=== PATIENT | female | born 1980 | race Caucasian/White ===

== ENCOUNTER 2023-03-20 14:50 | Outpatient (CLI) | payer OTHER, SELFPAY ==
--- NOTE | 2023-03-20 15:00 | CRLHL7_ITS ---
For Patients: As a result of the Century Cures Act, medical imaging exams and procedure reports are released immediately into your electronic medical record. You may view this report before your referring provider. If you have questions, please contact your health care provider. INDICATION: Dysfunctional uterine bleeding and menorrhagia TECHNIQUE: Ultrasound pelvis transvaginal only COMPARISON: None FINDINGS: Uterus: 6.6 centimeter x 3.3 centimeter x 4.0 centimeter. Normal echotexture of the myometrium. No masses. Endometrium: The endometrium measures 5 millimeter in thickness. No sign of endometrial mass or fluid. Right ovary: 2.5 centimeter x 1.5 centimeter x 2.3 centimeter. No ovarian or adnexal masses. Normal arterial and venous blood flow. Left ovary: 2.9 centimeter x 1.8 centimeter x 1.9 centimeter. No ovarian or adnexal masses. Normal arterial and venous blood flow. Cul-de-sac: No significant free fluid. IMPRESSION: Unremarkable pelvic ultrasound. Dictated by Johann Martin MD @ 03/21/2023 8:33:28 AM (Electronically Signed)
== END 2023-03-20 14:51 | disposition home or self-care (01) ==
LOC: US 14:53
PROVIDERS: Visit Provider Obstetrics & Gynecology
DX: N93.9 Abnormal uterine and vaginal bleeding, unspecified (principal)
CPT/HCPCS: 76830

== ENCOUNTER 2023-08-10 09:44 | Outpatient (CLI) | payer MEDICARE, SELFPAY | END 2023-08-10 09:45 | disposition home or self-care (01) | PROVIDERS: PCP Family Medicine; Visit Provider Family Medicine | DX: E03.9 Hypothyroidism, unspecified (principal); F33.9 Major depressive disorder, recurrent, unspecified; Z86.39 Personal history of other endocrine, nutritional and metabolic disease | CPT/HCPCS: 82607; 84439; 84443 ==

== ENCOUNTER 2023-08-15 08:55 | Day surgery (SDC) | payer MEDICARE, SELFPAY ==
[2023-08-15] VITALS (20 sets, daily range): BP systolic 101–157; BP diastolic 67–94; PULSE 66–96; RESP 12–16; TEMP 36.1–36.6; O2SAT 93–98; BMI 31.1
[2023-08-15 09:33] LABS: Ur HCG Qualitative* Negative (Negative)
[2023-08-15] MEDS: LACTATED RINGERS 1000 ML 1,000 ML 100 ML IV ×2 (09:45→12:19)
[2023-08-15] MEDS: SODIUM CHLORIDE 0.9 % (FLUSH) 10 ML SYRINGE IVF (09:45)
[2023-08-15 10:00] LABS: Hemoglobin* 12.9 gm/dL (12.0-16.0)
--- NOTE | 2023-08-15 10:50 | PM.PROC ---
Procedure Note Time Seen by Provider: 13:28 Date Seen: 08/15/23 Date of procedure: 08/15/23 Will [facility] bill your pro fee for this procedure?: Yes Procedure: Preoperative diagnosis: 42-year-old with chronic pelvic pain, menometrorrhagia and dysmenorrhea who desires definitive treatment. Postoperative diagnosis: Same Procedure: Total laparoscopic hysterectomy, bilateral salpingo oophorectomy diagnostic cystoscopy. Anesthesia: General endotracheal, local Surgeon: Kennedi Guadalupe MD Assist: Kaylen Ku MD Estimated blood loss: 100 mL. IV Fluid: 1700 mL Urine output: 100 mL, clear urine at the end of the procedure Drains: Teran to gravity Specimen: Uterus and bilateral fallopian tubes to pathology. Findings: On exam under anesthesia: The uterus was anteverted less than 8 week size, mobile without nodularity or masses palpable. The patient's umbilicus was just superior to the pubic bone secondary to her panniculectomy. The fascia was so tight that her incision that I made in the midline of the abdomen was puckered after it was closed so looks like she has 2 belly buttons. Adnexa without mass or fullness palpable. On laparoscopy: Multiple endometriosis implants in bilateral broad ligaments otherwise uterus, tubes and ovaries appeared normal. Appendix, liver and gallbladder all appeared normal. Procedure: Marlene was taken to the operating room where general anesthetic was found to be adequate. She was placed in the dorsal lithotomy position and an exam under anesthesia was performed with findings stated above. She was then prepped and draped in a normal sterile manner. A Teran catheter was placed. A bivalve speculum was placed in the vaginal canal. A long Allis clamp was placed on the anterior lip of the cervix, in the uterus sounded to 8 cm. A large VCare uterine manipulator was then placed. The Allis clamp and speculum were removed from the cervix. Attention was then turned to performing the laparoscopic portion of the procedure. All incisions were infiltrated with 0.50% Marcaine prior to incising the skin. A horizontal, mid abdominal, 1 cm incision was made and carried through sharply to the underlying layer of fascia. The fascia was grasped with 2 Donald clamps, tented up and incised with the Booth scissors. This incision was extended slightly on the right and left lateral apices. A figure of 8 suture using 0 Vicryl on a UR 6 needle was placed and the tails of the suture grasped with a small Madhavi clamp. The peritoneum was then identified grasped with 2 Madhavi clamps and entered sharply with Metzenbaum scissors. A Coffman trocar was then placed. The abdomen was then insufflated with CO2 gas to a pressure of 15 mm of mercury. Two, pelvic ports were then placed approximately 3-4 finger breaths medial to the ischial crests. The trocar in the RLQ = 5mm, LLQ = 11mm. These were placed under direct visualization. Attention was then turned to performing the hysterectomy. Both ureters were visualized in the normal position bilaterally. The infundibulo-pelvic ligament was grasped doubly cauterized and ligated with the [employer] dissecting forceps. Sequential pedicles were then formed using the [employer] forceps and the tube in ovary removed from the uterus at the cornua and placed in the posterior cul-de-sac. The right ovary and tube were then removed in a similar manner and also placed in the cul-de-sac. The left side of the hysterectomy was performed using the [employer] dissecting forceps. The 1st pedicles were starting with the broad ligament that was cauterized and and bisected. In sequence show pedicles were formed to divide the utero-ovarian ligament. Then sequential pedicles were made through the broad ligament. The posterior leaf of the broad ligament was then divided and sequential pedicles carried down to the level of the VCare cup. The anterior leaf of the broad ligament was then divided down to the level of the anterior aspect of the VCare cup and a bladder flap created. The uterine vessels were then skeletonized. The uterine vessels were then cauterized and divided. Then excess tissue was cleared over the top of the VCare cup using the dissecting forceps. The right side of the hysterectomy was then performed in a similar manner. The Ligasure Valleylab pen with the spatula attachment was then used to perform the colpotomy incising around the VCare cup. The uterus was removed and the fundus placed in the vaginal canal to maintain insufflation. The vaginal cuff was then reapproximated using 2-0 V lock suture in a running manner. All the pedicles and vaginal cuff were then closely visualized and hemostasis obtained with bipolar cautery using the Power[employer] dissecting forceps or the [employer] pen with the spatula. The the uterus was removed from the vaginal canal and sent to pathology. The Teran catheter was briefly removed. A diagnostic cystoscopy was performed using normal saline as the insufflation medium. The dome of the bladder was noted to be without injury and no evidence of any sutures from the vaginal cuff causing injury. Normal urine flow was noted through both ureteral orifices. Fluorescein IV was used to visualize the urine more easily. The Teran catheter was then replaced. Attention was then returned to the abdomen where hemostasis was verified. [Kely was applied to the vaginal cuff.] The CO2 pressure decreased to 8mmHG and hemostasis verified. The fascia in the LLQ incision was approximated with 0-Vicryl suture using the [employer] fascial closure device. This was closed under direct visualization with the laparoscope. The fascia in the umbilical incision was reapproximated using 0 Vicryl on a UR 6 needle. All trocars were removed under direct visualization. CO2 gas was allowed to escape the infraumbilical port prior to its removal. All skin incisions were re-approximated using 4-0 Monocryl in a running subcuticular manner, Exofin skin adhesive gel and adhesive bandages placed. The patient tolerated this procedure well. Sponge, lap and instrument counts were correct x2 at the end of the procedure and the patient was taken to the recovery area in stable condition. The patient received 2gm IV ancef prior to the start of the procedure. Anesthesia: GETA and local Estimated blood loss (mL): 50 IV fluids (mL): 1,700 Urine output (mL): 100 Pathology: specimen obtained, sent to pathology Condition: stable Disposition: PACU
[2023-08-15] MEDS: CEFAZOLIN 1 GM inj 3 GM IVP (11:03)
--- NOTE | 2023-08-15 13:15 | W.PM.NB ---
Nerve Block Nerve Block Time Seen by Provider: 10:46 Date Seen: 08/15/23 Type of block requested by surgeon for post-operative analgesia: TAP Side: bilateral Time out performed: Yes Verification of patient name: Yes Verification of date of : Yes Name of person performing procedure: KATIE Boyce Continuous monitoring Was continuous monitoring of O2 sat, B/P, property assessment monitor, recorded every 15 minutes?: Yes Procedure Checklist: sterile prep, needles and gloves Ultrasound guided. Images saved: Yes Medications given in 5ml increments after negative aspiration: Marcaine (30 ml total) %: 0.5 mL: 15 Needle gauge: 20 and Exparel (10 ml) mL: 5 Needle gauge: 20 Patient tolerated procedure well: Yes Block Charges Block Charge (with Pro Fee): TAP Bilateral Use of Ultrasound Machine for Block: Yes- US Guidance/pain block
[2023-08-15] MEDS: BUPIVACAINE 0.5% 30 ML INJECTION (13:25)
--- NOTE | 2023-08-15 13:37 | W.ANESCHARGE ---
Anesthesia Charges Start Date/Time Anesthesia Start Date: 08/15/23 Anesthesia Start Time: 10:45 Stop Date/Time Anesthesia Stop Date: 08/15/23 Anesthesia Stop Time: 13:39
[2023-08-15] MEDS: fentaNYL 100 MCG/2 ML inj 50 MCG IVP ×2 (13:43→13:52)
[2023-08-15] MEDS: HYDROmorphone 0.5 mg/0.5 ml inj IVP ×4 (13:43→16:34)
--- NOTE | 2023-08-15 14:04 | W.PM.H&PU ---
History & Physical Update History & Physical Update H&P Reviewed and patient assessed: No changes noted
[2023-08-15] MEDS: LACTATED RINGERS 1000 ML 1,000 ML 125 ML IV ×2 (15:01→22:30)
[2023-08-15] MEDS: ONDANSETRON 2 MG/ML inj 4 MG IVP ×2 (16:08→23:56)
[2023-08-15] MEDS: OXYCODONE 5 MG TABLET PO ×2 (18:22→22:17)
[2023-08-15] MEDS: KETOROLAC 30 MG/ML inj IVP (19:56)
[2023-08-15] MEDS: GABAPENTIN 300 MG CAPSULE 600 MG PO (21:12)
--- NOTE | 2023-08-15 22:56 | PC.NURSE ---
End of Shift: Patient pleasant and cooperative. Afebrile. Lap sites to abdomen glued, C/D/I. Very scant amount of bleeding noted on riky-pad. Teran patent. Patient up walking in room x1 with SBA. Patient had a 50 mL emesis x1 and PRN Zofran given. Able to tolerate regular diet by the end of shift with no further nausea. Rating pain in abdomen 3-7/10 and PRN Dilaudid given x1 and PRN Oxycodone x2.
[2023-08-16 00:08] VITALS: RESP 16; O2SAT 97
[2023-08-16] MEDS: KETOROLAC 30 MG/ML inj IVP (01:58)
[2023-08-16] MEDS: OXYCODONE 5 MG TABLET PO ×3 (02:02→09:36)
[2023-08-16 03:00] VITALS: BP 140/74; PULSE 74; RESP 16; TEMP 36.6; O2SAT 98
[2023-08-16] MEDS: OMEPRAZOLE 20 MG CAPSULE DR 40 MG PO (06:05)
[2023-08-16] MEDS: LEVOTHYROXINE 125 MCG TABLET PO (06:06)
[2023-08-16 06:09] LABS: Hemoglobin* 11.5 gm/dL (12.0-16.0)
--- NOTE | 2023-08-16 06:43 | PC.NURSE ---
End of shift [id number]: A&O, pleasant and cooperative. VSS. Pt reports pain in abdomen 4-8/10. PRN oxycodone given x2. Pt stated adequate relief. Pt reported one bout of nausea. Zofran given w/ stated relief. Lap sites glued and are c/d/i. Minimal bleeding from vagina noted. Teran removed this morning and saline locked. ?
[2023-08-16 08:02] VITALS: BP 154/87; PULSE 60; RESP 18; TEMP 36.6; O2SAT 98
[2023-08-16] MEDS: ACETAMINOPHEN 500 MG TABLET 1000 MG PO (08:19)
--- NOTE | 2023-08-16 08:54 | PM.GYNDS1 ---
DS: Providers Provider Time Seen by Provider: 08:00 Date Seen: 08/16/23 Primary care physician: Kailyn Horn MD Attending Physician on discharge: Kennedi Guadalupe MD Date of Discharge: 08/16/23 [facility]-Discharge Summary Hospital Course Hospital Course Narrative: Patient is a 42 year old admitted on 08/15/2023 for postoperative care following total laparoscopic hysterectomy, bilateral salpingo oophorectomy. Indication for surgery: Pelvic pain, endometriosis. Intraoperative findings were notable for endometriosis, please see operative note for complete details. She had an uncomplicated surgery. Postoperative course has been uneventful. Vitals have been stable. She has remained afebrile. Today, on postoperative day 1, she reports the pain is well controlled. She notes better coverage from her tap block on the left versus right. Pain is tolerable in general, but has been utilizing oxycodone 10 mg q.4h p.r.n. She has been able to ambulate Without difficulty. She is tolerating regular diet. She is passing flatus. Teran catheter has been removed, and she is voiding without difficulty. Minimal vaginal bleeding. Time Spent with Patient Time attestation: Total time spent providing and/or coordinating discharge services: Time spent: Less than 30 minutes [facility] - Exam Physical Exam: Vital signs: Temp Pulse Resp BP Pulse Ox O2 Del Method 97.8 F 60 18 154/87 H 98 Room Air 08/16/23 08:02 08/16/23 08:02 08/16/23 08:02 08/16/23 08:02 08/16/23 08:02 08/16/23 08:02 Narrative: General: No acute distress Psych: Alert and oriented x 3, full affect HEENT: Normocephalic, atraumatic Abdomen: Soft, nondistended. Tenderness to even light touch on right mid to low abdomen. No superficial skin changes. No tenderness to deep palpation, no rebound or guarding. Incisions are well approximated without erythema/drainage, superficial suture glue noted. [facility] - DS: Data Data Completed and Pending Labs on day of discharge: Labs from last 24 hours 08/16/23 08/15/23 08/15/23 05:43 09:52 09:25 Hgb 11.5 L 12.9 Urine HCG, Qual Negative Blood Type A Negative Antibody Screen NEGATIVE Procedures Procedures: Procedures Operation Date: 08/15/23 10:15 Actual Procedure Side Surgeon p Total Laparoscopic Hysterectomy, Bilateral Salpingo-Oophorectomy, Diagnostic Cystoscopy Kennedi Guadalupe MD Discharge Plan Discharge Disposition: Home, Self-Care Discharging Surgeon: Michelle Cano Follow-Up Appointment: Already scheduled: 1. 2-3 weeks. 2. 6 weeks. Prescriptions: New acetaminophen 325 mg Tablet 1,000 mg PO Q4H PRN (Reason: minor pain) Qty: 100 0RF docusate sodium 100 mg Capsule 100 mg PO BID PRN (Reason: Constipation) Qty: 100 0RF oxycodone 5 mg Tablet 5 mg PO 3XD PRN (Reason: Moderate Pain) Qty: 21 0RF cyclobenzaprine 10 mg tablet 10 mg PO HS PRN (Reason: muscle spasm) Qty: 30 3RF estradiol [Vivelle-Dot] 0.1 mg/24 hr patch semiweekly 1 patch transdermal 2XW Qty: 8 2RF Rx Instructions: Apply 1 patch for 3 days alternating with 1 patch for 4 days each week. ondansetron 4 mg tablet,disintegrating 4 mg PO Q8H PRN (Reason: nausea and vomiting) Qty: 20 0RF Continued bupropion HCl [Wellbutrin XL] 150 mg tablet extended release 24 hr 450 mg PO QAM Qty: 240 3RF metformin 500 mg tablet 500 mg PO QDAY Qty: 90 3RF omeprazole 40 mg capsule,delayed release(DR/EC) 40 mg PO QDAY Qty: 90 3RF albuterol sulfate 90 mcg/actuation aerosol powdr breath activated 2 inh inhalation Q6H PRN (Reason: shortness of breath) Qty: 1 2RF eszopiclone [Lunesta] 3 mg tablet 3 mg PO QHS Qty: 90 1RF pregabalin [Lyrica] 50 mg capsule 50 mg PO BID Qty: 60 1RF multivitamin Tablet 1 tab PO QDAY gabapentin 300 mg capsule 600 mg PO 3XD desvenlafaxine succinate 100 mg tablet extended release 24 hr 100 mg PO DAILY levothyroxine 125 mcg capsule 125 mcg PO QDAY Qty: 60 0RF Rx Instructions: please dispense whatever formulation is covered, levothyroxine sodium or other Discontinued drospirenone-ethinyl estradiol [Sarah (28)] 3-0.03 mg tablet 1 tab PO QDAY Qty: 84 3RF peg 3350-electrolytes [Golytely] 236-22.74-6.74 -5.86 gram recon soln 240 ml PO Q10M Qty: 4000 0RF Rx Instructions: until fecal effluent is clear No Action vilazodone [Viibryd] 40 mg tablet 40 mg PO DAILY Rx Instructions: must administer with a meal/food Discharge Diet: Regular Patient Instructions: Laparoscopic Hysterectomy (DC), Laparoscopic Hysterectomy (GEN) Additional Instructions: ACTIVITY RESTRICTIONS: - Nothing vaginally for 6 weeks: no tampons/intercourse - No driving while taking narcotic pain medication during the day. 1-2 weeks. - Lifting restriction: Maximum of 20 pounds for 4 weeks. (A gallon of milk is 9 pounds). - High impact or core exercises: 3 weeks. - Submerge in water (bath/pool/tsang): 2 weeks. NO RESTRICTIONS for: - Walking - Going up/down stairs - Showering - Being the passenger in a car. Symptoms to report to your doctor - Bleeding that is red, like a moderate period - Passing clots larger than the size of a golf ball - Pain not relieved by prescribed medication - Fever above 100.4 degrees Fahrenheit - A foul vaginal odor - Decrease in urination or painful, frequent urinating - Chest pain - Shortness of breath - Tenderness or pain with redness and/swelling in the calf(s) of your leg Follow-up Appointments with Kennedi Guadalupe MD: [facility]. [facility] for an incision check. 2. A 6 week postop visit to verify that the vaginal cuff is well-healed. Forms: Work/School Release Follow-up: Kennedi Guadalupe MD [Staff Physician] - Kailyn Horn MD [Primary Care Provider] - Discharge Orders: Discharge Order (Routine); Ordered 08/16/23 Ordered By: Michelle Cano
[2023-08-16] MEDS: DESVENLAFAXINE SUCCINATE ER 50 MG TAB 100 MG PO (09:08)
[2023-08-16] MEDS: GABAPENTIN 300 MG CAPSULE 600 MG PO (09:09)
[2023-08-16] MEDS: METFORMIN 500 MG TABLET PO (09:09)
[2023-08-16] MEDS: buPROPion XL 150 MG TABLET 450 MG PO (09:10)
--- NOTE | 2023-08-16 10:36 | PC.NURSE ---
Discharge: Patient pleasant and cooperative. Patient vitally stable, lungs clear, BS WNL, IV removed, catheter intact. Patient lap sites x3 intact with no drainage. Patient rates abdominal pain 6-7/10, tylenol given once and 10mg of oxy given twice. Patient SBA. Patient urinated 200 ml. Patient at very little of breakfast due to no feeling well. Patient used active ice to abdomen. Patient left the floor to home by wheelchair at 1022.
== END 2023-08-16 10:22 | disposition home or self-care (01) ==
LOC: OR 08:56 → MEDSURG 08:59
PROVIDERS: PCP Family Medicine; Visit Provider Obstetrics & Gynecology
PROC: 0UT94ZZ Resection of Uterus, Percutaneous Endoscopic Approach (ICD-10-PCS; CPT 58571; principal; 2023-08-15 10:15)
DX: R10.2 Pelvic and perineal pain (principal); N80.3C3 Endometriosis of bilateral uterosacral ligament(s), unspecified depth; N92.1 Excessive and frequent menstruation with irregular cycle; N94.6 Dysmenorrhea, unspecified; G89.18 Other acute postprocedural pain
CPT/HCPCS: 58571; 00840; 36415; 64488; 76942; 81025; 82962; 85018; 86850; 86900; 86901; 88307; A9270; C9290; J0330; J0665; J0690; J1100; J1170; J1885; J2250; J2405; J2704; J2710; J3010; J3490; J7120

== ENCOUNTER 2023-09-14 08:49 | Outpatient (CLI) | payer MEDICARE, SELFPAY | END 2023-09-14 08:50 | disposition home or self-care (01) | LOC: NFLDREF 09-15 11:52 | PROVIDERS: PCP Family Medicine; Referring Provider Family Medicine; Visit Provider Family Medicine | DX: Z86.39 Personal history of other endocrine, nutritional and metabolic disease (principal); E03.9 Hypothyroidism, unspecified | CPT/HCPCS: 84439; 84443 ==

== ENCOUNTER 2023-10-19 11:17 | Outpatient (CLI) | payer MEDICARE, SELFPAY | END 2023-10-19 11:18 | disposition home or self-care (01) | PROVIDERS: PCP Family Medicine; Visit Provider Family Medicine | DX: E03.9 Hypothyroidism, unspecified (principal); Z86.39 Personal history of other endocrine, nutritional and metabolic disease; Z98.84 Bariatric surgery status | CPT/HCPCS: 82306; 82607; 84439; 84443 ==

== ENCOUNTER 2023-10-28 19:28 | Emergency (ER) | payer MEDICARE, SELFPAY ==
[2023-10-28] VITALS (10 sets, daily range): BP systolic 107–129; BP diastolic 67–81; PULSE 73–82; RESP 16; TEMP 37.4; O2SAT 94–100; BMI 29.9
--- NOTE | 2023-10-28 19:49 | CRLHL7_ITS ---
For Patients: As a result of the Century Cures Act, medical imaging exams and procedure reports are released immediately into your electronic medical record. You may view this report before your referring provider. If you have questions, please contact your health care provider. INDICATION: Severe lower abdominal pain. TECHNIQUE: CT abdomen and pelvis acquired with 91 cc Isovue 370 IV contrast. COMPARISON: None. FINDINGS: Lower chest: Unremarkable. Liver: Unremarkable. Normal in size and attenuation. No suspicious masses. Gallbladder and bile ducts: Unremarkable. No stones or inflammation. No biliary dilatation. Pancreas: Unremarkable. No mass or inflammation. Spleen: Unremarkable. Normal in size. No masses. Adrenal glands: Unremarkable. No nodules. Kidneys: Unremarkable. No suspicious masses, stones, or hydronephrosis. GI tract: Gastric bypass. Normal in caliber. No sign of mass or inflammation. Normal appendix. Vasculature: Abdominal aorta is normal in caliber. Mesenteric arteries are patent. Lymph nodes: No lymphadenopathy. Peritoneum/Abdominal Wall: Large 5.7 x 4.5 x 5.2 centimeter heterogeneous cystic mass in the central lower abdomen adjacent to the jejunojejunum anastomosis (series 2/image 85, series 4/image 44) with some surrounding inflammatory stranding. Ventral hernia repair. No free air or significant free fluid. Pelvis: Hysterectomy. Bones: Unremarkable for age. IMPRESSION: Large 5.7 x 4.5 x 5.2 centimeter heterogeneous multiloculated cystic mass in the central lower abdominal mesentery adjacent to the jejunojejunal anastomosis. Differential includes phlegmonous collection secondary to anastomotic leak although malignancy, including lymphoma is not excluded. Please note that all CT scans at this facility use dose modulation, iterative reconstruction, and/or weight-based dosing when appropriate to reduce radiation dose to as low as reasonably achievable. Dictated by Fuentes Rodrigues MD @ 10/28/2023 9:53:02 PM (Electronically Signed)
--- NOTE | 2023-10-28 19:50 | ED_ITS ---
HPI - Abdominal Pain General Chief Complaint: Abdominal Pain Stated Complaint: severe abdominal pain Time Seen by Provider: 10/28/23 19:44 History of Present Illness HPI narrative: This 42-year-old female comes in reporting abdominal pain. She states that it began a couple weeks ago and has been constant since then and worsening. She called her primary physician who stated that she may need a CT scan. The patient does not report any fever, nausea, vomiting, or diarrhea. She does have a history of gastric bypass. She states that she has not cared to eat much of anything over the past several days. She has not had bowel movements also during these past few days. Related Data Home Medications Medication Instructions Recorded Confirmed multivitamin 1 tab PO QDAY 05/23/23 10/19/23 bupropion HCl 150 mg 24 hr tablet, 300 mg PO QAM 09/08/23 10/19/23 extended release (Wellbutrin XL) Previous Rx's Medication Instructions Recorded eszopiclone 3 mg tablet (Lunesta) 3 mg PO QHS #90 tabs 06/26/23 metformin 500 mg tablet 500 mg PO QDAY #90 tabs 06/26/23 omeprazole 40 mg capsule,delayed 40 mg PO QDAY #90 caps 06/26/23 release pregabalin 50 mg capsule (Lyrica) 50 mg PO BID #60 caps 08/10/23 acetaminophen 325 mg tablet 1,000 mg (3.0769 x 325 mg) PO Q4H 08/15/23 PRN minor pain #100 tabs estradiol 0.1 mg/24 hr semiweekly 1 patch transdermal 2XW #8 ea 08/16/23 transdermal patch (Vivelle-Dot) albuterol sulfate 90 mcg/actuation 2 puff PO Q6H PRN for dyspnea #8.5 09/07/23 aerosol inhaler grams escitalopram oxalate 20 mg tablet 20 mg PO QDAY #90 tabs 09/08/23 (Lexapro) levothyroxine 112 mcg tablet 112 mcg PO QDAY #90 tabs 09/21/23 Allergies Allergy/AdvReac Type Severity Reaction Status Date / Time Sulfa (Sulfonamide Allergy Severe Hives Verified 10/19/23 11:05 Antibiotics) lisinopril Allergy Severe hives & Uncoded 10/19/23 11:05 cough Review of Systems Status of ROS Reports: 10 or more systems reviewed and unremarkable except as noted in History and below Narrative Constitutional: No fevers, no weight gain or loss. Eyes: No discharge. No vision changes. HENT: No congestion, no sore throat, no ear pain. Cardiovascular: No chest pain, no palpitations. Respiratory: No shortness of breath, no wheezes, no cough. Gastrointestinal: No vomiting, no diarrhea. Abdominal pain as described above. Genitourinary: No dysuria, no hematuria. Musculoskeletal: Normal range of motion. Skin: No rashes, no pruritis. Neurological: No dizziness, weakness, sensory change, speech change. Endo/Heme/Allergies: No bruising or bleeding. No polydipsia. Pysch: no suicidality, no anxiety, no insomnia. All other systems reviewed and are negative. [facility] Medical History (Updated 10/28/23 @ 20:52 by Roney Doshi MD) History of pre-eclampsia ?Z87.59 - Personal history of other complications of , childbirth and the puerperium (ICD-10) History of gestational diabetes mellitus ?Z86.32 - Personal history of gestational diabetes (ICD-10) History of vaginal delivery History of type 2 diabetes mellitus ?Z86.39 - Personal history of other endocrine, nutritional and metabolic disease (ICD-10) History of hypertension ?Z86.79 - Personal history of other diseases of the circulatory system (ICD- 10) Surgical History (Updated 08/18/23 @ 17:01 by Kennedi Guadalupe MD) S/P laparoscopic hysterectomy (08/15/23) ?Z90.710 - Acquired absence of both cervix and uterus (ICD-10) History of tonsillectomy ?Z90.89 - Acquired absence of other organs (ICD-10) H/O thumb surgery ?Z98.890 - Other specified postprocedural states (ICD-10) S/P panniculectomy (08/02/19) ?Z98.890 - Other specified postprocedural states (ICD-10) History of Oli-en-Y gastric bypass (01/08/18) ?Z98.84 - Bariatric surgery status (ICD-10) H/O ventral hernia repair (06/10/20) ?Z98.890 - Other specified postprocedural states (ICD-10) ?Z87.19 - Personal history of other diseases of the digestive system (ICD-10) History of back surgery (01/09/23) ?Z98.890 - Other specified postprocedural states (ICD-10) Family History (Updated 03/15/23 @ 16:25 by Kennedi Guadalupe MD) Grandfather Heart disease Stroke High blood pressure Uncle Heart disease Stroke Aunt Stroke Mother Cancer High blood pressure High cholesterol Diabetes Grandmother Thyroid disease High blood pressure Diabetes Sister Thyroid disease High blood pressure High cholesterol Social History (Updated 03/15/23 @ 16:26 by Kennedi Guadalupe MD) Narrative: Cis-gender, heterosexual woman. Relationship status: Single. Education: High school graduate Occupation: Disabled Tobacco: Former smoker, quit 2005 E-cigarettes: No Alcohol: Yes. 2 servings per year. Illicit/recreational drugs: No Safety concerns at home or work: No Dietary restriction(s): No. Exercise: No. What is your current living situation?: I presently have a place to live Problems where you live: no known problems In the past 12 months, utilities in danger of being shut off: no In past 12 months, lack of transportation kept you from medical appts, meetings, work, or getting things needed for daily living: no In the past 12 mos, have been you worried that your food would run out before you had money to buy more?: never true In the past 12 mos, the food you bought just didn't last and you didn't have money to buy more?: never true Highest level of school completed/degree received: high school graduate Smoking Status: Former smoker What tobacco products do you use: cigarettes Years smoked: 12 Smoking quit date/years: >15 years ago Do you use any of these nicotine containing products: None Second hand tobacco smoke exposure: No How often do you have a drink containing alcohol: never How often do you have six or more drinks on one occasion: Never AUDIT-C Alcohol total score: 0 Non-prescribed substance use: denies use Caffeine: Yes How often does anyone, including family, friends and others, physically hurt you : never How often does anyone, including family, friends and others, insult or talk down to you: never How often does anyone, including family, friends and others, threaten you with harm: never How often does anyone, including family, friends and others, scream or curse at you: never Little interest or pleasure in doing things: more than half the days Feeling down, depressed, or hopeless: more than half the days service: No Exam Narrative: Exam Narrative: Constitutional: Well-developed, well-nourished, no acute distress. HEENT: Normocephalic, atraumatic. Neck: Normal range of motion. Nontender. Supple. Heart: Regular. No murmurs. Normal rate. Intact distal pulses. Lungs: Clear to auscultation. No chest discomfort. No wheezes, rhonchi, or rales. Abdomen: Decreased bowel sounds. Diffuse tenderness throughout the abdomen. Rebound tenderness is present. Genitalia: Deferred. Back: No midline tenderness. Normal range of motion. Extremities: Normal range of motion. No injury. Skin: Intact. No rash. Warm. No erythema or pallor. Neurologic: No altered sensation. No weakness. Alert and oriented. Psychiatric: No suicidality. No anxiety or depression. No insomnia. Nursing notes and vitals signs are reviewed. Const: Vital Signs, click to edit/add: Vital Signs - 24 hr 10/28/23 19:32 Temperature 99.4 F Pulse Rate [Left P ulse Oximeter] 74 Respiratory Rate 16 Blood Pressure [Ri ght Upper Arm] 122/80 Pulse Oximetry 100 Oxygen Delivery Me thod Room Air Course Vital Signs Vital signs: Initial Vital Signs Temperature 99.4 F 10/28/23 19:32 Temperature Source Oral 10/28/23 19:32 Pulse Rate 74 10/28/23 19:32 Pulse Rhythm Regular 10/28/23 19:32 Respiratory Rate 16 10/28/23 19:32 Blood Pressure 122/80 10/28/23 19:32 Blood Pressure Mean 94 10/28/23 19:32 Blood Pressure Position Sitting 10/28/23 19:32 Pulse Oximetry 100 10/28/23 19:32 Oxygen Delivery Method Room Air 10/28/23 19:32 Vital Signs Temperature 99.4 F 10/28/23 19:32 Pulse Rate 74 10/28/23 19:32 Respiratory Rate 16 10/28/23 19:32 Blood Pressure 122/80 10/28/23 19:32 Pulse Oximetry 100 10/28/23 19:32 Oxygen Delivery Method Room Air 10/28/23 19:32 Temperature 99.4 F 10/28/23 19:32 Pulse Rate 74 10/28/23 19:32 Respiratory Rate 16 10/28/23 19:32 Blood Pressure 122/80 10/28/23 19:32 Pulse Oximetry 100 10/28/23 19:32 Oxygen Delivery Method Room Air 10/28/23 19:32 MDM - Abdominal Pain MDM Narrative Medical decision making narrative: This patient comes in with abdominal pain over the past couple weeks that she states is rather constant and seems to be getting worse. She arrives with normal vital signs. An IV was established and labs are acquired. A CT scan of the abdomen and pelvis is ordered also. Results were these labs and imaging tests are pending at the end of my shift. Care for this patient will be transferred to the oncoming physician. Discharge Plan Discharge Clinical Impression: Abdominal pain Prescriptions: No Action metformin 500 mg tablet 500 mg PO QDAY Qty: 90 3RF omeprazole 40 mg capsule,delayed release(DR/EC) 40 mg PO QDAY Qty: 90 3RF eszopiclone [Lunesta] 3 mg tablet 3 mg PO QHS Qty: 90 1RF pregabalin [Lyrica] 50 mg capsule 50 mg PO BID Qty: 60 1RF multivitamin Tablet 1 tab PO QDAY bupropion HCl [Wellbutrin XL] 150 mg tablet extended release 24 hr 300 mg PO QAM escitalopram oxalate [Lexapro] 20 mg tablet 20 mg PO QDAY Qty: 90 3RF acetaminophen 325 mg Tablet 1,000 mg PO Q4H PRN (Reason: minor pain) Qty: 100 0RF estradiol [Vivelle-Dot] 0.1 mg/24 hr patch semiweekly 1 patch transdermal 2XW Qty: 8 2RF Rx Instructions: Apply 1 patch for 3 days alternating with 1 patch for 4 days each week. albuterol sulfate 90 mcg/actuation HFA aerosol inhaler 2 puff PO Q6H PRN (Reason: for dyspnea) Qty: 8.5 0RF levothyroxine 112 mcg tablet 112 mcg PO QDAY Qty: 90 3RF Follow Up/Referrals: Kailyn Horn MD [Primary Care Provider] -
--- OUTSIDE RECORDS SUMMARY | 2023-10-28 20:37 | XMS_ITS | Encounter Summary ---
Author Name Unknown Organization [facility] Address [address] [place] [address]. [place] [address] Care Team Providers Care Threading Machine Setter Name Role Phone Amy Villalba Ra, APRN ENGINEERING ADMINISTRATOR Unavailable [phone] Amy Villalba Ra CENTRIFUGE SEPARATOR TENDER ENGINEERING ADMINISTRATOR Primary Care Provid er Renetta MckeonC Unavailable [phone] Amy Villalba Ra, APRN ENGINEERING ADMINISTRATOR Unavailable [phone] Pura De La Garza APRN ENGINEERING ADMINISTRATOR Unavailable Gabe Moreira MD Unavailable Dov Posadas PA-C Unavailable [phone] Reason for Visit * Reason Comments Medication Refill Encounter Details Date Type Department Care Team (Late st Contact Info) Description 09/01/2023 Refill [facility] [address] [place] [address] Amy Villalba Ra CENTRIFUGE SEPARATOR TENDER ENGINEERING ADMINISTRATOR [address] [place] [address] Medication Refill Social History Tobacco Use Types Packs/Day Years Used Date Smoking Tobacco: Former Cigarettes 0 0 Smokeless Tobacco: Never Comments:5 cigarettes a buffy h Alcohol Use Standard Drinks/Week Comments Yes 0 (1 standard drink = 0.6 oz pur e alcohol) once a year PHQ-2 Answer Date Recorded PHQ-2 Score 2 05/11/2023 Adolescent Education Answer Date Record ed Getting School Help Needed Not on file 07/11 Sex and Gender Information Value Date Recorded Sex Assigned at Not on file Gender Identity Female 05/31/2021 11:45 AM CDT Sexual Orientation Straight 05/31/2021 11 :45 AM CDT documented as of this encounter Plan of Treatment Not on file documented as of this encounter Visit Diagnoses Diagnosis Gastroesophageal reflux disease without esophagitis Esophageal reflux Major depressive disorder, recurrent episode, moderate (H) Major depressive disorder, recurrent episode, moderate Acquired hypothyroidism Unspecified hypothyroidism documented in this encounter Additional Health Concerns Assessment Noted Time PHQ-9 Depression Total Score: 10 023 8:03 AM CDT documented as of this encounter Care Teams Threading Machine Setter Relationship Specialty Start Date End Date Amy Villalba Ra, APRN ENGINEERING ADMINISTRATOR [address] [place] [address] PCP - General Family Practice 01/13/22 Amy Villalba Ra, APRN ENGINEERING ADMINISTRATOR [address] [address] [place] [address] Assigned PCP 09/19/21 Renetta Mckeon, PADagobertoC [address] [place] [address] Physician Gold Marker Dermatology 05/03/22 Amy Villalba Ra, APRN ENGINEERING ADMINISTRATOR [address] [address] [facility] [place] [address] Referring Physician Family Practice 11/01/22 Pura De La Garza APRN ENGINEERING ADMINISTRATOR [address] [place] [address] Nurse Practitioner Dermatology 11/01/22 Gabe Moreira MD [address] [place] [address] Assigned Neuroscience Provider 12/17/22 Dov Posadas PA-C [address] [place] [address] Assigned Surgical Provider 04/08/23 documented as of this encounter
--- OUTSIDE RECORDS SUMMARY | 2023-10-28 20:37 | XMS_ITS | Encounter Summary ---
Author Name Unknown Organization [facility] Address [address] [place] [address]. [place] [address] Care Team Providers Care Sheet Metal Worker Supervisor Name Role Phone Amy Villalba Ra, APRN CELL TENDER Unavailable [phone] Amy Villalba Ra RUSH SEATER CELL TENDER Primary Care Provid er Renetta MckeonC Unavailable Amy Villalba Ra, APRN CELL TENDER Unavailable Pura De La Garza APRN CELL TENDER Unavailable Gabe Moreira MD Unavailable Dov Posadas PA-C Unavailable Reason for Visit * Reason Onset Date Comments Orders 05/15/2023 Physical Therapy referral Encounter Details Date Type Department Care Team (Late st Contact Info) Description 05/15/2023 Telephone [facility] [address] [place] [address] Amy Villalba Ra, APRN CELL TENDER [address] [place] [address] Orders (Physical Therapy referral ) Social History Tobacco Use Types Packs/Day Years [...] Orientation Straight 05/31/2021 11 :45 AM CDT COVID-19 Exposure Response Date Recorded In the last 10 days, have yo u been in contact with someone who was confirmed or suspected to have Coronavirus/COVID-19? No / Unsure 05/11/2023 8:01 AM CDT documented as of this encounter Miscellaneous Notes * Telephone Encounter - Michaelle Alberto - 05/18/2023 11:13 AM CDT Called [facility]. Merary will be completing a referral form which they will fax to us. The provider will need to sign it and we will fax it back. Awaiting form to come in on [facility] fax machine. Michaelle Alberto Debridging Machine Operator * Telephone Encounter - Amy Villalba Ra, APRN CNP - 05/18/2023 8:25 AM CDT They were going to fax order for me to sign. I have not received yet. RADHA * Telephone Encounter - Maria Luz Allan - 05/16/2023 10:38 AM CDT No physical therapy order in chart? Did PCP want to order physical therapy. Carlie Chang Debridging Machine Operator * Telephone Encounter - Lillie Maldonado - 05/15/2023 3:33 PM CDT Merary Physical Therapist with [facility] calls to ask for Physical Therapy order to be faxed over documented in this encounter Plan of Treatment Not on file documented as of this encounter Visit Diagnoses Not on filedocumented in this encounter Additional Health Concerns Assessment Noted Time PHQ-9 Depression Total Score: 10 023 8:03 AM CDT documented as of this encounter Care Teams Sheet Metal Worker Supervisor Relationship Specialty Start Date End Date Amy Villalba Ra, APRN CELL TENDER [address] [place] [address] PCP - General Family Practice 01/13/22 Amy Villalba Ra, APRN CELL TENDER [address] [place] [address] Assigned PCP 09/19/21 Renetta Mckeon PA-C [facility] [place] [address] Physician Manager Warehouse Dermatology 05/03/22 Amy Villalba Ra, APRN CELL TENDER [address] [place] [address] Referring Physician Family Practice 11/01/22 Pura De La Garza APRN CELL TENDER [address] [place] [id number] Nurse Practitioner Dermatology 11/01/22 Gabe Moreira MD [address] [place] [address] [address] [place], [place] [address] Assigned Neuroscience Provider 12/17/22 Dov Posadas PA-C [address] [address] Assigned Surgical Provider 04/08/23 documented as of this encounter
--- OUTSIDE RECORDS SUMMARY | 2023-10-28 20:37 | XMS_ITS | Clinical Summary ---
Author Name Unknown Organization [facility] Address [address] [place] [address] Care Team Providers Care Hand Stitcher Name Role Phone Amy Villalba Ra, APRN BIG DATA DEVELOPER Unavailable Amy Villalba Ra, APRN BIG DATA DEVELOPER Primary Care Provid er Renetta Mckeon PA-C Unavailable Amy Villalba Ra, APRN BIG DATA DEVELOPER Unavailable Pura De La Garza APRN BIG DATA DEVELOPER Unavailable Gabe Moreira MD Unavailable Dov Posadas-C Unavailable Allergies Active Allergy Reactions Criticality Noted Date Comments Lisinopril Cough Medium 09/25/2008 Sulfa Antibiotics Hives 03/24/2006 Medications Medication Sig Dispensed Refills Start Date End Date Status Multiple Vitamins/Iron TABSIndications:Baria tric surgery status TAKE 1 TABLET BY MOUTH DAILY 90 tablet 3 01/14/2021 Active Cholecalciferol (D3-1000) 25 MCG (1000 UT) CAPSIndications:S/P bariatric surgery TAKE 2 CAPSULES BY MOUTH DAILY 180 capsule 3 01/14/2021 Active acetaminophen (TYLENOL) 500 MG tabletIndications:Int ernal hernia Take 1-2 tablets (500-1,000 mg) by mouth 3 times daily 100 tablet 1 11/25/2022 Active cyclobenzaprine (FLEXERIL) 5 MG tabletIndications:Acu te radicular low back pain Take 1-2 tablets (5-10 mg) by mouth 3 times daily as needed for muscle spasms 60 tablet 0 12/15/2022 Active omeprazole (PRILOSEC) [address] capsuleIndications:Ba riatric surgery status,GERD without esophagitis Take 1 capsule (40 mg) by mouth daily 90 capsule 1 04/04/2023 Active eszopiclone (LUNESTA) 3 MG tabletIndications:Ins omnia, unspecified type TAKE 1 TABLET(3 MG) BY MOUTH AT BEDTIME 30 tablet 1 05/09/2023 Active drospirenone-ethinyl estradiol (MAX) 3-0.03 MG tabletIndications:PCO S (polycystic ovarian syndrome) TAKE 1 TABLET BY MOUTH DAILY 84 tablet 1 06/01/2023 Active escitalopram (LEXAPRO) 20 MG tabletIndications:[place] or depressive disorder, recurrent episode, moderate (H),Anxiety TAKE 1 TABLET(20 MG) BY MOUTH DAILY 90 tablet 1 07/13/2023 Active omeprazole (PRILOSEC) [address] capsuleIndications:Ga stroesophageal reflux disease without esophagitis TAKE 1 CAPSULE(20 MG) BY MOUTH DAILY 90 capsule 1 09/04/2023 Active buPROPion (WELLBUTRIN XL) 150 MG 24 hr tabletIndications:[place] or depressive disorder, recurrent episode, moderate (H) TAKE 3 TABLETS(450 MG) BY MOUTH DAILY 270 tablet 1 09/04/2023 Active levothyroxine (SYNTHROID/LEVOTHROID ) 150 MCG tabletIndications:Acq uired hypothyroidism TAKE 1 TABLET(150 MCG) BY MOUTH DAILY 90 tablet 1 09/04/2023 Active metFORMIN (GLUCOPHAGE XR) 500 MG 24 hr tabletIndications:Typ e 2 diabetes mellitus without complication, without long-term current use of insulin (H) TAKE 1 TABLET(500 MG) BY MOUTH DAILY WITH DINNER 90 tablet 0 09/04/2023 Active Active Problems Problem Noted Date Diagnosed Date Morbid obesity 09/06/2021 Abdominal pain 06/10/2020 Internal hernia 06/10/2020 Excess skin of abdomen 07/24/2019 Overview: Added automatically from request for surgery [id number] Class 1 obesity due to exces s calories with serious comorbidity and body mass index (BMI) of 31.0 to 31.9 in adult 06/21/2018 Bariatric surgery status 01/16/2018 Postsurgical malabsorption 01/16/2018 Major depressive disorder, recurrent episode, mo derate 08/06/2017 Acquired hypothyroidism 08/06/2017 Pernicious anemia 08/06/2017 Type 2 diabetes mellitus wit hout complication, without long-term current use of insulin 08/01/2017 PCOS (polycystic ovarian syndrome) 05/18/2016 Gastroesophageal reflux disease without esophagi tis 05/18/2016 Intertrigo 05/18/2016 Resolved Problems Problem Noted Date Diagnosed Date Resolved Date Bilateral thoracic back pain 02/19/2019 05/22/2019 Morbid obesity with body mas s index (BMI) of 40.0 to 49.9 01/16/2018 06/21/2018 Morbid obesity 01/08/2018 01/16/2018 Essential hypertension, benign 08/06/2017 04/16/2018 Vitamin D deficiency 08/06/2017 018 Morbid obesity with BMI of 50.0-59.9, adult 08/01/2017 01/16/2018 Depression, unspecified depression type 08/01/2017 08/04/2017 Obesity, morbid, BMI 50 or higher 05/18/2016 08/01/2017 History of hypertension 05/18/201607/10 Encounters Date Type Department Care Team Description 09/11/2023 Refill [facility] [address] [place] [phone] Amy Villalba Ra, APRN CNP Medication Refill 09/02/2023 Refill [facility] [address] [place] [phone] Amy Villalba Ra, APRN CNP Medication Refill 09/01/2023 Refill [facility] [address] [place] [phone] Amy Villalba Ra, APRN CNP Medication Refill from Last 3 Months Immunizations Name Administration Dates Next Due COVID-19 Monovalent 12+ (Pfizer 2021) 12/10/2021 Flu, Unspecified 07/29/2015 Influenza (IIV3) PF 09/19/2011, 8,08/14/2007,2005 Influenza Vaccine >6 months,quad, PF 08/12/2019 Rhogam 05/03/2012,02/13/2012,04/25/2006 Vitamin B12 05/11/2010, 0,03/16/2010,2009,02/23/2010,02/11/2010,02/04/2010,0 01/26/2010 Family History Medical History Relation Comments Obesity Brother Anxiety Disorder Daughter Depression Daughter Family History Negative Father Deep Vein Thrombosis Maternal Aunt 1 Deep Vein Thrombosis Maternal Aunt 2 Deep Vein Thrombosis Maternal Grandmother Diabetes Maternal Grandmother Hyperlipidemia Maternal Grandmother Hypertension Maternal Grandmother Obesity Maternal Grandmother Thyroid Disease Maternal Grandmother Diabetes Mother Family History Negative Mother Hyperlipidemia Mother Hypertension Mother Obesity Mother Other Cancer Mother Skin cancer Skin Cancer Mother Anxiety Disorder Niece Depression Niece Depression Sister Hypertension Sister Obesity Sister Relation Status Comments Brother Daughter Father Alive Maternal Aunt 1 Maternal Aunt 2 Maternal Grandmother Mother Alive Niece Sister Social History Tobacco Use Types Packs/Day Years Used Date Smoking Tobacco: Former Cigarettes 0 0 Smokeless Tobacco: Never Tobacco Cessation:Counseling Given: Not Answered Comments:5 cigarettes a month Alcohol Use Standard Drinks/Week Comments Yes 0 [...] Orientation Straight 05/31/2021 11 :45 AM CDT Last Filed Vital Signs Vital Sign Reading Time Taken Comments Blood Pressure 120/84 05/11/2023 8:12 AM CDT Pulse 92 05/11/2023 8:12 AM CDT Temperature 36.4 ??C (97.6 ??F) 05/11/2023 8:12 AM CD T Respiratory Rate 16 05/11/2023 8:12 AM CDT Oxygen Saturation 98% 05/11/2023 8:12 AM CDT Inhaled Oxygen Concentration - - Weight 91.2 kg (201 lb) 05/11/2023 8:12 AM CDT Height 170.2 cm (5' 7) 05/11/2023 8:12 AM CDT Body Mass Index 31.48 05/11/2023 8:12 AM CDT Plan of Treatment Health Maintenance Due Date Last Done Comments HEPATITIS B IMMUNIZATION (1 of 3 - 3-dose series) 1978 Pneumococcal Vaccine: Pediatrics (0 to 5 Years) and At-Risk Patients (6 to 64 Years) (1 of 2 - PCV) 1984 DTAP/TDAP/TD IMMUNIZATION (1 - Tdap) 2003 MEDICARE ANNUAL WELLNESS VISIT 09/06/2022 09/06/2021, 05/09/2019 EYE EXAM 11/22/2022 11/22/2021, 01/07/2018 DIABETIC FOOT EXAM 01/13/2023 01/13/2022, 01/13/2022 COVID-19 Vaccine ( season) 2023 12/10/2021, 03/22/2021, 03/01/2021 INFLUENZA VACCINE (#1) 2023 9, 07/29/2019 (Declined), 07/29/2015, Additional history exists DEPRESSION 12 MO INDEX REPEAT PHQ-9 10/17/2023 05/11/2023, 12/15/2022, 12/15/2022, Additional history exists ANNUAL REVIEW OF HM ORDERS 11/01/2023 11/01/2022, A1C 11/05/2023 05/05/2023, 03/0 06/2023, 06/16/2022, Additional history exists PHQ-9 11/11/2023 05/11/2023, 03/0 06/2023, 12/15/2022, Additional history exists MICROALBUMIN 12/16/2023 12/15/2022, 09/0 05/2022, 09/06/2021, Additional history exists TSH W/FREE T4 REFLEX 12/16/2023 12/15/2022, 04/15/2022, 01/10/2022, Additional history exists BMP 05/05/2024 05/05/2023, 11/09, 06/16/2022, Additional history exists LIPID 05/05/2024 05/05/2023, 03/0 06/2023, 06/16/2022, Additional history exists ADVANCE CARE PLANNING 09/06/2026 09/06/2021 HPV TEST 03/15/2028 03/15/2023, 0 04/2023, 05/09/2019, Additional history exists PAP 03/15/2028 03/15/2023, 0 04/2023, 05/09/2019, Additional history exists DEPRESSION ACTION PLAN Completed 08/04/2017, 2016 HEPATITIS C SCREENING Completed 08/30/2021 HIV SCREENING Completed 08/30/2021 HPV IMMUNIZATION Aged Out No longer e ligible based on patient's age to complete this topic IPV IMMUNIZATION Aged Out No longer e ligible based on patient's age to complete this topic MENINGITIS IMMUNIZATION Aged Out No l onger eligible based on patient's age to complete this topic RSV MONOCLONAL ANTIBODY Aged Out No l onger eligible based on patient's age to complete this topic Advance Directives For more information, please contact: [phone] Latest Code Status on File Code Status Date Activated Date Inactivated Comments Full Code 11/25/2022 1:48 AM 11/25/2022 3:20 PM All b asic and advanced life-sustaining interventions are performed as appropriate Question Answer Comments Code status determined by: Discussion with patient/ legal decision maker Code Status History Code Status Date Activated Date Inactivated Comments Full Code 06/11/2020 10:58 AM 07/20/2020 6:31 PM Question Answer Comments Code status determined by: Discussion with patient/ legal decision maker Full Code 06/11/2020 7:49 AM 06/11/2020 10:58 AM All ba sic and advanced life-sustaining interventions are performed as appropriate Question Answer Comments Code status determined by: Discussion with patient/ legal decision maker Full Code 06/10/2020 3:19 PM 06/11/2020 7:49 AM All bas ic and advanced life-sustaining interventions are performed as appropriate Question Answer Comments Code status determined by: Unable to determine; FULL CODE until documents or legal decision maker available Full Code 06/10/2020 1:51 AM 06/10/2020 3:19 PM All bas ic and advanced life-sustaining interventions are performed as appropriate Question Answer Comments Code status determined by: Discussion with patient/ legal decision maker Care Teams Hand Stitcher Relationship Specialty Start Date End Date Amy Villalba Ra, APRN BIG DATA DEVELOPER [address] [place] [address] PCP - General Family Practice 01/13/22 Amy Villalba Ra, APRN BIG DATA DEVELOPER [address] [address] [facility] [place] [address] Assigned PCP 09/19/21 Renetta Mckeon PA-C [address] [place] [address] Physician Community Relations Assistant Dermatology 05/03/22 Amy Villalba Ra, APRN BIG DATA DEVELOPER [address] [facility] [place] [address] Referring Physician Family Practice 11/01/22 Pura De La Garza APRN BIG DATA DEVELOPER [address] [place] [address] [phone] Nurse Practitioner Dermatology 11/01/22 Gabe Moreira MD [address] [place] [address] [id number] Assigned Neuroscience Provider 12/17/22 Dov Posadas PA-C [address] [address] Assigned Surgical Provider 04/08/23
--- OUTSIDE RECORDS SUMMARY | 2023-10-28 20:37 | XMS_ITS | Encounter Summary ---
Author Name Unknown Organization [facility] Address [address] [place] [address] Care Team Providers Care Sales Administrator Name Role Phone Amy Villalba Ra, APRN DETECTIVE YOUTH BUREAU Unavailable + [phone] Amy Villalba Ra TRUST EVALUATION SUPERVISOR DETECTIVE YOUTH BUREAU Primary Care Provid er Renetta Mckeno-C Unavailable [phone] Amy Villalba Ra, APRN DETECTIVE YOUTH BUREAU Unavailable Pura De La Garza APRN DETECTIVE YOUTH BUREAU Unavailable [phone] Gabe Moreira MD Unavailable Dov Posadas PA-C Unavailable [phone] Encounter Details Date Type Department Care Team (Late st Contact Info) Description 06/06/2023 MyC Medical Advice [facility] [id number] [place] [phone] Guanaco Saunders, JERICHO Social History Tobacco Use Types Packs/Day Years Used Date Smoking Tobacco: Former Cigarettes 0 0 Smokeless Tobacco: Never Comments:5 cigarettes a buffy h Alcohol Use Standard Drinks/Week Comments Yes 0 (1 standard drink = 0.6 oz pur e alcohol) once a year PHQ-2 Answer Date Recorded PHQ-2 Score 2 05/11/2023 Sex and Gender Information Value Date Recorded [...] documented as of this encounter Care Teams Sales Administrator Relationship Specialty Start Date End Date Amy Villalba Ra, APRN DETECTIVE YOUTH BUREAU [address] [place] [address] PCP - General Family Practice 01/13/22 Amy Villalba Ra, APRN DETECTIVE YOUTH BUREAU [address] [place] [address] Assigned PCP 09/19/21 Renetta Mckeon PA-C [address] [place], [place] [id number] Physician Show Girl Dermatology 05/03/22 Amy Villalba Ra, APRN DETECTIVE [employer]TH [employer]UREAU [address] [place] [address] Referring Physician Family Practice 11/01/22 Pura De La Garza APRN DETECTIVE YOUTH BUREAU [address] [place], [place] [phone] Nurse Practitioner Dermatology 11/01/22 Gabe Moreira MD [address] [place] [address] [address] [place], [place] 418385 Assigned Neuroscience Provider 12/17/22 Dov Posadas PA-C [address] [address] Assigned Surgical Provider 04/08/23 documented as of this encounter
--- OUTSIDE RECORDS SUMMARY | 2023-10-28 20:37 | XMS_ITS | Referral Summary ---
Author Name Unknown Organization [facility] Address [address] [place] [address] Care Team Providers Care Shopping Centre Manager Name Role Phone Amy Villalba Ra, APRN DIRECTOR OF CATERING Unavailable [phone] Amy Villalba Ra, APRN, CNP Primary Care Provid er Renetta Mckeon PA-C Unavailable Amy Villalba Ra, APRN, CNP Unavailable [phone] Pura De La Garza APRN DIRECTOR OF CATERING Unavailable Gabe Moreira MD Unavailable Dov Posadas PA-C Unavailable Encounters Date Type Department Care Team Description 09/11/2023 Refill [facility] [address] [place] [phone] Amy Villalba Ra, APRN CNP Medication Refill 09/02/[address] [facility] [address] [place] [address] Amy Villalba Ra, APRN CNP Medication Refill 09/01/2023 Refill [facility] [address] [place] [phone] Amy Villalba Ra, APRN CNP Medication Refill from Last 3 Months Allergies Active Allergy Reactions Criticality Noted Date [...] Overview: Added automatically from request for surgery [id number] Class 1 obesity due to exces s [...] higher 05/18/2016 08/01/2017 History of hypertension 05/18/201607/10 Immunizations Name Administration Dates Next Due COVID-19 Monovalent 12+ (Pfizer 2021) 12/10/2021 Flu, Unspecified 07/29/2015 Influenza (IIV3) PF 09/19/2011, 8,08/14/2007,2005 Influenza Vaccine >6 months,quad, PF 08/12/2019 Rhogam 05/03/2012,02/13/2012,04/25/2006 Vitamin B12 05/11/2010, 0,03/16/2010,2009,02/23/2010,02/11/2010,02/04/2010,0 01/26/2010 Social History Tobacco Use Types Packs/Day Years [...] 05/11/2023 8:12 AM CDT Plan of Treatment Not on file Advance Directives For more information, please contact: [phone] Latest Code Status on File Code Status [...] with patient/ legal decision maker Care Teams Shopping Centre Manager Relationship Specialty Start Date End Date Amy Villalba Ra, APRN DIRECTOR OF CATERING [address] [place] [address] PCP - General Family Practice 01/13/22 Amy Villalba Ra, APRN DIRECTOR OF CATERING [address] [place] [address] Assigned PCP 09/19/21 Renetta Mckeon PA-C [address] [place] [address] Physician General Manager In Training Dermatology 05/03/22 Amy Villalba Ra, APRN DIRECTOR OF CATERING [address] [place] [address] Referring Physician Family Practice 11/01/22 Pura De La Garza APRN DIRECTOR OF CATERING [address] [place] [address] [id number] Nurse Practitioner Dermatology 11/01/22 Gabe Moreira MD [address] [place] [address] [address] [place], [place] [phone] Assigned Neuroscience Provider 12/17/22 Dov Posadas PA-C [address] [place] 869385 Assigned Surgical Provider 04/08/23
--- OUTSIDE RECORDS SUMMARY | 2023-10-28 20:37 | XMS_ITS | Encounter Summary ---
Author Name Unknown Organization [facility] Address [address] [place] [address]. [place] [address] Care Team Providers Care Corporate Traffic Manager Name Role Phone Amy Villalba Ra, APRN PAPER PLATE MACHINE TENDER Unavailable [phone] Amy Villalba Ra REVENUE TAX SPECIALIST PAPER PLATE MACHINE TENDER Primary Care Provid er Renetta MckeonC Unavailable Amy Villalba Ra, APRN PAPER PLATE MACHINE TENDER Unavailable [phone] Pura De La Garza APRN PAPER PLATE MACHINE TENDER Unavailable Gabe Moreira MD Unavailable [phone] Dov Posadas PA-C Unavailable Reason for Visit * Reason Comments Medication Refill Encounter Details Date Type Department Care Team (Late st Contact Info) Description 09/11/[address] [facility] [address] [place] [address] Amy Villalba Ra REVENUE TAX SPECIALIST PAPER PLATE MACHINE TENDER [address] [place] [address] Medication Refill Social History Tobacco [...] encounter Miscellaneous Notes * Telephone Encounter - Jamaica Rascon RN - 09/11/2023 9:57 AM CST Duplicate - prescription request refused. ITORY OUTSIDE SALES MANAGER documented in this encounter Plan of Treatment Not on file documented as of this encounter Visit Diagnoses Diagnosis Type 2 diabetes mellitus without complication, without long-term current use of insulin (H) documented in this encounter Additional Health Concerns Assessment Noted Time PHQ-9 Depression Total Score: 10 023 8:03 AM CDT documented as of this encounter Care Teams Corporate Traffic Manager Relationship Specialty Start Date End Date Amy Villalba Ra, APRN CNP [address] [place] [address] PCP - General Family Practice 01/13/22 Amy Villalba Ra, APRN CNP [address] [place] [address] Assigned PCP 09/19/21 Renetta Mckeon PA-C [address] [place] [address] Physician Learning And Development Associate Dermatology 05/03/22 Amy Villalba Ra, APRN CNP [address] [place] [address] Referring Physician Family Practice 11/01/22 Pura De La Garza APRN PAPER PLATE MACHINE TENDER [address] [place] [address] Nurse Practitioner Dermatology 11/01/22 Gabe Moreira MD [address] [facility] [address] [place], [place] 46[address]65 Assigned Neuroscience Provider 12/17/22 Dov Posadas PA-C [address] [place] [address] Assigned Surgical Provider 04/08/23 documented as of this encounter
--- OUTSIDE RECORDS SUMMARY | 2023-10-28 20:37 | XMS_ITS | Encounter Summary ---
Author Name Unknown Organization [facility] Address [address] [place] [address] Care Team Providers Care Tank Carpenter Name Role Phone Amy Urias Ra, APRN CHLOROBUTADIENE SCRUBBER OPERATOR Unavailable [phone] Amy Urias Ra, APRN CHLOROBUTADIENE SCRUBBER OPERATOR Primary Care Provid er Renetta Mckeon PA-C Unavailable [phone] Amy Urias Ra, APRN CHLOROBUTADIENE SCRUBBER OPERATOR Unavailable [phone] Pura De La Garza APRN CHLOROBUTADIENE SCRUBBER OPERATOR Unavailable Gabe Moreira MD Unavailable Dov Posadas PA-C Unavailable Reason for Referral * Diagnostic Imaging Ultrasound (Routine) - Pending Review Specialty Diagnoses / Procedures [facility]erred To Contact Radiology. Diagnoses Abnormal mammogram Procedures US Breast Right Complete 4 Quadrants Amy Urias Ra, APRN CNP [address] [place] [address] Referral ID Status Reason Start Date Expiration Date V isits Requested Visits Authorized [id number] Pending Review 05/11/2023 05/10/2024 1 1 * Diagnostic Imaging Mammo (Routine) - Pending Review Specialty Diagnoses / Procedures Referred By [facility] t Referred To Contact Radiology. Diagnoses Abnormal mammogram Procedures MA Diagnostic Digital Bilateral Amy Urias Ra, APRN CHLOROBUTADIENE SCRUBBER OPERATOR [address] [place] [address] Referral ID Status Reason Start Date Expiration Date V isits Requested Visits Authorized [id number] Pending Review 05/11/2023 05/10/2024 1 1 Reason for Visit * Reason Comments Pre-Op Exam Encounter Details Date Type Department Care Team (Late st Contact Info) Description 05/11/2023 8:30 AM CDT [facility] [address] [place] [address] Amy Urias Ra, APRN CHLOROBUTADIENE SCRUBBER OPERATOR [address] [place], [place] [id number] Type 2 diabetes mellitus without complication, without long-term current use of insulin (H) (Primary Dx); Preop general physical exam; Abnormal mammogram; Pelvic pain in female Social History Tobacco Use Types Packs/Day Years [...] AM CDT documented as of this encounter Last Filed Vital Signs Vital Sign Reading [...] Mass Index 31.48 05/11/2023 8:12 AM CDT documented in this encounter Patient Instructions * Patient Instructions* Amy Urias Ra, TRANSITIONAL LIVING SPECIALIST CHLOROBUTADIENE SCRUBBER OPERATOR - 05/11/2023 8:30 AM CDT For informational purposes only. Not to replace the advice of your health care provider. Copyright ?? 2002, 2018 [facility]. All rights reserved. Clinically reviewed by Meli Dominguez MD. [employer] [id number] - REV 09/29. Preparing for Your Surgery Getting started A nurse will call you to review your health history and instructions. They will give you an arrivaltime based on your scheduled surgery time. Please be ready to share: Your doctor's clinic name and phone number Your medical, surgical, and anesthesia history A list of allergies and sensitivities A list of medicines, including herbal treatments and vohw-pcs-exjtvym drugs Whether the patient has a legal guardian (ask how to send us the papers in advance) Please tell us if you're --or if there's any chance you might be . Some surgeries may injure a fetus (unborn baby), so they require a test. Surgeries that are safe for a fetus don't always need a test, and you can choose whether to have one. If you have a child who's having surgery, please ask for a copy of Preparing for Your Child's Surgery. Preparing for surgery Within 10 to 30 days of surgery: Have a pre-op exam (sometimes called an H&P, or History and Physical). This can be done at a clinic or pre-operative center. If you're having a , you may not need this exam. Talk to your care team. At your pre-op exam, talk to your care team about all medicines you take. If you need to stop any medicines before surgery, ask when to start taking them again. We do this for your safety. Many medicines can make you bleed too much during surgery. Some change how well surgery (anesthesia) drugs work. Call your insurance company to let them know you're having surgery. (If you don't have insurance, call [phone].) Call your clinic if there's any change in your health. This includes signs of a cold or flu (sore throat, runny nose, cough, rash, fever). It also includes a scrape or scratch near the surgery site. If you have questions on the day of surgery, call your hospital or surgery center. Eating and drinking guidelines For your safety: Unless your surgeon tells you otherwise, follow the guidelines below. Eat and drink as usual until 8 hours before you arrive for surgery. After that, no food or milk. Drink clear liquids until 2 hours before you arrive. These are liquids you can see through, like water, Gatorade, and Propel Water. They also include plain black coffee and tea (no cream or milk), candy, and breath mints. You can spit out gum when you arrive. If you drink alcohol: Stop drinking it the night before surgery. If your care team tells you to take medicine on the morning of surgery, it's okay to take it with asip of water. Preventing infection Shower or bathe the night before and morning of your surgery. Follow the instructions your clinic gave you. (If no instructions, use regular soap.) Don't shave or clip hair near your surgery site. We'll remove the hair if needed. Don't smoke or vape the morning of surgery. You may chew nicotine gum up to 2 hours before surgery.A nicotine patch is okay. Note: Some surgeries require you to completely quit smoking and nicotine. Check with your surgeon. Your care team will make every effort to keep you safe from infection. We will: Clean our hands often with soap and water (or an alcohol-based hand rub). Clean the skin at your surgery site with a special soap that kills germs. Give you a special gown to keep you warm. (Cold raises the risk of infection.) Wear special hair covers, masks, gowns and gloves during surgery. Give antibiotic medicine, if prescribed. Not all surgeries need antibiotics. What to bring on the day of surgery Photo ID and insurance card Copy of your health care directive, if you have one Glasses and hearing aids (bring cases) You can't wear contacts during surgery Inhaler and eye drops, if you use them (tell us about these when you arrive) CPAP machine or breathing device, if you use them A few personal items, if spending the night If you have . . . A pacemaker, ICD (cardiac defibrillator) or other implant: Bring the ID card. An implanted stimulator: Bring the remote control. A legal guardian: Bring a copy of the certified (court-stamped) guardianship papers. Please remove any jewelry, including body piercings. Leave jewelry and other valuables at home. If you're going home the day of surgery You must have a responsible adult drive you home. They should stay with you overnight as well. If you don't have someone to stay with you, and you aren't safe to go home alone, we may keep you overnight. Insurance often won't pay for this. After surgery If it's hard to control your pain or you need more pain medicine, please call your surgeon's office. Questions? If you have any questions for your care team, list them here: How to Take Your Medication Before Surgery - HOLD (do not take) your METFORMIN on the morning of surgery. documented in this encounter Progress Notes * Amy Urias Ra, APRN CNP - 05/11/2023 8:30 AM CDT [facility] [address] [facility] [address] Primary Provider: Amy Urias Ra Pre-op Performing Provider: AMY URIAS RA PREOPERATIVE EVALUATION: Today's date: 05/11/2023 Marlene Almeida is a 42 year old female who presents for a preoperative evaluation. 05/11/2023 8:05 AM Additional Questions Roomed by satya quigely cma Accompanied by self 05/11/2023 8:05 AM Patient Reported Additional Medications Patient reports taking the following new medications na Surgical Information: Surgery/Procedure: Hysterectomy Surgery Location: [facility] Surgeon: Dr Hua Klein Surgery Date: 06/06 Time of Surgery: TBD Where patient plans to recover: At home with family Fax number for surgical facility: Assessment & Plan The proposed surgical procedure is considered INTERMEDIATE risk. Type 2 diabetes mellitus without complication, without long-term current use of insulin (H) Well controlled. Monitor. Recent [facility]. - Hemoglobin A1c; Future Preop general physical exam Proceed as planned. Abnormal mammogram Due for repeat mammogram and US. Ordered. - MA Diagnostic Digital Bilateral; Future - US Breast Right Complete 4 Quadrants; Future Pelvic pain in female OBGYN through [facility]. Procedure planned. Will likely see plastics through [facility] after hysterectomy to further address pain. Also needs pelvic floor PT- will sign referral when it arrives. Antiplatelet or Anticoagulation Medication Instructions: - Patient is on no antiplatelet or anticoagulation medications. Additional Medication Instructions: - metformin: HOLD day of surgery. RECOMMENDATION: APPROVAL GIVEN to proceed with proposed procedure, without further diagnostic evaluation. Reviewed chart for 10 minutes. Subjective HPI related to upcoming procedure: chronic pelvic pain following panniculectomy. Fascia is pushing against her uterus and L ovary, causing constant pain. Hysterectomy planned. She will do this through [facility]. 05/11/2023 8:05 AM Preop Questions 1. Have you ever had a heart attack or stroke? No 2. Have you ever had surgery on your heart or blood vessels, such as a stent placement, a coronary artery bypass, or surgery on an artery in your head, neck, heart, or legs? No 3. Do you have chest pain with activity? No 4. Do you have a history of heart failure? No 5. Do you currently have a cold, bronchitis or symptoms of other infection? No 6. Do you have a cough, shortness of breath, or wheezing? No 7. Do you or anyone in your family have previous history of blood clots? No 8. Do you or does anyone in your family have a serious bleeding problem such as prolonged bleeding following surgeries or cuts? No 9. Have you ever had problems with anemia or been told to take iron pills? YES - 10. Have you had any abnormal blood loss such as black, tarry or bloody stools, or abnormal vaginalbleeding? No 11. Have you ever had a blood transfusion? No 12. Are you willing to have a blood transfusion if it is medically needed before, during, or after your surgery? Yes 13. Have you or any of your relatives ever had problems with anesthesia? No 14. Do you have sleep apnea, excessive snoring or daytime drowsiness? No 15. Do you have any artifical heart valves or other implanted medical devices like a pacemaker, defibrillator, or continuous glucose monitor? No 16. Do you have artificial joints? No 17. Are you allergic to latex? No 18. Is there any chance that you may be ? No Health Care Directive: Patient does not have a Health Care Directive or Living Will: Preoperative Review of PROFESSOR OF VEGETABLE SCIENCE: PROFESSOR OF VEGETABLE SCIENCE reviewed - controlled substances reflected in medication list. Status of Chronic Conditions: See problem list for active medical problems. Problems all longstanding and stable, except as noted/documented. See ROS for pertinent symptoms related to these conditions. Review of Systems Constitutional, neuro, ENT, endocrine, pulmonary, cardiac, gastrointestinal, genitourinary, musculoskeletal, integument and psychiatric systems are negative, except as otherwise noted. Patient Active Problem List Diagnosis Date Noted Morbid obesity (H) 09/06/2021 Priority: Medium Abdominal pain 06/10/2020 Priority: Medium Internal hernia 06/10/2020 Priority: Medium Excess skin of abdomen 07/24/2019 Priority: Medium Added automatically from request for surgery [id number] Class 1 obesity due to excess calories with serious comorbidity and body mass index (BMI) of 31.0 to 31.9 in adult 06/21/2018 Priority: Medium Bariatric surgery status 01/16/2018 Priority: Medium Postsurgical malabsorption 01/16/2018 Priority: Medium Major depressive disorder, recurrent episode, moderate (H) 08/06/2017 Priority: Medium Acquired hypothyroidism 08/06/2017 Priority: Medium Pernicious anemia 08/06/2017 Priority: Medium Type 2 diabetes mellitus without complication, without long-term current use of insulin (H) 08/01/2017 Priority: Medium PCOS (polycystic ovarian syndrome) 05/18/2016 Priority: Medium Gastroesophageal reflux disease without esophagitis 05/18/2016 Priority: Medium Intertrigo 05/18/2016 Priority: Medium Past Medical History: Diagnosis Date Depressive disorder Diabetes (H) Hypertension Thyroid disease Past Surgical History: Procedure Laterality Date ENT SURGERY tonsillectomy LAPAROSCOPIC BYPASS GASTRIC N/A 01/08/2018 Procedure: LAPAROSCOPIC BYPASS GASTRIC; LAPAROSCOPIC JON EN Y GASTRIC BYPASS; Surgeon: Eulalio Newell MD; Location: OR LAPAROSCOPY DIAGNOSTIC (GENERAL) N/A 06/10/2020 Procedure: LAPAROSCOPY, DIAGNOSTIC; REPAIR OF INTERNAL HERNIAS; Surgeon: Eulalio Newell MD; Location: OR PANNICULECTOMY N/A 08/02/2019 Procedure: Panniculectomy; Surgeon: Ary Parikh MD; Location: OR SOFT TISSUE SURGERY remove (R) thumb cyst; plate put in Current Outpatient Medications Medication Sig Dispense Refill acetaminophen (TYLENOL) 500 MG tablet Take 1-2 tablets (500-1,000 mg) by mouth 3 times daily 100 tablet 1 buPROPion (WELLBUTRIN XL) 150 MG 24 hr tablet Take 3 tablets (450 mg) by mouth daily 270 tablet 1 Cholecalciferol (D3-1000) 25 MCG (1000 UT) CAPS TAKE 2 CAPSULES BY MOUTH DAILY 180 capsule 3 cyclobenzaprine (FLEXERIL) 5 MG tablet Take 1-2 tablets (5-10 mg) by mouth 3 times daily as needed for muscle spasms 60 tablet 0 drospirenone-ethinyl estradiol (MAX) 3-0.03 MG tablet Take 1 tablet by mouth daily 84 tablet 1 escitalopram (LEXAPRO) 20 MG tablet Take 1 tablet (20 mg) by mouth daily 90 tablet 1 eszopiclone (LUNESTA) 3 MG tablet TAKE 1 TABLET(3 MG) BY MOUTH AT BEDTIME 30 tablet 1 levothyroxine (SYNTHROID/LEVOTHROID) 150 MCG tablet Take 1 tablet (150 mcg) by mouth daily 90 tablet 1 metFORMIN (GLUCOPHAGE XR) 500 MG 24 hr tablet Take 1 tablet (500 mg) by mouth daily (with dinner) 90 tablet 0 Multiple Vitamins/Iron TABS TAKE 1 TABLET BY MOUTH DAILY 90 tablet 3 omeprazole (PRILOSEC) [address] capsule Take 1 capsule (20 mg) by mouth daily 90 capsule 1 omeprazole (PRILOSEC) [address] capsule Take 1 capsule (40 mg) by mouth daily 90 capsule 1 Allergies Allergen Reactions Lisinopril Cough Sulfa Antibiotics Hives Social History Tobacco Use Smoking status: Former Packs/day: 0.00 Years: 0.00 Pack years: 0.00 Types: Cigarettes Smokeless tobacco: Never Tobacco comments: 5 cigarettes a month Substance Use Topics Alcohol use: Yes Alcohol/week: 0.0 standard drinks of alcohol Comment: once a year Family History Problem Relation Age of Onset Family History Negative Mother Diabetes Mother Hypertension Mother Hyperlipidemia Mother Obesity Mother Skin Cancer Mother Other Cancer Mother Skin cancer Family History Negative Father Deep Vein Thrombosis Maternal Grandmother Diabetes Maternal Grandmother Hypertension Maternal Grandmother Hyperlipidemia Maternal Grandmother Thyroid Disease Maternal Grandmother Obesity Maternal Grandmother Deep Vein Thrombosis Maternal Aunt Deep Vein Thrombosis Maternal Aunt Obesity Brother Obesity Sister Hypertension Sister Depression Sister Depression Niece Anxiety Disorder Niece Depression Daughter Anxiety Disorder Daughter History Drug Use No Objective BP 120/84 Pulse 92 Temp 97.6 ??F (36.4 ??C) (Oral) Resp 16 Ht 1.702 m (5' 7) Wt 91.2 kg (201 lb) LMP 05/07/2023 (Approximate) SpO2 98% BMI 31.48 kg/m?? Physical Exam GENERAL APPEARANCE: healthy, alert and no distress EYES: Eyes grossly normal to inspection HENT: ear canals and TM's normal and nose and mouth without ulcers or lesions NECK: no adenopathy, no asymmetry, masses, or scars and thyroid normal to palpation RESP: lungs clear to auscultation - no rales, rhonchi or wheezes CV: regular rates and rhythm, normal S1 S2, no S3 or S4 and no murmur, click or rub ABDOMEN: soft, nontender, no HSM or masses and bowel sounds normal PSYCH: mentation appears normal. and affect normal/bright LYMPHATICS: No cervical adenopathy Recent Labs Lab Test 05/05/23 0947 12/15/22 1053 11/25/22 0356 06/16/22 1113 01/10/22 0931 08/30/21 0751 HGB 13.9 -- -- -- -- 14.7 PLT 373 -- -- -- -- 328 NA 139 -- 138 136 < > 138 POTASSIUM 4.4 -- 4.3 4.8 < > 4.0 CR 0.70 -- 0.75 0.65 < > 0.74 A1C -- 5.7* -- 6.0* < > 5.8* < > = values in this interval not displayed. Lab Results Component Value Date A1C 5.5 05/05/2023 A1C 5.7 12/15/2022 A1C 6.0 06/16/2022 A1C 5.9 01/10/2022 A1C 5.8 08/30/2021 A1C 5.5 06/28/2019 A1C 5.7 02/18/2019 A1C 6.0 09/17/2018 A1C 6.0 06/21/2018 A1C 6.1 04/30/2018 Diagnostics: No results found for this or any previous visit (from the past 24 hour(s)). No EKG required, no history of coronary heart disease, significant arrhythmia, peripheral arterial disease or other structural heart disease. Revised Cardiac Risk Index (RCRI): The patient has the following serious cardiovascular risks for perioperative complications: - No serious cardiac risks = 0 points RCRI Interpretation: 0 points: Class I (very low risk - 0.4% complication rate) Signed Electronically by: Amy Urias APRN CHLOROBUTADIENE SCRUBBER OPERATOR Copy of this evaluation report is provided to requesting physician. Answers submitted by the patient for this visit: Patient Health Questionnaire (Submitted on 05/11/2023) If you checked off any problems, how difficult have these problems made it for you to do your work,take care of things at home, or get along with other people?: Somewhat difficult PHQ9 TOTAL SCORE: 10 documented in this encounter Plan of Treatment Scheduled Orders Name Type Priority Associated Diagnoses Orde r Schedule MA Diagnostic Digital Bilateral Imaging Routine Abnormal mammogram Expected: 05/11/2023 (Approximate), Expires: 05/11/2024 US Breast Right Complete 4 Quadrants Imaging Routine Abnormal mammogram Expected: 05/11/2023 (Approximate), Expires: 05/11/2024 documented as of this encounter Results * Hemoglobin A1c (05/05/2023 9:47 AM CDT) Hemoglobin A1C 5.5 0.0 - 5.6 % 05/11/2023 8:56 AM CDT LABORATORY Comment: Normal <5.7% Prediabetes 5.7-6.4% ?? Diabetes 6.5% or higher Note: Adopted from ADA consensus guidelines. Blood BLOOD SPECIMEN / Unknown Venipuncture / Unknown 05/05/2023 9:47 AM CDT 05/05/2023 9:47 AM CDT Aym Urias APRN, CNP LAB - BLOOD ORDERABLES LABORATORY [facility] [address] [facility] (no room number, 1st floor of clinic) [place] [address], [facility] [phone] documented in this encounter Visit Diagnoses Diagnosis Type 2 diabetes mellitus without complication, without long-term current use of insulin (H)- Primary Preop general physical exam Other specified pre-operative examination Abnormal mammogram Abnormal mammogram, unspecified Pelvic pain in female Unspecified symptom associated with female genital organs documented in this encounter Additional Health Concerns Assessment Noted Time PHQ-9 Depression Total Score: 10 023 8:03 AM CDT documented as of this encounter Care Teams Tank Carpenter Relationship Specialty Start Date End Date Amy Urias Ra, APRN CNP [address] [facility] [address] PCP - General Family Practice 01/13/22 Amy Urias Ra, APRN CHLOROBUTADIENE SCRUBBER OPERATOR [address] [place] [address] Assigned PCP 09/19/21 Renetta Mckeon PA-C [address] [place] [address] Physician Milk Collector Dermatology 05/03/22 Amy Urias Ra, APRN CHLOROBUTADIENE SCRUBBER OPERATOR [address] [place] [address] Referring Physician Family Practice 11/01/22 Pura De La Garza APRN CHLOROBUTADIENE SCRUBBER OPERATOR [address] [place], [place] [address] Nurse Practitioner Dermatology 11/01/22 Gabe Moreira MD [address] [facility] [address] [place], [place] [id number] Assigned Neuroscience Provider 12/17/22 Dov Posadas PA-C [address] [place] [place] [address] Assigned Surgical Provider 04/08/23 documented as of this encounter
--- OUTSIDE RECORDS SUMMARY | 2023-10-28 20:37 | XMS_ITS | Encounter Summary ---
Author Name Unknown Organization [facility] Address [address] [place] [address]. [place] [address] Care Team Providers Care Linux System Administrator Name Role Phone Amy Villalba Ra, APRN SPAR MACHINE OPERATOR HELPER Unavailable [phone] Amy Villalba Ra EXCEL EXPERT SPAR MACHINE OPERATOR HELPER Primary Care Provid er Renetta MckeonC Unavailable Amy Villalba Ra, APRN SPAR MACHINE OPERATOR HELPER Unavailable [phone] Pura De La Garza APRN SPAR MACHINE OPERATOR HELPER Unavailable aGbe Moreira MD Unavailable Dov Posadas PA-C Unavailable Reason for Visit * Reason Comments Medication Refill Encounter Details Date Type Department Care Team (Late st Contact Info) Description 09/02/[address] [facility] [address] [place] [address] Amy Villalba Ra EXCEL EXPERT SPAR MACHINE OPERATOR HELPER [address] [place] [address] Medication Refill Social History Tobacco [...] documented as of this encounter Care Teams Linux System Administrator Relationship Specialty Start Date End Date Amy Villalba Ra, APRN SPAR MACHINE OPERATOR HELPER [address] [place] [address] PCP - General Family Practice 01/13/22 Amy Villalba Ra, APRN SPAR MACHINE OPERATOR HELPER [address] [place] [address] Assigned PCP 09/19/21 Renetta Mckeon PA-C [address] [place] [address] Physician Line Maintenance Supervisor Dermatology 05/03/22 Amy Villalba Ra, APRN SPAR MACHINE OPERATOR HELPER [address] [facility] [address] Referring Physician Family Practice 11/01/22 Pura De La Garza APRN SPAR MACHINE OPERATOR HELPER [address] [place] [id number] Nurse Practitioner Dermatology 11/01/22 Gabe Moreira MD [address] [place] [id number] Assigned Neuroscience Provider 12/17/22 Dov Posadas PA-C [address] [place] [address] Assigned Surgical Provider 04/08/23 documented as of this encounter
--- OUTSIDE RECORDS SUMMARY | 2023-10-28 20:37 | XMS_ITS | Encounter Summary ---
Author Name Unknown Organization [facility] Address [address] [place] [address]. [place] [address] Care Team Providers Care Wireless Watcher Name Role Phone Amy Villalba Ra, APRN CUT OFF TENDER GLASS Unavailable [phone] Amy Villalba Ra, APRN CUT OFF TENDER GLASS Primary Care Provid er Renetta Mckeon PA-C Unavailable Amy Villalba Ra, APRN CUT OFF TENDER GLASS Unavailable [phone] Pura De La Garza APRN CUT OFF TENDER GLASS Unavailable Gabe Moreira MD Unavailable Dov Posadas PA-C Unavailable Reason for Visit * Reason Onset Date Comments Panel Management 06/06/2023 Encounter Details Date Type Department Care Team (Late st Contact Info) Description 06/06/2023 Telephone [facility] [address] [place] [address] Amy Villalba Ra, APRN CUT OFF TENDER GLASS [address] [place] [address] Panel Management Social History Tobacco Use Types Packs/Day Years [...] documented as of this encounter Care Teams Wireless Watcher Relationship Specialty Start Date End Date Amy Villalba Ra, APRN CUT OFF TENDER GLASS [address] [place] [address] PCP - General Family Practice 01/13/22 Amy Villalba Ra, APRN CUT OFF TENDER GLASS [address] [address] [place] [address] Assigned PCP 09/19/21 Renetta Mckeon PA-C [address] [place] [address] Physician Reeling And Tubing Machine Operator Dermatology 05/03/22 Amy Villalba Ra, APRN CUT OFF TENDER GLASS [address] [address] [place] [address] Referring Physician Family Practice 11/01/22 Pura De La Garza APRN CUT OFF TENDER GLASS [address] [place] [address] Nurse Practitioner Dermatology 11/01/22 Gabe Moreira MD [address] [place] [address] 96 [place] [address] Assigned Neuroscience Provider 12/17/22 Dov Posadas PA-C [address] [place] [address] Assigned Surgical Provider 04/08/23 documented as of this encounter
--- OUTSIDE RECORDS SUMMARY | 2023-10-28 20:37 | XMS_ITS | Encounter Summary ---
Author Name Unknown Organization [facility] Address [address] [place] [address] Care Team Providers Care Health Screener Name Role Phone Amy Villalba Ra, APRN LITHOGRAPHIC PRESS FEEDER Unavailable + [phone] Amy Villalba Ra XM1 TANK DRIVER LITHOGRAPHIC PRESS FEEDER Primary Care Provid er Renetta Mckeon PA-C Unavailable [phone] Amy Villalba Ra, APRN LITHOGRAPHIC PRESS FEEDER Unavailable + [phone] Pura De La Garza APRN LITHOGRAPHIC PRESS FEEDER Unavailable Gabe Moreira MD Unavailable Dov PosadasC Unavailable [phone] Encounter Details Date Type Department Care Team (Latest Contact Info) Description 05/11/2023 Travel Social History Tobacco Use Types Packs/Day Years [...] documented as of this encounter Care Teams Health Screener Relationship Specialty Start Date End Date Amy Villalba Ra, APRN LITHOGRAPHIC PRESS FEEDER [address] [place] [address] PCP - General Family Practice 01/13/22 Amy Villalba Ra, APRN LITHOGRAPHIC PRESS FEEDER [address] [place] [address] Assigned PCP 09/19/21 Renetta Mckeon PA-C [address] [place] [address] Physician Sfdc Architect Dermatology 05/03/22 Amy Villalba Ra, APRN LITHOGRAPHIC PRESS FEEDER [address] [place] [address] Referring Physician Family Practice 11/01/22 Pura De La Garza APRN LITHOGRAPHIC PRESS FEEDER [address] [place] [address] [id number] Nurse Practitioner Dermatology 11/01/22 Gabe Moreira MD 420 [facility] 96 [place], [place] 97[address] Assigned Neuroscience Provider 12/17/22 Dov Posadas PA-C [address] [place] [address] Assigned Surgical Provider 04/08/23 documented as of this encounter
--- OUTSIDE RECORDS SUMMARY | 2023-10-28 20:37 | XMS_ITS | Encounter Summary ---
Author Name Unknown Organization [facility] Address [address] [place] [address]. [place] [address] Care Team Providers Care Director Consumer Name Role Phone Amy Villalba Ra, APRN BIOINFORMATICS ENGINEER Unavailable [phone] Amy Villalba Ra MILLER KIL[place] [employer]RI[employer] [place]ALT BIOINFORMATICS ENGINEER Primary Care Provid er Renetta MkceonC Unavailable Amy Villalba Ra, APRN BIOINFORMATICS ENGINEER Unavailable [phone] Pura De La Garza APRN BIOINFORMATICS ENGINEER Unavailable [phone] Gabe Moreira MD Unavailable Dov Posadas PA-C Unavailable [phone] Reason for Visit * Reason Comments Medication Refill Encounter Details Date Type Department Care Team (Late st Contact Info) Description 06/01/2023 Refill [facility] [address] [place] [address] Amy Villalba Ra MILLER KILN DRIED SALT BIOINFORMATICS ENGINEER [address] [place] [address] Medication Refill Social History Tobacco [...] encounter Miscellaneous Notes * Telephone Encounter - Gayatri Wagner RN - 06/01/2023 3:18 PM CDT Prescription approved per [facility] Refill Protocol. Gayatri Payton RN [facility] documented in this encounter Plan of Treatment Not on file documented as of this encounter Visit Diagnoses Diagnosis PCOS (polycystic ovarian syndrome) Polycystic ovaries documented in this encounter Additional Health Concerns Assessment Noted Time PHQ-9 Depression Total Score: 10 023 8:03 AM CDT documented as of this encounter Care Teams Director Consumer Relationship Specialty Start Date End Date Amy Villalba Ra, APRN CNP [address] [place] [address] PCP - General Family Practice 01/13/22 Amy Villalba Ra, APRN BIOINFORMATICS ENGINEER [address] [place] [address] Assigned PCP 09/19/21 Renetta Mckeon PA-C [address] [place] [address] Physician Statement Clerks Supervisor Dermatology 05/03/22 Amy Villalba Ra, APRN CNP [address] [place] [address] Referring Physician Family Practice 11/01/22 Pura De La Garza APRN BIOINFORMATICS ENGINEER 500 [place] [address] Nurse Practitioner Dermatology 11/01/22 Gabe Moreira MD 420 [facility] 96 [place] [address] Assigned Neuroscience Provider 12/17/22 Dov Posadas PA-C [address] [place] [address] Assigned Surgical Provider 04/08/23 documented as of this encounter
--- OUTSIDE RECORDS SUMMARY | 2023-10-28 20:37 | XMS_ITS | Encounter Summary ---
Author Name Unknown Organization [facility] Address [address] [place] [address] Care Team Providers Care Still Operator Batch Or Continuous Name Role Phone Amy Villalba Ra, APRN SENIOR LIVING SALES COUNSELOR Unavailable [phone] Amy Villalba Ra SUBSTATION ENGINEER SENIOR LIVING SALES COUNSELOR Primary Care Provid er Renetta Mckeon PA-C Unavailable [phone] Amy Villalba Ra, APRN SENIOR LIVING SALES COUNSELOR Unavailable [phone] Pura De La Garza APRN SENIOR LIVING SALES COUNSELOR Unavailable Gabe Moreira MD Unavailable Dov Posadas PA-C Unavailable Reason for Visit * Reason Comments Medication Refill Encounter Details Date Type Department Care Team (Late st Contact Info) Description 07/11/2023 Refill [facility] [address] [place] [address] Renetta Ronquillo PA-C [address] [place] [address] Medication Refill Social History Tobacco [...] encounter Miscellaneous Notes * Telephone Encounter - Thania Joseph RN - 07/13/2023 9:37 AM CDT Routing refill request to provider for review/approval because: Drug not on the [facility] refill protocol PHQ-9 score: 05/11/2023 8:03 AM PHQ PHQ-9 Total Score 10 Q9: Thoughts of better off /self-harm past 2 weeks Not at all documented in this encounter Plan of Treatment Not on file documented as of this encounter Visit Diagnoses Diagnosis Major depressive disorder, recurrent episode, moderate (H) Major depressive disorder, recurrent episode, moderate Anxiety Anxiety state, unspecified documented in this encounter Additional Health Concerns Assessment Noted Time PHQ-9 Depression Total Score: 10 023 8:03 AM CDT documented as of this encounter Care Teams Still Operator Batch Or Continuous Relationship Specialty Start Date End Date Amy Villalba Ra, APRN CNP [address] [place] [address] PCP - General Family Practice 01/13/22 Amy Villalba Ra, APRN SENIOR LIVING SALES COUNSELOR [address] [place] [address] Assigned PCP 09/19/21 Renetta Mckeon PA-C [address] [place] [address] Physician Rail Layer Dermatology 05/03/22 Amy Villalba Ra, APRN CNP [address] [place] [address] Referring Physician Family Practice 11/01/22 Pura De La Garza APRN SENIOR LIVING SALES COUNSELOR [address] [place] [address] 697895 Nurse Practitioner Dermatology 11/01/22 Gabe Moreira MD [address] [place] [address] 96 [place], [place] [id number] Assigned Neuroscience Provider 12/17/22 Dov Posadas PA-C [address] [place] [place] 118[address] Assigned Surgical Provider 04/08/23 documented as of this encounter
--- OUTSIDE RECORDS SUMMARY | 2023-10-28 20:38 | XMS_ITS | Encounter Summary ---
Author Name Unknown Organization [facility] Address [address] [place] [address]. [place] [address] Care Team Providers Care District Attorney Name Role Phone Amy Villalba Ra, APRN ANODE ADJUSTER Unavailable [phone] Priscilla Carbajal DO Unavailable Amy Villalba Ra, APRN ANODE ADJUSTER Primary Care Provid er Renetta Mckeon PA-C Unavailable [phone] Amy Villalba Ra, APRN ANODE ADJUSTER Unavailable [phone] Pura De La Garza APRN ANODE ADJUSTER Unavailable [phone] Gabe Moreira MD Unavailable [phone] Reason for Visit * Reason Onset Date Comments Refill Request 02/14/2023 omeprazole (PRIL OSEC) [address] capsule Encounter Details Date Type Department Care Team (Late st Contact Info) Description 02/14/2023 Refill [facility] [address] [place] [address] Amy Villalba Ra, APRN ANODE ADJUSTER [address] [place] [address] Refill Request (omeprazole (PRILOSEC) [address] capsule) Social History Tobacco Use Types Packs/Day Years Used Date Smoking Tobacco: Former Cigarettes 0 0 Smokeless Tobacco: Never Comments:5 cigarettes a buffy h Alcohol Use Standard Drinks/Week Comments Yes 0 (1 standard drink = 0.6 oz pur e alcohol) once a year PHQ-2 Answer Date Recorded PHQ-2 Score 6 12/15/2022 Sex and Gender Information Value Date Recorded Sex Assigned at Not on file Gender Identity Female 05/31/2021 11:45 AM CDT Sexual Orientation Straight 05/31/2021 11 :45 AM CDT documented as of this encounter Miscellaneous Notes * Telephone Encounter - Pura Wen RN - 02/15/2023 2:40 PM CDT Prescription approved per [facility] Refill Protocol. Omeprazole Pura Ramirez RN documented in this encounter Plan of Treatment Not on file documented as of this encounter Visit Diagnoses Diagnosis Gastroesophageal reflux disease without esophagitis Esophageal reflux documented in this encounter Additional Health Concerns Assessment Noted Time PHQ-9 Depression Total Score: 20 023 10:54 AM RAYON WINDER documented as of this encounter Care Teams District Attorney Relationship Specialty Start Date End Date Amy Villalba Ra, APRN ANODE ADJUSTER [address] [place] [address] PCP - General Family Practice 01/13/22 Amy Villalba Ra, APRN ANODE ADJUSTER [address] [place] [address] Assigned PCP 09/19/21 [place] [address] [place] [address] Assigned OBGYN Provider 10/24/21 Renetta Mckeon PA-C [address] [place] [address] Physician Correctional Program Officer Dermatology 05/03/22 Amy Villalba Ra, APRN ANODE ADJUSTER [address] [facility] [address] Referring Physician Family Practice 11/01/22 Pura De La Garza APRN ANODE ADJUSTER [address] [place] [address] Nurse Practitioner Dermatology 11/01/22 Gabe Moreira MD [address] [place] [address] [address] [place] [address] Assigned Neuroscience Provider 12/17/22 documented as of this encounter
--- OUTSIDE RECORDS SUMMARY | 2023-10-28 20:38 | XMS_ITS | Encounter Summary ---
Author Name Unknown Organization [facility] Address [address] [place] [address] Care Team Providers Care Laborer/Key Man Name Role Phone Amy Villalba Ra, APRN LINEN ROOM ATTENDANT Unavailable Priscilla Carbajal DO Unavailable [phone] Amy Villalba Ra, APRN LINEN ROOM ATTENDANT Primary Care Provid er Renetta MckeonC Unavailable Amy Villalba Ra, APRN LINEN ROOM ATTENDANT Unavailable Pura De La Garza APRN LINEN ROOM ATTENDANT Unavailable Gabe Moreira MD Unavailable Dov Posadas PA-C Unavailable [phone] Encounter Details Date Type Department Care Team (Late st Contact Info) Description 03/28/2023 [facility] [place] [facility] [place] [address] [place] [address] Arthur Galindo MA Social History Tobacco Use Types Packs/Day Years [...] suspected to have Coronavirus/COVID-19? No / Unsure 03/16/2023 3:45 PM CDT documented as of this encounter Plan of Treatment Not on file documented as of this encounter Visit Diagnoses Not on filedocumented in this encounter Additional Health Concerns Assessment Noted Time PHQ-9 Depression Total Score: 20 023 10:54 AM AIR TUCKER documented as of this encounter Care Teams Laborer/Key Man Relationship Specialty Start Date End Date Amy Villalba Ra, APRN CNP [address] [place] [address] PCP - General Family Practice 01/13/22 Amy Villalba Ra, APRN LINEN ROOM ATTENDANT [address] [place] [address] Assigned PCP 09/19/21 [place] [address] [place] [address] Assigned OBGYN Provider 10/24/21 Renetta Mckeon PA-C [facility]0 [place] [address] Physician Boom Stick Man Dermatology 05/03/22 Amy Villalba Ra, APRN LINEN ROOM ATTENDANT [address] [place] [address] Referring Physician Family Practice 11/01/22 Pura De La Garza APRN LINEN ROOM ATTENDANT [address] [place] [address] Nurse Practitioner Dermatology 11/01/22 Gabe Moreira MD [address] [place] [address] 96 [place] [address] Assigned Neuroscience Provider 12/17/22 Dov Posadas PA-C [address] [place] [address] Assigned Surgical Provider 04/08/23 documented as of this encounter
--- OUTSIDE RECORDS SUMMARY | 2023-10-28 20:38 | XMS_ITS | Encounter Summary ---
Author Name Unknown Organization [facility] Address [address] [place] [address] Care Team Providers Care Wood Type Finisher Name Role Phone Amy Villalba Ra, APRN CUSTOMER SOLUTIONS REPRESENTATIVE Unavailable Priscilla Carbajal DO Unavailable [phone] Amy Villalba Ra, APRN CUSTOMER SOLUTIONS REPRESENTATIVE Primary Care Provid er Renetta Mckeon PA-C Unavailable [phone] Amy Villalba Ra, APRN CUSTOMER SOLUTIONS REPRESENTATIVE Unavailable Pura De La Garza APRN CUSTOMER SOLUTIONS REPRESENTATIVE Unavailable Gabe Moreira MD Unavailable [phone] Dov Posadas PA-C Unavailable Encounter Details Date Type Department Care Team (Late st Contact Info) Description 04/03/2023 [facility] Medical Advice [facility] [place] [address] [facility] [address] [place] [address] Angy Gregory, FLUID POWER MECHANIC Social History Tobacco Use Types Packs/Day Years [...] suspected to have Coronavirus/COVID-19? No / Unsure 04/04/2023 9:18 AM CDT documented as of this encounter Plan of Treatment Not on file documented as of this encounter Visit Diagnoses Not on filedocumented in this encounter Additional Health Concerns Assessment Noted Time PHQ-9 Depression Total Score: 20 023 10:54 AM SMASHER documented as of this encounter Care Teams Wood Type Finisher Relationship Specialty Start Date End Date Amy Villalba Ra, APRN CUSTOMER SOLUTIONS REPRESENTATIVE [address] [place] [address] PCP - General Family Practice 01/13/22 Amy Villalba Ra, APRN CUSTOMER SOLUTIONS REPRESENTATIVE [address] [place] [address] Assigned PCP 09/19/21 [place] [address] [place] [address] Assigned OBGYN Provider 10/24/21 Renetta Mkceon PA-C [address] [place] [address] Physician Critical Care Nurse Specialist Dermatology 05/03/22 Amy Villalba Ra, APRN CUSTOMER SOLUTIONS REPRESENTATIVE [address] [place] [address] Referring Physician Family Practice 11/01/22 Pura De La Garza APRN CUSTOMER SOLUTIONS REPRESENTATIVE [address] [place] [address] Nurse Practitioner Dermatology 11/01/22 Gabe Moreira MD 420 [facility] 96 [place], [place] [address] Assigned Neuroscience Provider 12/17/22 Dov Posadas PA-C [address] [place] [address] Assigned Surgical Provider 04/08/23 documented as of this encounter
--- OUTSIDE RECORDS SUMMARY | 2023-10-28 20:38 | XMS_ITS | Encounter Summary ---
Author Name Unknown Organization [facility] Address [address] [place] [address] Care Team Providers Care Core Java Software Engineer Name Role Phone Amy Villalba Ra, APRN SANDER OPERATOR Unavailable + [phone] Priscilla Carbajal DO Unavailable [phone] Amy Villalba Ra, APRN SANDER OPERATOR Primary Care Provid er Renetta Mckeon PA-C Unavailable [phone] Amy Villalba Ra, APRN SANDER OPERATOR Unavailable + [phone] Pura De La Garza APRN SANDER OPERATOR Unavailable Gabe Moreira MD Unavailable [phone] Encounter Details Date Type Department Care Team (Latest Contact Info) Description 03/16/2023 Travel Social History Tobacco Use Types Packs/Day [...] Noted Time PHQ-9 Depression Total Score: 20 12/15/ 023 10:54 AM RETAIL SERVICE LEAD MERCHANDISER documented as of this encounter Care Teams Core Java Software Engineer Relationship Specialty Start Date End Date Amy Villalba Ra, APRN SANDER OPERATOR [address] [place] [address] PCP - General Family Practice 01/13/22 Amy Villalba Ra, APRN CNP [address] [place] [address] Assigned PCP 09/19/21 [place] [address] [place], [place] [id number] Assigned OBGYN Provider 10/24/21 Renetta Mckeon, PADagobertoC [address] [place] [address] Physician Tugger Operator Dermatology 05/03/22 Amy Villalba Ra, APRN SANDER OPERATOR [address] [address] [place] [address] Referring Physician Family Practice 11/01/22 Pura De La Garza APRN SANDER OPERATOR [address] [place], [place] [id number] Nurse Practitioner Dermatology 11/01/22 Gabe Moreira MD [address] [place] [address] 685265 Assigned Neuroscience Provider 12/17/22 documented as of this encounter
--- OUTSIDE RECORDS SUMMARY | 2023-10-28 20:38 | XMS_ITS | Encounter Summary ---
Author Name Unknown Organization [facility] Address [address] [place] [address]. [place] [address] Care Team Providers Care Chronic Care Nurse Name Role Phone Amy Villalba Ra, APRN SWEET GOODS MACHINE OPERATOR Unavailable Solomon Priscilla Hernandez Unavailable [phone] Amy Villalba Ra, APRN SWEET GOODS MACHINE OPERATOR Primary Care Provid er Renetta Mckeon PA-C Unavailable Amy Villalba Ra, APRN SWEET GOODS MACHINE OPERATOR Unavailable Pura De La Garza APRN SWEET GOODS MACHINE OPERATOR Unavailable Gabe Moreira MD Unavailable [phone] Reason for Visit * Reason Onset Date Comments Pre-Op Exam 01/06/2023 Encounter Details Date Type Department Care Team (Late st Contact Info) Description 01/06/2023 Telephone [facility] [address] [place] [address] [place] [address] [place] [address] Pre-Op Exam Social History Tobacco Use Types Packs/Day Years [...] suspected to have Coronavirus/COVID-19? No / Unsure 01/06/2023 9:11 AM CDT documented as of this encounter Miscellaneous Notes * Telephone Encounter - Raj Lockwood MD - 01/06/2023 12:15 PM CDT Completed. Routed to fax. Raj Lockwood MD [facility] 01/06/2023 * Telephone Encounter - Landy Ross RN - 01/06/2023 11:45 AM CDT Rosita jey from [facility] [phone]. Surgery is Monday at 5 am. Trying to have anesthesia review so need signed by 1 pm at the latest. Landy Ross RN documented in this encounter Plan of Treatment Not on file documented as of this encounter Visit Diagnoses Not on filedocumented in this encounter Additional Health Concerns Assessment Noted Time PHQ-9 Depression Total Score: 20 023 10:54 AM BI SOLUTIONS ARCHITECT documented as of this encounter Care Teams Chronic Care Nurse Relationship Specialty Start Date End Date Amy Villalba Ra, APRN SWEET GOODS MACHINE OPERATOR [address] [place] [address] PCP - General Family Practice 01/13/22 Amy Villalba Ra, APRN SWEET GOODS MACHINE OPERATOR [address] [place] [address] Assigned PCP 09/19/21 [place] [address] [address] [place], [place] [address] Assigned OBGYN Provider 10/24/21 Renetta Mckeon PA-C [address] [place], [place] 8[address] Physician Allergy Specialist Dermatology 05/03/22 Amy Villalba Ra, APRN SWEET GOODS MACHINE OPERATOR [address] [place], [place] 8[address] Referring Physician Family Practice 11/01/22 Pura De La Garza APRN SWEET GOODS MACHINE OPERATOR [address] [place] [address] Nurse Practitioner Dermatology 11/01/22 Gabe Moreira MD [address] [place] [address] 96 [place] [address] Assigned Neuroscience Provider 12/17/22 documented as of this encounter
--- OUTSIDE RECORDS SUMMARY | 2023-10-28 20:38 | XMS_ITS | Encounter Summary ---
Author Name Unknown Organization [facility] Address [address] [place] [address] Care Team Providers Care Route Clerk Name Role Phone Amy Villalba Ra, APRN COAL CARRIER Unavailable + [phone] Amy Villalba Ra INSPECTOR ASSEMBLIES AND INSTALLATIONS COAL CARRIER Primary Care Provid er Renetta Mckeon-C Unavailable [phone] Amy Villalba Ra, APRN COAL CARRIER Unavailable Pura De La Garza APRN COAL CARRIER Unavailable Gabe Moreira MD Unavailable Dov Posadas PA-C Unavailable [phone] Encounter Details Date Type Department Care Team (Late st Contact Info) Description 05/05/2023 9:45 AM CDT Lab [facility] [address] [place] [address] Type 2 diabetes mellitus without complication, without long-term current use of insulin (H); Postsurgical malabsorption Social History Tobacco Use Types Packs/Day Years [...] suspected to have Coronavirus/COVID-19? No / Unsure 05/05/2023 9:39 AM CDT documented as of this encounter Plan of Treatment Not on file documented as of this encounter Procedures Procedure Name Priority Date/Time Associated Diagnosis Comments VITAMIN D DEFICIENCY SCREENING Routine 05/05/2023 9:47 AM CDT Postsurgical malabsorption VITAMIN A Routine 05/05/2023 9:47 AM CDT Postsurgical malabsorption PARATHYROID HORMONE INTACT Routine 05/05/2023 9:47 AM CDT Postsurgical malabsorption LIPID REFLEX TO DIRECT LDL PANEL Routine 05/05/2023 9:47 AM CDT Type 2 diabetes mellitus without complication, without long-term current use of insulin (H) IRON AND IRON BINDING CAPACITY Routine 05/05/2023 9:47 AM CDT Postsurgical malabsorption HEMOGLOBIN A1C Add-On 05/05/2023 9:47 AM CDT Type 2 diabetes mellitus without complication, without long-term current use of insulin (H) FERRITIN Routine 05/05/2023 9:47 AM CDT Postsurgical malabsorption COMPREHENSIVE METABOLIC PANEL Routine 05/05/2023 9:47 AM CDT Type 2 diabetes mellitus without complication, without long-term current use of insulin (H) VITAMIN B12 Routine 05/05/2023 9:47 AM CDT Postsurgical malabsorption CBC WITH PLATELETS Routine 05/05/2023 9: 47 AM CDT Postsurgical malabsorption documented in this encounter Results * Hemoglobin A1c (05/05/2023 9:47 AM CDT) Hemoglobin A1C 5.5 0.0 - 5.6 % 05/11/2023 8:56 AM CDT LABORATORY Comment: Normal <5.7% Prediabetes 5.7-6.4% ?? Diabetes 6.5% or higher Note: Adopted from ADA consensus guidelines. Blood BLOOD SPECIMEN / Unknown Venipuncture / Unknown 05/05/2023 9:47 AM CDT 05/05/2023 9:47 AM CDT Amy Villalba APRN COAL CARRIER LAB - BLOOD ORDERABLES LABORATORY [facility] [address] [facility] (no room number, 1st floor of clinic) [place] [address], [facility] [phone] * Vitamin A (05/05/2023 9:47 AM CDT) Vitamin A 0.94 0.30 - 1.20 mg/L 05/07/2023 10:34 PM CDT [facility] Retinol Palmitate 0.03 0.00 - 0.10 mg/L 05/07/2023 10:34 PM CDT [facility] Vitamin A Interp Normal 05/07/20 23 10:34 PM CDT [facility] Comment: This test was developed and its performance characteristics determined by [facility]. It has not been cleared or approved by the US Food and Drug Administration. This test was performed in a CLIA certified laboratory and is intended for clinical purposes. Performed By: [facility] [address] [place] [id number] Team Sports Sales Associate: Leon Patrick MD, PhD Blood BLOOD SPECIMEN / Unknown Venipuncture / Unknown 05/05/2023 9:47 AM CDT 05/05/2023 9:47 AM CDT Dov Posadas PA-C LAB - BLOOD ORD ERABLES [facility] [address] [place] [address], [facility] [phone] * Ferritin (05/05/2023 9:47 AM CDT) Ferritin 47 6 - 175 ng/mL 05/05/2023 9:10 PM CDT [facility] Blood BLOOD SPECIMEN / Unknown Venipuncture / Unknown 05/05/2023 9:47 AM CDT 05/05/2023 9:47 AM CDT Dov Posadas PA-C LAB - BLOOD ORD ERABLES [facility] [place] [facility] [address] [facility], [address] [place] [address], [facility] [phone] * Iron and Iron Binding Capacity (05/05/2023 9:47 AM CDT) Pathologist [facility] Iron 72 37 - 145 ug/dL 05/05/2023 8:38 PM CDT [facility] Iron Binding Capacity 343 240 - 430 ug/dL 05/05/2023 8:38 PM CDT [facility] Iron Sat Index 21 15 - 46 % 05/05/2023 8:38 PM CDT [facility] Blood BLOOD SPECIMEN / Unknown Venipuncture / Unknown 05/05/2023 9:47 AM CDT 05/05/2023 9:47 AM CDT Dov Posadas PA-C LAB - BLOOD ORD ERABLES [facility] [place] [facility] [address] [facility], [address] [place] [address], [facility] [phone] * Parathyroid Hormone Intact (05/05/2023 9:47 AM CDT) Parathyroid Hormone Intact 24 15 - 65 pg/mL 05/05/2023 8:14 PM CDT [facility] Blood BLOOD SPECIMEN / Unknown Venipuncture / Unknown 05/05/2023 9:47 AM CDT 05/05/2023 9:47 AM CDT Narrative LABORATORY - 05/05/2023 8:14 PM CDT This result was obtained with the Eric Elecsys PTH STAT assay. This reference range differs from PTH assays used in other [facility] laboratories. Dov Posadas PA-C LAB - BLOOD ORD ERABLES LABORATORY [facility] [place] [facility] [address] [facility], [address] [address], [facility] [phone] * Vitamin D Screen (05/05/2023 9:47 AM CDT) Vitamin D, Total (25-Hydroxy) 42 20 - 75 ug/L 05/06/2023 3:55 PM CDT SPECIALTY CORE/PROT/ENDO Blood BLOOD SPECIMEN / Unknown Venipuncture / Unknown 05/05/2023 9:47 AM CDT 05/05/2023 9:47 AM CDT Narrative SPECIALTY CORE/PROT/ENDO - 05/06/2023 3:55 PM CDT Season, race, dietary intake, and treatment affect the concentration of 08-mctlrcd-Eaoglzk D. Values may decrease during winter months and increase during summer months. Values 20-29 ug/L may indicate Vitamin D insufficiency and values <20 ug/L may indicate Vitamin D deficiency. Vitamin D determination is routinely performed by an immunoassay specific for 25 hydroxyvitamin D3. ??If an individual is on vitamin D2(ergocalciferol) supplementation, please specify 25 [place] vitamin D2 and D3 level determination by LCMSMS test VITD23. Dov Posadas PA-C LAB - BLOOD ORD ERABLES SPECIALTY CORE/PROT/ENDO Specialty Core/Prot/Endo [address] [facility], Room [address] [address] [phone] * Vitamin B12 (05/05/2023 9:47 AM CDT) Vitamin B12 518 232 - 1,245 pg/mL 05/05/2023 8:38 PM CDT U LABORATORY Blood BLOOD SPECIMEN / Unknown Venipuncture / Unknown 05/05/2023 9:47 AM CDT 05/05/2023 9:47 AM CDT Dov Posadas PA-C LAB - BLOOD ORD ERABLES U LABORATORY [facility] [place] [facility] [address] [facility], [address] [place] [address], [facility] [phone] * CBC with platelets (05/05/2023 9:47 AM CDT) [facility] WBC Count 7.5 4.0 - 11.0 10e3/uL 05/05/2023 9:49 AM CDT LABORATORY RBC Count 4.70 3.80 - 5.20 10e6/uL 05/05/2023 9:49 AM CDT LABORATORY Hemoglobin 13.9 11.7 - 15.7 g/dL 05/05/2023 9:49 AM CDT LABORATORY Hematocrit 41.9 35.0 - 47.0 % 05/05/2023 9:49 AM CDT LABORATORY MCV 89 78 - 100 fL 05/05/2023 9:49 AM CDT LABORATORY MCH 29.6 26.5 - 33.0 pg 05/05/2023 9:49 AM CDT LABORATORY MCHC 33.2 31.5 - 36.5 g/dL 05/05/2023 9:49 AM CDT LABORATORY RDW 13.0 10.0 - 15.0 % 05/05/2023 9:49 AM CDT LABORATORY Platelet Count 373 150 - 450 10e3/uL 05/05/2023 9:49 AM CDT LABORATORY Blood BLOOD SPECIMEN / Unknown Venipuncture / Unknown 05/05/2023 9:47 AM CDT 05/05/2023 9:47 AM CDT Dov Posadas PA-C LAB - BLOOD ORD ERABLES LABORATORY [facility] [address] [facility] (no room number, 1st floor of clinic) [place] [address], [facility] [phone] * (ABNORMAL) Comprehensive metabolic panel (BMP + Alb, Alk Phos, ALT, AST, Total. Bili, TP) (05/05/2023 9:47 AM CDT) Sodium 139 136 - 145 mmol/L 05/05/2023 8:38 PM CDT [facility] Potassium 4.4 3.4 - 5.3 mmol/L 05/05/2023 8:38 PM CDT [facility] Chloride 105 98 - 107 mmol/L 05/05/2023 8:38 PM CDT [facility] Carbon Dioxide (CO2) 23 22 - 29 mmol/L 05/05/2023 8:38 PM CDT [facility] Anion Gap 11 7 - 15 mmol/L 05/05/2023 8:38 PM CDT [facility] Urea Nitrogen 9.2 6.0 - 20.0 mg/dL 05/05/2023 8:38 PM CDT [facility] Creatinine 0.70 0.51 - 0.95 mg/dL 05/05/2023 8:38 PM CDT [facility] Calcium 9.5 8.6 - 10.0 mg/dL 05/05/2023 8:38 PM CDT [facility] Glucose 109(H) 70 - 99 mg/dL 05/05/2023 8:38 PM CDT [facility] Alkaline Phosphatase 70 35 - 104 U/L 05/05/2023 8:38 PM CDT [facility] AST 32 0 - 45 U/L 05/05/2023 8:38 PM CDT [facility] Comment:Reference intervals for this test were updated on 03/20/2023 to more accurately reflect our healthy population. There may be differences in the flagging of prior results with similar values performed with this method. Interpretation of those prior results can be made in the context of the updated reference intervals. ALT 13 0 - 50 U/L 05/05/2023 8:38 PM CDT [facility] Comment:Reference intervals for this test were updated on 03/20/2023 to more accurately reflect our healthy population. There may be differences in the flagging of prior results with similar values performed with this method. Interpretation of those prior results can be made in the context of the updated reference intervals. Protein Total 7.0 6.4 - 8.3 g/dL 05/05/2023 8:38 PM CDT [facility] Albumin 3.7 3.5 - 5.2 g/dL 05/05/2023 8:38 PM CDT [facility] Bilirubin Total 0.4 <=1.2 mg/dL 05/05/2023 8:38 PM CDT [facility] GFR Estimate >90 >60 mL/min/1. 73m2 05/05/2023 8:38 PM CDT [facility] Blood BLOOD SPECIMEN / Unknown Venipuncture / Unknown 05/05/2023 9:47 AM CDT 05/05/2023 9:47 AM CDT Amy Villalba INSPECTOR ASSEMBLIES AND INSTALLATIONS COAL CARRIER LAB - BLOOD ORDERABLES [facility] LAB[facility] [address] [facility], [address] [address], [facility] [phone] * (ABNORMAL) Lipid panel reflex to direct LDL Fasting (05/05/2023 9:47 AM CDT) Cholesterol 222(H) <200 mg/dL 05/05/2023 8:38 PM CDT [facility] Triglycerides 128 <150 mg/dL 05/05/2023 8:38 PM CDT [facility] Direct Measure HDL 56 >=50 mg/dL 05/05/2023 8:38 PM CDT [facility] LDL Cholesterol Calculated 140(H) <=100 mg/dL 05/05/2023 8:38 PM CDT [facility] Non HDL Cholesterol 166(H) <130 mg/dL 05/05/2023 8:38 PM CDT [facility] Blood BLOOD SPECIMEN / Unknown Venipuncture / Unknown 05/05/2023 9:47 AM CDT 05/05/2023 9:47 AM CDT Narrative [facility] - 05/05/2023 8:38 PM CDT Cholesterol Desirable: ??<200 mg/dL Triglycerides Normal: ??Less than 150 mg/dL Borderline High: ??150-199 mg/dL High: ??200-499 mg/dL Very High: ??Greater than or equal to 500 mg/dL Direct Measure HDL Female: ??Greater than or equal to 50 mg/dL Male: ??Greater than or equal to 40 mg/dL LDL Cholesterol Desirable: ??<100mg/dL Above Desirable: ??100-129 mg/dL Borderline High: ??130-159 mg/dL High: ??160-189 mg/dL Very High: ??>= 190 mg/dL Non HDL Cholesterol Desirable: ??130 mg/dL Above Desirable: ??130-159 mg/dL Borderline High: ??160-189 mg/dL High: ??190-219 mg/dL Very High: ??Greater than or equal to 220 mg/dL Amy Villalba APRN, CNP LAB - BLOOD ORDERABLES U LABORATORY [facility] Lab [address] [facility], [address] [place] [address], [facility] [phone] documented in this encounter Visit Diagnoses Diagnosis Type 2 diabetes mellitus without complication, without long-term current use of insulin (H) 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 documented in this encounter Additional Health Concerns Assessment Noted Time PHQ-9 Depression Total Score: 20 023 10:54 AM SENIOR CARE SPECIALIST documented as of this encounter Care Teams Route Clerk Relationship Specialty Start Date End Date Amy Villalba Ra, APRN CNP [address] [address] [place] [address] PCP - General Family Practice 01/13/22 Amy Villalba Ra, APRN CNP [address] [address] [place] [address] Assigned PCP 09/19/21 Renetta Mckeon PA-C [address] [place] [address] Physician Lockstitch Shoulder Joiner Dermatology 05/03/22 Amy Villalba Ra, APRN COAL CARRIER [address] [place] [address] Referring Physician Family Practice 11/01/22 Pura De La Garza APRN COAL CARRIER [address] [place] [address] Nurse Practitioner Dermatology 11/01/22 Gabe Moreira MD [address] [place] [address] [address] [place], [place] 0[address] Assigned Neuroscience Provider 12/17/22 Dov Posadas PA-C [address] [place] [id number] Assigned Surgical Provider 04/08/23 documented as of this encounter
--- OUTSIDE RECORDS SUMMARY | 2023-10-28 20:38 | XMS_ITS | Encounter Summary ---
Author Name Unknown Organization [facility] Address [address] [place] [address]. [place] [address] Care Team Providers Care Acquisition Advisor Name Role Phone Amy Villalba Ra, APRN EXPLOSIVE TECHNICIAN Unavailable + [phone] Priscilla Carbajal DO Unavailable [phone] Amy Villalba Ra, APRN EXPLOSIVE TECHNICIAN Primary Care Provid er Renetta Mckeon PA-C Unavailable [phone] Amy Villalba Ra, APRN EXPLOSIVE TECHNICIAN Unavailable + [phone] Pura De La Garza APRN EXPLOSIVE TECHNICIAN Unavailable Gabe Moreira MD Unavailable [phone] Reason for Visit * Reason Onset Date Comments Abdominal Pain 03/16/2023 Encounter Details Date Type Department Care Team (Late st Contact Info) Description 03/16/2023 Telephone [facility] [place] [address] [place] [phone] Karina Rosen, KATTY [facility] [address] [place] [id number] Abdominal Pain Social History Tobacco Use Types Packs/Day Years [...] PM CDT documented as of this encounter Miscellaneous Notes * Telephone Encounter - Karina Rosen RN - 03/16/2023 4:01 PM CDT Patient called Call Center today due to abdominal pain. Returning call due to request from Call Center. Pt had gastric bypass 01/08/18. Last seen 02/07/19 for annual. Was being treated with omeprazole 20 mg daily for GERD at that time and noted improved per providernote. Today pt states Had panniculectomy 2018 - has had pain and incontinence since. When stands up urinates. Can't walk w/o pain on both sides of hip bones - feels like someone is punching her on either side of her hips. Can't stand up straight. Looks like verything sewn to the side. Saw plastics in 09/27/2019 - don't see that pain was mentioned in the visit. 06/10/[address] Newell for internal hernia hernia repair. States internal hernia relieved some of the pain - excrutiating pain went away but pain still abouta 12/16. Has seen bladder specialist who told her she has good bladder muscle control. Organs are pressing on her bladder? Saw back surgeon and had lami done and was told that is not causing her problem. Bed And Breakfast Cook is rec complete hyst Has been recommeded to go to [place]. Wanted to be seen in clinic for pain States every time eats has upset stomach and pain. Has BM 2 twice daily. Was told by bladder specialist to keep BMs soft to help with incontinence. States 2-3 hours prior to bowel movement can feel BM pushing on ovaries. Pt will see provider for abd pain and annual visit. Trusts our clinic and is aware we may not have answers but, is good with having annual as well due to not seen in last couple of years d/t pandemic. Pt scheduled for 04/04 for 1 hour with provider. Karina Villa, MS, RD, RN documented in this encounter Plan of Treatment Not on file documented as of this encounter Visit Diagnoses Not on filedocumented in this encounter Additional Health Concerns Assessment Noted Time PHQ-9 Depression Total Score: 20 023 10:54 AM FILLING HAULER documented as of this encounter Care Teams Acquisition Advisor Relationship Specialty Start Date End Date Amy Villalba Ra, APRN EXPLOSIVE TECHNICIAN [address] [place] [address] PCP - General Family Practice 01/13/22 Amy Villalba Ra, APRN EXPLOSIVE TECHNICIAN [address] [place] [address] Assigned PCP 09/19/21 [place] [address] [place] [address] Assigned OBGYN Provider 10/24/21 Renetta Mckeon PA-C [address] [place] [address] Physician Sample Checker Dermatology 05/03/22 Amy Villalba Ra, APRN EXPLOSIVE TECHNICIAN [address] [place] [address] Referring Physician Family Practice 11/01/22 Pura De La Garza APRN EXPLOSIVE TECHNICIAN [address] [place] [address] Nurse Practitioner Dermatology 11/01/22 Gabe Moreira MD [address] [place] [address] Assigned Neuroscience Provider 12/17/22 documented as of this encounter
--- OUTSIDE RECORDS SUMMARY | 2023-10-28 20:38 | XMS_ITS | Encounter Summary ---
Author Name Unknown Organization [facility] Address [address] [place] [address]. [place] [address] Care Team Providers Care Core Cleaner Name Role Phone Amy Villalba Ra, APRN TALLIER Unavailable [phone] Priscilla Carbajal DO Unavailable Amy Villalba Ra, APRN TALLIER Primary Care Provid er Renetta Mckeon PA-C Unavailable Amy Villalba Ra, APRN TALLIER Unavailable [phone] Pura De La Garza APRN TALLIER Unavailable Gabe Moreira MD Unavailable Reason for Visit * Reason Onset Date Comments Refill Request 03/16/2023 metFORMIN (GLUCOPHAGE XR) 500 MG 24 hr tablet Encounter Details Date Type Department Care Team (Late st Contact Info) Description 03/16/2023 Refill [facility] [address] [place] [address] Amy Villalba Ra, APRN TALLIER [address] [place] [address] Refill Request; metFORMIN (GLUCOPHAGE XR) 500 MG 24 hr tablet Social History Tobacco Use Types Packs/Day Years [...] encounter Miscellaneous Notes * Telephone Encounter - Simin Buckley RN - 03/16/2023 10:24 AM CDT Prescription approved per [facility] Refill Protocol. Simin Limon RN, BSN documented in this encounter Plan of Treatment Not on file documented as of this encounter Visit Diagnoses Diagnosis Type 2 diabetes mellitus without complication, without long-term current use of insulin (H) documented in this encounter Additional Health Concerns Assessment Noted Time PHQ-9 Depression Total Score: 20 023 10:54 AM MERCHANT MILLER documented as of this encounter Care Teams Core Cleaner Relationship Specialty Start Date End Date Amy Villalba Ra, APRN TALLIER [address] [address] [place] [address] PCP - General Family Practice 01/13/22 Amy Villalba Ra, APRN TALLIER [address] [address] [place] [address] Assigned PCP 09/19/21 [place] [address] [facility] [place] [place] [address] Assigned OBGYN Provider 10/24/21 Renetta Mckeon PA-C [address] [place] [address] Physician Embossing Unit Operator Dermatology 05/03/22 Amy Villalba Ra, APRN TALLIER [address] [place] [address] Referring Physician Family Practice 11/01/22 Pura De La Garza APRN TALLIER [address] [place] [address] Nurse Practitioner Dermatology 11/01/22 Gabe Moreira MD [address] [place] [address] [address] [place] [address] Assigned Neuroscience Provider 12/17/22 documented as of this encounter
--- OUTSIDE RECORDS SUMMARY | 2023-10-28 20:38 | XMS_ITS | Encounter Summary ---
Author Name Unknown Organization [facility] Address [address] [place] [address]. [place] [address] Care Team Providers Care Jowl Trimmer Name Role Phone Amy Villalba Ra, APRN PST MANAGER Unavailable [phone] Priscilla Carbajal DO Unavailable Amy Villalba Ra, APRN PST MANAGER Primary Care Provid er Renetta Mckeon PA-C Unavailable [phone] Amy Villalba Ra, APRN PST MANAGER Unavailable [phone] Pura De La Garza APRN PST MANAGER Unavailable Gabe Moreira MD Unavailable [phone] Dov Posadas PA-C Unavailable [phone] Reason for Visit * Reason Onset Date Comments Referral 04/24/2023 Encounter Details Date Type Department Care Team (Late st Contact Info) Description 04/24/2023 Telephone [facility] [address] [place] [address] Amy Villalba Ra, APRN CNP [address] [place] [address] Referral Social History Tobacco Use Types Packs/Day Years [...] * Telephone Encounter - Michaelle Alberto - 05/03/2023 12:22 PM CDT Called patient and let them know, patient will discuss at upcoming appt. Michaelle Alberto Track Laying Machine Operator * Telephone Encounter - Isabel Jo RN - 05/03/2023 12:13 PM CDT Pt would need some kind of visit - could try submitting an e-visit or go back to the specialist whooriginally ordered the PT referral. Will forward to the station. * Telephone Encounter - Jaclyn Vines - 05/03/2023 11:31 AM CDT Routing to Triage. Jaclyn Chang Track Laying Machine Operator * Telephone Encounter - Jaclyn Vines - 04/24/2023 2:58 PM CDT Pt called requesting a referral be placed for PT pelvis as she has been referred previously by a specialist but at that time she wasn't able to schedule and that was 1.5 years ago. Pt will picking table worker referral once ordered from the FD as she goes somewhere already for a different type of PT. Pt call back: [phone] Detailed VM OK Jaclyn Cristinaunt Track Laying Machine Operator documented in this encounter Plan of Treatment Not on file documented as of this encounter Visit Diagnoses Not on filedocumented in this encounter Additional Health Concerns Assessment Noted Time PHQ-9 Depression Total Score: 20 12/15/ 023 10:54 AM VETERINARY INSPECTOR documented as of this encounter Care Teams Jowl Trimmer Relationship Specialty Start Date End Date Amy Villalba Ra, APRN PST MANAGER [address] [place] [address] PCP - General Family Practice 01/13/22 Amy Villalba Ra, APRN PST MANAGER [address] [place] [address] Assigned PCP 09/19/21 [place] [address] [place] [address] Assigned OBGYN Provider 10/24/21 Renetta Mckeon, PADagobertoC [address] [place] [address] Physician Veterinary Technologist Dermatology 05/03/22 Amy Villalba Ra, APRN PST MANAGER [address] [facility] [place] [address] Referring Physician Family Practice 11/01/22 Pura De La Garza APRN PST MANAGER [address] [place] [id number] Nurse Practitioner Dermatology 11/01/22 Gabe Moreira MD [address] [place] [address] Assigned Neuroscience Provider 12/17/22 Dov Posadas PA-C [address] [place] [address] Assigned Surgical Provider 04/08/23 documented as of this encounter
--- OUTSIDE RECORDS SUMMARY | 2023-10-28 20:38 | XMS_ITS | Encounter Summary ---
Author Name Unknown Organization [facility] Address [address] [place] [address]. [place] [address] Care Team Providers Care Telephone Maintenance Mechanic Name Role Phone Amy Villalba Ra, APRN VP PRODUCT MANAGEMENT Unavailable [phone] Priscilla Carbajal DO Unavailable Amy Villalba Ra, APRN VP PRODUCT MANAGEMENT Primary Care Provid er Renetta Mckeon PA-C Unavailable Amy Villalba Ra, APRN VP PRODUCT MANAGEMENT Unavailable [phone] Pura De La Garza APRN VP PRODUCT MANAGEMENT Unavailable [phone] Gabe Moreira MD Unavailable Reason for Visit * Reason Onset Date Comments Refill Request 02/20/2023 levothyroxine (S YNTHROID/LEVOTHROID) 150 MCG tablet Encounter Details Date Type Department Care Team (Late st Contact Info) Description 02/20/2023 Refill [facility] [address] [place] [address] Amy Villalba Ra, APRN VP PRODUCT MANAGEMENT [address] [place] [address] Refill Request (levothyroxine (SYNTHROID/LEVOTHROID) 150 MCG tablet) Social History Tobacco Use Types Packs/Day Years [...] encounter Miscellaneous Notes * Telephone Encounter - Vickie Ward RN - 02/22/2023 10:43 AM CDT Prescription sent 12/15/22. Vickie Ward RN documented in this encounter Plan of Treatment Not on file documented as of this encounter Visit Diagnoses Diagnosis Acquired hypothyroidism Unspecified hypothyroidism documented in this encounter Additional Health Concerns Assessment Noted Time PHQ-9 Depression Total Score: 20 023 10:54 AM ASSOCIATE PROFESSOR OF THEOLOGY documented as of this encounter Care Teams Telephone Maintenance Mechanic Relationship Specialty Start Date End Date Amy Villalba Ra, APRN VP PRODUCT MANAGEMENT [address] [place] [address] PCP - General Family Practice 01/13/22 Amy Villalba Ra, APRN VP PRODUCT MANAGEMENT [address] [place] [address] Assigned PCP 09/19/21 [place] [address] [place] [address] Assigned OBGYN Provider 10/24/21 Renetta Mckeon PA-C [address] [place] [address] Physician Rockboard Lather Dermatology 05/03/22 Amy Villalba Ra, APRN VP PRODUCT MANAGEMENT [address] [facility] [place] [address] Referring Physician Family Practice 11/01/22 Pura De La Garza APRN VP PRODUCT MANAGEMENT [address] [place] [address] Nurse Practitioner Dermatology 11/01/22 Gabe Moreira MD [address] [facility] [address] [place] [address] Assigned Neuroscience Provider 12/17/22 documented as of this encounter
--- OUTSIDE RECORDS SUMMARY | 2023-10-28 20:38 | XMS_ITS | Encounter Summary ---
Author Name Unknown Organization [facility] Address [address] [place] [address]. [place] [address] Care Team Providers Care Tail Board Worker Name Role Phone Amy Villalba Ra, APRN SENIOR SCRUM MASTER Unavailable Priscilla Carbajal Mary DO Unavailable [phone] Amy Villalba Ra, APRN SENIOR SCRUM MASTER Primary Care Provid er Renetta Mckeon PA-C Unavailable [phone] Amy Villalba Ra, APRN SENIOR SCRUM MASTER Unavailable + [phone] Pura De La Garza APRN SENIOR SCRUM MASTER Unavailable Gabe Moreira MD Unavailable [phone] Reason for Visit * Reason Comments RECHECK Return [facility] Encounter Details Date Type Department Care Team (Late st Contact Info) Description 04/04/2023 3:30 PM CDT Office Visit [facility] [place] [address] [facility] [address] [place] [phone] Dov Posadas PA-C [address] [facility] [place] [id number] Class 1 obesity due to excess calories with serious comorbidity and body mass index (BMI) of 31.0 to 31.9 in adult (Primary Dx); Postsurgical malabsorption; Bariatric surgery status; GERD without esophagitis Social History Tobacco Use Types Packs/Day Years [...] Sign Reading Time Taken Comments Blood Pressure 139/89 04/04/2023 8:30 AM CDT Pulse 90 04/04/2023 8:30 AM CDT Temperature - - Respiratory Rate - - Oxygen Saturation 98% 04/04/2023 8:30 AM CDT Inhaled Oxygen Concentration - - Weight 92.5 kg (204 lb) 04/04/2023 8:30 AM CDT Height 170.2 cm (5' 7) 04/04/2023 8:30 AM CDT Body Mass Index 31.95 04/04/2023 8:30 AM CDT documented in this encounter Patient Instructions * Patient Instructions* Dov Posadas PA-C - 04/04/2023 3:30 PM CDT To ensure the quality you may receive a patient satisfaction survey. The greatest compliment you can give is Likely to Recommend Nice to talk with you today. Thank you for allowing me the privilege of caring for you. Below is the plan discussed.- . Dov Posadas PA-C Plan: Labs ordered. Call [phone] to schedule. Continue your bariatric vitamins GI complaints - recommended see GI but patient would like to see a [place] provider to get more advise. GERD without esophagitis - RX for omeprazole 40 mg once daily Return to clinic in 1 year for annual FOLLOW-UP: Call [phone] to schedule next visit. Bariatric Post Op Guidelines General: To avoid marginal ulcers avoid all forms of tobacco, alcohol in excess, caffeine, and NSAIDS Exercise is cheek for weight loss and weight maintenance. Aim for 30-60 minutes of physical activity most days. Include cardiovascular and strength training. Continue lifelong vitamins supplementation and annual lab follow up. All patients should supplement with the following bariatric postoperative vitamins: 2 Complete multivitamins with minerals (at different times than calcium) Vitamin D 5000 Int Units/125 mg daily Calcium 600 mg twice daily or 500 mg three times daily Vitamin B12: 500 mcg sl daily or 1000 mcg Inj monthly B complex daily or Thiamine 100 mg weekly 1 Iron/Vit C. Daily for females who menstruate and/or as directed The bariatric team should be aware and evaluate all GI symptoms which can be a sign of complications. Inability to tolerate textured solid food (chicken, steak, fish) may need to be evaluated by endoscopy. There is a 10% increase of Alcohol Use Disorder in patients with bariatric surgery. Most often occurring around 2 years post op. Call if you feel alcohol is interfering in your daily life. We can help. Follow up annually lifelong. Obesity is a chronic disease. Weight gain can be expected. The goal offollow-up visits is to ensure adequate vitamin and protein absorption, evaluate food intake behavior, review exercise/activity level, and assist with weight regain. Nutritional: Eat 3 meals per day (No snacks between meals.) Do not skip meals. This can cause overeating at the next meal and will prevent adequate protein andnutritional intake. Aim for 60-80 grams of protein per day. Always eat your protein first. This assists with optimal nutrition and helps you stay full longer. Eat your protein first, and then follow with fiber. Add fiber by including fruits, vegetables, whole grains, and beans. Portions should be about 1 cup per meal. Use measuring cups to be accurate. Continue to use saucer/salad plates, /toddler silverware to keep portion sizes small and takesmall bites. Eat S-L-O-W-L-Y to make each meal last 20-30 minutes. Always stop eating when satisfied. Aim for 64 oz. of calorie-free fluids daily. Avoid drinking 30 min before, during, and 30 min after meal Avoid high sugar and high fat foods to prevent high calorie intake. This will reduce your rate of weight loss and can cause weight regain. Check nutrition labels for less than 10 grams of sugar and less than 10 grams of fat per serving. documented in this encounter Progress Notes * Dov Posadas PA-C - 04/04/2023 3:30 PM CDT Return Bariatric Surgery Note RE: Marlene Almeida MR#: [id number] : 1980 VISIT DATE: Apr 04, 2023 Dear Amy Villalba Ra, I had the pleasure of seeing your patient, Marlene Almeida, in my post-bariatric surgery assessmentclinic. CHIEF COMPLAINT: Post-bariatric surgery follow-up. Main issue is around complications related to her panniculectomy 08/02/2019. States has had severe ongoing issues and pain. Has seen specialists since then and will need a hysterectomy - patient believes as a result of the panniculectomy. Also having incontinence issues. States her skin was pulled too far right and is affecting her internal organs. Had back surgery this past January as well. Taking ibuprofen daily for overall abdominal, hip and back pain. Feels it is more important to be able to be active with her kids by taking ibuprofen than to care about her own health. Last seen 02/07/2019 HISTORY OF PRESENT ILLNESS: 04/04/2023 9:28 AM Questions Regarding Prior Weight Loss Surgery Reviewed With Patient I had the following weight loss procedure Oli-en-y Gastric Bypass What year was your surgery? 2018 How has your weight changed since your last visit? I have stayed about the same Do you currently have any of the following Heartburn, acid reflux, or GERD (acid reflux disease)? Do you have any concerns today? Pain Patient is taking the following bariatric postoperative vitamins: 2 Complete multivitamins with minerals (at different times than calcium) 2000 International Units of Vitamin D daily 1200??mg of Calcium daily in divided doses No iron for the past year - had constipation. Menstruating monthly No B12 (was elevated in past.) Weight History: 04/04/2023 9:28 AM -- What is your highest lifetime weight? 350 What is your lowest weight since surgery? (In pounds) 205 Initial Weight (lbs): 329 lbs Weight: 204 lb (92.5 kg) Last Visits Weight: 222 lb (100.7 kg) Cumulative weight loss (lbs): 125 Weight Loss Percentage: 37.99% 04/04/2023 9:28 AM Questions Regarding Co-Morbidities and Health Concerns Reviewed With Patient Pre-diabetes Never Diabetes II Gone away High Blood Pressure Gone Away High cholesterol Gone away Heartburn/Reflux Stayed the same Sleep apnea Never PCOS Stayed the same Back pain Worsened Joint pain Worsened Lower leg swelling Gone away 04/04/2023 9:28 AM Eating Habits How many meals do you eat per day? 2 Do you snack between meals? Yes How much food are you eating at each meal? 1/2 cup to 1 cup Are you able to separate your meals and liquids by at least 30 minutes? Yes Are you able to avoid liquid calories? Yes 04/04/2023 9:28 AM Exercise Questions Reviewed With Patient How often do you exercise? Never What keeps you from being more active? Pain I have just had surgery on one or more of my joints My ability to walk or move around is limited Social History: 04/04/2023 9:28 AM -- Are you smoking? No Are you drinking alcohol? Yes How much alcohol? 2 times a year Medications: Current Outpatient Medications Medication ??? acetaminophen (TYLENOL) 500 MG tablet ??? buPROPion (WELLBUTRIN XL) 150 MG 24 hr tablet ??? Cholecalciferol (D3-1000) 25 MCG (1000 UT) CAPS ??? cyclobenzaprine (FLEXERIL) 5 MG tablet ??? drospirenone-ethinyl estradiol (MAX) 3-0.03 MG tablet ??? escitalopram (LEXAPRO) 20 MG tablet ??? eszopiclone (LUNESTA) 3 MG tablet ??? levothyroxine (SYNTHROID/LEVOTHROID) 150 MCG tablet ??? metFORMIN (GLUCOPHAGE XR) 500 MG 24 hr tablet ??? Multiple Vitamins/Iron TABS ??? omeprazole (PRILOSEC) [address] capsule No current facility-administered medications for this visit. 04/04/2023 9:28 AM -- Do you avoid NSAIDs such as (Ibuprofen, Aleve, Naproxen, Advil)? No Has been taking ibuprofen 200-400 mg BID x 4 weeks. Previously has been off and on of the ibuprofenfor years. Has 8-10 oz coffee daily Has been noticing foamies after taking ibuprofen for the past few weeks. Vomiting off and on a few years but worse since back surgery in January. Last time vomited was 4 days ago. Has pain daily with even walking. Limits activity all together since panniculectomy. Sides hurt very bad. Tylenol does not help. Patient is not willing to give up ibuprofen as her pain impacts her life too much. Discussed increasing omeprazole daily. ROS: GI: 04/04/2023 9:28 AM -- Vomiting Yes Diarrhea Yes Constipation Yes Swallowing trouble No Abdominal pain Yes Heartburn Yes Has lower abdominal pain daily for the past 3 years. Skin: 04/04/2023 9:28 AM BAR RBS ROS - SKIN Rash in skin folds Yes Uses ointment for rashes in belly button - applies hydrocortisone and baby powder. Psych: 04/04/2023 9:28 AM -- Depression Yes Anxiety Yes : 04/04/2023 9:28 AM BAR RBS ROS - Female only Excessive menstrual bleeding Polycystic ovarian syndrome (PCOS) control Regular menstrual cycles Stress urinary incontinence Yes LABS/IMAGING/MEDICAL RECORDS REVIEW: [facility] PHYSICAL EXAMINATION: BP 139/89 (BP Location: Right arm, Patient Position: Chair, Cuff Size: Adult Large) Pulse 90 Ht5' 7 (1.702 m) Wt 204 lb (92.5 kg) SpO2 98% BMI 31.95 kg/m?? GENERAL: Alert and oriented x3. NAD HEART: No murmurs, rubs or gallops, Regular rate and rhythm LUNGS: Breathing unlabored. Lung sounds clear to auscultation bilaterally ABDOMEN: No hernias, Incisions well healed, soft and nontender EXTREMITIES: No LE edema bilaterally SKIN: Warm and dry. No intertriginous irritation or rash ASSESSMENT AND PLAN: 1. 5 years status laparoscopic gastric bypass We reviewed the important post op bariatric recommendations: eating 3 meals daily eating protein first, getting >60gm protein daily eating slowly, chewing food well avoiding/limiting calorie containing beverages avoiding fluids 30 minutes before, during, and after meals limiting restaurant or cafeteria eating to twice a week or less Pt reminded to avoid marginal ulcers she should avoid tobacco at all, alcohol in excess, caffeine, and NSAIDS (unless indicated for cardioprotection or othewise and opposed by a PPI). Pt encouraged to establish and maintain a consistent physical activity routine, 6-8 hours of restorative sleep each night and optimal stress management. Pt counseled on the importance of life long vitamin supplementation and life long follow up. 2. Morbid Obesity - resolved - current BMI: Body mass index is 31.95 kg/m??. 3. Post surgical malabsorption: Labs ordered per protocol. Follow food plan per dietitian recommendations. Continue taking recommended post-op vitamins. 4. GI complaints - recommended see GI but patient would like to see a [place] provider to get more advise. 5. GERD without esophagitis - RX for omeprazole 40 mg once daily 6. Return to clinic in 1 year for annual Sincerely, Dov Posadas PA-C 45 minutes spent on the date of the encounter doing chart review, review of test results, patient visit and documentation documented in this encounter Plan of Treatment Not on file documented as of this encounter Results * Vitamin A (05/05/2023 9:47 AM CDT) Vitamin A 0.94 0.30 - 1.20 mg/L 05/07/2023 10:34 PM CDT [facility] Retinol Palmitate 0.03 0.00 - 0.10 mg/L 05/07/2023 10:34 PM CDT [facility] Vitamin A Interp Normal 05/07/20 23 10:34 PM CDT [facility] Comment: This test was developed and its performance characteristics determined by [facility]. It has not been cleared or approved by the [place] Food and Drug Administration. This test was performed in a CLIA certified laboratory and is intended for clinical purposes. Performed By: [facility] [address] [place] [address] Cartridge Loader: Leon Patrick MD, PhD Blood BLOOD SPECIMEN / Unknown Venipuncture / Unknown 05/05/2023 9:47 AM CDT 05/05/2023 9:47 AM CDT Dov Posadas PA-C LAB - BLOOD ORD ERABLES [facility] [address] [place] [address], [facility] [phone] * Ferritin (05/05/2023 9:47 AM CDT) Ferritin 47 6 - 175 ng/mL 05/05/2023 9:10 PM CDT [facility] Blood BLOOD SPECIMEN / Unknown Venipuncture / Unknown 05/05/2023 9:47 AM CDT 05/05/2023 9:47 AM CDT Dov Posadas PA-C LAB - BLOOD ORD ERABLES [facility] [place] [address] [facility], [address] [address], [facility] [phone] * Iron and Iron Binding Capacity (05/05/2023 9:47 AM CDT) Iron 72 37 - 145 ug/dL 05/05/2023 [...] LAB - BLOOD ORD ERABLES [facility] [address] [facility], [address] [address], [facility] [phone] * Parathyroid Hormone Intact (05/05/2023 9:47 AM [...] differs from PTH assays used in other [facility] laboratories. Dov Posadas PA-C LAB - BLOOD ORD ERABLES LABORATORY [facility] [address] [facility], [address] [address], [facility] [phone] * Vitamin D Screen (05/05/2023 9:47 AM CDT) Pathologist [facility] Vitamin D, Total (25-Hydroxy) 42 20 - 75 ug/L 05/06/2023 3:55 PM CDT SPECIALTY CORE/PROT/ENDO Blood BLOOD SPECIMEN / Unknown Venipuncture / Unknown 05/05/2023 9:47 AM CDT 05/05/2023 9:47 AM CDT Narrative SPECIALTY CORE/PROT/ENDO - 05/06/2023 3:55 PM CDT Season, race, dietary intake, and treatment affect the concentration of 59-miytsyw-Hjeeddf D. Values may decrease during winter months [...] ORD ERABLES SPECIALTY CORE/PROT/ENDO Specialty Core/Prot/Endo [address] [facility], [address] [address], [facility] [phone] * Vitamin B12 (05/05/2023 9:47 AM CDT) Pathologist [facility] Vitamin B12 518 232 - 1,245 pg/mL 05/05/2023 8:38 PM CDT [facility] Blood BLOOD SPECIMEN / Unknown Venipuncture / Unknown 05/05/2023 9:47 AM CDT 05/05/2023 9:47 AM CDT Dov Posadas PA-C LAB - BLOOD ORD ERABLES [facility] [place] [facility] [address] [facility], [address] [place] [address], [facility] [phone] * CBC with platelets (05/05/2023 9:47 AM CDT) [facility] WBC Count 7.5 4.0 - 11.0 10e3/uL [...] PA-C LAB - BLOOD ORD ERABLES LABORATORY [facility] [address] [facility] (no room number, 1st floor of clinic) [place] [address], [facility] [phone] documented in this encounter Visit Diagnoses Diagnosis Class 1 obesity due to excess calories with serious comorbidity and body mass index (BMI) of 31.0 to 31.9 in adult- Primary 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 Bariatric surgery status GERD without esophagitis Esophageal reflux documented in this encounter Additional Health Concerns Assessment Noted Time PHQ-9 Depression Total Score: 20 023 10:54 AM GUN PERFORATOR LOADER documented as of this encounter Care Teams Tail Board Worker Relationship Specialty Start Date End Date Amy Villalba Ra, APRN SENIOR SCRUM MASTER [address] [address] [place] [address] PCP - General Family Practice 01/13/22 Amy Villalba Ra, APRN SENIOR SCRUM MASTER [address] [place] [address] Assigned PCP 09/19/21 [place] [address] [place] [address] Assigned OBGYN Provider 10/24/21 Renetta Mckeon, PADagobertoC [address] [place] [address] Physician Electrical Line Worker Dermatology 05/03/22 Amy Villalba Ra, APRN SENIOR SCRUM MASTER [address] [place] [address] Referring Physician Family Practice 11/01/22 Pura De La Garza APRN SENIOR SCRUM MASTER [address] [place] [address] Nurse Practitioner Dermatology 11/01/22 Gabe Moreira MD [address] [place] [address] Assigned Neuroscience Provider 12/17/22 documented as of this encounter
--- OUTSIDE RECORDS SUMMARY | 2023-10-28 20:38 | XMS_ITS | Encounter Summary ---
Author Name Unknown Organization [facility] Address [address] [place] [address]. [place] [address] Care Team Providers Care Composing Room Machinist Name Role Phone Amy Villalba Ra, APRN STRIP DEBURRER Unavailable [phone] Amy Villalba Ra HARD METALS HAND ENGRAVER STRIP DEBURRER Primary Care Provid er Renetta MckeonC Unavailable Amy Villalba Ra, APRN STRIP DEBURRER Unavailable [phone] Pura De La Garza APRN STRIP DEBURRER Unavailable Gabe Moreira MD Unavailable Dov Posadas PA-C Unavailable Reason for Visit * Reason Comments Medication Refill Encounter Details Date Type Department Care Team (Late st Contact Info) Description 05/03/2023 Refill [facility] [address] [place] [address] Amy Villalba Ra HARD METALS HAND ENGRAVER STRIP DEBURRER [address] [place] [address] Medication Refill Social History Tobacco [...] as of this encounter Visit Diagnoses Diagnosis Insomnia, unspecified type documented in this encounter Additional Health Concerns Assessment Noted Time PHQ-9 Depression Total Score: 20 023 10:54 AM BURLAPPER documented as of this encounter Care Teams Composing Room Machinist Relationship Specialty Start Date End Date Amy Villalba Ra, APRN STRIP DEBURRER [address] [place] [address] PCP - General Family Practice 01/13/22 Amy Villalba Ra, APRN STRIP DEBURRER [address] [place] [address] Assigned PCP 09/19/21 Renetta Mckeon PA-C [address] [place] [address] Physician Manager Animal Dermatology 05/03/22 Amy Villalba Ra, APRN STRIP DEBURRER [address] [place] [address] Referring Physician Family Practice 11/01/22 Pura De La Garza APRN STRIP DEBURRER [address] [place] [address] Nurse Practitioner Dermatology 11/01/22 Gabe Moreira MD [address] [place] [address] [address] [place] [address] Assigned Neuroscience Provider 12/17/22 Dov Posadas PA-C [address] [place] [address] Assigned Surgical Provider 04/08/23 documented as of this encounter
--- OUTSIDE RECORDS SUMMARY | 2023-10-28 20:38 | XMS_ITS | Encounter Summary ---
Author Name Unknown Organization [facility] Address [address] [place] [address] Care Team Providers Care Sales Developer Name Role Phone Amy Villalba Ra, APRN ELECTRONIC MAINTENANCE SUPERVISOR Unavailable + [phone] Priscilla Carbajal DO Unavailable [phone] Amy Villalba Ra, APRN ELECTRONIC MAINTENANCE SUPERVISOR Primary Care Provid er Renetta Mckeon PA-C Unavailable [phone] Amy Villalba Ra, APRN ELECTRONIC MAINTENANCE SUPERVISOR Unavailable [phone] Pura De La Garza APRN ELECTRONIC MAINTENANCE SUPERVISOR Unavailable Gabe Moreira MD Unavailable [phone] Encounter Details Date Type Department Care Team (Latest Contact Info) Description 01/06/2023 Travel Social History Tobacco Use Types Packs/Day [...] Total Score: 20 12/15/ 023 10:54 AM LITIGATION SECRETARY documented as of this encounter Care Teams Sales Developer Relationship Specialty Start Date End Date Amy Villalba Ra, APRN ELECTRONIC MAINTENANCE SUPERVISOR [address] [place] [address] PCP - General Family Practice 01/13/22 Amy Villalba Ra, APRN CNP [address] [place] [address] Assigned PCP 09/19/21 [place] [address] [place], [place] [address] Assigned OBGYN Provider 10/24/21 Renetta Mckeon, PADagobertoC [address] [place] [address] Physician Fruit Worker Dermatology 05/03/22 Amy Villalba Ra, APRN ELECTRONIC MAINTENANCE SUPERVISOR [address] [address] [address] Referring Physician Family Practice 11/01/22 Pura De La Garza APRN ELECTRONIC MAINTENANCE SUPERVISOR [address] [place], [place] [id number] Nurse Practitioner Dermatology 11/01/22 Gabe Moreira MD [address] [place] [id number] Assigned Neuroscience Provider 12/17/22 documented as of this encounter
--- OUTSIDE RECORDS SUMMARY | 2023-10-28 20:38 | XMS_ITS | Encounter Summary ---
Author Name Unknown Organization [facility] Address [address] [place] [address] Care Team Providers Care Franchise Business Consultant Name Role Phone Amy Villalba Ra, APRN PROFESSIONAL SERVICES SPECIALIST Unavailable + [phone] Amy Villalba Ra TOOL AND DIE SUPERVISOR PROFESSIONAL SERVICES SPECIALIST Primary Care Provid er Renetta Mckeon PA-C Unavailable [phone] Amy Villalba Ra, APRN PROFESSIONAL SERVICES SPECIALIST Unavailable + [phone] Pura De La Garza APRN PROFESSIONAL SERVICES SPECIALIST Unavailable Gabe Moreira MD Unavailable [phone] Dov PosadasC Unavailable [phone] Encounter Details Date Type Department Care Team (Latest Contact Info) Description 05/05/2023 Travel Social History Tobacco Use Types Packs/Day [...] Depression Total Score: 20 023 10:54 AM STOCK SUPERVISOR documented as of this encounter Care Teams Franchise Business Consultant Relationship Specialty Start Date End Date Amy Villalba Ra, APRN PROFESSIONAL SERVICES SPECIALIST [address] [place] [address] PCP - General Family Practice 01/13/22 Amy Villalba Ra, APRN PROFESSIONAL SERVICES SPECIALIST [address] [address] Assigned PCP 09/19/21 Renetta Mckeon PA-C [address] [place] [address] Physician Carbide Grinder Dermatology 05/03/22 Amy Villalba Ra, APRN PROFESSIONAL SERVICES SPECIALIST [address] [place] [address] Referring Physician Family Practice 11/01/22 Pura De La Garza APRN PROFESSIONAL SERVICES SPECIALIST [address] [place] [address] [id number] Nurse Practitioner Dermatology 11/01/22 Gabe Moreira MD [address] [facility] [address] [place], [place] [address] Assigned Neuroscience Provider 12/17/22 Dov Posaads PA-C [address] [place] [address] Assigned Surgical Provider 04/08/23 documented as of this encounter
--- OUTSIDE RECORDS SUMMARY | 2023-10-28 20:38 | XMS_ITS | Encounter Summary ---
Author Name Unknown Organization [facility] Address [address] [place] [address] Care Team Providers Care Air Route Controller Name Role Phone Amy Villalba Ra, APRN WORKERS COMPENSATION CLAIMS SUPERVISOR Unavailable Priscilla Carbajal DO Unavailable [phone] Amy Villalba Ra, APRN WORKERS COMPENSATION CLAIMS SUPERVISOR Primary Care Provid er Renetta MckeonC Unavailable Amy Villalba Ra, APRN WORKERS COMPENSATION CLAIMS SUPERVISOR Unavailable Pura De La Garza APRN WORKERS COMPENSATION CLAIMS SUPERVISOR Unavailable Gabe Moreira MD Unavailable Dov Posadas PA-C Unavailable Encounter Details Date Type Department Care Team (Late st Contact Info) Description 04/03/2023 [facility] [place] [address] [place] [address] Arthur Galindo MA Social History Tobacco Use [...] Recorded In the last 10 days, have kash elizalde been in contact with someone who was confirmed or suspected to have Coronavirus/COVID-19? No / Unsure 04/04/2023 9:18 AM CDT documented as of this encounter Plan of Treatment Not on file documented as of this encounter Visit Diagnoses Not on filedocumented in this encounter Additional Health Concerns Assessment Noted Time PHQ-9 Depression Total Score: 20 023 10:54 AM VISUAL MERCHANDISING SPECIALIST documented as of this encounter Care Teams Air Route Controller Relationship Specialty Start Date End Date Amy Villalba Ra, APRN WORKERS COMPENSATION CLAIMS SUPERVISOR [address] [place] [address] PCP - General Family Practice 01/13/22 Amy Villalba Ra, APRN WORKERS COMPENSATION CLAIMS SUPERVISOR [address] [place] [address] Assigned PCP 09/19/21 [place] [address] [place] [address] Assigned OBGYN Provider 10/24/21 Renetta Mckeon PA-C [address] [place] [address] Physician Circular Gang Saw Operator Dermatology 05/03/22 Amy Villalba Ra, APRN WORKERS COMPENSATION CLAIMS SUPERVISOR [address] [place] [address] Referring Physician Family Practice 11/01/22 Pura De La Garza APRN WORKERS COMPENSATION CLAIMS SUPERVISOR [address] [place] [address] Nurse Practitioner Dermatology 11/01/22 Gabe Moreira MD [address] [place] [address] 96 [place] [address] Assigned Neuroscience Provider 12/17/22 Dov Posadas PA-C [address] [address] Assigned Surgical Provider 04/08/23 documented as of this encounter
--- OUTSIDE RECORDS SUMMARY | 2023-10-28 20:38 | XMS_ITS | Encounter Summary ---
Author Name Unknown Organization [facility] Address [address] [place] [address]. [place] [address] Care Team Providers Care Housekeeping Cleaner Name Role Phone Amy Villalba Ra, APRN WINDER HAND Unavailable [phone] Priscilla Carbajal Mary Unavailable [phone] Amy Villalba Ra, APRN WINDER HAND Primary Care Provid er Renetta Mckeon PA-C Unavailable Amy Villalba Ra, APRN WINDER HAND Unavailable [phone] Pura De La Garza APRN WINDER HAND Unavailable [phone] Gabe Moreira MD Unavailable [phone] Reason for Visit * Reason Comments Pre-Op Exam Encounter Details Date Type Department Care Team (Late st Contact Info) Description 01/06/2023 9:30 AM CDT Office Visit [facility] [address] [place] [address] [place] [address] [place] [address] Preop general physical exam (Primary Dx); Lumbar radiculopathy Social History Tobacco Use Types Packs/Day Years [...] Sign Reading Time Taken Comments Blood Pressure 118/64 01/06/2023 9:23 AM CDT Pulse 72 01/06/2023 9:23 AM CDT Temperature 36.4 ??C (97.6 ??F) 01/06/2023 9:23 AM CD T Respiratory Rate 18 01/06/2023 9:23 AM CDT Oxygen Saturation 99% 01/06/2023 9:23 AM CDT Inhaled Oxygen Concentration - - Weight 97.9 kg (215 lb 12.8 oz) 01/06/2023 9:23 AM CDT Height 168.9 cm (5' 6.5) 01/06/2023 9:23 AM CDT Body Mass Index 34.31 01/06/2023 9:23 AM CDT documented in this encounter Patient Instructions * Patient Instructions* Jannet Quiñonez MA - 01/06/2023 9:30 AM CDT For informational purposes only. Not to replace the advice of your health care provider. Copyright ?? 2002, 2018 [facility]. All rights reserved. Clinically reviewed by Meli Dominguez MD. [employer] [id number] - REV 09/29. Preparing for Your Surgery Getting started A nurse will call you to review your health history and instructions. They will give you an arrivaltime based on your scheduled surgery time. Please be ready to share: ??? Your doctor's clinic name and phone number ??? Your medical, surgical, and anesthesia history ??? A list of allergies and sensitivities ??? A list of medicines, including herbal treatments and hwdi-oaj-pummadd drugs ??? Whether the patient has a legal guardian [...] for Your Child's Surgery. Preparing for surgery ? ? Within 10 to 30 days of surgery: Have a pre-op exam (sometimes called an H&P, or History and Physical). This can be done at a clinic or pre-operative center. ? If you're having a , you may not need this exam. Talk to your care team. ??? At your pre-op exam, talk to your care team about all medicines you take. If you need to stop any medicines before surgery, ask when to start taking them again. ? We do this for your safety. Many medicines can make you bleed too much during surgery. Some change how well surgery (anesthesia) drugs work. ??? Call your insurance company to let them know you're having surgery. (If you don't have insurance, call [phone].) ??? Call your clinic if there's any change in your health. This includes signs of a cold or flu (sore throat, runny nose, cough, rash, fever). It also includes a scrape or scratch near the surgery site. ??? If you have questions on the day of surgery, call your hospital or surgery center. Eating and drinking guidelines For your safety: Unless your surgeon tells you otherwise, follow the guidelines below. ??? Eat and drink as usual until 8 hours before you arrive for surgery. After that, no food or milk. ??? Drink clear liquids until 2 hours before you arrive. These are liquids you can see through, like water, Gatorade, and Propel Water. They also include plain black coffee and tea (no cream or milk), candy, and breath mints. You can spit out gum when you arrive. ??? If you drink alcohol: Stop drinking it the night before surgery. ??? If your care team tells you to take medicine on the morning of surgery, it's okay to take it with a sip of water. Preventing infection ??? Shower or bathe the night before and morning of your surgery. Follow the instructions your clinic gave you. (If no instructions, use regular soap.) ??? Don't shave or clip hair near your surgery site. We'll remove the hair if needed. ??? Don't smoke or vape the morning of surgery. You may chew nicotine gum up to 2 hours before surgery. A nicotine patch is okay. ? Note: Some surgeries require you to completely quit smoking and nicotine. Check with your surgeon. ??? Your care team will make every effort to keep you safe from infection. We will: ? Clean our hands often with soap and water (or an alcohol-based hand rub). ? Clean the skin at your surgery site with a special soap that kills germs. ? Give you a special gown to keep you warm. (Cold raises the risk of infection.) ? Wear special hair covers, masks, gowns and gloves during surgery. ? Give antibiotic medicine, if prescribed. Not all surgeries need antibiotics. What to bring on the day of surgery ??? Photo ID and insurance card ??? Copy of your health care directive, if you have one ??? Glasses and hearing aids (bring cases) ? You can't wear contacts during surgery ??? Inhaler and eye drops, if you use them (tell us about these when you arrive) ??? CPAP machine or breathing device, if you use them ??? A few personal items, if spending the night ??? If you have . . . ? A pacemaker, ICD (cardiac defibrillator) or other implant: Bring the ID card. ? An implanted stimulator: Bring the remote control. ? A legal guardian: Bring a copy of the certified (court-stamped) guardianship papers. Please remove any jewelry, including body piercings. Leave jewelry and other valuables at home. If you're going home the day of surgery ??? You must have a responsible adult drive you home. They should stay with you overnight as well. ??? If you don't have someone to stay with you, and you aren't safe to go home alone, we may keep you overnight. Insurance often won't pay for this. After surgery If it's hard to control your pain or you need more pain medicine, please call your surgeon's office. Questions? If you have any questions for your care team, list them here: documented in this encounter Progress Notes * Leobardo Clayton MD - 01/06/2023 9:30 AM CDT [address] [address] Primary Provider: Amy Villalba Ra Pre-op Performing Provider: LEOBARDO CLAYTON PREOPERATIVE EVALUATION: Today's date: 01/06/2023 Marlene Almeida is a 42 year old female who presents for a preoperative evaluation. Additional Questions 01/06/2023 Roomed by Jannet Mccann CMA Accompanied by MAYELIN Patient Reported Additional Medications 01/06/2023 Patient reports taking the following new medications None Surgical Information: Surgery/Procedure: Back Surgery Surgery Location: [facility] Surgeon: Dr. Castro Surgery Date: 01/09/2023 Time of Surgery: 5:30AM Where patient plans to recover: At home with family Fax number for surgical facility: [phone] Assessment & Plan The proposed surgical procedure is considered INTERMEDIATE risk. Preop general physical exam Lumbar radiculopathy Risks and Recommendations: The patient has the following additional risks and recommendations for perioperative complications: Anemia/Bleeding/Clotting: - On OCP (hold starting today 01/06/23), consider DVT prevention postoperatively depending on post-op recs Medication Instructions: HOLD OCP starting today for 2 weeks post op. HOLD all supplements 14 days prior to surgery HOLD all NSAIDs for 7-10 days prior to surgery HOLD all meds day of surgery, ok to resume afterwards RECOMMENDATION: APPROVAL GIVEN to proceed with proposed procedure, without further diagnostic evaluation. Leobardo Clayton MD [facility] 01/06/2023 Subjective HPI related to upcoming procedure: Lumbar radiculopathy, conservative measures and corticosteroids typically will improve symptoms buthas not had any improvement this time. Scheduled for surgery on 01/09/23. Preop Questions 01/06/2023 1. Have you ever had a heart [...] told to take iron pills? YES - has taken iron pills in the past. Last check has been normal. 10. Have you had any abnormal blood [...] have a Health Care Directive or Living Will Preoperative Review of CHRONOGRAPH OPERATOR: CHRONOGRAPH OPERATOR reviewed - controlled substances reflected in medication list. Status of Chronic Conditions: DEPRESSION - Patient has a long history of Depression of moderate severity requiring medication forcontrol with recent symptoms being unchanged. DIABETES - Patient has a longstanding history of Diabetes Type II. Patient is being treated with oral agents and denies significant side effects. Control has been good. HYPOTHYROIDISM - Patient has a longstanding history of chronic Hypothyroidism. Patient has been doing well, noting no tremor, insomnia, hair loss or changes in skin texture. Continues to take medications as directed, without adverse reactions or side effects. Last TSH Lab Results Component Value Date TSH 0.71 12/15/2022 . Review of Systems CONSTITUTIONAL: NEGATIVE for fever, chills, change in weight INTEGUMENTARY/SKIN: NEGATIVE for worrisome rashes, moles or lesions EYES: NEGATIVE for vision changes or irritation ENT/MOUTH: NEGATIVE for ear, mouth and throat problems RESP: NEGATIVE for SOB CV: NEGATIVE for chest pain, palpitations or peripheral edema GI: NEGATIVE for nausea, abdominal pain, heartburn, or change in bowel habits : NEGATIVE for frequency, dysuria, or hematuria NEURO: NEGATIVE for weakness, dizziness ENDOCRINE: NEGATIVE for temperature intolerance, skin/hair changes HEME: NEGATIVE for bleeding problems PSYCHIATRIC: NEGATIVE for changes in mood or affect POSITIVE: ENT/PULM: Cough and nasal congestion from seasonal allergies MSK: Ongoing arthralgia and right leg pain, weakness, tingling. Patient Active Problem List Diagnosis Date Noted ??? Morbid obesity (H) 09/06/2021 Priority: Medium ??? Abdominal pain 06/10/2020 Priority: Medium ??? Internal hernia 06/10/2020 Priority: Medium ??? Excess skin of abdomen 07/24/2019 Priority: Medium Added automatically from request for surgery [id number] ??? Class 1 obesity due to excess calories with serious comorbidity and body mass index (BMI) of 34.0 to 34.9 in adult 06/21/2018 Priority: Medium ??? Bariatric surgery status 01/16/2018 Priority: Medium ??? Postsurgical malabsorption 01/16/2018 Priority: Medium ??? Major depressive disorder, recurrent episode, moderate (H) 08/06/2017 Priority: Medium ??? Acquired hypothyroidism 08/06/2017 Priority: Medium ??? Pernicious anemia 08/06/2017 Priority: Medium ??? Type 2 diabetes mellitus without complication, without long-term current use of insulin (H) 08/01/2017 Priority: Medium ??? PCOS (polycystic ovarian syndrome) 05/18/2016 Priority: Medium ??? Gastroesophageal reflux disease without esophagitis 05/18/2016 Priority: Medium ??? Intertrigo 05/18/2016 Priority: Medium Past Medical History: Diagnosis Date ??? Depressive disorder ??? Diabetes (H) ??? Hypertension ??? Thyroid disease Past Surgical History: Procedure Laterality Date ??? ENT SURGERY tonsillectomy ??? LAPAROSCOPIC BYPASS GASTRIC N/A 01/08/2018 Procedure: LAPAROSCOPIC BYPASS GASTRIC; LAPAROSCOPIC JON EN Y GASTRIC BYPASS; Surgeon: Eulalio Newell MD; Location: [facility] OR ??? LAPAROSCOPY DIAGNOSTIC (GENERAL) N/A 06/10/2020 Procedure: LAPAROSCOPY, DIAGNOSTIC; REPAIR OF INTERNAL HERNIAS; Surgeon: Eulalio Newell MD; Location: [facility] OR ??? PANNICULECTOMY N/A 08/02/2019 Procedure: Panniculectomy; Surgeon: Ary Parikh MD; Location: OR ??? SOFT TISSUE SURGERY remove (R) thumb cyst; plate put in Current Outpatient Medications Medication Sig Dispense Refill ??? acetaminophen (TYLENOL) 500 MG tablet Take 1-2 tablets (500-1,000 mg) by mouth 3 times daily 100 tablet 1 ??? buPROPion (WELLBUTRIN XL) 150 MG 24 hr tablet Take 3 tablets (450 mg) by mouth daily 270 tablet1 ??? Cholecalciferol (D3-1000) 25 MCG (1000 UT) CAPS TAKE 2 CAPSULES BY MOUTH DAILY 180 capsule 3 ??? cyclobenzaprine (FLEXERIL) 5 MG tablet Take 1-2 tablets (5-10 mg) by mouth 3 times daily as needed for muscle spasms 60 tablet 0 ??? drospirenone-ethinyl estradiol (MAX) 3-0.03 MG tablet Take 1 tablet by mouth daily 84 tablet1 ??? escitalopram (LEXAPRO) 20 MG tablet Take 1 tablet (20 mg) by mouth daily 90 tablet 1 ??? eszopiclone (LUNESTA) 3 MG tablet Take 1 tablet (3 mg) by mouth At Bedtime 30 tablet 1 ??? levothyroxine (SYNTHROID/LEVOTHROID) 150 MCG tablet Take 1 tablet (150 mcg) by mouth daily 90 tablet 1 ??? metFORMIN (GLUCOPHAGE XR) 500 MG 24 hr tablet Take 1 tablet (500 mg) by mouth daily (with dinner) 90 tablet 0 ??? omeprazole (PRILOSEC) [address] capsule Take 1 capsule (20 mg) by mouth daily 90 capsule 3 ??? Multiple Vitamins/Iron TABS TAKE 1 TABLET BY MOUTH DAILY (Patient not taking: Reported on 01/06/2023) 90 tablet 3 ??? oxyCODONE (ROXICODONE) 5 MG tablet Take 0.5-1 tablets (2.5-5 mg) by mouth every 4 hours as needed for moderate to severe pain (Patient not taking: Reported on 01/06/2023) 20 tablet 0 Allergies Allergen Reactions ??? Lisinopril Cough ??? Sulfa Drugs Hives Social History Tobacco Use ??? Smoking status: Former Packs/day: 0.00 Years: 0.00 Pack years: 0.00 Types: Cigarettes ??? Smokeless tobacco: Never ??? Tobacco comments: 5 cigarettes a month Substance Use Topics ??? Alcohol use: Yes Alcohol/week: 0.0 standard drinks Comment: once a year History Drug Use No Objective BP 118/64 (BP Location: Right arm, Patient Position: Sitting, Cuff Size: Adult Large) Pulse 72 Temp 97.6 ??F (36.4 ??C) (Tympanic) Resp 18 Ht 1.689 m (5' 6.5) Wt 97.9 kg (215 lb 12.8 oz) LMP 12/26/2022 (Approximate) SpO2 99% BMI 34.31 kg/m?? Physical Exam GENERAL: healthy, alert and no distress HEAD: Normocephalic, atraumatic. EYES: PERRL. Normal conjunctivae, sclera. ENT: Normal EAC and TMs bilaterally. Normal oropharynx. NECK: Supple. No lymphadenopathy appreciated. Trachea midline. Thyroid not enlarged, not TTP. RESP: lungs clear to auscultation - no rales, rhonchi or wheezes CV: regular rate and rhythm, normal S1 S2, no murmur, click, rub or gallop. No peripheral swelling noted. ABDOMEN: soft, no TTP x4 quadrants. No hepatomegaly or masses appreciated. BS normactive. MSK: no gross musculoskeletal defects noted. SKIN: no suspicious lesions or rashes. EXT: Warm and well perfused. NEURO: CNII-XII grossly intact. No focal deficits. PSYCH: Groomed, dressed appropriately for weather. Normal mood with consistent affect. Recent Labs Lab Test 12/15/22 1053 11/25/22 0356 06/16/22 1113 01/10/22 0931 08/30/21 0751 HGB -- -- -- -- 14.7 PLT -- -- -- -- 328 NA -- 138 136 < > 138 POTASSIUM -- 4.3 4.8 < > 4.0 CR -- 0.75 0.65 < > 0.74 A1C 5.7* -- 6.0* < > 5.8* < > = values in this interval not displayed. Diagnostics: No labs were ordered during this visit. No EKG required, no history of coronary heart disease, significant arrhythmia, peripheral arterial disease or other structural heart disease. Revised Cardiac Risk Index (RCRI): The patient has the following serious cardiovascular risks for perioperative complications: - No serious cardiac risks = 0 points RCRI Interpretation: 0 points: Class I (very low risk - 0.4% complication rate) Signed Electronically by: Leobardo Clayton MD Copy of this evaluation report is provided to requesting physician. 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 documented as of this encounter Care Teams Housekeeping Cleaner Relationship Specialty Start Date End Date Amy Villalba Ra, APRN CNP [address] [place] [address] PCP - General Family Practice 01/13/22 Amy Villalba Ra, APRN WINDER HAND [address] [address] [address] Assigned PCP 09/19/21 [place] [address] [place] [address] Assigned OBGYN Provider 10/24/21 Renetta Mckeon, PADagobertoC [address] [place] [address] Physician Wet Machine Operator Dermatology 05/03/22 Amy Villalba Ra, APRN CNP [address] [place] [address] Referring Physician Family Practice 11/01/22 Pura De La Garza APRN WINDER HAND [address] [place] [address] [id number] Nurse Practitioner Dermatology 11/01/22 Gabe Moreira MD [address] [place] [address] [address] [place], [place] 644[address] Assigned Neuroscience Provider 12/17/22 documented as of this encounter
--- OUTSIDE RECORDS SUMMARY | 2023-10-28 20:38 | XMS_ITS | Encounter Summary ---
Author Name Unknown Organization [facility] Address [address] [place] [address] Care Team Providers Care Mannequin Refinisher Name Role Phone Amy Villalba Ra, APRN BEHAVIORAL HEALTH WORKER Unavailable [phone] Priscilla Carbajal DO Unavailable [phone] Amy Villalba Ra, APRN BEHAVIORAL HEALTH WORKER Primary Care Provid er Renetta Mckeon PA-C Unavailable [phone] Amy Villalba Ra, APRN BEHAVIORAL HEALTH WORKER Unavailable [phone] Pura De La Garza APRN BEHAVIORAL HEALTH WORKER Unavailable [phone] Gabe Moreira MD Unavailable [phone] Encounter Details Date Type Department Care Team (Latest Contact Info) Description 04/04/2023 Travel Social History Tobacco Use Types Packs/Day [...] Total Score: 20 12/15/ 023 10:54 AM EDUCATION ASSISTANT documented as of this encounter Care Teams Mannequin Refinisher Relationship Specialty Start Date End Date Amy Villalba Ra, APRN BEHAVIORAL HEALTH WORKER [address] [place] [address] PCP - General Family Practice 01/13/22 Amy Villalba Ra, APRN CNP [address] [place] [address] Assigned PCP 09/19/21 [place] [address] [place], [place] [id number] Assigned OBGYN Provider 10/24/21 Renetta Mckeon, PADagobertoC [address] [place] [address] Physician Property Officer Dermatology 05/03/22 Amy Villalba Ra, APRN BEHAVIORAL HEALTH WORKER [address] [address] [facility] [address] Referring Physician Family Practice 11/01/22 Pura De La Garza APRN BEHAVIORAL HEALTH WORKER [address] [place], [place] [id number] Nurse Practitioner Dermatology 11/01/22 Gabe Moreira MD [address] [place] [id number] Assigned Neuroscience Provider 12/17/22 documented as of this encounter
--- OUTSIDE RECORDS SUMMARY | 2023-10-28 20:38 | XMS_ITS | Encounter Summary ---
Author Name Unknown Organization [facility] [facility] Address [address] [place] [address]. [place] [address] Care Team Providers Care Can Vacuum Tester Name Role Phone Amy Villalba Ra, APRN MOLD FILLING OPERATOR Unavailable [phone] Priscilla Carbajal DO Unavailable Amy Villalba Ra, APRN MOLD FILLING OPERATOR Primary Care Provid er Renetta Mckeon PA-C Unavailable Amy Villalba Ra, APRN MOLD FILLING OPERATOR Unavailable [phone] Pura De La Garza APRN MOLD FILLING OPERATOR Unavailable Gabe Moreira MD Unavailable [phone] Reason for Visit * Reason Onset Date Comments Refill Request 02/16/2023 levothyroxine (SYNTHROID/LEVOTHROID) 150 MCG tab let 02/16/2023 Encounter Details Date Type Department Care Team (Late st Contact Info) Description 02/16/[address] [facility] [address] [place] [address] Amy Villalba Ra, APRN MOLD FILLING OPERATOR [address] [place] [address] Refill Request; levothyroxine (SYNTHROID/LEVOTHROID) 150 MCG tablet Social History Tobacco Use Types Packs/Day [...] encounter Miscellaneous Notes * Telephone Encounter - Magdalena Leal RN - 02/17/2023 10:56 AM CDT Refused refill request, pharmacy should have refill on file. #90 with one refill sent on 12/15/22. 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 documented as of this encounter Care Teams Can Vacuum Tester Relationship Specialty Start Date End Date Amy Villalba Ra, APRN MOLD FILLING OPERATOR [address] [place] [address] PCP - General Family Practice 01/13/22 Amy Villalba Ra, APRN MOLD FILLING OPERATOR [address] [place] [address] Assigned PCP 09/19/21 [place] [address] [place] [address] Assigned OBGYN Provider 10/24/21 Renetta Mckeon PA-C [address] [place] [address] Physician Patients Transporter Dermatology 05/03/22 Amy Villalba Ra, APRN MOLD FILLING OPERATOR [address] [place] [address] Referring Physician Family Practice 11/01/22 Pura De La Garza APRN MOLD FILLING OPERATOR [address] [place] [address] Nurse Practitioner Dermatology 11/01/22 Gabe Moreira MD [address] [place] [address] [address] [place], [place] [address] Assigned Neuroscience Provider 12/17/22 documented as of this encounter
--- OUTSIDE RECORDS SUMMARY | 2023-10-28 20:39 | XMS_ITS | Encounter Summary ---
Author Name Unknown Organization [facility] Address [address] [place] [address] Care Team Providers Care Bean Snipper Name Role Phone Amy Villalba Ra, APRN SR. PAYROLL MANAGER Unavailable + [phone] Priscilla Carbajal DO Unavailable [phone] Amy Villalba Ra, APRN SR. PAYROLL MANAGER Primary Care Provid er Renetta Mckeon PA-C Unavailable [phone] Amy Villalba Ra, APRN SR. PAYROLL MANAGER Unavailable + [phone] Pura De La Garza APRN SR. PAYROLL MANAGER Unavailable [phone] Gabe Moreira MD Unavailable [phone] Encounter Details Date Type Department Care Team (Latest Contact Info) Description 12/22/2022 Travel Social History Tobacco Use Types Packs/Day [...] suspected to have Coronavirus/COVID-19? No / Unsure 12/22/2022 10:24 AM CDT documented as of this encounter Plan of Treatment Not on file documented as of this encounter Visit Diagnoses Not on filedocumented in this encounter Additional Health Concerns Assessment Noted Time PHQ-9 Depression Total Score: 20 12/15/ 023 10:54 AM LITHOPLATE MAKER documented as of this encounter Care Teams Bean Snipper Relationship Specialty Start Date End Date Amy Villalba Ra, APRN SR. PAYROLL MANAGER [address] [place] [address] PCP - General Family Practice 01/13/22 Amy Villalba Ra, APRN CNP [address] [place] [address] Assigned PCP 09/19/21 [place] [address] [place], [place] [address] Assigned OBGYN Provider 10/24/21 Renetta Mckeon, PADagobertoC [address] [place] [address] Physician Inspector Paper Products Dermatology 05/03/22 Amy Villalba Ra, APRN SR. PAYROLL MANAGER [address] [place] [address] Referring Physician Family Practice 11/01/22 Pura De La Garza APRN SR. PAYROLL MANAGER [address] [place], [place] [id number] Nurse Practitioner Dermatology 11/01/22 Gabe Moreira MD [address] [place] [id number] Assigned Neuroscience Provider 12/17/22 documented as of this encounter
--- OUTSIDE RECORDS SUMMARY | 2023-10-28 20:39 | XMS_ITS | Encounter Summary ---
Author Name Unknown Organization [facility] Address [address] [place] [address] Care Team Providers Care Metal Pourer Name Role Phone Amy Villalba Ra, APRN CLINICAL RESOURCE MANAGER Unavailable + [phone] Priscilla Carbajal DO Unavailable [phone] Amy Villalba Ra, APRN CLINICAL RESOURCE MANAGER Primary Care Provid er Renetta Mckeon PA-C Unavailable [phone] Amy Villalba Ra, APRN CLINICAL RESOURCE MANAGER Unavailable + [phone] Pura De La Garza ACCOUNTING TEACHER CLINICAL RESOURCE MANAGER Unavailable [phone] Reason for Visit * Reason Comments Consult Encounter Details Date Type Department Care Team (Late st Contact Info) Description 12/07/2022 10:00 AM RADIATOR SPECIALIST Office Visit [facility] [address] [place] [address] Gabe Moreira MD [address] [facility] [address] [place], [place] [address] Lumbar radiculopathy (Primary Dx) Social History Tobacco Use Types Packs/Day Years Used Date Smoking Tobacco: Former Cigarettes 0 0 Smokeless Tobacco: Never Tobacco Cessation:Counseling Given: Not Answered Comments:5 cigarettes a month Alcohol Use Standard Drinks/Week Comments Yes 0 (1 standard drink = 0.6 oz pur e alcohol) once a year PHQ-2 Answer Date Recorded PHQ-2 Score 1 11/01/2022 Sex and Gender Information Value Date Recorded Sex Assigned at Not on file Gender Identity Female 05/31/2021 11:45 AM CDT Sexual Orientation Straight 05/31/2021 11 :45 AM CDT COVID-19 Exposure Response Date Recorded In the last 10 days, have yo u been in contact with someone who was confirmed or suspected to have Coronavirus/COVID-19? No / Unsure 12/07/2022 9:58 AM RADIATOR SPECIALIST documented as of this encounter Last Filed Vital Signs Vital Sign Reading Time Taken Comments Blood Pressure 126/84 12/07/2022 10:06 AM RADIATOR SPECIALIST Pulse 60 12/07/2022 10:06 AM RADIATOR SPECIALIST Temperature - - Respiratory Rate - - Oxygen Saturation 98% 12/07/2022 10:06 AM RADIATOR SPECIALIST Inhaled Oxygen Concentration - - Weight - - Height - - Body Mass Index - - documented in this encounter Patient Instructions * Patient Instructions* August Luu RN - 12/07/2022 10:00 AM RADIATOR SPECIALIST Patient Next Steps: A referral has been placed for you to see Dr. Rivera with PM&R for a L4-5 JASPAL for L4 radiculopathy. Patient Instructions Surgery scheduled at [facility] for L4-[address] Moreira Pre-Operative Surgical risks: blood clots in the leg or lung, problems urinating, nerve damage, drainage from theincision, infection,stiffness Pre-operative physical with primary care physician within 30 days of surgical date. Likely same day procedure with discharge home day of surgery, may stay for 23 hour observation hospitalization for monitoring. Shower procedure Please shower with antimicrobial soap the night before surgery and morning of surgery. Please referto showering instruction sheet in folder. Eating/Drinking Stop solid foods 8 hours prior to arrival time May have clear liquids up to 1 hour prior to arrival time Clear liquids include water, clear juice, black coffee, or clear tea without milk, Gatorade, clear soda. Medications Hold Aspirin, NSAIDs (Advil/Ibuprofen, Indocin, Naproxen,Nuprin,Relafen/Nabumetone, Diclofenac,Meloxicam, Aleve, Celebrex) x 7 days prior to surgical date You can take Tylenol (Acetaminophen) for pain, 1000 mg Do not exceed 3,000 mg per day If you are on chronic pain medication (oxycodone, Percocet, hydrocodone, Vicodin, [place], Dilaudid, morphine, MS Contin, naltrexone, Suboxone, etc) or have a pain contract we will reach out to your pain clinic to gather your most recent records and recommendations for pain management post-op. Pleaseask your provider who manages your chronic pain if they require you to schedule an office visit prior to surgery. Continue obtaining your pain medications from your current provider until surgery. Our team will manage your acute post-op pain in the hospital and during the recovery period. Your painteam will continue to manage your chronic pain. Any other medications prescribed, please discuss with your primary care provider at your pre-operative physical As part of preparation for your upcoming procedure you are required to have a test for the novel Coronavirus, COVID-19 SDS Covid Testing: You will need to have a test for the novel Coronavirus, COVID-19.The rapid antigen test needs to be completed within 1-2 days prior to surgery. Please take a photo of the negative test and bring to surgery to show the nurse. If positive, please refer to the Before Your Procedureor Hospital Admission printout. You may NOT receive the COVID-19 vaccine 72 hours before or after surgery. Pain Management You will have post-operative incisional pain which may require pain medications and muscle relaxants. You will receive medication upon discharge. You may resume taking NSAIDs (ex. Ibuprofen, aleve, naproxen) immediately post-op Do NOT drive while taking narcotic pain medication Do NOT drink alcohol while using any pain medication You can utilize ice as needed (no longer than 20 minutes at one time) Incision Care No submerging incision in water such as pools, hot tubs, baths for at least 8 weeks or until incision is healed It is okay to shower, just pat the incision dry Remove dressing as instructed upon discharge Watch for signs of infection Redness, swelling, warmth, drainage, and fever of 101 degrees or higher Notify clinic [phone]. Activity Restrictions For the first 6-8 weeks, no lifting > 10 pounds, limited bending, twisting, or overhead reaching. Take stairs in moderation Ok to walk as tolerated, take short frequent walks. You may gradually increase the distance as tolerated. Avoid bed rest and prolonged sitting for longer than 30 minutes (change positions frequently while awake) No contact sports until after follow up visit No high impact activities such as; running/jogging, snowmobile or 4 hamilton riding or any other recreational vehicles Please call the clinic if you develop any of the following symptoms: Swelling and/or warmth in one or both legs Pain or tenderness in your leg, ankle, foot, or arm Red or discolored skin Post-Op Follow Up Appointments 2 week incision check with RN 6 week post op follow up visit with Physician Residential Director or Nurse Practitioner [address] Moreira Please call to schedule follow up appointment at [phone] Resources If you are currently employed, you will need to be off work for 2-4 weeks for post op recovery and healing. Please fax any FMLA/short term disability paperwork to [phone] You may call our clinic when you'd like to return to work and we can provide a work letter To allow staff adequate time to complete paperwork, please send as soon as possible [facility] ATOR SPECIALIST documented in this encounter Progress Notes * Christos Wilkinson MD - 12/07/2022 10:00 AM CST Neurosurgery clinic note Date of visit 12/07/22 HPI: Marlene Almeida is a pleasant 42 year old female who presented to clinic after vising the [facility] Emergency Department due to back and right leg pain. The pain started when she slippedand almost fell about 3 weeks ago. She states she had similar pain in the back and right leg in thepast around 2019, but the pain would subside everytime she did PT, massage, OTC pain medicaitons and steroid, but this time it lasted for more than 3 weeks and she felt she started to get weak and numb in the leg which prompted the ED visit on 11/25. She describes the symptoms as a constant, sharp, burning pain that initiates in the midline low lumbar region and radiates to the anterior, lateral, posterior aspect of the thigh and below the knee anterior leg and top of the right foot. She also endorses numbness below the knee. She also endorses subjective weakness. She tried OTC pain medications, steroid, muscle relaxer, which took the edge of the pain away but did not resolve the pain. She was offered surgery in the ED, but she opted to try JASPAL first, unfortunately JASPAL was not available when she was in the ED moreover after she discussed with her family members she is now more interestedin surgical intervention. She denies saddle anaesthesia, she reports urinary incontinence but she states she had that since her prior abdominal surgery it is not new symptom. Past Medical History: Diagnosis Date ??? Depressive [...] Procedure: Panniculectomy; Surgeon: Ary Parikh MD; Location: [facility] OR ??? SOFT TISSUE SURGERY remove (R) thumb cyst; plate put in Physical exam: Blood pressure 126/84, pulse 60, last menstrual period 10/21/2022, SpO2 98 %, not currently . NEUROLOGIC: -- Awake; Alert; oriented x 3 -- Follows commands briskly - Motor: Normal bulk / tone; no tremor, rigidity, or bradykinesia. No Pronator Drift Delt Bi Tri Hand Flexion/ Extension Iliopsoas Quadriceps Tibialis Anterior EHL Gastroc C5 C6 C7 C8/T1 L2 L3 L4 L5 S1 R 5 5 5 5 5 5 4+ 4+ 5 L 5 5 5 5 5 5 5 5 5 Sensory: intact to LT Reflexes: negative mcrae, negative clonus Gait: antalgic MRI L spine from 11/24 personally reviewed with patient showed disc extrusion eccentric to the rightat L4-5 with severe right 4-5 foraminal stenosis and L>R L5-S1 disc protrusion A/P: Ms. Almeida is a 42 year old female with acute on chronic acute exacerbation of likely right L4 radiculopathy and back pain with disc protrusio at Right L4-5 with severe foraminal stenosis. Failed OTC pain medications and PT. Subtle right foot dorsiflexion weakness stable since 2019 At this point, we would like her to try JASPAL and schedule R L4-5 laminectomy and discectomy 3 weeks after if the symptom does not improve She is aware to present to the ED if she starts to experience worsening weakness or change of bowelbladder function Patient seen and discussed with Dr. Harish Wilkinson Neurosurgery ATOR SPECIALIST Associated attestation - Gabe Moreira MD - 12/07/2022 3:37 PM RADIATOR SPECIALIST Physician Attestation I saw and evaluated Marlene Almeida as part of a shared Resident visit. I personally reviewed the imaging. I personally performed the substantive portion of the medical decision making for this visit - please see the Resident's documentation for full details. Marquez management decisions made by me and carried out under my direction: 42-year-old female with back pain radiating to the right leg. She has had chronic pain in this area for a few years however thepain is acutely exacerbated over the last 2 to 3 weeks. It radiates down the anterior thigh into the medial aspect of the foot. She does have dropfoot noted from approximately 2019 but notes over thelast 2 to 3 weeks when walking up stairs she feels her leg gives out easier. She denies any bowel or bladder control problems. On imaging she has a disc herniation at L4-5 which is likely causing foraminal stenosis at L4-5. We discussed conservative and surgical management options including furtherphysical therapy, injections and surgery. Surgery would be likely a minimally invasive laminotomy and discectomy. I would recommend considering trial of injection first given she has not tried this yet. Should she fail conservative management then surgery would be reasonable at this point. We will schedule her for the injection as well as surgery should she fail conservative management. If she imp roves we will then cancel the procedure. Gabe Moreira MD Date of Service (when I saw the patient): 12/07/22 documented in this encounter Nursing Notes * Phorn, Amendo - 12/07/2022 10:00 AM CST Marlene Almeida is a 42 year old female who presents for: Chief Complaint Patient presents with ??? Consult Vitals: Vitals: 12/07/22 1006 BP: 126/84 Pulse: 60 SpO2: 98% BMI: Estimated body mass index is 37.04 kg/m?? as calculated from the following: Height as of 10/25/21: 5' 6.5 (1.689 m). Weight as of 06/16/22: 233 lb (105.7 kg). Pain Score: Severe Pain (6) Nishi Swenson ATOR SPECIALIST * August Luu RN - 12/07/2022 10:00 AM CST Reviewed pre- and post-operative instructions as outlined in the After Visit Summary/Patient Instructions with patient. Surgery folder was given to patient Patient Education Topic: Procedure with Dr. Moreira Learner(s): Patient Knowledge Level: Basic Readiness to Learn: Ready Method: Verbal explanation Outcome: Able to verbalize instructions Barriers to Learning: No barrier Covid Testing: patient educated they will need to have a test for the novel Coronavirus, COVID-19.The rapid antigen test needs to be completed within 1-2 days prior to surgery. Patient instructed to take a photo of the negative test and bring to surgery to show to the nurse. If positive, patient instructed to refer to the Before Your Procedure or Hospital Admission printout.. Order Placed. Scheduling Number: [id number] NDI/AIRAM: Confirmation of completion within last 6 months Pain Clinic: N/A Patient had the opportunity for questions to be answered. Advised Patient to call clinic with any questions/concerns. Gave patient antibacterial soap for pre-surgery skin preparation. ATOR SPECIALIST documented in this encounter Plan of Treatment Not on file documented as of this encounter Visit Diagnoses Diagnosis Lumbar radiculopathy- Primary Thoracic or lumbosacral neuritis or radiculitis, unspecified documented in this encounter Additional Health Concerns Assessment Noted Time PHQ-9 Depression Total Score: 9 11/01/19 23 1:24 PM RADIATOR SPECIALIST documented as of this encounter Care Teams Metal Pourer Relationship Specialty Start Date End Date Amy Villalba Ra, APRN CNP [address] [place] [address] PCP - General Family Practice 01/13/22 Amy Villalba Ra, APRN CLINICAL RESOURCE MANAGER [address] [place] [address] Assigned PCP 09/19/21 [place] [address] [place] [address] Assigned OBGYN Provider 10/24/21 Renetta Mckeon, JOSELIN [address] [place] [address] Physician Residential Director Dermatology 05/03/22 Amy Villalba Ra, APRN CNP [address] [place] [address] Referring Physician Family Practice 11/01/22 Pura De La Garza APRN CLINICAL RESOURCE MANAGER [address] [place] [address] Nurse Practitioner Dermatology 11/01/22 documented as of this encounter
--- OUTSIDE RECORDS SUMMARY | 2023-10-28 20:39 | XMS_ITS | Encounter Summary ---
Author Name Unknown Organization [facility] Address [address] [place] [address] Care Team Providers Care Recapper Name Role Phone Amy Villalba Ra, APRN SUPERVISOR ELECTRONICS INSPECTION Unavailable + [phone] Priscilla Carbajal DO Unavailable [phone] Amy Villalba Ra, APRN SUPERVISOR ELECTRONICS INSPECTION Primary Care Provid er Renetta Mckeon PA-C Unavailable [phone] Amy Villalba Ra, APRN SUPERVISOR ELECTRONICS INSPECTION Unavailable + [phone] Pura De La Garza APRN SUPERVISOR ELECTRONICS INSPECTION Unavailable Encounter Details Date Type Department Care Team (Latest Contact Info) Description 12/07/2022 Travel Social History Tobacco Use Types Packs/Day [...] Coronavirus/COVID-19? No / Unsure 12/07/2022 9:58 AM TOGGLE PRESS OPERATOR documented as of this encounter Plan of Treatment Not on file documented as of this encounter Visit Diagnoses Not on filedocumented in this encounter Additional Health Concerns Assessment Noted Time PHQ-9 Depression Total Score: 9 11/01/19 23 1:24 PM TOGGLE PRESS OPERATOR documented as of this encounter Care Teams Recapper Relationship Specialty Start Date End Date Amy Villalba Ra, APRN CNP [address] [place] [address] PCP - General Family Practice 01/13/22 Amy Villalba Ra, APRN CNP [address] [place] [address] Assigned PCP 09/19/21 [place] [address] [place] [address] Assigned OBGYN Provider 10/24/21 Renetta Mckeon PA-C [address] [place] [address] Physician Inspector Timers Dermatology 05/03/22 Amy Villalba Ra, APRN SUPERVISOR ELECTRONICS INSPECTION [address] [place] [address] Referring Physician Family Practice 11/01/22 Pura De La Garza APRN SUPERVISOR ELECTRONICS INSPECTION [address] [place] [address] Nurse Practitioner Dermatology 11/01/22 documented as of this encounter
--- OUTSIDE RECORDS SUMMARY | 2023-10-28 20:39 | XMS_ITS | Encounter Summary ---
Author Name Unknown Organization [facility] Address [address] [place] [address] Care Team Providers Care On Site Wastewater Systems Technician Name Role Phone Amy Villalba Ra, APRN SHIPPING PROCESSOR Unavailable + [phone] Priscilla Carbajal DO Unavailable [phone] Amy Villalba Ra, APRN SHIPPING PROCESSOR Primary Care Provid er Renetta Mckeon PA-C Unavailable [phone] Amy Villalba Ra, APRN SHIPPING PROCESSOR Unavailable + [phone] Pura De La Garza FEEDER TENDER SHIPPING PROCESSOR Unavailable [phone] Reason for Visit * Reason Onset Date Comments Schedule Surgery 12/12/2022 Encounter Details Date Type Department Care Team (Late st Contact Info) Description 12/12/2022 Telephone [facility] Neurosurgery Clinic [address] [address] Gabe Moreira MD [address] [address] Schedule Surgery Social History Tobacco Use Types Packs/Day Years [...] Coronavirus/COVID-19? No / Unsure 12/07/2022 9:58 AM MEMBER OF PARLIAMENT documented as of this encounter Miscellaneous Notes * Telephone Encounter - Dustin Streeter - 12/12/2022 9:34 AM CST Spoke to the patient, and offered to schedule surgery, the patient declined, and will call in the future if she wishes to schedule. ER OF PARLIAMENT documented in this encounter Plan of Treatment Not on file documented as of this encounter Visit Diagnoses Not on filedocumented in this encounter Additional Health Concerns Assessment Noted Time PHQ-9 Depression Total Score: 9 11/01/19 23 1:24 PM MEMBER OF PARLIAMENT documented as of this encounter Care Teams On Site Wastewater Systems Technician Relationship Specialty Start Date End Date Amy Villalba Ra, APRN SHIPPING PROCESSOR [address] [place] [address] PCP - General Family Practice 01/13/22 Amy Villalba Ra, APRN SHIPPING PROCESSOR [address] [place] [address] Assigned PCP 09/19/21 [place] [address] [place] [address] Assigned OBGYN Provider 10/24/21 Renetta Mckeon PA-C [address] [place] [address] Physician Jewel Blocker And Sawyer Dermatology 05/03/22 Amy Villalba Ra, APRN SHIPPING PROCESSOR [address] [place] [address] Referring Physician Family Practice 11/01/22 Pura De La Garza APRN SHIPPING PROCESSOR [address] [place] [address] Nurse Practitioner Dermatology 11/01/22 documented as of this encounter
--- OUTSIDE RECORDS SUMMARY | 2023-10-28 20:39 | XMS_ITS | Encounter Summary ---
Author Name Unknown Organization [facility] Address [address] [place] [address]. [place] [address] Care Team Providers Care Dogger Name Role Phone Amy Villalba Ra, APRN OCCUPATIONAL THERAPY ASSISTANT Unavailable [phone] Priscilla Carbajal Mary DO Unavailable Amy Villalba Ra, APRN OCCUPATIONAL THERAPY ASSISTANT Primary Care Provid er Renetta Mckeon PA-C Unavailable [phone] Amy Villalba Ra, APRN OCCUPATIONAL THERAPY ASSISTANT Unavailable Pura De La Garza APRN OCCUPATIONAL THERAPY ASSISTANT Unavailable Reason for Visit * Reason Onset Date Comments Back Pain Entered automati jackson based on patient selection in [email or web address]. Back Pain 11/21/2022 Encounter Details Date Type Department Care Team (Late st Contact Info) Description 11/19/2022 8:50 AM DAMAGE ADJUSTER E-Visit [facility] [address] [place] [address] Amy Villalba Ra, APRN OCCUPATIONAL THERAPY ASSISTANT [address] [place] [address] Back Pain (Entered automatically based on ... Social History Tobacco Use Types Packs/Day Years [...] was confirmed or suspected to have Coronavirus/COVID-19? Unable to assess 11/01/2022 7:30 AM DAMAGE ADJUSTER documented as of this encounter Miscellaneous Notes * Telephone Encounter - Amy Villalba Ra, APRN CNP - 11/21/2022 10:05 AM DAMAGE ADJUSTER Provider E-Visit time total (minutes): 5 GE ADJUSTER documented in this encounter Plan of Treatment Not on file documented as of this encounter Visit Diagnoses Diagnosis Acute radicular low back pain- Primary Thoracic or lumbosacral neuritis or radiculitis, unspecified documented in this encounter Additional Health Concerns Assessment Noted Time PHQ-9 Depression Total Score: 9 11/01/19 23 1:24 PM DAMAGE ADJUSTER documented as of this encounter Care Teams Dogger Relationship Specialty Start Date End Date Amy Villalba Ra, APRN CNP [address] [place] [address] PCP - General Family Practice 01/13/22 Amy Villalba Ra, APRN CNP [address] [place] [address] Assigned PCP 09/19/21 [place] [address] [place] [address] Assigned OBGYN Provider 10/24/21 Renetta Mckeon PA-C [address] [place] [address] Physician Receiving Associate Dermatology 05/03/22 Amy Villalba Ra, APRN OCCUPATIONAL THERAPY ASSISTANT [address] [facility] [place] [address] Referring Physician Family Practice 11/01/22 Pura De La Garza APRN OCCUPATIONAL THERAPY ASSISTANT [address] [place] [address] Nurse Practitioner Dermatology 11/01/22 documented as of this encounter
--- OUTSIDE RECORDS SUMMARY | 2023-10-28 20:39 | XMS_ITS | Encounter Summary ---
Author Name Unknown Organization [facility] Address [address] [place] [id number] Care Team Providers Care Lawn Care Technician Name Role Phone Amy Villalba Ra, APRN RICE FARMWORKER Unavailable Priscilla Carbajal DO Unavailable Amy Villalba Ra, APRN RICE FARMWORKER Primary Care Provid er Renetta Mckeon PA-C Unavailable Amy Villalba Ra, APRN RICE FARMWORKER Unavailable + [phone] [place]za EARLY HEAD START DIRECTOR RICE FARMWORKER Unavailable Reason for Referral * Rehab Therapy Physical Therapy (Routine: Next available opening) - Pending Review Specialty Diagnoses / Procedures Referred By Gonzalez t Referred To Contact Diagnoses Lumbar disc herniation with radiculopathy Rashaad Solano MD [address] [place] [address] Referral ID Status Reason Start Date Expiration Date V isits Requested Visits Authorized [id number] Pending Review 11/25/2022 11/25/2023 1 1 Question Answer Preferred Location: [facility] Scheduling Instructions: If you have not heard from the scheduling office within 2 business days, please call [phone] for [employer], for [employer] and [phone] for [employer]. Course of Action Evaluation and Treatment Adult or Pediatrics Adult Specialty Services: Per Associated Diagnosis Additional Information: radicular back pain due to L4-5 bulging disc Comments Please be aware that coverage of these services is subject to the terms and limitations of your health insurance plan. Call member services at your health plan with any benefit or coverage questions. If you have not heard from the scheduling office within 2 business days, please call [phone] for [facility], for [place] and [phone] for [place]. RETTE AND FILTER CHIEF INSPECTOR Reason for Visit * Reason Comments Back Pain Encounter Details Date Type Department Care Team (Late st Contact Info) Description 11/24/2022 9:07 PM CIGARETTE AND FILTER CHIEF INSPECTOR - 11/25/2022 1:10 PM CIGARETTE AND FILTER CHIEF INSPECTOR Emergency [facility] Emergency Dept [address] [place] [address] Nubia Ross MD [facility] [address] [place] [address] David Wang MD, MD [address] [place] [address] Lumbar disc herniation with radiculopathy; Internal hernia Discharge Disposition: Home or Self Care Social History Tobacco Use Types Packs/Day Years [...] suspected to have Coronavirus/COVID-19? No / Unsure 11/24/2022 8:30 PM CIGARETTE AND FILTER CHIEF INSPECTOR documented as of this encounter Last Filed Vital Signs Vital Sign Reading Time Taken Comments Blood Pressure 139/73 11/25/2022 1:20 AM CIGARETTE AND FILTER CHIEF INSPECTOR Pulse 50 11/25/2022 1:20 AM CIGARETTE AND FILTER CHIEF INSPECTOR Temperature 36.4 ??C (97.6 ??F) 11/25/2022 9:51 AM CS T Respiratory Rate 18 11/25/2022 9:51 AM CIGARETTE AND FILTER CHIEF INSPECTOR Oxygen Saturation 100% 11/25/2022 9:51 AM CIGARETTE AND FILTER CHIEF INSPECTOR Inhaled Oxygen Concentration - - Weight - - Height - - Body Mass Index - - documented in this encounter Discharge Summaries * Rashaad Solano MD - 11/25/2022 1:[address] [facility] Hospitalist Discharge Summary Date of Admission: 11/24/2022 Date of Discharge: 11/25/2022 Discharging Provider: Rashaad Solano MD Discharge Service: Hospitalist Service Discharge Diagnoses Back pain due to bulging disc at L4-5 with radiculopathy Type 2 diabetes Hypothyroidism Follow-ups Needed After Discharge Follow-up Appointments Follow-up and recommended labs and tests Schedule right L4-L5 decompression microdiscectomy with [facility] Neurosurgery ([phone]) Unresulted Labs Ordered in the Past 30 Days of this Admission No orders found for last 31 day(s). Discharge Disposition Discharged to home Condition at discharge: Stable Hospital Course Patient is a 42-year-old white female with a prior history of back pain, type 2 diabetes, obesity, depression, and hypothyroidism, who was out walking her dogs outdoors when she slipped on the ice, but did not quite fall. She heard a pop in her back and since then has been having pain in her back. She went to urgent care and was given Flexeril and prednisone; however, continued to have pain. She noticed some tingling in her right lower extremity from the knee down. She has noticed weakness withwalking on her right lower extremity. She denied bowel or bladder incontinence. She presented to the ED for evaluation. ED evaluation included MRI of lumbar spine which showed multilevel degenerativechanges. At L4 to L5, there was a shallow disk bulge with a superimposed right foraminal disk extrusion, which caused severe right-sided neural foraminal stenosis and contacted the exiting right L4 nerve root. At L5 to S1, there was a large left lateral recess foraminal protrusion, which caused severe left lateral recess stenosis and contacted and potentially compressed the descending left S1 cauda equina nerve roots, and additional disk protrusion which caused moderate to severe left neural foraminal stenosis with probable contact of the exiting left L5 nerve root. At this level, there was also some periportal small disk protrusion within the right neural foramina with associated high-intensity zone annular which caused moderate right foraminal stenosis and contacted the exiting right [id number] root. Caleb was treated with pain control. Neurosurgery was consulted and recommended admission for formal consultation and epidural steroid injection. She was seen by neurosurgery. Surgical treatment was recommended but patient did not want to pursue that at that time. Epidural steroid injection was ordered. PT was recommended. Outpatient follow up was recommended. Patient spoke with some family members and decided that she did not want to pursue epidural steroid injection. She decided that she wanted to discharge home with pain medication and contact neurosurgery clinic to arrange right L4-5 decompressive microdiscectomy. I have prescribed Tylenol, Robaxin, and oxycodone. I have disch arged patient per her request and provided the clinic number for [facility] Neurosurgery clinic. I told her that if her symptoms worsen, including worsening weakness or loss of bowel or bladder control that she should return to the ED for re-evaluation. Consultations This Hospital Stay NEUROSURGERY IP CONSULT PHYSICAL THERAPY ADULT IP CONSULT Code Status Full Code Time Spent on this Encounter I, Rashaad Solano MD, personally saw the patient today and spent less than or equal to 30 minutes discharging this patient. Rashaad Solano MD [facility] EMERGENCY DEPT [address] [facility] [address] Physical Exam Vital Signs: Temp: 97.6 ??F (36.4 ??C) Temp src: Oral BP: 139/73 Pulse: 50 Resp: 18 SpO2: 100 % O2 Device: None (Room air) Weight: 0 lbs 0 oz GENERAL: Comfortable. Cooperative. PSYCH: pleasant, oriented, No acute distress. EYES: PERRLA, Normal conjunctiva. HEART: Regular rate and rhythm. No JVD. Pulses normal. No edema. LUNGS: Clear to auscultation, normal Respiratory effort. ABDOMEN: Soft, no hepatosplenomegaly, normal bowel sounds. EXTREMETIES: No clubbing, cyanosis or ischemia SKIN: Dry to touch, No rash. Primary Care Physician Amy Villalba Discharge Orders Physical Therapy Referral Reason for your hospital stay Back pain due to intervertebral disc bulge at L4-L5. Follow-up and recommended labs and tests Schedule right L4-L5 decompression microdiscectomy with [facility]surgery ([phone]) Activity Your activity upon discharge: activity as tolerated Diet Follow this diet upon discharge: Moderate Consistent Carb (60 g CHO per Meal) Diet Significant Results and Procedures Most Recent 3 CBC's:Recent Labs Lab Test 08/30/21 0751 08/03/20 1721 07/21/20 1255 WBC 9.2 17.1* 16.4* HGB 14.7 11.6* 13.4 MCV 93 96 94 PLT 328 555* 356 Most Recent 3 BMP's:Recent Labs Lab Test 11/25/22 1023 11/25/22 0643 11/25/22 0356 11/25/22 0304 06/16/22 1113 01/10/22 0931 NA -- -- 138 -- 136 138 POTASSIUM -- -- 4.3 -- 4.8 4.3 CHLORIDE -- -- 103 -- 105 106 CO2 -- -- 23 -- 27 27 BUN -- -- 15.9 -- 13 8 CR -- -- 0.75 -- 0.65 0.78 ANIONGAP -- -- 12 -- 4 5 HAO -- -- 7.9* -- 9.0 9.2 GLC 120* 123* 110* < > 112* 131* < > = values in this interval not displayed. , Results for orders placed or performed during the hospital encounter of 11/24/22 Lumbar spine MRI w/o contrast Narrative EXAM: MR LUMBAR SPINE W/O CONTRAST LOCATION: [facility] DATE/TIME: 11/24/2022 10:51 PM INDICATION: Low back pain; neurologic deficit, nontraumatic; lower extremity weakness; increasing persistent or sudden onset lower extremity weakness; no known automatically detected potential contraindications to imaging/ COMPARISON: None. TECHNIQUE: Routine Lumbar Spine MRI without IV contrast. FINDINGS: Nomenclature is based on 5 lumbar type vertebral bodies. There is levoconvex curvature of the lumbar spine centered at L2-L3. Mild superior endplate height loss noted involving the T12 and L1 vertebral bodies is chronic/degenerative. Subcentimeter osseous hemangioma is identified involving the L1 vertebral body. Overall, marrow signal pattern is normal for patient age. There are Modic type I endplate changes noted along the left laterally at L5-S1. Trace grade 1 stepwise retrolisthesis is present at L1 on L2, L2 on L3 and L3 on L4. Normal distal spinal cord and cauda equina with conus medullaris at L2. No extraspinal abnormality.Unremarkable visualized bony pelvis. At T11-T12, there is disc desiccation and disc height loss. There is also a left lateral recess disc protrusion which is incompletely imaged. There is at least mild to moderate left lateral recess stenosis at this level. No right neural foraminal stenosis is present. There is mild left neural foraminal stenosis. T12-L1: Normal disc height and signal. No disc herniation. Normal facets. No canal or foraminal stenosis. L1-L2: Prominent anterior osteophyte. Disc desiccation. Disc height loss. Minimal facet arthropathy. Trace prominence of the dorsal epidural fat. Mild concentric disc bulge. Minimal central spinal canal stenosis. No left neural foraminal stenosis. No right neural foraminal stenosis. L2-L3: Normal disc height. Mild disc desiccation. Mild facet arthropathy. Mild fluid in the facet joints. Trace prominence of the dorsal epidural fat. Shallow disc bulge. No canal stenosis. No foraminal stenosis. L3-L4: Mild disc desiccation. Mild disc height loss. Bilateral facet arthropathy. Trace fluid in the facet joints, right greater than left. Minimal prominence of the dorsal epidural fat. Trace concentric disc bulge. No significant canal stenosis. Minimal left neural foraminal stenosis. No right neural foraminal stenosis. L4-L5: Disc desiccation. Disc height loss. Bilateral facet arthrosis. Fluid in the facet joints bilaterally. Shallow broad-based disc bulge with a superimposed right foraminal disc extrusion with associated high intensity zone. The disc extrusion extends approximately 7 mm above the level of the inferior L4 endplate. At this level, the extrusion contacts the exiting right L4 nerve root and causes severe right- sided neural foraminal stenosis. Minimal central spinal canal stenosis is present this level. No significant left neural foraminal stenosis. L5-S1: Disc desiccation. Disc height loss. Bilateral facet arthropathy, left greater than right. Fluid in the facet joints, right greater than left. At this level, there is a large left lateral recess/foraminal protrusion which causes severe left lateral recess stenosis and contacts and potentially compresses the descending left S1 cauda equina nerve root. There is superimposed moderate to severe left neural foraminal stenosis with probable contact of the exiting left L5 nerve root. Within the right neural foramen at this level, there is a small superimposed disc protrusion with high intensity zone/annular tear which causes moderate right neural foraminal stenosis and contacts the exiting right L5 nerve root (image 4, series 3 and 2). Overall, there is minimal central spinal canal stenosis with mild to moderate left hemicanal stenosis. Impression IMPRESSION: 1. Multilevel degenerative changes of the lumbar spine, as above. 2. At L4-L5, there is a shallow disc bulge with a superimposed right foraminal disc extrusion whichcauses severe right-sided neural foraminal stenosis and contacts the exiting right L4 nerve root. 3. At L5-S1, there is a large left lateral recess/foraminal protrusion which causes severe left lateral recess stenosis and contacts (and potentially compresses) the descending left S1 cauda equina nerve root. Additionally, this protrusion causes moderate to severe left neural foraminal stenosis with probable contact of the exiting left L5 nerve root. There is also a right foraminal disc protrusion with associated high intensity zone/annular tear at this level causing moderate right neural foraminal stenosis and contacting the exiting right L5 nerve root. Discharge Medications Current Discharge Medication List START taking these medications Details methocarbamol (ROBAXIN) 500 MG tablet Take 1 tablet (500 mg) by mouth 3 times daily Qty: 30 tablet, Refills: 1 Associated Diagnoses: Lumbar disc herniation with radiculopathy oxyCODONE (ROXICODONE) 5 MG tablet Take 0.5-1 tablets (2.5-5 mg) by mouth every 4 hours as needed for moderate to severe pain Qty: 20 tablet, Refills: 0 Associated Diagnoses: Lumbar disc herniation with radiculopathy CONTINUE these medications which have CHANGED Details acetaminophen (TYLENOL) 500 MG tablet Take 1-2 tablets (500-1,000 mg) by mouth 3 times daily Qty: 100 tablet, Refills: 1 Associated Diagnoses: Internal hernia CONTINUE these medications which have NOT CHANGED Details buPROPion (WELLBUTRIN XL) 150 MG 24 hr tablet TAKE 3 TABLETS BY MOUTH DAILY Qty: 270 tablet, Refills: 0 Associated Diagnoses: Major depressive disorder, recurrent episode, moderate (H) Cholecalciferol (D3-1000) 25 MCG (1000 UT) CAPS TAKE 2 CAPSULES BY MOUTH DAILY Qty: 180 capsule, Refills: 3 Associated Diagnoses: S/P bariatric surgery drospirenone-ethinyl estradiol (NIHARIKA) 3-0.03 MG tablet Take 1 tablet by mouth daily escitalopram (LEXAPRO) 20 MG tablet TAKE 1 TABLET(20 MG) BY MOUTH DAILY Qty: 90 tablet, Refills: 1 Associated Diagnoses: Major depressive disorder, recurrent episode, moderate (H); Anxiety eszopiclone (LUNESTA) 3 MG tablet Take 3 mg by mouth At Bedtime levothyroxine (SYNTHROID/LEVOTHROID) 150 MCG tablet TAKE 1 TABLET(150 MCG) BY MOUTH DAILY Qty: 90 tablet, Refills: 1 Associated Diagnoses: Acquired hypothyroidism metFORMIN (GLUCOPHAGE XR) 500 MG 24 hr tablet TAKE 1 TABLET(500 MG) BY MOUTH DAILY WITH DINNER Qty: 90 tablet, Refills: 0 Associated Diagnoses: Type 2 diabetes mellitus without complication, without long-term current use of insulin (H) Multiple Vitamins/Iron TABS TAKE 1 TABLET BY MOUTH DAILY Qty: 90 tablet, Refills: 3 Associated Diagnoses: Bariatric surgery status omeprazole (PRILOSEC) [address] capsule Take 1 capsule (20 mg) by mouth daily Qty: 90 capsule, Refills: 3 Associated Diagnoses: Gastroesophageal reflux disease without esophagitis STOP taking these medications cyclobenzaprine (FLEXERIL) 5 MG tablet Comments: Reason for Stopping: Allergies Allergies Allergen Reactions ??? Lisinopril Cough ??? Sulfa Drugs Hives RETTE AND FILTER CHIEF INSPECTOR documented in this encounter Medications at Time of Discharge Medication Sig Dispensed Refills Start Date End Date acetaminophen (TYLENOL) 500 MG tabletIndications:Bridge Attacher al hernia Take 1-2 tablets (500-1,000 mg) by mouth 3 times daily 100 tablet 1 11/25/2022 Cholecalciferol (D3-1000) 25 MCG (1000 UT) CAPSIndications:S/P bariatric surgery TAKE 2 CAPSULES BY MOUTH DAILY 180 capsule 3 01/14/2021 Multiple Vitamins/Iron TABSIndications:Bariatri c surgery status TAKE 1 TABLET BY MOUTH DAILY 90 tablet 3 01/14/2021 buPROPion (WELLBUTRIN XL) 150 MG 24 hr tabletIndications:Major depressive disorder, recurrent episode, moderate (H) TAKE 3 TABLETS BY MOUTH DAILY 270 tablet 0 11/24/2022 12/15/2022 cyclobenzaprine (FLEXERIL) 10 MG tablet 0 11/19/2022 03/0 06/2023 drospirenone-ethinyl estradiol (NIHARIKA) 3-0.03 MG tablet Take 1 tablet by mouth daily 0 12/17/2022 escitalopram (LEXAPRO) 20 MG tabletIndications:Major depressive disorder, recurrent episode, moderate (H),Anxiety TAKE 1 TABLET(20 MG) BY MOUTH DAILY 90 tablet 1 07/06/2022 12/15/2022 eszopiclone (LUNESTA) 3 MG tablet Take 3 mg by mouth At Bedtime 0 12/15/2022 levothyroxine (SYNTHROID/LEVOTHROID) 150 MCG tabletIndications:Acquir ed hypothyroidism TAKE 1 TABLET(150 MCG) BY MOUTH DAILY 90 tablet 1 02/01/2022 12/15/2022 metFORMIN (GLUCOPHAGE XR) 500 MG 24 hr tabletIndications:Type 2 diabetes mellitus without complication, without long-term current use of insulin (H) TAKE 1 TABLET(500 MG) BY MOUTH DAILY WITH DINNER 90 tablet 0 07/20/2022 12/15/2022 methocarbamol (ROBAXIN) 500 MG tabletIndications:Lumbar disc herniation with radiculopathy Take 1 tablet (500 mg) by mouth 3 times daily 30 tablet 1 11/25/2022 12/05/2022 omeprazole (PRILOSEC) [address] capsuleIndications:Gastr oesophageal reflux disease without esophagitis Take 1 capsule (20 mg) by mouth daily 90 capsule 3 01/13/2022 02/15/2023 oxyCODONE (ROXICODONE) 5 MG tabletIndications:Lumbar disc herniation with radiculopathy Take 0.5-1 tablets (2.5-5 mg) by mouth every 4 hours as needed for moderate to severe pain 20 tablet 0 11/25/2022 01/06/2023 predniSONE (DELTASONE) 20 MG tablet 0 11/19/2022 12/15/2022 documented as of this encounter H&P Notes * David Wang MD, MD - 11/25/2022 12:32 AM CST Admitted: 11/24/2022 CHIEF COMPLAINT: Low back pain. HISTORY OF PRESENT ILLNESS: History was obtained from the patient. This is a 42-year-old white female with a prior history of pain in her back, type 2 diabetes, obesity, depression, hypothyroidism, who was out walking her dogs outdoors when she slipped on the ice, but did not quite fall. She heard a pop in her back and since then, she has been having pain in her back. She went to urgent care and was given Flexeril and prednisone; however, continues to have pain. She has noticed some tingling inher right lower extremity from the knee down. She has also noticed weakness with walking on her right lower extremity. She denies any bowel or bladder incontinence. She is seen by Dr. Ross here in the ED, who spoke to neurosurgery and they recommended admission and epidural spinal injection. I am asked to admit her for further evaluation. PAST MEDICAL HISTORY: Significant for obesity, hypothyroidism, type 2 diabetes, depression. PAST SURGICAL HISTORY: Significant for multiple colposcopy, tonsillectomy, wisdom tooth extraction. FAMILY HISTORY: Significant for heart disease in her maternal grandfather. HOME MEDICATIONS: List awaits reconciliation, but includes Prilosec, metformin, Lunesta, Lexapro. ALLERGIES: SHE IS ALLERGIC TO LISINOPRIL AND SULFA. SOCIAL HISTORY: She does not smoke. She does not drink alcohol. REVIEW OF SYSTEMS: As mentioned in the HPI. She denies any chest pain, shortness of breath, lightheadedness or dizziness. All other systems are reviewed and deemed unremarkable and negative. PHYSICAL EXAMINATION: VITAL SIGNS: Her temperature is 98.5, pulse is 52, blood pressure is 152/85, respiratory rate 18, O2 sat is 96% on room air. GENERAL: She is alert, awake, oriented, coherent, nontoxic, in no acute distress. HEENT: Pupils equal, round, reactive to light. LUNGS: Clear to auscultation bilaterally. HEART: Regular rate. S1, S2 normal. No murmurs or gallops. ABDOMEN: Obese, soft, nontender, nondistended with good bowel sounds. EXTREMITIES: There is no edema. SKIN: There is no rash. NEUROLOGICAL: Cranial nerves II through XII are grossly within normal limits. Motor: She has decreased strength in the right lower extremity compared to her left. Sensation is grossly within normal limits. Reflexes could not be elicited. She had an MRI of her L-spine, which showed the following: Multilevel degenerative changes. At L4 to L5, there is a shallow disk bulge with a superimposed right foraminal disk extrusion, which causes severe right-sided neural foraminal stenosis and contacts theexiting right L4 nerve root. At L5 to S1, there is a large left lateral recess foraminal protrusion, which causes severe left lateral recess stenosis and contacts and potentially compressing the descending left S1 cauda equina nerve roots, additional disk protrusion causes moderate to severe left neural foraminal stenosis with probable contact of the exiting left L5 nerve root. At this level, there is also some periportal small disk protrusion within the right neural foramina with associated high-intensity zone annular which causes moderate right foraminal stenosis and contacts the exiting right L5 nerve root. IMPRESSION AND PLAN: 1. Low back pain with radiculopathy. We will admit her under observation status. We will offer her pain medications. Neurosurgery did not feel that she needs any further steroids orally or intravenously as her symptoms did not improve with a Medrol Dosepak. 2. Diabetes. We will continue with metformin and sliding scale insulin. 3. Depression and hypothyroidism She will need resumption of her home medications once reconciled. CODE STATUS: FULL CODE. She will be admitted under observation status. Terese Wang MD MT: [facility] Name: CALEB ALMEIDA Account: [id number] : 1980 Admitted: 11/24/2022 Document: [id number] RETTE AND FILTER CHIEF INSPECTOR documented in this encounter Consult Notes * [place] Russffrey JOSELIN Foss - 11/25/2022 9:20 AM CSTAssociated Order(s): NEUROSURGERY IP CONSULT NEUROSURGERY CONSULT Neurosurgery was asked by Dr. Wang to consult for lumbar spine pain with right leg radiculopathy. PLAN: Ms. Almeida's most recent imaging exhibits a shallow broad-based disc bulge with a superimposed right foraminal disc extrusion with associated high intensity zone. The disc extrusion extends approximately 7 mm above the level of the inferior L4 endplate. At this level, the extrusion contacts theexiting right L4 nerve root and causes severe right-sided neural foraminal stenosis which certainlycorrelate with her subjective concerns and objective findings on her physical exam. However, even though she is experiencing some numbness and weakness, she is adamantly opposed to surgical intervention at this time. She has been made aware that prolonge stenosis or pressure on the nerve the great c bibiana of terminal press operator deficit. Based on this, we feel that it would be in her best interest to try a conservative approach by participating in a physical therapy program to include lumbar traction. We also discussed obtaining an epidural steroid injection at the right L4-5 level which she would like to proceed with. This has been ordered. However, we have been informed that in-patient epidural steroid injections are no longer an option here at [facility] due to equipment failure. Ms. Almeida would now like to discharge and return to clinic to further discuss possible surgical interventions or other conservative therapies. Our staff will facilitate this follow-up appointment. We did review the images together and we explained her condition and the recommended treatment. We also discussed signs of a worsening problem that she should seek being evaluated. Should she fail to obtain adequate alleviation of her symptoms utilizing non- operative measures, webriefly discussed a right L4-5 decompressive microdiscectomy. Please page our on-call service for any questions or concerns. It has been a pleasure meeting Caleb Talleylyndseyjojo. Thank you for having us be involved in her care. HPI: Caleb Almeida is a pleasant 42 year old female who presented to the [facility] Emergency Department for consultation on lumbar spine pain with right leg radiculopathy. She describes the symptoms as a constant, sharp, burning pain that initiates in the midline low lumbar region and radiatesdistally in the right L4 and L5 distributions. This pain is accompanied with paresthesia, numbness,and perceived weakness in the same distribution. The symptoms have been present for one week approximately. Her weakness has caused some falls in the past. She has tried prednisone which did provide some relief. There are no bowel or bladder changes. No other concerns are voiced. Past Medical History: Diagnosis Date ??? Depressive [...] remove (R) thumb cyst; plate put in Allergies Allergen Reactions ??? Lisinopril Cough ??? Sulfa Drugs Hives Social History Tobacco Use ??? Smoking status: Former Packs/day: 0.00 Years: 0.00 Pack years: 0.00 Types: Cigarettes ??? Smokeless tobacco: Never ??? Tobacco comments: 5 cigarettes a month Substance Use Topics ??? Alcohol use: Yes Alcohol/week: 0.0 standard drinks Comment: once a year Family History Problem Relation Age of Onset ??? Family History Negative Mother ??? Diabetes Mother ??? Hypertension Mother ??? Hyperlipidemia Mother ??? Obesity Mother ??? Skin Cancer Mother ??? Other Cancer Mother Skin cancer ??? Family History Negative Father ??? Deep Vein Thrombosis Maternal Grandmother ??? Diabetes Maternal Grandmother ??? Hypertension Maternal Grandmother ??? Hyperlipidemia Maternal Grandmother ??? Thyroid Disease Maternal Grandmother ??? Obesity Maternal Grandmother ??? Deep Vein Thrombosis Maternal Aunt ??? Deep Vein Thrombosis Maternal Aunt ??? Obesity Brother ??? Obesity Sister ??? Hypertension Sister ??? Depression Sister ??? Depression Niece ??? Anxiety Disorder Niece ??? Depression Daughter ??? Anxiety Disorder Daughter Scheduled Medications ??? acetaminophen 975 mg Oral Q8H ??? insulin aspart 1-6 Units Subcutaneous Q4H ??? methocarbamol 500 mg Oral TID Home Medications albuterol bupropion cyclobenzaprine Sujata Escitalopram eszopiclone ferrous sulfate levothyroxine metFORMIN omeprazole vitamin C PRN Medications glucose OR dextrose OR glucagon, HYDROmorphone, ketorolac, melatonin, ondansetron OR ondansetron, oxyCODONE IR ROS: 10 point ROS neg other than the symptoms noted above in the HPI. Vitals: BP 139/73 Pulse 50 Temp 98 ??F (36.7 ??C) (Temporal) Resp 18 LMP 10/21/2022 (Approximate) SpO2 96% There is no height or weight on file to calculate BMI. No intake/output data recorded. Exam: Patient appears comfortable, conversational, and in no apparent distress. Head: Normocephalic, without obvious abnormality, atraumatic, no facial asymmetry. Eyes: conjunctivae/corneas clear. PERRL, EOM's intact. Throat: lips, mucosa, and tongue normal; teeth and gums normal. Neck: supple, symmetrical, trachea midline, no adenopathy and thyroid: not enlarged, symmetric, no tenderness/mass/nodules. Lungs: clear to auscultation bilaterally. Heart: regular rate and rhythm. Abdomen: soft, non-tender; bowel sounds normal; no masses, no organomegaly. Pulses: 2+ and symmetric. Skin: Skin color, texture, turgor normal. No rashes or lesions. CN II-XII grossly intact, alert and appropriate with conversation and following commands. Gait is antalgic. Able to tandem walk. Unble to walk on toes and heels without difficulty 2/2 pain. Cervical spine is non tender to palpation. Appropriate range of motion of neck, not concerning for lhermitte's phenomenon. Bilateral bicep 2/4 and tricep reflexes 1/4. Sensation intact throughout upper extremities. UE muscle strength Right Left Deltoid 5/5 5/5 Biceps 5/5 5/5 Triceps 5/5 5/5 Hand intrinsics 5/5 5/5 Hand grasp 5/5 5/5 Sherman signs neg neg Lumbar spine is non tender to palpation Intact but diminished sensation throughout right lower extremity. Bilateral patellar 2/4 and achilles reflex 1/4. Negative for pain with straight leg raise. LE muscle strength Right Left Iliopsoas (hip flexion) 4/5 5/5 Quad (knee extension) 5/5 5/5 Hamstring (knee flexion) 5/5 5/5 Gastrocnemius (PF) 5/5 5/5 Tibialis Ant. (DF) 5/5 5/5 EHL 5/5 5/5 Negative Babinski bilaterally. Negative for clonus. Calves are soft and non-tender bilaterally. Imaging: MR LUMBAR SPINE W/O CONTRAST - 11/24/2022 10:51 PM Impression per radiology read - I have personally reviewed the images with the patient. 1. Multilevel degenerative changes of the lumbar spine, as above. 2. At L4-L5, there is a shallow disc bulge with a superimposed right foraminal disc extrusion whichcauses severe right-sided neural foraminal stenosis and contacts the exiting right L4 nerve root. 3. At L5-S1, there is a large left lateral recess/foraminal protrusion which causes severe left lateral recess stenosis and contacts (and potentially compresses) the descending left S1 cauda equina nerve root. Additionally, this protrusion causes moderate to severe left neural foraminal stenosis with probable contact of the exiting left L5 nerve root. There is also a right foraminal disc protrusion with associated high intensity zone/annular tear at this level causing moderate right neural foraminal stenosis and contacting the exiting right L5 nerve root. Available labs at time of consult: No results for input(s): WBC, HGB, HCT, MCV, PLT, IRON, IRONSAT, RETICABSCT, RETP, FEB, JACK, B12, FOLIC, EPOE, MORPH in the last 168 hours. No results for input(s): WBC, HGB, HCT, MCV, PLT in the last 168 hours. No results for input(s): SED, CRP in the last 168 hours. No results for input(s): HGB in the last 168 hours. No results for input(s): INR in the last 168 hours. No results for input(s): PLT in the last 168 hours. No results for input(s): WBC in the last 168 hours. Respectfully, Keegan Russ [facility] HEALTH SERVICESCharu, JOSELIN [facility] Neurosurgery [facility] All imaging, physical findings, and the above plan have been reviewed with Dr. Torres. RETTE AND FILTER CHIEF INSPECTOR Associated attestation - Aftab Torres MD - 11/26/2022 12:19 PM CIGARETTE AND FILTER CHIEF INSPECTOR Physician Attestation I have reviewed and discussed with the advanced practice provider their history, physical and plan for Caleb Almeida. I did not participate in a shared visit by interviewing or examining the patient and this should be billed as an advanced practice provider only visit. Aftab Torres MD Date of Service (when I saw the patient): I did not personally see this patient today. documented in this encounter ED Notes * Alfred Dyer RN - 11/25/2022 12:58 AM CST Bed: ED27 Expected date: Expected time: Means of arrival: Comments: ED39 RETTE AND FILTER CHIEF INSPECTOR * Jenna Carrasco RN - 11/25/2022 12:18 AM CST [facility] ED Nurse Handoff Report Caleb Almeida is a 42 year old female ED Chief complaint: Back Pain . ED Diagnosis: Final diagnoses: Lumbar disc herniation with radiculopathy Allergies: Allergies Allergen Reactions ??? Lisinopril Cough ??? Sulfa Drugs Hives Code Status: Full Code Activity level - Baseline/Home: Independent. Activity Level - Current: Stand by Assist. Lift room needed: No. Bariatric: No Tutor Coordinator Needed: No Isolation: No. Infection: Not Applicable. Vital Signs: Vitals: 11/24/22 2300 11/24/22 2345 11/25/22 0000 11/25/22 0015 BP: (!) 146/83 (!) 170/88 (!) 152/85 Pulse: 55 52 Resp: Temp: TempSrc: SpO2: 97% 95% 95% 96% Cardiac Rhythm: , Pain level: Patient confused: No. Patient Falls Risk: No. Elimination Status: Has voided Patient Report - Initial Complaint: Back pain. Focused Assessment: Caleb Almeida is a 42 year old female who presents with lower right-sided back pain that radiates down the right leg with an associated burning sensation in the distal lower extremity. She reports slipping on ice 6 days ago where she twisted her leg and caught herself with her arm without fully falling. She then began experiencing numbness and weakness throughout her right leg since yesterday morning. On ambulation, the lower back and leg pain is 10/10 and she describes it as excrutiating. At rest, the pain is 7/10. She has been taking Tylenol and ibuprofen every 4 hours for the pain, but expresses concern with taking ibuprofen given she is s/p Jon-en-y gastric bypass. Denies left- sided numbness/weakness, perineal numbness, bladder issues, bowel issues, fever, cough, congestion, chest pain, or shortness of breath. Of note, she had a previous back injury in 2019 where she was reportedly informed that her L5 was displaced. This injury was treated with steroids, Flexeril, and chiropractics. She visited Urgent Care 5 days ago for this new pain and was told that it is a flare up of her preexisting back injury. She was discharged with a 5 day course of Flexeril and prednisone that was completed yesterday. Tests Performed: Imaging. Abnormal Results: Lumbar spine MRI w/o contrast Preliminary Result IMPRESSION: 1. Multilevel degenerative changes of the lumbar spine, as above. 2. At L4-L5, there is a shallow disc bulge with a superimposed right foraminal disc extrusion whichcauses severe right-sided neural foraminal stenosis and contacts the exiting right L4 nerve root. 3. At L5-S1, there is a large left lateral recess/foraminal protrusion which causes severe left lateral recess stenosis and contacts (and potentially compresses) the descending left S1 cauda equina nerve root. Additionally, this protrusion causes moderate to severe left neural foraminal stenosis with probable contact of the exiting left L5 nerve root. At this level, there is also a superimposed small disc protrusion within the right neural foramen with associated high intensity zone/annular which causes moderate right neural foraminal stenosis and contacts the exiting right L5 nerve root. Treatments provided: See MAR Family Comments: = OBS brochure/video discussed/provided to patient: Yes ED Medications: Medications oxyCODONE-acetaminophen (PERCOCET) 5-325 MG per tablet 2 tablet (1 tablet Oral Given 11/24/222224) methocarbamol (ROBAXIN) tablet 750 mg (750 mg Oral Given 11/24/222207) Drips infusing: No For the majority of the shift, the patient's behavior Green. Interventions performed were Frequent rounding. Sepsis treatment initiated: No Patient tested for COVID 19 prior to admission: NO ED Nurse Name/Phone Number: Pura Pozo RN, 12:18 AM RECEIVING UNIT ED HANDOFF REVIEW Above ED Nurse Handoff Report was reviewed: Yes Reviewed by: Jenna Carrasco RN on November 25, 2022 at 12:02 PM RETTE AND FILTER CHIEF INSPECTOR * Daniel Blanco RN - 11/24/2022 8:32 PM CST Fell on ice last Monday. Seen at , discharged home with prednisone and flexeril for back pain. Finished flexeril and steroid yesterday. Back pain is worse today. C/o tingling down right leg. Pt also reports that right leg gave out while walking down stairs. CMS intact. RETTE AND FILTER CHIEF INSPECTOR * Nubia Ross MD - 11/24/2022 8:30 PM CST History Chief Complaint: Back Pain HPI Caleb Almeida is a 42 year old female who presents with lower right-sided back pain that radiates down the right leg with an associated burning sensation in the distal lower extremity. She reports slipping on ice 6 days ago where she twisted her leg and caught herself with her arm without fullyfalling. She then began experiencing numbness and weakness throughout her right leg since yesterdaymorning. On ambulation, the lower back and leg pain is 10/10 and she describes it as excrutiating. At rest, the pain is 7/10. She has been taking Tylenol and ibuprofen every 4 hours for the pain, butexpresses concern with taking ibuprofen given she is s/p Jon-en-y gastric bypass. Denies left-sided numbness/weakness, perineal numbness, bladder issues, bowel issues, fever, cough, congestion, chest pain, or shortness of breath. Of note, she had a previous back injury in 2019 where she was reportedly informed that her L5 was displaced. This injury was treated with steroids, Flexeril, and chiropractics. She visited Urgent Care 5 days ago for this new pain and was told that it is a flare up of her preexisting back injury. She was discharged with a 5 day course of Flexeril and prednisone that was completed yesterday. Independent Historian: None - Patient Only Review of External Notes: Reviewed UC note from 11/19. They did not image her back. She was given Flexeril and prednisone ROS: Review of Systems Constitutional: Negative for fever. HENT: Negative for congestion. Respiratory: Negative for cough and shortness of breath. Cardiovascular: Negative for chest pain. Musculoskeletal: Positive for back pain. Neurological: Positive for weakness (Right leg) and numbness (Right leg). All other systems reviewed and are negative. Allergies: Lisinopril Sulfa Drugs Medications: albuterol bupropion cyclobenzaprine Sujata Escitalopram eszopiclone ferrous sulfate levothyroxine metFORMIN omeprazole vitamin C Past Medical History: Depressive disorder Diabetes Hypertension Delay hemorrhage Pilonidal cyst Hypothyroidism Obesity T2DM PTSD Panic disorder Past Surgical History: Tonsillectomy and adenoidectomy Jon en y gastric bypass Diagnostic laparoscopy, repair of internal hernias Panniculectomy Soft tissue surgery, right thumb cyst removal Colonoscopy Family History: Daughter - Anxiety, depression Sister - Depression, hypertension Mother - Diabetes, hyperlipidemia, hypertension, obesity, skin cancer Brother - Obesity Social History: The patient presents to the ED alone. PCP: Amy Villalba Ra Physical Exam Patient Vitals for the past 24 hrs: BP Temp Temp src Pulse Resp SpO2 11/25/22 0000 -- -- -- -- -- 95 % 11/24/22 2345 (!) 170/88 -- -- -- -- 95 % 11/24/22 2300 (!) 146/83 -- -- 55 -- 97 % 11/24/22 2255 (!) 154/98 -- -- 52 -- 99 % 11/24/22 2230 -- -- -- -- -- 97 % 11/24/22 2220 -- -- -- -- -- 99 % 11/24/22 2215 -- -- -- -- -- 99 % 11/24/222209 -- -- -- -- -- 98 % 11/24/222033 (!) 171/86 98.5 ??F (36.9 ??C) Temporal 60 18 100 % Physical Exam Gen: alert CV: 2+ DP and PT pulses, RRR Pulm: ctab Abdomen: soft, nontender Back: lumbar midline tenderness, right lumbar hospitalist thank you I this 39 for paraspinous muscle tenderness MSK: lower extremities with full AROM at hip, knee and ankle Neuro: 5/5 strength BLE in hip flexion and ext, knee flexion and ext, plantar and dorsiflexion, andextension of EHL with bedside testing, sensation decreased to light touch over all dermatomes of the legs, Skin: skin over torso normal Emergency Department Course Imaging: Lumbar spine MRI w/o contrast Preliminary Result IMPRESSION: 1. Multilevel degenerative changes of the lumbar spine, as above. 2. At L4-L5, there is a shallow disc bulge with a superimposed right foraminal disc extrusion whichcauses severe right-sided neural foraminal stenosis and contacts the exiting right L4 nerve root. 3. At L5-S1, there is a large left lateral recess/foraminal protrusion which causes severe left lateral recess stenosis and contacts (and potentially compresses) the descending left S1 cauda equina nerve root. Additionally, this protrusion causes moderate to severe left neural foraminal stenosis with probable contact of the exiting left L5 nerve root. At this level, there is also a superimposed small disc protrusion within the right neural foramen with associated high intensity zone/annular which causes moderate right neural foraminal stenosis and contacts the exiting right L5 nerve root. Report per radiology Emergency Department Course & Assessments: Interventions: Medications oxyCODONE-acetaminophen (PERCOCET) 5-325 MG per tablet 2 tablet (1 tablet Oral Given 11/24/222224) methocarbamol (ROBAXIN) tablet 750 mg (750 mg Oral Given 11/24/222207) Consultations/Discussion of Management or Tests: Lazara STEPHENSON NS-discussed resulting MRI lumbar spine. Recommendation for no acute surgical intervention, admit for monitoring, neurosurgery consultation and likely epidural steroid injection Assessments: 2137 I obtained history and examined patient as noted above. Disposition: The patient was admitted to the hospital under the care of Dr. Wallace. Impression & Plan Medical Decision Making: Patient presents for low back pain with radiation to the right leg. Patient describes numbness as well as giveway weakness. On my bedside exam, patient does have decreased sensation to palpation throughout the right lower extremity. She is able to hold the leg off the bed and perform flexion extension of the knee however describes giveaway weakness with standing. MRI lumbar spine was obtained with results as noted above. I discussed the results in detail with Lazara STEPHENSON on-call for neurosurgery. We discussed in particular the findings at the L5- S1 level. He did not feel that there was any acute surgical indication. Care was taken to discuss the compression of the S1 cauda equina nerve root. Again he did not feel there is any surgical or acute surgical indication. Discussion with patient is she is aware of this finding and states it is chronic. All the patient's symptoms are on the right. Given likely acute disc herniation on the right with neurologic symptoms, will admit for monitoring, neurosurgery consultation and likely epidural steroid injection. Neurosurgery team did not fe el that there was any additional benefit for oral or IV steroids at this time given that patient did not have prior improvement on prednisone. Discussed with Jessenia Wang MD and admitted to the obs unit Diagnosis: ICD-10-CM 1. Lumbar disc herniation with radiculopathy M51.16 Scribe Disclosure: I, Pura Magdaleno, am serving as a scribe at 9:34 PM on 11/24/2022 to document services personally performed by Nubia Ross MD based on my observations and the provider's statements to me. 11/24/2022 Nubia Ross MD Trussell, Kristi Jo Schneider, MD 11/25/22 0019 RETTE AND FILTER CHIEF INSPECTOR * Clyde Flanagan MD - 11/24/2022 8:30 PM CST I spoke with neurosurgery regarding this patient. Evidently, epidural steroid spinal injections areno longer available here at [facility]. They recommended options for outpatient treatment with steroid epidural injection versus transfer to [facility] to have this procedure done versus discharge on pain regimen. Clyde Flanagan MD Emergency Medicine Clyde Flanagan MD 11/26/22 0727 RETTE AND FILTER CHIEF INSPECTOR documented in this encounter Miscellaneous Notes * Plan of Care - Tari Louis RN - 11/25/2022 1:10 PM CST Reviewed discharge instructions with patient Questions answered. Patient discharged to home, discharge instructions,belongings. Pt did not want to wait for IR injection and is not sure about it being the best plan for her is leaning more towards the surgical route. RETTE AND FILTER CHIEF INSPECTOR * Plan of Care - Marianna Dawson, PT - 11/25/2022 1:10 PM CST PT: Orders received. Patient discharged prior to PT eval. Will complete order. RETTE AND FILTER CHIEF INSPECTOR * Pharmacy-Admission Medication History - Allison Milner [facility] - 11/25/2022 9:25 AM CST Admission medication history interview status for this patient is complete. See [facility] admission navigator for allergy information, prior to admission medications and immunization status. Medication history interview source(s):Patient Medication history resources (including written lists, pill bottles, clinic record):[facility] list, [facility], [facility] Primary [facility] Changes made to HOSPICE SUPERINTENDENT medication list: Added: niharika Deleted: alubuterol inh prn, vit c 500mg daily x 2, ca+d 1 bid, clobetasol cream bid, estrace 0.1mg/gm vag cream twice weekly, ferrous sulfate 325mg at bedtime, triamcinolone 0.1% cream bid, sujata 3/0.02 1 daily Changed: ----- Actions taken by pharmacist (provider contacted, etc):phoned [facility] to confirm if pt on sujata or niharika. Pt states niharika but sure scripts had fills for both. [facility] confirmed pt on niharika. Additional medication history information:pt was on prednisone 40mg po daily x 5 days-last dose Monday, 11/23 am. Pt took last prn cyclobenzaprine yesterday before coming to the ER Medication reconciliation/reorder completed by provider prior to medication history? No Medication Affordability: Not including over the counter (OTC) medications, was there a time in the past 12 months when you did not take your medications as prescribed because of cost?: Yes Has this happened in the past 3 months?: Yes (This is why she stopped several supplements because insurance stopped covering them) For patients on insulin therapy:N Prior to Admission medications Medication Sig Last Dose Taking? Auth Provider Pyrotechnic Assembler End Date acetaminophen (TYLENOL) 325 MG tablet Take 2 tablets (650 mg) by mouth every 4 hours as needed for mild pain 11/24/2022 at 1600 Yes Tonia Hernadez, DO buPROPion (WELLBUTRIN XL) 150 MG 24 hr tablet TAKE 3 TABLETS BY MOUTH DAILY 11/24/2022 at am Yes Amy Villalba Ra, EARLY HEAD START DIRECTOR RICE FARMWORKER Yes Cholecalciferol (D3-1000) 25 MCG (1000 UT) CAPS TAKE 2 CAPSULES BY MOUTH DAILY 11/24/2022 at am Yes Brittanie Benitez MD cyclobenzaprine (FLEXERIL) 5 MG tablet Take 1 tablet (5 mg) by mouth 3 times daily as needed for muscle spasms 11/24/2022 at am-med is now gone Yes Amy Villalba Ra, APRN CNP drospirenone-ethinyl estradiol (NIHARIKA) 3-0.03 MG tablet Take 1 tablet by mouth daily 11/24/2022 at am Yes Unknown, Entered By History No escitalopram (LEXAPRO) 20 MG tablet TAKE 1 TABLET(20 MG) BY MOUTH DAILY 11/24/2022 at am Yes Renetta Ronquillo PA-C Yes eszopiclone (LUNESTA) 3 MG tablet Take 3 mg by mouth At Bedtime Past Week Yes Unknown, Entered By History levothyroxine (SYNTHROID/LEVOTHROID) 150 MCG tablet TAKE 1 TABLET(150 MCG) BY MOUTH DAILY 11/24/2022t am Yes Amy Villalba Ra, APRN CNP Yes metFORMIN (GLUCOPHAGE XR) 500 MG 24 hr tablet TAKE 1 TABLET(500 MG) BY MOUTH DAILY WITH DINNER 2022 at supper Yes Amy Villalba Ra, APRN CNP Yes Multiple Vitamins/Iron TABS TAKE 1 TABLET BY MOUTH DAILY 11/24/2022 at am Yes Brittanie Benitez MD omeprazole (PRILOSEC) [address] capsule Take 1 capsule (20 mg) by mouth daily 11/24/2022 at am Yes Amy Villalba Ra, APRN CNP RETTE AND FILTER CHIEF INSPECTOR * Plan of Care - Anna Telles RN - 11/25/2022 5:00 AM CST Goal Outcome Evaluation: cared for patient [id number] Pt is alert and oriented x4, comes in with low back pain after walking dog and she heard a pop.MRI confirms L 4-5 with disc pain controlled by Robaxin, flexeril, robaxin and dilaudid. ,neurosurgery to evaluate in AM. RETTE AND FILTER CHIEF INSPECTOR documented in this encounter Plan of Treatment Scheduled Referrals Name Type Priority Associated Diagnoses Orde r Schedule Physical Therapy Referral Referral Routine: Next available opening Lumbar disc herniation with radiculopathy Expected: 11/25/2022 (Approximate), Expires: 11/25/2023 documented as of this encounter Procedures Procedure Name Priority Date/Time Associated Diagnosis Comments GLUCOSE BY METER STAT 11/25/2022 10:2 3 AM CIGARETTE AND FILTER CHIEF INSPECTOR GLUCOSE BY METER STAT 11/25/2022 6:43 AM CIGARETTE AND FILTER CHIEF INSPECTOR BASIC METABOLIC PANEL STAT 11/25/2022 3:56 AM CIGARETTE AND FILTER CHIEF INSPECTOR GLUCOSE BY METER STAT 11/25/2022 3:04 AM CIGARETTE AND FILTER CHIEF INSPECTOR MR LUMBAR SPINE W/O CONTRAST STAT 11/24/2022 10:51 PM CIGARETTE AND FILTER CHIEF INSPECTOR documented in this encounter Results * (ABNORMAL) Glucose by meter (11/25/2022 10:23 AM CIGARETTE AND FILTER CHIEF INSPECTOR) GLUCOSE BY METER POCT 120(H) 70 - 99 mg/dL 11/25/2022 10:30 AM CIGARETTE AND FILTER CHIEF INSPECTOR LABORATORY POC Blood, Capillary BLOOD SPECIMEN / Unknown 11/25/2022 10:23 AM CIGARETTE AND FILTER CHIEF INSPECTOR 11/25/2022 10:30 AM CIGARETTE AND FILTER CHIEF INSPECTOR David Wang MD, MD [facility] POCT LABORATORY [facility] Acute Care Lab [address] Lab (1st floor, no room number) [place] [address], [facility] [phone] * (ABNORMAL) Glucose by meter (11/25/2022 6:43 AM CIGARETTE AND FILTER CHIEF INSPECTOR) GLUCOSE BY METER POCT 123(H) 70 - 99 mg/dL 11/25/2022 6:50 AM CIGARETTE AND FILTER CHIEF INSPECTOR LABORATORY POC Blood, Capillary BLOOD SPECIMEN / Unknown 11/25/2022 6:43 AM CIGARETTE AND FILTER CHIEF INSPECTOR 11/25/2022 6:50 AM CIGARETTE AND FILTER CHIEF INSPECTOR David Wang MD, MD LAB - [facility] POCT LABORATORY POC [facility] Acute Care Lab [address] Lab (1st floor, no room number) [place] [address], [place] [phone] * (ABNORMAL) Basic metabolic panel (11/25/2022 3:56 AM C[employer] FIL[employer] CHIEF INSPECTOR) [facility] Sodium 138 136 - 145 mmol/L 11/25/2022 4:18 AM [facility] Potassium 4.3 3.4 - 5.3 mmol/L 11/25/2022 4:18 AM [facility] Chloride 103 98 - 107 mmol/L 11/25/2022 4:18 AM [facility] Carbon Dioxide (CO2) 23 22 - 29 mmol/L 11/25/2022 4:18 AM [facility] Anion Gap 12 7 - 15 mmol/L 11/25/2022 4:18 AM [facility] Urea Nitrogen 15.9 6.0 - 20.0 mg/dL 11/25/2022 4:18 AM [facility] Creatinine 0.75 0.51 - 0.95 mg/dL 11/25/2022 4:18 AM [facility] Calcium 7.9(L) 8.6 - 10.0 mg/dL 11/25/2022 4:18 AM [facility] Glucose 110(H) 70 - 99 mg/dL 11/25/2022 4:18 AM [facility] GFR Estimate >90 >60 mL/min/1.7 3m2 11/25/2022 4:18 AM [facility] Comment:eGFR calculated usin g 2020 CKD-EPI equation. Blood STRUCTURE OF LEFT UPPER LIMB / Unknown Venipuncture / Unknown 11/25/2022 3:56 AM [employer] CHIEF INSPECTOR 11/25/2022 4:00 AM [employer] AND FILTER CHIEF INSPECTOR David Wang MD, MD LAB - BLOOD ORDERA BLES Performing Organization Address City/[facility]/ZIP Co de Phone Number LABORATORY [facility] [address] Lab (1st floor, no room number) [place] [address], [place] [phone] * (ABNORMAL) Glucose by meter (11/25/2022 3:04 AM C[employer] CHIEF INSPECTOR) GLUCOSE BY METER POCT 120(H) 70 - 99 mg/dL 11/25/2022 3:11 AM [employer] CHIEF INSPECTOR LABORATORY POC Blood, Capillary BLOOD SPECIMEN / Unknown 11/25/2022 3:04 AM C[employer] AND FIL[employer] CHIEF INSPECTOR 11/25/2022 3:11 AM [employer] AND FILTER CHIEF INSPECTOR Nubia Ross MD LAB - BE GURINDER POCT LABORATORY [facility] [address] [facility] Lab (1st floor, no room number) [place] [address], [facility] [phone] * Lumbar spine MRI w/o contrast (11/24/2022 10:51 PM C[employer] CHIEF INSPECTOR) Anatomical Region Laterality Modality Spine, SUBRAD MR NEURO, UMP MR SPINE, RAD MR Magnetic Resonance 11/24/2022 10:5 1 PM [employer] CHIEF INSPECTOR Impressions 11/25/2022 2:22 AM C[employer] AND FILTER CHIEF INSPECTOR IMPRESSION: 1. ??Multilevel degenerative changes of the lumbar spine, as above. 2. ??At L4-L5, there is a shallow disc bulge with a superimposed right foraminal disc extrusion which causes severe right-sided neural foraminal stenosis and contacts the exiting right L4 nerve root. 3. ??At L5-S1, there is a large left lateral recess/foraminal protrusion which causes severe left lateral recess stenosis and contacts (and potentially compresses) the descending left S1 cauda equina nerve root. Additionally, this protrusion causes moderate to severe left neural foraminal stenosis with probable contact of the exiting left L5 nerve root. There is also a right foraminal disc protrusion with associated high intensity zone/annular tear at this level causing moderate right neural foraminal stenosis and contacting the exiting right L5 nerve root. Narrative 11/25/2022 2:22 AM C[employer] AND FILTER CHIEF INSPECTOR EXAM: MR LUMBAR SPINE W/O CONTRAST LOCATION: [facility] DATE/TIME: 11/24/2022 10:51 PM INDICATION: Low back pain; neurologic deficit, nontraumatic; lower extremity weakness; increasing persistent or sudden onset lower extremity weakness; no known automatically detected potential contraindications to imaging/ COMPARISON: None. TECHNIQUE: Routine Lumbar Spine MRI without IV contrast. FINDINGS: Nomenclature is based on 5 lumbar type vertebral bodies. There is levoconvex curvature of the lumbar spine centered at L2-L3. Mild superior endplate height loss noted involving the T12 and L1 vertebral bodies is chronic/degenerative. Subcentimeter osseous hemangioma is identified involving the L1 vertebral body. Overall, marrow signal pattern is normal for patient age. There are Modic type I endplate changes noted along the left laterally at L5-S1. Trace grade 1 stepwise retrolisthesis is present at L1 on L2, L2 on L3 and L3 on L4. Normal distal spinal cord and cauda equina with conus medullaris at L2. No extraspinal abnormality. Unremarkable visualized bony pelvis. At T11-T12, there is disc desiccation and disc height loss. There is also a left lateral recess disc protrusion which is incompletely imaged. There is at least mild to moderate left lateral recess stenosis at this level. No right neural foraminal stenosis is present. There is mild left neural foraminal stenosis. T12-L1: Normal disc height and signal. No disc herniation. Normal facets. No canal or foraminal stenosis. L1-L2: Prominent anterior osteophyte. Disc desiccation. Disc height loss. Minimal facet arthropathy. Trace prominence of the dorsal epidural fat. Mild concentric disc bulge. Minimal central spinal canal stenosis. No left neural foraminal stenosis. No right neural foraminal stenosis. L2-L3: Normal disc height. Mild disc desiccation. Mild facet arthropathy. Mild fluid in the facet joints. Trace prominence of the dorsal epidural fat. Shallow disc bulge. No canal stenosis. No foraminal stenosis. L3-L4: Mild disc desiccation. Mild disc height loss. Bilateral facet arthropathy. Trace fluid in the facet joints, right greater than left. Minimal prominence of the dorsal epidural fat. Trace concentric disc bulge. No significant canal stenosis. Minimal left neural foraminal stenosis. No right neural foraminal stenosis. L4-L5: Disc desiccation. Disc height loss. Bilateral facet arthrosis. Fluid in the facet joints bilaterally. Shallow broad-based disc bulge with a superimposed right foraminal disc extrusion with associated high intensity zone. The disc extrusion extends approximately 7 mm above the level of the inferior L4 endplate. At this level, the extrusion contacts the exiting right L4 nerve root and causes severe right-sided neural foraminal stenosis. Minimal central spinal canal stenosis is present this level. No significant left neural foraminal stenosis. L5-S1: Disc desiccation. Disc height loss. Bilateral facet arthropathy, left greater than right. Fluid in the facet joints, right greater than left. At this level, there is a large left lateral recess/foraminal protrusion which causes severe left lateral recess stenosis and contacts and potentially compresses the descending left S1 cauda equina nerve root. There is superimposed moderate to severe left neural foraminal stenosis with probable contact of the exiting left L5 nerve root. Within the right neural foramen at this level, there is a small superimposed disc protrusion with high intensity zone/annular tear which causes moderate right neural foraminal stenosis and contacts the exiting right L5 nerve root (image 4, series 3 and 2). Overall, there is minimal central spinal canal stenosis with mild to moderate left hemicanal stenosis. Procedure Note Abhinav Schmidt MD - 11/25/2022 EXAM: MR LUMBAR SPINE W/O CONTRAST LOCATION: [facility] DATE/TIME: 11/24/2022 10:51 PM INDICATION: Low back pain; neurologic deficit, nontraumatic; lowerextremity weakness; increasing persistent or sudden onset lower extremityweakness; no known automatically detected potential contraindications toimaging/ COMPARISON: None. TECHNIQUE: Routine Lumbar Spine MRI without IV contrast. FINDINGS: Nomenclature is based on 5 lumbar type vertebral bodies. There islevoconvex curvature of the lumbar spine centered at L2-L3. Mild superior endplate height loss noted involving the T12 and U0smwktaztd bodies is chronic/degenerative. Subcentimeter osseous hemangiomais identified involving the L1 vertebral body. Overall, marrow signalpattern is normal for patient age. There are Modic type I endplate changes noted along the left laterally at L5-S1.Trace grade 1 stepwise retrolisthesis is present at L1 on L2, L2 on L3 andL3 on L4. Normal distal spinal cord and cauda equina with conus medullaris at L2. Noextraspinal abnormality. Unremarkable visualized bony pelvis. At T11-T12, there is disc desiccation and disc height loss. There is alsoa left lateral recess disc protrusion which is incompletely imaged. Thereis at least mild to moderate left lateral recess stenosis at this level.No right neural foraminal stenosis is present. There is mild left neural foraminal stenosis. T12-L1: Normal disc height and signal. No disc herniation. Normal facets.No canal or foraminal stenosis. L1-L2: Prominent anterior osteophyte. Disc desiccation. Disc height loss.Minimal facet arthropathy. Trace prominence of the dorsal epidural fat.Mild concentric disc bulge. Minimal central spinal canal stenosis. No leftneural foraminal stenosis. No right neural foraminal stenosis. L2-L3: Normal disc height. Mild disc desiccation. Mild facet arthropathy.Mild fluid in the facet joints. Trace prominence of the dorsal epiduralfat. Shallow disc bulge. No canal stenosis. No foraminal stenosis. L3-L4: Mild disc desiccation. Mild disc height loss. Bilateral facetarthropathy. Trace fluid in the facet joints, right greater than left.Minimal prominence of the dorsal epidural fat. Trace concentric discbulge. No significant canal stenosis. Minimal left neural foraminal stenosis. No right neural foraminal stenosis. L4-L5: Disc desiccation. Disc height loss. Bilateral facet arthrosis.Fluid in the facet joints bilaterally. Shallow broad-based disc bulge witha superimposed right foraminal disc extrusion with associated highintensity zone. The disc extrusion extends approximately 7 mm above the level of the inferior L4 endplate. At thislevel, the extrusion contacts the exiting right L4 nerve root and causessevere right-sided neural foraminal stenosis. Minimal central spinal canalstenosis is present this level. No significant left neural foraminal stenosis. L5-S1: Disc desiccation. Disc height loss. Bilateral facet arthropathy,left greater than right. Fluid in the facet joints, right greater thanleft. At this level, there is a large left lateral recess/foraminalprotrusion which causes severe left lateral recess stenosis and contacts and potentially compresses the descendingleft S1 cauda equina nerve root. There is superimposed moderate to severeleft neural foraminal stenosis with probable contact of the exiting leftL5 nerve root. Within the right neural foramen at this level, there is a small superimposed discprotrusion with high intensity zone/annular tear which causes moderateright neural foraminal stenosis and contacts the exiting right L5 nerveroot (image 4, series 3 and 2). Overall, there is minimal central spinal canal stenosis with mild to moderate lefthemicanal stenosis. IMPRESSION: 1. Multilevel degenerative changes of the lumbar spine, as above. 2. At L4-L5, there is a shallow disc bulge with a superimposed rightforaminal disc extrusion which causes severe right-sided neural foraminalstenosis and contacts the exiting right L4 nerve root. 3. At L5-S1, there is a large left lateral recess/foraminal protrusionwhich causes severe left lateral recess stenosis and contacts (andpotentially compresses) the descending left S1 cauda equina nerve root.Additionally, this protrusion causes moderate to severe left neural foraminal stenosis with probable contact ofthe exiting left L5 nerve root. There is also a right foraminal discprotrusion with associated high intensity zone/annular tear at this levelcausing moderate right neural foraminal stenosis and contacting the exiting right L5 nerve root. Nubia Ross MD IMG MRI ORDERABLES documented in this encounter Visit Diagnoses Diagnosis Lumbar disc herniation with radiculopathy Displacement of lumbar intervertebral disc without myelopathy Internal hernia Hernia of other specified sites of abdominal cavity without mention of obstruction or gangrene documented in this encounter Administered Medications Inactive Administered Medications - up to 3 most recent administrations Medication Order MAR Action Action Date Dose Rate Site acetaminophen (TYLENOL) tablet 975 mg 975 mg, Oral, EVERY 8 HOURS, First dose on Mon11/25/22 at 0200, Maximum acetaminophen dose from all sources = 75 mg/kg/day not to exceed 4 grams/day. $Given 11/25/2022 9:51 AM C[employer] CHIEF INSPECTOR 975 mg $Given 11/25/2022 2:41 AM C[employer] CHIEF INSPECTOR 975 mg dextrose 50 % injection 25-50 mL 25-50 mL, Intravenous, EVERY 15 MIN PRN, low blood sugar, Administer over 1-5 Minutes, Starting on Mon11/25/22 at 0148, Use if have IV access, BG less than 70 mg/dL and meet dose criteria below: Dose if conscious and alert (or disorientated) and NPO = 25 mL Dose if unconscious / not alert = 50 mL Give first dose for initial blood glucose less than 70 mg/dL. If blood glucose at 15 minute recheck is less than or equal to 100 mg/dL continue to administer carbohydrate treatment every 15 minutes, as needed, based on blood glucose and assessment parameters until blood glucose level is above 100 mg/dL. Vesicant. glucagon injection 1 mg 1 mg, Subcutaneous, EVERY 15 MIN PRN, low blood sugar, May repeat x 1 only, Starting on Mon11/25/22 at 0148, May give SQ or IM. ONLY use glucagon IF patient has NO IV access AND is UNABLE to swallow AND blood glucose is LESS than or EQUAL to 50 mg/dL. glucose gel 15-30 g 15-30 g, Oral, EVERY 15 MIN PRN, low blood sugar, Starting on Mon11/25/22 at 0148, Give first dose for initial blood glucose less than 70 mg/dL per the dosing instructions below. If blood glucose at 15 minute rechecks is still less than or equal to 100 mg/dL, continue to administer doses per blood glucose parameters every 15 minutes, as needed, until blood glucose level is above 100 mg/dL. Dosing Instructions: ~If patient is conscious and able to swallow and NO enteral tube For initial BG 51-69mg/dL OR 15 minute recheck BG 51- 100 mg/dL - give 15 g For BG less than or equal to 50 mg/dL - give 30 g ~ If Enteral tube For initial BG 51-69mg/dL OR 15 minute recheck BG 51- 100 mg/dL - give apple juice 120 mL (4 oz or 15 g of CHO) via enteral tube For BG less than or equal to 50 mg/dL - Give apple juice 240 mL (8 oz or 30 g of CHO) via enteral tube ~Oral gel is preferable for conscious and able to swallow patient. ~IF gel unavailable or patient refuses may provide apple juice per Enteral tube dosing instructions. Document juice on I and O flowsheet. HYDROmorphone (DILAUDID) injection 0.2 mg 0.2 mg, Intravenous, EVERY 2 HOURS PRN, moderate pain, IF patient cannot take oral opioid OR IF pain not managed with non-pharmacological, non-opioid, or oral opioid interventions if ordered, Starting on Mon11/25/22 at 0148, May use concomitant with non-opioid analgesics. $Given 11/25/2022 9:52 AM CIG[employer] AND FIL[employer] CHIEF INSPECTOR 0.2 mg $Given 11/25/2022 6:35 AM CIG[employer] AND FILTER CHIEF INSPECTOR 0.2 mg $Given 11/25/2022 4:16 AM CIG[employer] AND FILTER CHIEF INSPECTOR 0.2 mg insulin aspart (NovoLOG) injection (RAPID ACTING) 1-6 Units, Subcutaneous, EVERY 4 HOURS, First dose on Mon11/25/22 at 0200, Correction Scale - MEDIUM INSULIN RESISTANCE DOSING Do Not give Correction Insulin if BG less than 140. For BG 140 - 189 give 1 unit. For BG 190 - 239 give 2 units. For BG 240 - 289 give 3 units. For BG 290 - 339 give 4 units. For BG 340 - 399 give 5 units. For BG greater than or equal to 400 give 6 units. Check blood glucose Q4H and administer based on blood glucose. Notify provider if glucose greater than or equal to 350 mg/dL after administration of correction dose. If given at mealtime, administer within 30 minutes of start of meal. methocarbamol (ROBAXIN) tablet 500 mg 500 mg, Oral, 3 TIMES DAILY, First dose (after last modification) on Mon11/25/22 at 0305 $Given 11/25/2022 8:34 AM CIG[employer] AND FILTER CHIEF INSPECTOR 500 mg $Given 11/25/2022 3:11 AM CIG[employer] AND FILTER CHIEF INSPECTOR 500 mg methocarbamol (ROBAXIN) tablet 750 mg 750 mg, Oral, ONCE, On Jonna 11/24/22 at 2145, For 1 dose $Given 11/24/2022 10:08 PM C[employer] AND [employer] CHIEF INSPECTOR 750 mg ondansetron (ZOFRAN ODT) ODT tab 4 mg 4 mg, Oral, EVERY 6 HOURS PRN, nausea, vomiting, Starting on Mon11/25/22 at 0148, This is Step 1 of nausea and vomiting management. If nausea not resolved in 15 minutes, go to Step 2 prochlorperazine (COMPAZINE). With dry hands, peel back foil backing and gently remove tablet. Do not push oral disintegrating tablet through foil backing. Administer immediately on tongue and oral disintegrating tablet dissolves in seconds, then swallow with saliva. Liquid not required. ondansetron (ZOFRAN) injection 4 mg 4 mg, Intravenous, EVERY 6 HOURS PRN, nausea, vomiting, Administer over 2-5 Minutes, Starting on Mon11/25/22 at 0148, Give IF patient unable to tolerate oral medication. This is Step 1 of nausea and vomiting management. If nausea not resolved in 15 minutes, go to Step 2 prochlorperazine (COMPAZINE). Irritant. oxyCODONE IR (ROXICODONE) half-tab 2.5 mg 2.5 mg, Oral, EVERY 4 HOURS PRN, moderate pain, IF pain not managed with non-pharmacological and non-opioid interventions, Starting on Mon11/25/22 at 0148, May use concomitant with non-opioid analgesics. $Given 11/25/2022 12:21 PM CIG[employer] AND FIL[employer] CHIEF INSPECTOR 2.5 mg $Given 11/25/2022 1:55 AM CIG[employer] AND FILTER CHIEF INSPECTOR 2.5 mg oxyCODONE-acetaminophen (PERCOCET) 5-325 MG per tablet 2 tablet 2 tablet, Oral, ONCE, On Jonna 11/24/22 at 2145, For 1 dose, Maximum acetaminophen dose from all sources= 75 mg/kg/day not to exceed 4 grams $Given 11/24/2022 10:25 PM CIG[employer] AND FIL[employer] CHIEF INSPECTOR 1 tablet $Given 11/24/2022 10:08 PM CIG[employer]TE AND FILTER CHIEF INSPECTOR 1 tablet documented in this encounter Active and Recently Administered Medications Times are shown in CIG[employer] AND FILTER CHIEF INSPECTOR. Scheduled Medication Order 2022 11/24/2022 11/25/2022 acetaminophen (TYLENOL) tablet 975 mg 975 mg, Oral, EVERY 8 HOURS, First dose on Mon11/25/22 at 0200, Maximum acetaminophen dose from all sources = 75 mg/kg/day not to exceed 4 grams/day. 0241 ($Given - Provi fay: Linda Turcios RN)0951 ($Given - Provider: Tari Louis RN) insulin aspart (NovoLOG) injection (RAPID ACTING) 1-6 Units, Subcutaneous, EVERY 4 HOURS, First dose on Mon11/25/22 at 0200, Correction Scale - MEDIUM INSULIN RESISTANCE DOSING Do Not give Correction Insulin if BG less than 140. For BG 140 - 189 give 1 unit. For BG 190 - 239 give 2 units. For BG 240 - 289 give 3 units. For BG 290 - 339 give 4 units. For BG 340 - 399 give 5 units. For BG greater than or equal to 400 give 6 units. Check blood glucose Q4H and administer based on blood glucose. Notify provider if glucose greater than or equal to 350 mg/dL after administration of correction dose. If given at mealtime, administer within 30 minutes of start of meal. 0306 (Not Given - Provider: Anna Benitez RN - Reason: Order parameters not met)0644 (Not Given - Provider: Anna Benitez RN - Reason: Order parameters not met)1025 (Not Given - Provider: Tari Louis RN - Reason: Contraindicated)1400 (Canceled Entry - Provider: Orders Generic Provider - Comment: Automatically canceled at discontinue of medication order) methocarbamol (ROBAXIN) tablet 500 mg 500 mg, Oral, 3 TIMES DAILY, First dose (after last modification) on Mon11/25/22 at 0305 0311 ($Given - Provi fay: Anna Benitez RN)0834 ($Given - Provider: Tari Louis RN)1400 (Canceled Entry - Provider: Orders Generic Provider - Comment: Automatically canceled at discontinue of medication order) methocarbamol (ROBAXIN) tablet 750 mg (COMPLETED) 750 mg, Oral, ONCE, On Jonna 11/24/22 at 2145, For 1 dose 2207 ($Given - Provider: Kelly Azar RN) oxyCODONE-acetaminophen (PERCOCET) 5-325 MG per tablet 2 tablet (COMPLETED) 2 tablet, Oral, ONCE, On Jonna 11/24/22 at 2145, For 1 dose, Maximum acetaminophen dose from all sources= 75 mg/kg/day not to exceed 4 grams 2208 ($Given - Provider: Kelly Azar RN)2225 ($Given - Provider: Kelly Azar RN - Comment: this is the second tablet that was due earlier w/ the first tablet) PRN Medication Order 2022 11/24/2022 11/25/2022 dextrose 50 % injection 25-50 mL(Linked Group 1) 25-50 mL, Intravenous, EVERY 15 MIN PRN, low blood sugar, Administer over 1-5 Minutes, Starting on Mon11/25/22 at 0148, Use if have IV access, BG less than 70 mg/dL and meet dose criteria below: Dose if conscious and alert (or disorientated) and NPO = 25 mL Dose if unconscious / not alert = 50 mL Give first dose for initial blood glucose less than 70 mg/dL. If blood glucose at 15 minute recheck is less than or equal to 100 mg/dL continue to administer carbohydrate treatment every 15 minutes, as needed, based on blood glucose and assessment parameters until blood glucose level is above 100 mg/dL. Vesicant. glucagon injection 1 mg(Linked Group 1) 1 mg, Subcutaneous, EVERY 15 MIN PRN, low blood sugar, May repeat x 1 only, Starting on Mon11/25/22 at 0148, May give SQ or IM. ONLY use glucagon IF patient has NO IV access AND is UNABLE to swallow AND blood glucose is LESS than or EQUAL to 50 mg/dL. glucose gel 15-30 g(Linked Group 1) 15-30 g, Oral, EVERY 15 MIN PRN, low blood sugar, Starting on Mon11/25/22 at 0148, Give first dose for initial blood glucose less than 70 mg/dL per the dosing instructions below. If blood glucose at 15 minute rechecks is still less than or equal to 100 mg/dL, continue to administer doses per blood glucose parameters every 15 minutes, as needed, until blood glucose level is above 100 mg/dL. Dosing Instructions: ~If patient is conscious and able to swallow and NO enteral tube For initial BG 51-69mg/dL OR 15 minute recheck BG 51- 100 mg/dL - give 15 g For BG less than or equal to 50 mg/dL - give 30 g ~ If Enteral tube For initial BG 51-69mg/dL OR 15 minute recheck BG 51- 100 mg/dL - give apple juice 120 mL (4 oz or 15 g of CHO) via enteral tube For BG less than or equal to 50 mg/dL - Give apple juice 240 mL (8 oz or 30 g of CHO) via enteral tube ~Oral gel is preferable for conscious and able to swallow patient. ~IF gel unavailable or patient refuses may provide apple juice per Enteral tube dosing instructions. Document juice on I and O flowsheet. HYDROmorphone (DILAUDID) injection 0.2 mg 0.2 mg, Intravenous, EVERY 2 HOURS PRN, moderate pain (4-6), IF patient cannot take oral opioid OR IF pain not managed with non-pharmacological, non-opioid, or oral opioid interventions if ordered, Starting on Mon11/25/22 at 0148, May use concomitant with non-opioid analgesics. 0215 (Not Given - Pr ovider: Linda Turcios RN - Reason: No IV Access)0416 ($Given - Provider: Adri Aaron, RN)0635 ($Given - Provider: Anna Benitez, KATTY)0967 ($Given - Provider: Tari Louis RN) ketorolac (TORADOL) injection 30 mg 30 mg, Intravenous, EVERY 6 HOURS PRN, other, inflammatory pain, Starting on Mon11/25/22 at 0148, For 24 hours, Can cause pain on injection. If ordered intravenously (IV) : administer through a running maintenance fluid over 1 minute followed by a flush. If patient complains of pain on injection, may dilute 15-30 mg in 5 mL and push over 1 to 2 minutes. 0243 (Not Given - Pr ovider: Linda Turcios RN - Reason: Patient/family refused) melatonin tablet 1 mg 1 mg, Oral, AT BEDTIME PRN, sleep, Starting on Mon11/25/22 at 0148, Do not give unless at least 6 hours of uninterrupted sleep is expected. ondansetron (ZOFRAN ODT) ODT tab 4 mg(Linked Group 2) 4 mg, Oral, EVERY 6 HOURS PRN, nausea, vomiting, Starting on Mon11/25/22 at 0148, This is Step 1 of nausea and vomiting management. If nausea not resolved in 15 minutes, go to Step 2 prochlorperazine (COMPAZINE). With dry hands, peel back foil backing and gently remove tablet. Do not push oral disintegrating tablet through foil backing. Administer immediately on tongue and oral disintegrating tablet dissolves in seconds, then swallow with saliva. Liquid not required. ondansetron (ZOFRAN) injection 4 mg(Linked Group 2) 4 mg, Intravenous, EVERY 6 HOURS PRN, nausea, vomiting, Administer over 2-5 Minutes, Starting on Mon11/25/22 at 0148, Give IF patient unable to tolerate oral medication. This is Step 1 of nausea and vomiting management. If nausea not resolved in 15 minutes, go to Step 2 prochlorperazine (COMPAZINE). Irritant. oxyCODONE IR (ROXICODONE) half-tab 2.5 mg 2.5 mg, Oral, EVERY 4 HOURS PRN, moderate pain (4-6), IF pain not managed with non-pharmacological and non-opioid interventions, Starting on Mon11/25/22 at 0148, May use concomitant with non-opioid analgesics. 0155 ($Given - Provi fay: Adri Aaron RN)1221 ($Given - Provider: Tari Louis RN) Linked Groups Order Group 1: glucose gel 15-30 gJump to med 15-30 g, Oral, EVERY 15 MIN PRN, low blood sugar, Starting on Mon11/25/22 at 0148, Give first dose for initial blood glucose less than 70 mg/dL per the dosing instructions below. If blood glucose at 15 minute rechecks is still less than or equal to 100 mg/dL, continue to administer doses per blood glucose parameters every 15 minutes, as needed, until blood glucose level is above 100 mg/dL. Dosing Instructions: ~If patient is conscious and able to swallow and NO enteral tube For initial BG 51-69mg/dL OR 15 minute recheck BG 51- 100 mg/dL - give 15 g For BG less than or equal to 50 mg/dL - give 30 g ~ If Enteral tube For initial BG 51- 69mg/dL OR 15 minute recheck BG 51- 100 mg/dL - give apple juice 120 mL (4 oz or 15 g of CHO) via enteral tube For BG less than or equal to 50 mg/dL - Give apple juice 240 mL (8 oz or 30 g of CHO) via enteral tube ~Oral gel is preferable for conscious and able to swallow patient. ~IF gel unavailable or patient refuses may provide apple juice per Enteral tube dosing instructions. Document juice on I and O flowsheet. Or dextrose 50 % injection 25-50 mLJump to med 25-50 mL, Intravenous, EVERY 15 MIN PRN, low blood sugar, Administer over 1-5 Minutes, Starting on Mon11/25/22 at 0148, Use if have IV access, BG less than 70 mg/dL and meet dose criteria below: Dose if conscious and alert (or disorientated) and NPO = 25 mL Dose if unconscious / not alert = 50 mL Give first dose for initial blood glucose less than 70 mg/dL. If blood glucose at 15 minute recheck is less than or equal to 100 mg/dL continue to administer carbohydrate treatment every 15 minutes, as needed, based on blood glucose and assessment parameters until blood glucose level is above 100 mg/dL. Vesicant. Or glucagon injection 1 mgJump to med 1 mg, Subcutaneous, EVERY 15 MIN PRN, low blood sugar, May repeat x 1 only, Starting on Mon11/25/22 at 0148, May give SQ or IM. ONLY use glucagon IF patient has NO IV access AND is UNABLE to swallow AND blood glucose is LESS than or EQUAL to 50 mg/dL. Group 2: ondansetron (ZOFRAN ODT) ODT tab 4 mgJump to med 4 mg, Oral, EVERY 6 HOURS PRN, nausea, vomiting, Starting on Mon11/25/22 at 0148, This is Step 1 of nausea and vomiting management. If nausea not resolved in 15 minutes, go to Step 2 prochlorperazine (COMPAZINE). With dry hands, peel back foil backing and gently remove tablet. Do not push oral disintegrating tablet through foil backing. Administer immediately on tongue and oral disintegrating tablet dissolves in seconds, then swallow with saliva. Liquid not required. Or ondansetron (ZOFRAN) injection 4 mgJump to med 4 mg, Intravenous, EVERY 6 HOURS PRN, nausea, vomiting, Administer over 2-5 Minutes, Starting on Mon11/25/22 at 0148, Give IF patient unable to tolerate oral medication. This is Step 1 of nausea and vomiting management. If nausea not resolved in 15 minutes, go to Step 2 prochlorperazine (COMPAZINE). Irritant. documented in this encounter Additional Health Concerns Assessment Noted Time PHQ-9 Depression Total Score: 9 11/01/19 23 1:24 PM CIGARETTE AND FILTER CHIEF INSPECTOR documented as of this encounter Care Teams Lawn Care Technician Relationship Specialty Start Date End Date Amy Villalba Ra, APRN RICE FARMWORKER [address] [address] [place] [address] PCP - General Family Practice 01/13/22 Amy Villalba Ra, APRN RICE FARMWORKER [address] [place] [address] Assigned PCP 09/19/21 [place] [address] [place] [address] Assigned OBGYN Provider 10/24/21 Renetta Mckeon PA-C [address] [place] [address] Physician Channel Lip Wetter Dermatology 05/03/22 Amy Villalba Ra, APRN RICE FARMWORKER [address] [place] [address] Referring Physician Family Practice 11/01/22 Pura De La Garza APRN RICE FARMWORKER [address] [place] [address] Nurse Practitioner Dermatology 11/01/22 documented as of this encounter
--- OUTSIDE RECORDS SUMMARY | 2023-10-28 20:39 | XMS_ITS | Encounter Summary ---
Author Name Unknown Organization [facility] Address [address] [place] [address]. [place] [address] Care Team Providers Care Drilling Field Professional Name Role Phone Amy Villalba Ra, APRN PARALEGAL Unavailable [phone] Priscilla Carbajal DO Unavailable [phone] Amy Villalba Ra, APRN PARALEGAL Primary Care Provid er Renetta Mckeon PA-C Unavailable Amy Villalba Ra, APRN PARALEGAL Unavailable Pura De La Garza APRN PARALEGAL Unavailable Reason for Visit * Reason Onset Date Comments Medication Request 12/01/2022 Encounter Details Date Type Department Care Team (Late st Contact Info) Description 12/01/[address] [facility] [address] [place] [address] Amy Villalba Ra, APRN PARALEGAL [address] [place] [address] Medication Request Social History Tobacco Use Types Packs/Day Years [...] In the last 10 days, have kash u been in contact with someone who was confirmed or suspected to have Coronavirus/COVID-19? No / Unsure 11/24/2022 8:30 PM SOLDERER ASSEMBLER documented as of this encounter Miscellaneous Notes * Telephone Encounter - Jaclyn Vines - 12/01/2022 12:39 PM CST Pt called requesting the Prednisone that was previously discussed between RADHA & the pt. Pt is also requesting Flexeril as the ER put her on Robaxin 500mg tablets and that is giving her Migraines and is also not helping with the muscle pain Pharm: attached in EPIC Pt Call back: [phone] Detailed VM OK Jaclyn Chang Cutting And Boning Supervisor ERER ASSEMBLER documented in this encounter Plan of Treatment Not on file documented as of this encounter Visit Diagnoses Diagnosis Acute radicular low back pain- Primary Thoracic or lumbosacral neuritis or radiculitis, unspecified documented in this encounter Additional Health Concerns Assessment Noted Time PHQ-9 Depression Total Score: 9 11/01/19 23 1:24 PM SOLDERER ASSEMBLER documented as of this encounter Care Teams Drilling Field Professional Relationship Specialty Start Date End Date Amy Villalba Ra, APRN PARALEGAL [address] [place] [address] PCP - General Family Practice 01/13/22 Amy Villalba Ra, APRN PARALEGAL [address] [place] [address] Assigned PCP 09/19/21 [place] [address] [place] [address] Assigned OBGYN Provider 10/24/21 Renetta Mckeon PA-C [address] [place] [address] Physician Nailing Machine Operator Automatic Dermatology 05/03/22 Amy Villalba Ra, APRN PAR[place]GAL [address] [place] [address] Referring Physician Family Practice 11/01/22 Pura De La Garza APRN PARALEGAL [address] [place] [address] Nurse Practitioner Dermatology 11/01/22 documented as of this encounter
--- OUTSIDE RECORDS SUMMARY | 2023-10-28 20:39 | XMS_ITS | Encounter Summary ---
Author Name Unknown Organization [facility] Address [address] [place] [address] Care Team Providers Care Textile Machinery Sales Representative Name Role Phone Amy Villalba Ra, APRN COMPUTED TOMOGRAPHY TECHNICIAN Unavailable + [phone] Priscilla Carbajal DO Unavailable [phone] Amy Villalba Ra, APRN COMPUTED TOMOGRAPHY TECHNICIAN Primary Care Provid er Renetta Mckeon PA-C Unavailable [phone] Amy Villalba Ra, APRN COMPUTED TOMOGRAPHY TECHNICIAN Unavailable + [phone] Pura De La Garza APRN COMPUTED TOMOGRAPHY TECHNICIAN Unavailable Reason for Visit * Reason Comments Medication Refill Encounter Details Date Type Department Care Team (Late st Contact Info) Description 11/24/[address] [address] Carmen Lui MD Medication Refill Social History Tobacco Use Types [...] Coronavirus/COVID-19? Unable to assess 11/01/2022 7:30 AM CHIEF COOK documented as of this encounter Miscellaneous Notes * Telephone Encounter - Landy Ross RN - 11/24/2022 1:35 PM CST Routing refill request to provider for review/approval because: Failing PHQ9 Landy Ross RN F COOK documented in this encounter Plan of Treatment Not on file documented as of this encounter Visit Diagnoses Diagnosis Major depressive disorder, recurrent episode, moderate (H) Major depressive disorder, recurrent episode, moderate documented in this encounter Additional Health Concerns Assessment Noted Time PHQ-9 Depression Total Score: 9 11/01/19 23 1:24 PM CHIEF COOK documented as of this encounter Care Teams Textile Machinery Sales Representative Relationship Specialty Start Date End Date Amy Villalba Ra, APRN COMPUTED TOMOGRAPHY TECHNICIAN [address] [place] [address] PCP - General Family Practice 01/13/22 Amy Villalba Ra, APRN COMPUTED TOMOGRAPHY TECHNICIAN [address] [place] [address] Assigned PCP 09/19/21 [place] [address] [place] [address] Assigned OBGYN Provider 10/24/21 Renetta Mckeon PA-C [address] [place] [address] Physician Carbon Coater Machine Operator Dermatology 05/03/22 Amy Villalba Ra, APRN COMPUTED TOMOGRAPHY TECHNICIAN [address] [place] [address] Referring Physician Family Practice 11/01/22 Pura De La Garza APRN COMPUTED TOMOGRAPHY TECHNICIAN [address] [place] [address] Nurse Practitioner Dermatology 11/01/22 documented as of this encounter
--- OUTSIDE RECORDS SUMMARY | 2023-10-28 20:39 | XMS_ITS | Encounter Summary ---
Author Name Unknown Organization [facility] Address [address] [place] [address] Care Team Providers Care Academic Advisement Director Name Role Phone Amy Villalba Ra, APRN MACHINE LOADER Unavailable + [phone] Priscilla Carbjaal DO Unavailable [phone] Amy Villalba Ra, APRN MACHINE LOADER Primary Care Provid er Renetta Mckeon PA-C Unavailable [phone] Amy Villalba Ra, APRN MACHINE LOADER Unavailable + [phone] Pura De La Garza APRN MACHINE LOADER Unavailable Encounter Details Date Type Department Care Team (Latest Contact Info) Description 12/15/2022 Travel Social History Tobacco Use Types Packs/Day [...] suspected to have Coronavirus/COVID-19? No / Unsure 12/15/2022 10:53 AM ESCALATOR SERVICE MECHANIC documented as of this encounter Plan of Treatment Not on file documented as of this encounter Visit Diagnoses Not on filedocumented in this encounter Additional Health Concerns Assessment Noted Time PHQ-9 Depression Total Score: 20 023 10:54 AM ESCALATOR SERVICE MECHANIC documented as of this encounter Care Teams Academic Advisement Director Relationship Specialty Start Date End Date Amy Villalba Ra, APRN CNP [address] [place] [address] PCP - General Family Practice 01/13/22 Amy Villalba Ra, APRN CNP [address] [place] [address] Assigned PCP 09/19/21 [place] [address] [place] [address] Assigned OBGYN Provider 10/24/21 Renetta Mckeon PA-C [address] [place] [address] Physician Payroll Bookkeeper Dermatology 05/03/22 Amy Villalba Ra, APRN MACHINE LOADER [address] [place] [address] Referring Physician Family Practice 11/01/22 Pura De La Garza APRN MACHINE LOADER [address] [place] [address] Nurse Practitioner Dermatology 11/01/22 documented as of this encounter
--- OUTSIDE RECORDS SUMMARY | 2023-10-28 20:39 | XMS_ITS | Encounter Summary ---
Author Name Unknown Organization [facility] Address [address] [place] [address] Care Team Providers Care Lap Polisher Name Role Phone Amy Villalba Ra, APRN, CNP Unavailable [phone] Priscilla Carbajal DO Unavailable [phone] Amy Villalba Ra, APRN, CNP Primary Care Provid er Renetta Mckeon PA-C Unavailable [phone] Amy Villalba Ra, APRN RETAIL ZONE SPECIALIST Unavailable [phone] Pura De La Garza APRN RETAIL ZONE SPECIALIST Unavailable Reason for Referral * Medication Prior Authorization - Closed Specialty Diagnoses / Procedures Referred By Contac t Referred To Contact Diagnoses Acute radicular low back pain Amy Villalba Ra, APRN CNP [address] [place] [address] Referral ID Status Reason Start Date Expiration Date Visits Re quested Visits Authorized [id number] Closed 1 1 SERVICES PROFESSIONAL * Consultation (Routine: Next available opening) - Referral NOT Required Specialty Diagnoses / Procedures Referred By Contac t Referred To Contact Diagnoses Acute radicular low back pain Amy Villalba Ra, APRN CNP [address] [place] [address] [facility] [place] [address] [place] [address] Referral ID Status Reason Start Date Expiration Date V isits Requested Visits Authorized [id number] Referral NOT Required 12/15/2022 12/15/2023 1 1 Question Answer Referral Type: Per Protocol Scheduling Instructions: [facility] will call you to coordinate your care as prescribed by your provider. If you don't hear from a self pay representative within 2 business days, please call . Comments Please be aware that coverage of these services is subject to the terms and limitations of your health insurance plan. Call member services at your health plan with any benefit or coverage questions. [facility] will call you to coordinate your care as prescribed by your provider. If you don't hear from a self pay representative within 2 business days, please call . SERVICES PROFESSIONAL Reason for Visit * Reason Comments Diabetes Anxiety Depression Back Pain Encounter Details Date Type Department Care Team (Late st Contact Info) Description 12/15/2022 11:00 AM LOAN SERVICES PROFESSIONAL Office Visit [facility] [id number] [place] [address] Amy Villalba Ra, APRN RETAIL ZONE SPECIALIST [address] [place] [address] Type 2 diabetes mellitus without complication, without long-term current use of insulin (H) (Primary Dx); Acute radicular low back pain; Major depressive disorder, recurrent episode, moderate (H); Anxiety; Acquired hypothyroidism; Insomnia, unspecified type Social History Tobacco Use Types Packs/Day Years [...] Coronavirus/COVID-19? No / Unsure 12/15/2022 10:53 AM LOAN SERVICES PROFESSIONAL documented as of this encounter Last Filed Vital Signs Vital Sign Reading Time Taken Comments Blood Pressure 112/71 12/15/2022 10:57 AM LOAN SERVICES PROFESSIONAL Pulse 64 12/15/2022 10:57 AM LOAN SERVICES PROFESSIONAL Temperature 37.1 ??C (98.8 ??F) 12/15/2022 10:[address] Respiratory Rate 12 12/15/2022 10:57 AM LOAN SERVICES PROFESSIONAL Oxygen Saturation 98% 12/15/2022 10:57 AM LOAN SERVICES PROFESSIONAL Inhaled Oxygen Concentration - - Weight 98 kg (216 lb 1.6 oz) 12/15/2022 10:57 AM LOAN SERVICES PROFESSIONAL Height 168.9 cm (5' 6.5) 12/15/2022 10:57 AM CS T Body Mass Index 34.36 12/15/2022 10:57 AM LOAN SERVICES PROFESSIONAL documented in this encounter Progress Notes * Amy Villalba Ra, LEGAL AID RETAIL ZONE SPECIALIST - 12/15/2022 11:00 AM CST Assessment & Plan Type 2 diabetes mellitus without complication, without long-term current use of insulin (H) Well controlled. Labs. Refilled metformin. - Lipid panel reflex to direct LDL Fasting; Future - Hemoglobin A1c; Future - Albumin Random Urine Quantitative with Creat Ratio; Future - Comprehensive metabolic panel (BMP + Alb, Alk Phos, ALT, AST, Total. Bili, TP); Future - Hemoglobin A1c - Albumin Random Urine Quantitative with Creat Ratio - Extra Green Top Tube (LAB USE ONLY) - Lipid panel reflex to direct LDL Non-fasting; Future - metFORMIN (GLUCOPHAGE XR) 500 MG 24 hr tablet; Take 1 tablet (500 mg) by mouth daily (with dinner) Acute radicular low back pain She is going to see [facility] for a second opinion. Keep me updated. - Spine Soap Boiler Referral; Future - cyclobenzaprine (FLEXERIL) 5 MG tablet; Take 1-2 tablets (5-10 mg) by mouth 3 times daily as needed for muscle spasms Major depressive disorder, recurrent episode, moderate (H) Increased symptoms due to pain. Monitor. - escitalopram (LEXAPRO) 20 MG tablet; Take 1 tablet (20 mg) by mouth daily - buPROPion (WELLBUTRIN XL) 150 MG 24 hr tablet; Take 3 tablets (450 mg) by mouth daily Anxiety See above. - escitalopram (LEXAPRO) 20 MG tablet; Take 1 tablet (20 mg) by mouth daily Acquired hypothyroidism Lab ordered. Refilled. - TSH with free T4 reflex; Future - levothyroxine (SYNTHROID/LEVOTHROID) 150 MCG tablet; Take 1 tablet (150 mcg) by mouth daily Insomnia, unspecified type Refilled. - eszopiclone (LUNESTA) 3 MG tablet; Take 1 tablet (3 mg) by mouth At Bedtime Reviewed chart for 10 minutes. BMI: Estimated body mass index is 34.36 kg/m?? as calculated from the following: Height as of this encounter: 1.689 m (5' 6.5). Weight as of this encounter: 98 kg (216 lb 1.6 oz). No follow-ups on file. Amy Villalba, JULIA RETAIL ZONE SPECIALIST [facility] DIA Rosario is a 42 year old, presenting for the following health issues: Diabetes, Anxiety, Depression, and Back Pain History of Present Illness Back Pain: She presents for follow up of back pain. Patient's back pain is a recurring problem. Location of back pain: Right lower back, left lower back, right buttock and right hip Description of back pain: burning, dull ache, sharp, shooting and stabbing Back pain spreads: right buttocks, right thigh, right knee and right foot Since patient first noticed back pain, pain is: always present, but gets better and worse Does back pain interfere with her job: Not applicable Mental Health Follow-up: Patient presents to follow-up on Depression & Anxiety.Patient's depression since last visit has been: Worse The patient is having other symptoms associated with depression. Patient's anxiety since last visit has been: Worse The patient is having other symptoms associated with anxiety. Any significant life events: health concerns Patient is feeling anxious or having panic attacks. Patient has no concerns about alcohol or drug use. Diabetes: She presents for follow up of diabetes. She is not checking blood glucose. She has no concerns regarding her diabetes at this time. She is not experiencing numbness or burning in feet, excessive thirst, blurry vision, weight changes or redness, sores or blisters on feet. The patient has had a diabetic eye exam in the last 12 months. She eats 2-3 servings of fruits and vegetables daily.She consumes 2 sweetened beverage(s) daily.Sheexercises with enough effort to increase her heart rate 9 or less minutes per day. She exercises with enough effort to increase her heart rate 3 or less days per week. She is taking medications regularly. Today's PHQ-9 PHQ-9 Total Score: 20 PHQ-9 Q9 Thoughts of better off /self-harm past 2 weeks : Not at all How difficult have these problems made it for you to do your work, take care of things at home, or get along with other people: Somewhat difficult Today's DONTRELL-7 Score: 15 Hx of chronic low back pain, now with acute exacerbation. L4 radiculopathy. Some improvement in radicular symptoms with PO steroid. Unable to receive injection in ED due to equipment availability. She was seen by spine and they scheduled JASPAL. She is hoping to proceed with surgery instead as the symptoms are debilitating. Mood has been more symptomatic due to back pain. She has no issues with medications. Compliant. Review of Systems Constitutional, HEENT, cardiovascular, pulmonary, gi and gu systems are negative, except as otherwise noted. Objective BP 112/71 (BP Location: Right arm, Patient Position: Sitting, Cuff Size: Adult Large) Pulse 64 Temp 98.8 ??F (37.1 ??C) (Oral) Resp 12 Ht 1.689 m (5' 6.5) Wt 98 kg (216 lb 1.6 oz) LMP 11/22/2022 (Approximate) SpO2 98% BMI 34.36 kg/m?? Body mass index is 34.36 kg/m??. Physical Exam GENERAL: healthy, alert and no distress RESP: lungs clear to auscultation - no rales, rhonchi or wheezes CV: regular rate and rhythm, normal S1 S2, no S3 or S4, no murmur, click or rub, no peripheral edema and peripheral pulses strong PSYCH: mentation appears normal and tearful SERVICES PROFESSIONAL documented in this encounter Plan of Treatment Scheduled Referrals Name Type Priority Associated Diagnoses Orde r Schedule Spine Soap Boiler Referral Referral Routine: Next available opening Acute radicular low back pain Expected: 12/15/2022 (Approximate), Expires: 12/16/2023 documented as of this encounter Procedures Procedure Name Priority Date/Time Associated Diagnosis Comments ALBUMIN RANDOM URINE QUANTITATIVE Routine 12/15/2022 10:55 AM LOAN SERVICES PROFESSIONAL Type 2 diabetes mellitus without complication, without long-term current use of insulin (H) EXTRA GREEN TOP TUBE (LAB USE ONLY) Routine 12/15/2022 10:53 AM LOAN SERVICES PROFESSIONAL Type 2 diabetes mellitus without complication, without long-term current use of insulin (H) TSH WITH FREE T4 REFLEX Add-On 12/15/2022 10:53 AM LOAN SERVICES PROFESSIONAL Acquired hypothyroidism LIPID REFLEX TO DIRECT LDL PANEL Add-On 12/15/2022 10:53 AM LOAN SERVICES PROFESSIONAL Type 2 diabetes mellitus without complication, without long-term current use of insulin (H) HEMOGLOBIN A1C Routine 12/15/2022 10:53 AM LOAN SERVICES PROFESSIONAL Type 2 diabetes mellitus without complication, without long-term current use of insulin (H) documented in this encounter Results * (ABNORMAL) Comprehensive metabolic panel (BMP + [...] 05/05/2023 9:47 AM CDT Amy Villalba APRN RETAIL ZONE SPECIALIST LAB - BLOOD ORDERABLES [facility] [place] [facility] [address] [facility], [address] [place] [address], [facility] [phone] * (ABNORMAL) Lipid panel reflex to direct [...] or equal to 220 mg/dL Amy Villalba APRN RETAIL ZONE SPECIALIST LAB - BLOOD ORDERABLES [facility] [address] [facility], [address] [place] [address], [facility] [phone] * Albumin Random Urine Quantitative with Creat Ratio (12/15/2022 10:55 AM LOAN SERVICES PROFESSIONAL) Creatinine Urine mg/dL 164.0 mg/dL 12/15/2022 3:26 PM LOAN SERVICES PROFESSIONAL [facility] Comment:The reference ranges have not been established in urine creatinine. The results should be integrated into the clinical context for interpretation. Albumin Urine mg/L <12.0 mg/L 2022 3:26 PM LOAN SERVICES PROFESSIONAL [facility] Comment:The reference ranges have not been established in urine albumin. The results should be integrated into the clinical context for interpretation. Albumin Urine mg/g Cr 12/15/2022 3:26 PM LOAN SERVICES PROFESSIONAL [facility] Comment: Unable to calculate, urine albumin and/or urine creatinine is outside detectable limits. Microalbuminuria is defined as an albumin:creatinine ratio of 17 to 299 for males and 25 to 299 for females. A ratio of albumin:creatinine of 300 or higher is indicative of overt proteinuria. Due to biologic variability, positive results should be confirmed by a second, first-morning random or 24-hour timed urine specimen. If there is discrepancy, a third specimen is recommended. When 2 out of 3 results are in the microalbuminuria range, this is evidence for incipient nephropathy and warrants increased efforts at glucose control, blood pressure control, and institution of therapy with an oafdcwupggs-ucomnwkrgt-ylgynn (LAURI) inhibitor (if the patient can tolerate it). ?? Urine URINE SPECIMEN / Unknown Non-blood Collection / Unknown 12/15/2022 10:55 AM LOAN SERVICES PROFESSIONAL 12/15/2022 10:56 AM LOAN SERVICES PROFESSIONAL Amy Villalba APRN RETAIL ZONE SPECIALIST LAB - URINE ORDERABLES [facility] [address] [facility], [address] [place] [address], [facility] [phone] * (ABNORMAL) Lipid panel reflex to direct LDL Non-fasting (12/15/2022 10:53 AM LOAN SERVICES PROFESSIONAL) Cholesterol 193 <200 mg/dL 12/15/2022 7:52 PM LOAN SERVICES PROFESSIONAL [facility] Triglycerides 364(H) <150 mg/dL 12/15/2022 7:52 PM LOAN SERVICES PROFESSIONAL [facility] Direct Measure HDL 44(L) >=50 mg/dL 12/15/2022 7:52 PM LOAN SERVICES PROFESSIONAL [facility] LDL Cholesterol Calculated 76 <=100 mg/dL 12/15/2022 7:52 PM LOAN SERVICES PROFESSIONAL [facility] Non HDL Cholesterol 149(H) <130 mg/dL 12/15/2022 7:52 PM LOAN SERVICES PROFESSIONAL [facility] Blood BLOOD SPECIMEN / Unknown Venipuncture / Unknown 12/15/2022 10:53 AM LOAN SERVICES PROFESSIONAL 12/15/2022 10:53 AM LOAN SERVICES PROFESSIONAL Narrative [facility] - 12/15/2022 7:52 PM LOAN SERVICES PROFESSIONAL Cholesterol Desirable: ??<200 mg/dL Triglycerides Normal: ??Less [...] or equal to 220 mg/dL Amy Villalba APRN RETAIL ZONE SPECIALIST LAB - BLOOD ORDERABLES [facility] [address] [facility], [address] [place] [address], [facility] [phone] * TSH with free T4 reflex (12/15/2022 10:53 AM LOAN SERVICES PROFESSIONAL) TSH 0.71 0.30 - 4.20 uIU/mL 12/15/2022 7:52 PM LOAN SERVICES PROFESSIONAL [facility] Blood BLOOD SPECIMEN / Unknown Venipuncture / Unknown 12/15/2022 10:53 AM LOAN SERVICES PROFESSIONAL 12/15/2022 10:53 AM LOAN SERVICES PROFESSIONAL Amy Villalba APRN [facility] LAB - BLOOD ORDERABLES [facility] [place] [facility] [address] [facility], [address] [place] [address], [place] [phone] * Extra Green Top Tube (LAB USE ONLY) (12/15/2022 10:53 AM LOAN SERVICES PROFESSIONAL) Hold Specimen [facility] 12/15/2022 12:05 PM LOAN SERVICES PROFESSIONAL LABORATORY Blood BLOOD SPECIMEN / Unknown Venipuncture / Unknown 12/15/2022 10:53 AM LOAN SERVICES PROFESSIONAL 12/15/2022 10:53 AM LOAN SERVICES PROFESSIONAL Amy Villalba APRN [facility] LAB - BLOOD ORDERABLES LABORATORY [facility] [address] [facility] (no room number, 1st floor of clinic) [place] [address], [facility] [phone] * (ABNORMAL) Hemoglobin A1c (12/15/2022 10:53 AM LOAN SERVICES PROFESSIONAL) Hemoglobin A1C 5.7(H) 0.0 - 5.6 % 12/15/2022 10:57 AM LOAN SERVICES PROFESSIONAL LABORATORY Comment: Normal <5.7% Prediabetes 5.7-6.4% ?? Diabetes 6.5% or higher Note: Adopted from ADA consensus guidelines. Blood BLOOD SPECIMEN / Unknown Venipuncture / Unknown 12/15/2022 10:53 AM LOAN SERVICES PROFESSIONAL 12/15/2022 10:53 AM LOAN SERVICES PROFESSIONAL Amy Villalba APRN [facility] LAB - BLOOD ORDERABLES LABORATORY [facility] [address] [facility], 1st floor of clinic) [place] [address], [facility] [phone] documented in this encounter Visit Diagnoses Diagnosis Type 2 diabetes mellitus without complication, without long-term current use of insulin (H)- Primary Acute radicular low back pain Thoracic or lumbosacral neuritis or radiculitis, unspecified Major depressive disorder, recurrent episode, moderate (H) Major depressive disorder, recurrent episode, moderate Anxiety Anxiety state, unspecified Acquired hypothyroidism Unspecified hypothyroidism Insomnia, unspecified type documented in this encounter Additional Health Concerns Assessment Noted Time PHQ-9 Depression Total Score: 20 023 10:54 AM LOAN SERVICES PROFESSIONAL documented as of this encounter Care Teams Lap Polisher Relationship Specialty Start Date End Date Amy Villalba Ra, APRN RETAIL ZONE SPECIALIST [address] [place] [address] PCP - General Family Practice 01/13/22 Amy Villalba Ra, APRN RETAIL ZONE SPECIALIST [address] [place] [address] Assigned PCP 09/19/21 [place] [address] [place] [address] Assigned OBGYN Provider 10/24/21 Renetta Mckeon PAD[address]obertoC [address] [place] [address] Physician Automatic Spinning Lathe Operator Dermatology 05/03/22 Amy Villalba Ra, APRN RETAIL ZONE SPECIALIST [address] [place] [address] Referring Physician Family Practice 11/01/22 Pura De La Garza APRN RETAIL ZONE SPECIALIST [address] [place] [address] Nurse Practitioner Dermatology 11/01/22 documented as of this encounter
--- OUTSIDE RECORDS SUMMARY | 2023-10-28 20:39 | XMS_ITS | Encounter Summary ---
Author Name Unknown Organization [facility] Address [address] [place] [address]. [place] [address] Care Team Providers Care Dredge Deckhand Name Role Phone Amy Villalba Ra, APRN CORONER'S JUROR Unavailable [phone] Priscilla Carbajal DO Unavailable Amy Villalba Ra, APRN CORONER'S JUROR Primary Care Provid er Renetta Mckeon PA-C Unavailable Amy Villalba Ra, APRN CORONER'S JUROR Unavailable [phone] Pura De La Garza APRN CORONER'S JUROR Unavailable Gabe Moreira MD Unavailable Dov Posadas PA-C Unavailable [phone] Reason for Visit * Reason Onset Date Comments Refill Request 12/17/2022 Encounter Details Date Type Department Care Team (Late st Contact Info) Description 12/17/2022 MyC Refill [facility] [address] [place] [address] Amy Villalba Ra, APRN CNP [address] [place] [address] Refill Request Social History Tobacco Use Types Packs/Day [...] Coronavirus/COVID-19? No / Unsure 12/15/2022 10:53 AM FELLED SEAM OPERATOR documented as of this encounter Miscellaneous Notes * Telephone Encounter - Jolly Trinidad RN - 12/19/2022 11:18 AM CDT Routing refill request to provider for review/approval because: Medication is reported/historical Appointment was 12/15/22. Jolly Trinidad RN documented in this encounter Plan of Treatment Not on file documented as of this encounter Visit Diagnoses Diagnosis PCOS (polycystic ovarian syndrome)- Primary Polycystic ovaries documented in this encounter Additional Health Concerns Assessment Noted Time PHQ-9 Depression Total Score: 20 023 10:54 AM FELLED SEAM OPERATOR documented as of this encounter Care Teams Dredge Deckhand Relationship Specialty Start Date End Date Amy Villalba Ra, APRN CORONER'S JUROR [address] [place] [address] PCP - General Family Practice 01/13/22 Amy Villalba Ra, APRN CORONER'S JUROR [address] [place] [address] Assigned PCP 09/19/21 [place] [address] [place] [address] Assigned OBGYN Provider 10/24/21 Renetta Mckeon PA-C [address] [place] [address] Physician Mobile Developer Dermatology 05/03/22 Amy Villalba Ra, APRN CORONER'S JUROR [address] [place] [address] Referring Physician Family Practice 11/01/22 Pura De La Garza APRN CORONER'S JUROR [address] [place], [place] [address] Nurse Practitioner Dermatology 11/01/22 Gabe Moreira MD [address] [facility] [address] [place], [place] [address] Assigned Neuroscience Provider 12/17/22 Dov Posadas PA-C [address] [place] [id number] Assigned Surgical Provider 04/08/23 documented as of this encounter
--- OUTSIDE RECORDS SUMMARY | 2023-10-28 20:39 | XMS_ITS | Encounter Summary ---
Author Name Unknown Organization [place] Address [address] [place] [address] Care Team Providers Care Automotive Service Assistant Name Role Phone Amy Villalba Ra, APRN DEPUTY JAILER Unavailable + [phone] Priscilla Carbajal DO Unavailable [phone] Amy Villalba Ra, APRN DEPUTY JAILER Primary Care Provid er Renetta Mckeon PA-C Unavailable [phone] Amy Villalba Ra, APRN DEPUTY JAILER Unavailable + [phone] Pura De La Garza APRN DEPUTY JAILER Unavailable Gabe Moreira MD Unavailable [phone] Reason for Referral * Diagnostic Imaging XR (Routine) - Closed Specialty Diagnoses / Procedures Referred By Contac t Referred To Contact Radiology. Diagnoses Lumbosacral radiculopathy Procedures XR Lumbar Sacral [place] [address] [place] [address] Referral ID Status Reason Start Date Expiration Date Visits Re quested Visits Authorized [id number] Closed 12/07/2022 12/07/2023 1 1 Reason for Visit * Diagnostic Imaging XR (Routine) - Closed Specialty Diagnoses / Procedures Referred By Contac t Referred To Contact Radiology. Diagnoses Lumbosacral radiculopathy Procedures XR Lumbar Sacral [place] [address] [place] [address] Referral ID Status Reason Start Date Expiration Date Visits Re quested Visits Authorized [id number] Closed 12/07/2022 12/07/2023 1 1 Encounter Details Date Type Department Care Team (Latest Contact Info) Description 12/22/2022 10:25 AM CDT - 12/22/2022 11:59 PM CDT Hospital Encounter [facility] Imaging [address] [place] [id number] [place] [address] [address] [place] [address] Lumbosacral radiculopathy Discharge Disposition: Home or Self Care Social [...] Sign Reading Time Taken Comments Blood Pressure 115/75 12/22/2022 10:33 AM CDT Pulse 76 12/22/2022 10:33 AM CDT Temperature - - Respiratory Rate - - Oxygen Saturation 96% 12/22/2022 10:33 AM CDT Inhaled Oxygen Concentration - - Weight - - Height - - Body Mass Index - - documented in this encounter Medications at Time of Discharge Medication Sig Dispensed Refills Start Date End Date acetaminophen (TYLENOL) 500 MG tabletIndications: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 Take 1-2 tablets (500-1,000 mg) by mouth 3 times daily 100 tablet 1 11/25/2022 Cholecalciferol (D3-1000) 25 MCG (1000 UT) CAPSIndications:S/P bariatric surgery TAKE 2 CAPSULES BY MOUTH DAILY 180 capsule 3 01/14/2021 cyclobenzaprine (FLEXERIL) 5 MG tabletIndications:Acute radicular low back pain Take 1-2 tablets (5-10 mg) by mouth 3 times daily as needed for muscle spasms 60 tablet 0 12/15/2022 Multiple Vitamins/Iron TABSIndications:Bariatri c surgery status TAKE 1 TABLET BY MOUTH DAILY 90 tablet 3 01/14/2021 buPROPion (WELLBUTRIN XL) 150 MG 24 hr tabletIndications:Major depressive disorder, recurrent episode, moderate (H) Take 3 tablets (450 mg) by mouth daily 270 tablet 1 12/15/2022 09/04/2023 drospirenone-ethinyl estradiol (MAX) 3-0.03 MG tabletIndications:PCOS (polycystic ovarian syndrome) Take 1 tablet by mouth daily 84 tablet 1 12/19/2022 06/01/2023 escitalopram (LEXAPRO) 20 MG tabletIndications:Major depressive disorder, recurrent episode, moderate (H),Anxiety Take 1 tablet (20 mg) by mouth daily 90 tablet 1 12/15/2022 07/13/2023 eszopiclone (LUNESTA) 3 MG tabletIndications:Insomn ia, unspecified type Take 1 tablet (3 mg) by mouth At Bedtime 30 tablet 1 12/29/2022 05/03/2023 levothyroxine (SYNTHROID/LEVOTHROID) 150 MCG tabletIndications:Acquir ed hypothyroidism Take 1 tablet (150 mcg) by mouth daily 90 tablet 1 12/15/2022 09/04/2023 metFORMIN (GLUCOPHAGE XR) 500 MG 24 hr tabletIndications:Type 2 diabetes mellitus without complication, without long-term current use of insulin (H) Take 1 tablet (500 mg) by mouth daily (with dinner) 90 tablet 0 12/15/2022 03/16/2023 omeprazole (PRILOSEC) [address] capsuleIndications:Gastr oesophageal reflux disease without esophagitis Take 1 capsule (20 mg) by mouth daily 90 capsule 3 01/13/2022 02/15/2023 oxyCODONE (ROXICODONE) 5 MG tabletIndications:Lumbar disc herniation with radiculopathy Take 0.5-1 tablets (2.5-5 mg) by mouth every 4 hours as needed for moderate to severe pain 20 tablet 0 11/25/2022 01/06/2023 documented as of this encounter Progress Notes * Javid Solis RN - 12/22/2022 10:33 AM CDT Pt was in Radiology today for a Right L4-5 Transforaminbal Epidural Steroid injection. Pt toleratedortho procedure well. Pre procedure pain was 5/10 post procedure pain level 0. Procedure was completed by Ary Rivera. There were no complications during this procedure. Pt verbalized understanding of written and verbal instructions and left department in stable and satisfactory condition with daughter. There is no evidence of bleeding or any other complications upon discharge. documented in this encounter Procedure Notes * Alvaro Rivera MD - 12/22/2022 10:40 AM CDTProcedure(s): ND INJ TRANSFORAMIN EPIDURAL, LUMB/SACR SINGLE Pre-Procedure Diagnose(s): Lumbosacral radiculopathy Post-Procedure Diagnose(s): Lumbosacral radiculopathy PHYSICAL MEDICINE & REHABILITATION / MEDICAL SPINE PROCEDURE DATE: Dec 22, 2022 PATIENT NAME: Marlene Almeida DATE OF : 1980 PRE-PROCEDURE DIAGNOSIS: 1. Lumbosacral radiculopathy POST-PROCEDURE DIAGNOSIS: 1. Lumbosacral radiculopathy PROCEDURE: Fluoroscopic-guided right L4-L5 transforaminal epidural steroid injection. (CPT code: 21511) PROCEDURE IN DETAIL: Prior to the procedure, educational material was provided for the patient to review and take home. After a discussion of the risks, benefits, and alternatives to the procedure, the patient expressed understanding and wished to proceed. Consent form was signed. The patient was brought to the fluoroscopy suite and placed in the prone position. Procedural pause was conducted to verify: patient identity, procedure to be performed, laterality, site, and patient position. The skin was sterilely prepped using chlorhexidine and allowed to dry. The skin was draped in the usual sterile fashion. After identifying the right L4 pedicle with fluoroscopy, the skin and subcutaneous tissue were infiltrated with 3 ml 1% preservative-free lidocaine. Then, 22g 5 Quincke needle was advanced under fluoroscopic guidance to the posterior aspect of the right L4-L5 neuroforamen. Appropriate foraminal depth was determined with a lateral fluoroscopic view, and anterior-posterior visualization confirmed needle positioning at approximately the 6 o'clock position relative to the pedicle. After negative aspiration, 0.3 ml Isovue-M 200 (iopamidol) was injected using live fluoroscopy/digital subtraction angiography, confirming appropriate transforaminal spread without evidence of intravascular or intrathecal uptake. Next, 1 ml 1% lidocaine was injected. After 90 seconds, a brief assessment of sensation and strength was performed. There were no gross changes in sensation or strength. Then, 10 mg dexamethasone followed by 1 ml 1% lidocaine was injected. Following the injection, the needle was withdrawn slightly and flushed with 1 ml preservative- free 1% lidocaine as it was fully extracted. The patient tolerated the procedure well, and there were no apparent complications. The patient wasescorted back to the postprocedure room. The patient was monitored for side effects. No reactions were noted. After appropriate observation, the patient was dismissed from the clinic in good condition. Preprocedure pain level: 5/10. Postprocedure pain level: 1/10. Alvaro Rivera MD documented in this encounter Plan of Treatment Not on file documented as of this encounter Procedures Procedure Name Priority Date/Time Associated Diagnosis Comments XR LUMBAR SACRAL TRANSFORAMINAL INJ RIGHT Routine 12/22/2022 11:19 AM CDT Lumbosacral radiculopathy documented in this encounter Results * XR Lumbar Sacral Transforaminal Inj Right (12/22/2022 11:19 AM CDT) Anatomical Region Laterality Modality Spine Radio Fluoroscop y Narrative 12/22/2022 1:06 PM CDT Table formatting from the original result was not included. PHYSICAL MEDICINE & REHABILITATION / MEDICAL SPINE PROCEDURE DATE: ??Dec 22, 2022 PATIENT NAME: ??Marlene Almeida ?? DATE OF : ??1980 PRE-PROCEDURE DIAGNOSIS: 1. Lumbosacral radiculopathy ?? POST-PROCEDURE DIAGNOSIS: 1. Lumbosacral radiculopathy ?? PROCEDURE: Fluoroscopic-guided right L4-L5 transforaminal epidural steroid injection. (CPT code: ??20325) PROCEDURE IN DETAIL: Prior to the procedure, educational material was provided for the patient to review and take home. ??After a discussion of the risks, benefits, and alternatives to the procedure, the patient expressed understanding and wished to proceed. ??Consent form was signed. ??The patient was brought to the fluoroscopy suite and placed in the prone position. ??Procedural pause was conducted to verify: ??patient identity, procedure to be performed, laterality, site, and patient position. The skin was sterilely prepped using chlorhexidine and allowed to dry. ?? The skin was draped in the usual sterile fashion. ??After identifying the right L4 pedicle with fluoroscopy, the skin and subcutaneous tissue were infiltrated with 3 ml 1% preservative-free lidocaine. ??Then, 22g 5 Quincke needle was advanced under fluoroscopic guidance to the posterior aspect of the right L4-L5 neuroforamen. ??Appropriate foraminal depth was determined with a lateral fluoroscopic view, and anterior-posterior visualization confirmed needle positioning at approximately the 6 o'clock position relative to the pedicle. ??After negative aspiration, 0.3 ml Isovue-M 200 (iopamidol) was injected using live fluoroscopy/digital subtraction angiography, confirming appropriate transforaminal spread without evidence of intravascular or intrathecal uptake. ??Next, 1 ml 1% lidocaine was injected. ??After 90 seconds, a brief assessment of sensation and strength was performed. ??There were no gross changes in sensation or strength. ??Then, 10 mg dexamethasone followed by 1 ml 1% lidocaine was injected. ??Following the injection, the needle was withdrawn slightly and flushed with 1 ml preservative-free 1% lidocaine as it was fully extracted. The patient tolerated the procedure well, and there were no apparent complications. ??The patient was escorted back to the postprocedure room. ?? The patient was monitored for side effects. ??No reactions were noted. ?? After appropriate observation, the patient was dismissed from the clinic in good condition. Preprocedure pain level: ?? 02/15. Postprocedure pain level: 10/18. Alvaro Rivera MD Alvaro Rivera MD IMG DIAGNOSTIC IMAGI NG ORDERABLES documented in this encounter Visit Diagnoses Diagnosis Lumbosacral radiculopathy Thoracic or lumbosacral neuritis or radiculitis, unspecified documented in this encounter Administered Medications Inactive Administered Medications - up to 3 most recent administrations Medication Order MAR Action Action Date Dose Rate Site dexamethasone PF (DECADRON) 10 MG/ML injection Starting on Jonna 12/22/22 at 1034, For 1 dose, Javid Solis: cabinet override dexamethasone PF (DECADRON) injection 10 mg 10 mg, EPIDURAL, ONCE, On Jonna 12/22/22 at 1100, For 1 dose $Given by Other Clinician 12/22/2022 11:12 AM CDT 10 mg iopamidol (ISOVUE-M 200) solution 10 mL 10 mL, EPIDURAL, ONCE, On Jonna 12/22/22 at 1100, For 1 dose, Supplied and administered by Radiology. $Given by Other Clinician 12/22/2022 11:12 AM CDT 0.3 mLs lidocaine (PF) (XYLOCAINE) 1 % injection 5 mL 5 mL, Other, ONCE, On Jonna 12/22/22 at 1100, For 1 dose $Given 12/22/2022 11:10 AM CDT 6 mLs lidocaine (PF) (XYLOCAINE) 1 % injection Starting on Jonna 12/22/22 at 1034, For 1 dose, Javid Solis: cabinet override documented in this encounter Additional Health Concerns Assessment Noted Time PHQ-9 Depression Total Score: 20 023 10:54 AM SALES ESTIMATOR documented as of this encounter Care Teams Automotive Service Assistant Relationship Specialty Start Date End Date Amy Villalba Ra, HAT BODY SORTER DEPUTY JAILER [address] [place] [address] PCP - General Family Practice 01/13/22 Amy Villalba Ra, APRN DEPUTY JAILER [address] [place] [address] Assigned PCP 09/19/21 [place] [address] [facility] [place] [place] [id number] Assigned OBGYN Provider 10/24/21 Renetta Mckeon PA-C [address] [place], [place] [id number] Physician Wallpaper Inspector Dermatology 05/03/22 Amy Villalba Ra, APRN DEPUTY JAILER [address] [place] [address] Referring Physician Family Practice 11/01/22 Pura De La Garza APRN DEPUTY JAILER [address] [place] [id number] Nurse Practitioner Dermatology 11/01/22 Gabe Moreira MD [address] [place] [address] Assigned Neuroscience Provider 12/17/22 documented as of this encounter
--- OUTSIDE RECORDS SUMMARY | 2023-10-28 20:39 | XMS_ITS | Encounter Summary ---
Author Name Unknown Organization [place] Address [address] [place] [address] Care Team Providers Care Selling Specialist Name Role Phone Amy Villalba Ra, APRN DIRECTOR INSTITUTION Unavailable + [phone] Priscilla Carbajal DO Unavailable [phone] Amy Villalba Ra, APRN DIRECTOR INSTITUTION Primary Care Provid er Renetta Mckeon PA-C Unavailable [phone] Amy Villalba Ra, APRN DIRECTOR INSTITUTION Unavailable + [phone] Pura De La Garza APRN DIRECTOR INSTITUTION Unavailable Gabe Moreira MD Unavailable [phone] Encounter Details Date Type Department Care Team (Late st Contact Info) Description 12/19/2022 Telephone [facility] [address] [facility] [address] [place] [address] Javid Solis, KATTY Social History Tobacco Use Types Packs/Day Years [...] Coronavirus/COVID-19? No / Unsure 12/15/2022 10:53 AM ASSEMBLER PING PONG TABLE documented as of this encounter Miscellaneous Notes * Telephone Encounter - Javid Solis RN - 12/19/2022 4:18 PM CDT Spoke with patient about appointment with Dr Rivera on 12/22. Patient states that she is not on bloodthinners, aspirin or antibiotics. Patient does not have any current illness and has not have a vaccine or immunization within the past two weeks. Patient knows to have a local tanker truck driver and arrive 15 minutes before injection start time. documented in this encounter Plan of Treatment Not on file documented as of this encounter Visit Diagnoses Not on filedocumented in this encounter Additional Health Concerns Assessment Noted Time PHQ-9 Depression Total Score: 20 023 10:54 AM ASSEMBLER PING PONG TABLE documented as of this encounter Care Teams Selling Specialist Relationship Specialty Start Date End Date Amy Villalba Ra, APRN CNP [address] [place] [address] PCP - General Family Practice 01/13/22 Amy Villalba Ra, APRN DIRECTOR INSTITUTION [address] [place] [address] Assigned PCP 09/19/21 [place] [address] [place] [address] Assigned OBGYN Provider 10/24/21 Renetta Mckeon PA-C [address] [place] [address] Physician Cost And Risk Analysis Manager Dermatology 05/03/22 Amy Villalba Ra, APRN DIRECTOR INSTITUTION [address] [address] [place] [address] Referring Physician Family Practice 11/01/22 Pura De La Garza APRN DIRECTOR INSTITUTION [address] [place] [address] Nurse Practitioner Dermatology 11/01/22 Gabe Moreira MD [address] [place] [address] [address] [place] [address] Assigned Neuroscience Provider 12/17/22 documented as of this encounter
--- OUTSIDE RECORDS SUMMARY | 2023-10-28 20:39 | XMS_ITS | Encounter Summary ---
Author Name Unknown Organization [place] Address [address] [place] [address] Care Team Providers Care Habilitation Training Specialist Name Role Phone Amy Villalba Ra, APRN RELATIONS MGR Unavailable + [phone] Priscilla Carbajal DO Unavailable [phone] Amy Villalba Ra, APRN RELATIONS MGR Primary Care Provid er Renetta Mckeon PA-C Unavailable [phone] Amy Villalba Ra, APRN RELATIONS MGR Unavailable + [phone] Pura De La Garza APRN RELATIONS MGR Unavailable Encounter Details Date Type Department Care Team (Latest Contact Info) Description 11/24/2022 Travel Social History Tobacco Use Types Packs/Day [...] Coronavirus/COVID-19? No / Unsure 11/24/2022 8:30 PM RN TEACHER documented as of this encounter Plan of Treatment Not on file documented as of this encounter Visit Diagnoses Not on filedocumented in this encounter Additional Health Concerns Assessment Noted Time PHQ-9 Depression Total Score: 9 11/01/19 23 1:24 PM RN TEACHER documented as of this encounter Care Teams Habilitation Training Specialist Relationship Specialty Start Date End Date Amy Villalba Ra, APRN CNP [address] [place] [address] PCP - General Family Practice 01/13/22 Amy Villalba Ra, APRN CNP [address] [place] [address] Assigned PCP 09/19/21 [place] [address] [place] [address] Assigned OBGYN Provider 10/24/21 Renetta Mckeon PA-C [address] [place] [address] Physician Enterprise Application Architect Dermatology 05/03/22 Amy Villalba Ra, APRN RELATIONS MGR [address] [place] [address] Referring Physician Family Practice 11/01/22 Pura De La Garza APRN RELATIONS MGR [address] [place] [address] Nurse Practitioner Dermatology 11/01/22 documented as of this encounter
--- OUTSIDE RECORDS SUMMARY | 2023-10-28 20:39 | XMS_ITS | Encounter Summary ---
Author Name Unknown Organization [place] Address [address] [place] [address] Care Team Providers Care Warper Fixer Name Role Phone Amy Villalba Ra, APRN LAN SUPPORT SPECIALIST Unavailable + [phone] Priscilla Carbajal DO Unavailable [phone] Amy Villalba Ra, APRN LAN SUPPORT SPECIALIST Primary Care Provid er Renetta Mckeon PA-C Unavailable [phone] Amy Villlaba Ra, APRN LAN SUPPORT SPECIALIST Unavailable + [phone] Pura De La Garza LAWN CARE WORKER LAN SUPPORT SPECIALIST Unavailable Reason for Referral * Diagnostic Imaging XR (Routine) - Closed Specialty Diagnoses / Procedures Referred By Gonzalez mckeon Referred To Contact Radiology. Diagnoses Lumbosacral radiculopathy Procedures XR Lumbar Sacral [place] [address] [place] [address] Referral ID Status Reason Start Date Expiration Date Visits Re quested Visits Authorized [id number] Closed 12/07/2022 12/07/2023 1 1 RT BLIND Encounter Details Date Type Department Care Team (Late st Contact Info) Description 12/07/2022 Orders Only [facility] [address], [address] [place] [id number] [place] [address] [place] [address] Lumbosacral radiculopathy (Primary Dx) Social History Tobacco Use [...] Coronavirus/COVID-19? No / Unsure 12/07/2022 9:58 AM ESCORT BLIND documented as of this encounter Progress Notes * Alvaro Rivera MD - 12/07/2022 12:10 PM CST Per Gabe Moreira MD (neurosurgery), ordered a right L4-L5 transforaminal epidural corticosteroid injection for Ms. Marlene Almeida for right lumbosacral radiculopathy. Alvaro Rivera MD RT BLIND documented in this encounter Plan of Treatment Not on file documented as of this encounter Results * XR Lumbar Sacral [...] L4-L5 transforaminal epidural steroid injection. (CPT code: ??72069) PROCEDURE IN DETAIL: Prior to the procedure, [...] in this encounter Visit Diagnoses Diagnosis Lumbosacral radiculopathy- Primary Thoracic or lumbosacral neuritis or radiculitis, unspecified Lumbosacral radiculopathy Thoracic or lumbosacral neuritis or radiculitis, unspecified documented in this encounter Additional Health Concerns Assessment Noted Time PHQ-9 Depression Total Score: 9 11/01/19 23 1:24 PM ESCORT BLIND documented as of this encounter Care Teams Warper Fixer Relationship Specialty Start Date End Date Amy Villalba Ra, APRN LAN SUPPORT SPECIALIST [address] [place] [address] PCP - General Family Practice 01/13/22 Amy Villalba Ra, APRN LAN SUPPORT SPECIALIST [address] [place] [address] Assigned PCP 09/19/21 [place] [address] [place] [address] Assigned OBGYN Provider 10/24/21 Renetta Mckeon PA-C [address] [place] [address] Physician Dividend Deposit Entry Clerk Dermatology 05/03/22 Amy Villalba Ra, APRN LAN SUPPORT SPECIALIST [address] [place] [address] Referring Physician Family Practice 11/01/22 Pura De La Garza APRN LAN SUPPORT SPECIALIST [address] [place] [address] Nurse Practitioner Dermatology 11/01/22 documented as of this encounter
--- OUTSIDE RECORDS SUMMARY | 2023-10-28 20:40 | XMS_ITS | Encounter Summary ---
Author Name Unknown Organization [facility] Address [address] [place] [address] Care Team Providers Care Guide Domestic Tour Name Role Phone Brittanie Benitez MD Primary Ca re Provider Brittanie Benitez MD Unavailabl e Ary Parikh MD Unavailable [phone] Eulalio Newell MD Unavailable [phone] Myranda Negron INSECT CONTROL AIDE ERP BUSINESS ANALYST Unavailable + Amy Villalba Ra INSECT CONTROL AIDE ERP BUSINESS ANALYST Unavailable + [phone] Priscilla Carbajal DO Unavailable [phone] Amy Villalba Ra INSECT CONTROL AIDE ERP BUSINESS ANALYST Primary Care Provid er Renetta Mckeon PA-C Unavailable +[phone] Amy iVllalba Ra INSECT CONTROL AIDE ERP BUSINESS ANALYST Unavailable + [phone] Pura De La Garza INSECT CONTROL AIDE ERP BUSINESS ANALYST Unavailable [phone] Gabe Moreira MD Unavailable +[phone] Dov Posadas PA-C Unavailable +[phone] Encounter Details Date Type Department Care Team (Late st Contact Info) Description 07/22/2019 [facility] [address] [id number] Brittanie Benitez MD [address] [place] [address] Bariatric surgery status (Primary Dx); Insomnia, unspecified type Social History Tobacco Use Types Packs/Day Years Used Date Smoking Tobacco: Former Smokeless Tobacco: Never Comments:quit 2010 Alcohol Use Standard Drinks/Week Comments Yes 0 (1 standard drink = 0.6 oz pur e alcohol) once a year PHQ-2 Answer Date Recorded PHQ-2 Score 2 05/09/2019 Sex and Gender Information Value Date Recorded Sex Assigned at Not on file Gender Identity Female 05/31/2021 11:45 AM CDT Sexual Orientation Straight 05/31/2021 11 :45 AM CDT documented as of this encounter Miscellaneous Notes * Telephone Encounter - Shelbi Perry RN - 07/22/2019 9:38 AM CDT Sign off on refill if correct. thanks documented in this encounter Plan of Treatment Not on file documented as of this encounter Visit Diagnoses Diagnosis Bariatric surgery status- Primary Insomnia, unspecified type documented in this encounter Additional Health Concerns Infection Onset Date Last Indicated Resolved Time Rule Out COVID-19 07/01/2021 07/01/2021 07/02/2021 12:24 AM CDT Rule Out COVID-19 07/04/2021 07/04/2021 07/05/2021 6:52 PM CDT Assessment Noted Time PHQ-9 Depression Total Score: 6 05/09/20 19 1:30 PM CDT documented as of this encounter Care Teams Guide Domestic Tour Relationship Specialty Start Date End Date Brittanie Benitez MD [address] [place] [address] PCP - General Family Practice 01/26/15 01/12/22 Amy Villalba Ra, INSECT CONTROL AIDE ERP BUSINESS ANALYST [address] [place] [address] PCP - General Family Practice 01/13/22 Brittanie Benitez MD [address] [place] [address] Assigned PCP 07/20/17 06/05/21 Ary Parikh MD [address] [place] [address] 195 [place] [address] Assigned Surgical Provider 07/31/2002/13/21 Eulalio Newell MD [id number] [place] [address] Assigned Surgical Provider 02/14/21 Myranda Negron APRN ERP BUSINESS ANALYST [address] [place] [address] Assigned PCP 06/06/21 09/18/21 Amy Villalba Ra, INSECT CONTROL AIDE ERP BUSINESS ANALYST [address] [address] [facility] [address] Assigned PCP 09/19/21 [place] [address] [place] [address] Assigned OBGYN Provider 10/24/21 Renetta Mckeon PADagobertoC [address] [place] [address] Physician Manager Of Purchasing Dermatology 05/03/22 Amy Villalba Ra, INSECT CONTROL AIDE ERP BUSINESS ANALYST [address] [place] [id number] Referring Physician Family Practice 11/01/22 Pura De La Garza APRN ERP BUSINESS ANALYST [address] [place], [place] [address] Nurse Practitioner Dermatology 11/01/22 Gabe Moreira MD [address] [place] [address] 96 [place], [place] 393695 Assigned Neuroscience Provider 12/17/22 Dov Posadas PA-C [address] [place] [id number] Assigned Surgical Provider 04/08/23 documented as of this encounter
--- OUTSIDE RECORDS SUMMARY | 2023-10-28 20:40 | XMS_ITS | Encounter Summary ---
Author Name Unknown Organization [facility] Address [address] [place] [address] Care Team Providers Care Acoustic Warfare Analyst Name Role Phone Brittanie Benitez MD Primary Ca re Provider Brittanie Benitez MD Unavailabl e Ary Parikh MD Unavailable [phone] Eulalio Newell MD Unavailable [phone] Myranda Negron SENIOR ONLINE MARKETING MANAGER ELDER COUNSELOR Unavailable + Amy Villalba Ra SENIOR ONLINE MARKETING MANAGER ELDER COUNSELOR Unavailable + [phone] Priscilla Carbajal DO Unavailable [phone] Amy Villalba Ra SENIOR ONLINE MARKETING MANAGER ELDER COUNSELOR Primary Care Provid er Renetta Mckeon PA-C Unavailable [phone] Amy Villalba Ra SENIOR ONLINE MARKETING MANAGER ELDER COUNSELOR Unavailable + [phone] Pura De La Garza SENIOR ONLINE MARKETING MANAGER ELDER COUNSELOR Unavailable Gabe Moreira MD Unavailable +[phone] Dov Posadas PA-C Unavailable [phone] Reason for Visit * Reason Comments Medication Refill Encounter Details Date Type Department Care Team (Late st Contact Info) Description 04/21/2020 [address] [place] [address] [place] [address] Brittanie Benitez MD [address] [place] [address] Medication Refill Social History Tobacco Use Types Packs/Day Years Used Date Smoking Tobacco: Former Cigarettes 0 0 Smokeless Tobacco: Never Comments:quit 2010 Alcohol Use Standard Drinks/Week Comments Yes 0 (1 standard drink = 0.6 oz pur e alcohol) once a year PHQ-2 Answer Date Recorded PHQ-2 Score 1 12/02/2019 Sex and Gender Information Value Date Recorded Sex Assigned at Not on file Gender Identity Female 05/31/2021 11:45 AM CDT Sexual Orientation Straight 05/31/2021 11 :45 AM CDT documented as of this encounter Miscellaneous Notes * Telephone Encounter - Shelbi Perry RN - 04/22/2020 2:46 PM CDT Routing refill request to provider for review/approval because: Drug not on the G refill protocol Last filled: 10/22/2019 #90 x 1 refill 1 q hs Last visit: 12/03/2019 documented in this encounter Plan of Treatment Not on file documented as of this encounter Visit Diagnoses Diagnosis Insomnia, unspecified type documented in this encounter Additional Health Concerns Infection Onset Date Last Indicated Resolved Time Rule Out COVID-19 07/01/2021 07/01/2021 07/02/2021 12:24 AM CDT Rule Out COVID-19 07/04/2021 07/04/2021 07/05/2021 6:52 PM CDT Assessment Noted Time PHQ-9 Depression Total Score: 4 12/02/19 20 1:11 PM HEALTH TECH documented as of this encounter Care Teams Acoustic Warfare Analyst Relationship Specialty Start Date End Date Brittanie Benitez MD [address] [place] [address] PCP - General Family Practice 01/26/15 01/12/22 Amy Villalba Ra, APRN ELDER COUNSELOR [address] [place] [address] PCP - General Family Practice 01/13/22 Brittanie Benitez MD [address] [place] [address] Assigned PCP 07/20/17 06/05/21 Ary Parikh MD [address] [facility] 195 [place], [place] 4734[address] Assigned Surgical Provider 07/31/2002/13/21 Eulalio Newell MD [address] [address] Assigned Surgical Provider 02/14/21 Myranda Negron APRN ELDER COUNSELOR [address] [place] [address] Assigned PCP 06/06/21 09/18/21 Amy Villalba Ra, APRN ELDER COUNSELOR [address] [place] [address] Assigned PCP 09/19/21 [place] [address] [place], [place] [address] Assigned OBGYN Provider 10/24/21 Renetta Mckeon PA-C [address] [place], [place] 9[address] Physician Environmental Services Manager Dermatology 05/03/22 Amy Villalba Ra, APRN ELDER COUNSELOR [address] [address] [place] [address] Referring Physician Family Practice 11/01/22 Pura De La Garza APRN ELDER COUNSELOR [address] [place] [address] Nurse Practitioner Dermatology 11/01/22 Gabe Moreira MD [address] [facility] 96 [place] [address] Assigned Neuroscience Provider 12/17/22 Dov Posadas PA-C [address] 145075 Assigned Surgical Provider 04/08/23 documented as of this encounter
--- OUTSIDE RECORDS SUMMARY | 2023-10-28 20:40 | XMS_ITS | Encounter Summary ---
Author Name Unknown Organization [facility] Address [address] [place] [address] Care Team Providers Care Stud Driver Name Role Phone Brittanie Benitez MD Primary Ca re Provider Brittanie Benitez MD Unavailabl e Eulalio Newell MD Unavailable [phone] Myranda Negron CERTIFIED PERSONAL TRAINER CONTINUITY TESTER Unavailable + Amy Villalba Ra CERTIFIED PERSONAL TRAINER CONTINUITY TESTER Unavailable + [phone] Priscilla Carbajal DO Unavailable [phone] Amy Villalba Ra CERTIFIED PERSONAL TRAINER CONTINUITY TESTER Primary Care Provid er Renetta Mckeon PA-C Unavailable [phone] Amy Villalba Ra CERTIFIED PERSONAL TRAINER CONTINUITY TESTER Unavailable + [phone] Pura De La Garza CERTIFIED PERSONAL TRAINER CONTINUITY TESTER Unavailable [phone] Gabe Moreira MD Unavailable [phone] Dov PosadasC Unavailable [phone] Encounter Details Date Type Department Care Team (Latest Contact Info) Description 05/31/2021 Historic Results Social History Tobacco Use Types Packs/Day Years Used Date Smoking Tobacco: Former Cigarettes 0 0 Smokeless Tobacco: Never Comments:quit 2010 Alcohol Use Standard Drinks/Week Comments Yes 0 (1 standard drink = 0.6 oz pur e alcohol) once a year PHQ-2 Answer Date Recorded PHQ-2 Score 4 05/31/2021 Sex and Gender Information Value Date Recorded Sex Assigned at Not on file Gender Identity Female 05/31/2021 11:45 AM CDT Sexual Orientation Straight 05/31/2021 11 :45 AM CDT documented as of this encounter Plan of Treatment Not on file documented as of this encounter Visit Diagnoses Not on filedocumented in this encounter Additional Health Concerns Infection Onset Date Last Indicated Resolved Time Rule Out COVID-19 07/01/2021 07/01/2021 07/02/2021 12:24 AM CDT Rule Out COVID-19 07/04/2021 07/04/2021 07/05/2021 6:52 PM CDT Assessment Noted Time PHQ-9 Depression Total Score: 13 021 12:09 PM CDT documented as of this encounter Care Teams Stud Driver Relationship Specialty Start Date End Date Brittanie Benitez MD [address] [place] [address] PCP - General Family Practice 01/26/15 01/12/22 Amy Villalba Ra CERTIFIED PERSONAL TRAINER CONTINUITY TESTER [address] [place] [address] PCP - General Family Practice 01/13/22 Brittanie Benitez MD [address] [place] [address] Assigned PCP 07/20/17 06/05/21 Eulalio Newell MD [address] [address] Assigned Surgical Provider 02/14/21 Myranda Negron APRN CONTINUITY TESTER [address] [place] [address] Assigned PCP 06/06/21 09/18/21 Amy Villalba Ra, APRN CONTINUITY TESTER [address] [place] [address] Assigned PCP 09/19/21 [place] [address] [facility] [place] [address] Assigned OBGYN Provider 10/24/21 Renetta Mckeon PA-C [address] [place] [address] Physician Global Logistics Analyst Dermatology 05/03/22 Amy Villalba Ra, APRN CONTINUITY TESTER [address] [place] [address] Referring Physician Family Practice 11/01/22 Pura De La Garza APRN CONTINUITY TESTER 500 [place], [place] [address] Nurse Practitioner Dermatology 11/01/22 Gabe Moreira MD [address] [place] [address] 96 [place], [place] [address] Assigned Neuroscience Provider 12/17/22 Dov Posadas PA-C [address] [place] [address] Assigned Surgical Provider 04/08/23 documented as of this encounter
--- OUTSIDE RECORDS SUMMARY | 2023-10-28 20:40 | XMS_ITS | Encounter Summary ---
Author Name Unknown Organization [facility] Address [address] [place] [address] Care Team Providers Care Supervisor Compressed Yeast Name Role Phone Amy Villalba Ra, APRN GLOST KILN OPERATOR Unavailable + [phone] Priscilla Carbajal DO Unavailable [phone] Amy Villalba Ra, APRN GLOST KILN OPERATOR Primary Care Provid er Renetta Mckeon PA-C Unavailable [phone] Amy Villalba Ra, APRN GLOST KILN OPERATOR Unavailable + [phone] Pura De La Garza APRN GLOST KILN OPERATOR Unavailable [phone] Encounter Details Date Type Department Care Team (Latest Contact Info) Description 11/01/2022 Travel Social History Tobacco Use Types Packs/Day [...] Coronavirus/COVID-19? Unable to assess 11/01/2022 7:30 AM GAMEROOM TECHNICIAN documented as of this encounter Plan of Treatment Not on file documented as of this encounter Visit Diagnoses Not on filedocumented in this encounter Additional Health Concerns Assessment Noted Time PHQ-9 Depression Total Score: 9 11/01/19 23 1:24 PM GAMEROOM TECHNICIAN documented as of this encounter Care Teams Supervisor Compressed Yeast Relationship Specialty Start Date End Date Amy Villalba Ra, APRN CNP [address] [place] [address] PCP - General Family Practice 01/13/22 Amy Villalba Ra, APRN CNP [address] [address] Assigned PCP 09/19/21 [place] [address] [place] [address] Assigned OBGYN Provider 10/24/21 Renetta Mckeon PA-C [address] [place] [address] Physician Condenser Tube Tender Dermatology 05/03/22 Amy Villalba Ra, APRN GLOST KILN OPERATOR [address] [address] [facility] [place] [address] Referring Physician Family Practice 11/01/22 Pura De La Garza APRN GLOST KILN OPERATOR 500 [place] [address] Nurse Practitioner Dermatology 11/01/22 documented as of this encounter
--- OUTSIDE RECORDS SUMMARY | 2023-10-28 20:40 | XMS_ITS | Encounter Summary ---
Author Name Unknown Organization [facility] Address [address] [place] [address] Care Team Providers Care Regional Dedicated Truck Driver Name Role Phone Amy Villalba Ra, APRN WOOD LATHE OPERATOR Unavailable + [phone] Priscilla Carbajal DO Unavailable [phone] Amy Villalba Ra, APRN WOOD LATHE OPERATOR Primary Care Provid er Renetta Mckeon PA-C Unavailable [phone] Amy Villalba Ra, APRN WOOD LATHE OPERATOR Unavailable + [phone] Pura De La Garza APRN WOOD LATHE OPERATOR Unavailable Gabe Moreira MD Unavailable [phone] Dov Posadas PA-C Unavailable +[phone] Encounter Details Date Type Department Care Team (Late st Contact Info) Description 04/13/2022 My[facility] Medical Advice [address] [place] [address] Skye Saldana Social History Tobacco Use Types Packs/Day Years Used Date Smoking Tobacco: Former Cigarettes 0 0 Smokeless Tobacco: Never Comments:5 cigarettes a buffy h Alcohol Use Standard Drinks/Week Comments Yes 0 (1 standard drink = 0.6 oz pur e alcohol) once a year PHQ-2 Answer Date Recorded PHQ-2 Total Score (Adult) - Positive if 3 or more points; Administer PHQ-9 if positive 4 01/13/2022 Sex and Gender Information Value Date Recorded Sex Assigned at Not on file Gender Identity Female 05/31/2021 11:45 AM CDT Sexual Orientation Straight 05/31/2021 11 :45 AM CDT COVID-19 Exposure Response Date Recorded In the last 10 days, have yo u been in contact with someone who was confirmed or suspected to have Coronavirus/COVID-19? No / Unsure 04/15/2022 2:00 PM CDT documented as of this encounter Plan of Treatment Not on file documented as of this encounter Visit Diagnoses Not on filedocumented in this encounter Additional Health Concerns Assessment Noted Time PHQ-9 Depression Total Score: 9 01/15/20 22 7:02 AM CDT documented as of this encounter Care Teams Regional Dedicated Truck Driver Relationship Specialty Start Date End Date Amy Villalba Ra, APRN CNP [address] [facility] [place] [address] PCP - General Family Practice 01/13/22 Amy Villalba Ra, APRN WOOD LATHE OPERATOR [address] [place] [address] Assigned PCP 09/19/21 [place] [address] [place] [address] Assigned OBGYN Provider 10/24/21 Renetta Mckeon PA-C 5[address] [place] [address] Physician Nurse Practitioner Manager Dermatology 05/03/22 Amy Villalba Ra, APRN WOOD LATHE OPERATOR [address] [place] [address] Referring Physician Family Practice 11/01/22 Pura De La Garza APRN WOOD LATHE OPERATOR 500 [place] [address] Nurse Practitioner Dermatology 11/01/22 Gabe Moreira MD [address] [place] [address] 96 [place], [place] [address] Assigned Neuroscience Provider 12/17/22 Dov Posadas PA-C [address] [place] [place] [address] Assigned Surgical Provider 04/08/23 documented as of this encounter
--- OUTSIDE RECORDS SUMMARY | 2023-10-28 20:40 | XMS_ITS | Encounter Summary ---
Author Name Unknown Organization [facility] Address [address] [place] [address] Care Team Providers Care Fabrication Machine Operator Name Role Phone Brittanie Benitez MD Primary Ca re Provider Brittanie Benitez MD Unavailabl e Ary Parikh MD Unavailable [phone] Eulalio Newell MD Unavailable [phone] Myranda Negron COPY READER MACHINE PLATE STACKER Unavailable + Amy Villalba Ra COPY READER MACHINE PLATE STACKER Unavailable + [phone] Priscilla Carbajal DO Unavailable [phone] Amy Villalba Ra COPY READER MACHINE PLATE STACKER Primary Care Provid er Renetta Mckeon PA-C Unavailable [phone] Amy Villalba Ra COPY READER MACHINE PLATE STACKER Unavailable + [phone] Pura De La Garza COPY READER MACHINE PLATE STACKER Unavailable aGbe Moreira MD Unavailable +[phone] Dov Posadas PA-C Unavailable +[phone] Encounter Details Date Type Department Care Team (Late st Contact Info) Description 09/12/2019 [facility] [address] [address] Renetta Camargo CMA Social History Tobacco Use Types Packs/Day Years [...] documented as of this encounter Care Teams Fabrication Machine Operator Relationship Specialty Start Date End Date Brittanie Benitez MD [address] [address] PCP - General Family Practice 01/26/15 01/12/22 Amy Villalba Ra, COPY READER MACHINE PLATE STACKER [address] [place] [address] PCP - General Family Practice 01/13/22 Brittanie Benitez MD [address] [place] [address] Assigned PCP 07/20/17 06/05/21 Ary Parikh MD [address] [place] [address] Assigned Surgical Provider 07/31/2002/13/21 Eulalio Newell MD [address] [facility] [id number] [place] [address] Assigned Surgical Provider 02/14/21 Myranda Negron APRN MACHINE PLATE STACKER [address] [facility] [place] [address] Assigned PCP 06/06/21 09/18/21 Amy Villalba Ra, APRN MACHINE PLATE STACKER [address] [facility] [place] [address] Assigned PCP 09/19/21 [place] [address] [facility] [place] [address] Assigned OBGYN Provider 10/24/21 Renteta Mckeon PA-C 5200 [place] [address] Physician Computer Technician Dermatology 05/03/22 Amy Villalba Ra, APRN MACHINE PLATE STACKER [address] [facility] [facility] [place] [address] Referring Physician Family Practice 11/01/22 Pura De La Garza APRN MACHINE PLATE STACKER [address] [place] [address] Nurse Practitioner Dermatology 11/01/22 Gabe Moreira MD [address] [place] [address] 96 [place], [place] [address] Assigned Neuroscience Provider 12/17/22 Dov Posadas PA-C [address] [place] [address] Assigned Surgical Provider 04/08/23 documented as of this encounter
--- OUTSIDE RECORDS SUMMARY | 2023-10-28 20:40 | XMS_ITS | Encounter Summary ---
Author Name Unknown Organization [facility] Address [address] [place] [address]. [place] [address] Care Team Providers Care Property Economist Name Role Phone Amy Villalba Ra, APRN CONTACT CENTER AGENT Unavailable [phone] Priscilla Carbajal DO Unavailable [phone] Amy Villalba Ra, APRN CONTACT CENTER AGENT Primary Care Provid er Renetta Mckeon PA-C Unavailable Amy Villalba Ra, APRN CONTACT CENTER AGENT Unavailable Pura De La Garza APRN CONTACT CENTER AGENT Unavailable Reason for Visit * Reason Comments Recheck Medication Encounter Details Date Type Department Care Team (Late st Contact Info) Description 11/01/2022 2:00 PM ALUMINUM SHINGLE ROOFER Virtual Visit [employer] [address] [place] [address] Amy Villalba Ra, APRN CONTACT CENTER AGENT [address] [place] [address] Insomnia, unspecified type (Primary Dx) Social History Tobacco Use Types [...] Coronavirus/COVID-19? Unable to assess 11/01/2022 7:30 AM ALUMINUM SHINGLE ROOFER documented as of this encounter Progress Notes * Amy Villalba Ra, APRN CNP - 11/01/2022 2:00 PM CST Marlene is a 41 year old who is being evaluated via a billable video visit. How would you like to obtain your AVS? MyChart If the video visit is dropped, the invitation should be resent by: Text to cell phone: [phone] Will anyone else be joining your video visit? No Assessment & Plan Insomnia, unspecified type Working well. Discussed trial of different med in the near future. Consider at follow up in 3 months. - eszopiclone (LUNESTA) 3 MG tablet; TAKE 1 TABLET BY MOUTH AT NIGHT NEEDED Strength: 3 mg Return in about 6 weeks (around 12/13/2022) for diabetes recheck. Amy Villalba APRN CNP M [facility] Subjective Marlene is a 41 year old, presenting for the following health issues: Recheck Medication HPI Medication Followup of eszopiclone 3 MG ?? Taking Medication as prescribed: yes ?? Side Effects: None ?? Medication Helping Symptoms: yes Using lunesta nightly. Was taking ambien for many years. Stopped being effective. Started in her 20s. Lunesta is effective. She does not drive in the mornings. No side effects. Aside from ambien, she has not tried any other sleep agents. Review of Systems Constitutional, HEENT, cardiovascular, pulmonary, gi and gu systems are negative, except as otherwise noted. Objective Vitals: No vitals were obtained today due to virtual visit. Physical Exam GENERAL: Healthy, alert and no distress, nasal congestion noted EYES: Eyes grossly normal to inspection. No discharge or erythema, or obvious scleral/conjunctival abnormalities. RESP: No audible wheeze, cough, or visible cyanosis. No visible retractions or increased work of breathing. SKIN: Visible skin clear. No significant rash, abnormal pigmentation or lesions. NEURO: Cranial nerves grossly intact. Mentation and speech appropriate for age. PSYCH: Mentation appears normal, affect normal/bright, judgement and insight intact, normal speech and appearance well-groomed. Video-Visit Details Type of service: Video Visit Video Start Time: 1:46 PM Video End Time:1:56pm Originating Location (pt. Location): Home Distant Location (provider location): Off-site Platform used for Video Visit: Carlos INUM SHINGLE ROOFER documented in this encounter Plan of Treatment Not on file documented as of this encounter Visit Diagnoses Diagnosis Insomnia, unspecified type- Primary documented in this encounter Additional Health Concerns Assessment Noted Time PHQ-9 Depression Total Score: 9 11/01/19 23 1:24 PM ALUMINUM SHINGLE ROOFER documented as of this encounter Care Teams Property Economist Relationship Specialty Start Date End Date Amy Villalba Ra, APRN CNP [address] [place] [address] PCP - General Family Practice 01/13/22 Amy Villalba Ra, APRN CNP [address] [place] [address] Assigned PCP 09/19/21 [place] [address] [place] [address] Assigned OBGYN Provider 10/24/21 Renetta Mckeon PA-C [address] [place] [address] Physician Pharmacy Care Coordinator Dermatology 05/03/22 Amy Villalba Ra, APRN CNP [address] [place] [address] Referring Physician Family Practice 11/01/22 Pura De La Garza APRN CONTACT CENTER AGENT 500 [place] [address] Nurse Practitioner Dermatology 11/01/22 documented as of this encounter
--- OUTSIDE RECORDS SUMMARY | 2023-10-28 20:40 | XMS_ITS | Encounter Summary ---
Author Name Unknown Organization [facility] Address [address] [place] [address] Care Team Providers Care Turntable Worker Name Role Phone Brittanie Benitez MD Primary Ca re Provider Brittanie Benitez MD Unavailabl e Ary Parikh MD Unavailable [phone] Eulalio Newell MD Unavailable [phone] Myranda Negron CHECKOUT OPERATOR BARNWORKER GROOM Unavailable + Amy Villalba Ra CHECKOUT OPERATOR BARNWORKER GROOM Unavailable + [phone] Priscilla Carbajal DO Unavailable [phone] Amy Villalba Ra CHECKOUT OPERATOR BARNWORKER GROOM Primary Care Provid er Renetta Mckeon PA-C Unavailable [phone] Amy Villalba Ra CHECKOUT OPERATOR BARNWORKER GROOM Unavailable + [phone] Pura De La Garza CHECKOUT OPERATOR BARNWORKER GROOM Unavailable Gabe Moreira MD Unavailable [phone] Dov Posadas PA-C Unavailable [phone] Encounter Details Date Type Department Care Team (Late st Contact Info) Description 11/26/[address] [facility] [address] [place] [address] Renetta Camargo CMA Social History Tobacco Use [...] Exposure Response Date Recorded In the last month, have you been in contact with someone who was confirmed or suspected to have Coronavirus / COVID-19? No / Unsure 11/04/2020 10:28 AM SUPERVISOR STATEMENT CLERKS documented as of this encounter Plan of [...] Total Score: 4 12/02/19 20 1:11 PM SUPERVISOR STATEMENT CLERKS documented as of this encounter Care Teams Turntable Worker Relationship Specialty Start Date End Date Brittanie Benitez MD [address] [place] [address] PCP - General Family Practice 01/26/15 01/12/22 Amy Villalba Ra, CHECKOUT OPERATOR BARNWORKER GROOM [address] [address] [address] PCP - General Family Practice 01/13/22 Brittanie Benitez MD 2154 [place] [address] Assigned PCP 07/20/17 06/05/21 Ary Parikh MD [address] [place] [address] 105745 Assigned Surgical Provider 07/31/2002/13/21 Eulalio Newell MD [address] [address] Assigned Surgical Provider 02/14/21 Myranda Negron APRN BARNWORKER GROOM [address] [address] [place] [address] Assigned PCP 06/06/21 09/18/21 Amy Villalba Ra, APRN BARNWORKER GROOM [address] [address] [facility] [address] Assigned PCP 09/19/21 [place] [address] [facility] [place] [address] Assigned OBGYN Provider 10/24/21 Renetta Mckeon PA-C 5200 [place] [address] Physician Accounts Receivable Processor Dermatology 05/03/22 Amy Villalba Ra, APRN BARNWORKER GROOM [address] [place] [address] Referring Physician Family Practice 11/01/22 Pura De La Garza APRN BARNWORKER GROOM [address] [place] [address] Nurse Practitioner Dermatology 11/01/22 Gabe Moreira MD 420 [facility] 96 [place] [address] Assigned Neuroscience Provider 12/17/22 Dov Posadas PA-C [address] [address] Assigned Surgical Provider 04/08/23 documented as of this encounter
--- OUTSIDE RECORDS SUMMARY | 2023-10-28 20:40 | XMS_ITS | Encounter Summary ---
Author Name Unknown Organization [facility] Address [address] [place] [address] Care Team Providers Care Polisher And Buffer Name Role Phone Amy Villalba Ra, APRN ASSEMBLER CORNCOB PIPES Unavailable + [phone] Priscilla Carbajal DO Unavailable [phone] Amy Villalba Ra, APRN ASSEMBLER CORNCOB PIPES Primary Care Provid er Renetta Mckeon PA-C Unavailable [phone] Amy Villalba Ra, APRN ASSEMBLER CORNCOB PIPES Unavailable + [phone] Pura De La Garza APRN ASSEMBLER CORNCOB PIPES Unavailable Gabe Moreira MD Unavailable [phone] Dov Posadas PA-C Unavailable [phone] Encounter Details Date Type Department Care Team (Late st Contact Info) Description 05/05/2022 MyC Medical Advice [facility] [address] [place] [address] Guanaco Saunders MA Social History Tobacco Use Types Packs/Day Years Used Date Smoking Tobacco: Former Cigarettes 0 0 Smokeless Tobacco: Never Comments:5 cigarettes a buffy h Alcohol Use Standard Drinks/Week Comments Yes 0 (1 standard drink = 0.6 oz pur e alcohol) once a year PHQ-2 Answer Date Recorded PHQ-2 Total Score (Adult) - Positive if 3 or more points; Administer PHQ-9 if positive 3 05/02/2022 Sex and Gender Information Value Date Recorded Sex Assigned at Not on file Gender Identity Female 05/31/2021 11:45 AM CDT Sexual Orientation Straight 05/31/2021 11 :45 AM CDT COVID-19 Exposure Response Date Recorded In the last 10 days, have yo u been in contact with someone who was confirmed or suspected to have Coronavirus/COVID-19? Unable to assess 05/03/2022 11:51 AM CDT documented as of this encounter Plan of Treatment Not on file documented as of this encounter Visit Diagnoses Not on filedocumented in this encounter Additional Health Concerns Assessment Noted Time PHQ-9 Depression Total Score: 9 05/02/20 22 3:39 PM CDT documented as of this encounter Care Teams Polisher And Buffer Relationship Specialty Start Date End Date Amy Villalba Ra, APRN ASSEMBLER CORNCOB PIPES [address] [address] [facility] [place] [address] PCP - General Family Practice 01/13/22 Amy Villalba Ra, APRN ASSEMBLER CORNCOB PIPES [address] [address] [address] Assigned PCP 09/19/21 [place] [address] [place] [address] Assigned OBGYN Provider 10/24/21 Renetta Mckeon PA-C 5200 [place] [address] Physician Vocational Psychologist Dermatology 05/03/22 Amy Villalba Ra, APRN ASSEMBLER CORNCOB PIPES [address] [address] [facility] [address] Referring Physician Family Practice 11/01/22 Pura De La Garza APRN ASSEMBLER CORNCOB PIPES 500 [place] [address] Nurse Practitioner Dermatology 11/01/22 Gaeb Moreira MD 420 [facility] 96 [place], [place] 439405 Assigned Neuroscience Provider 12/17/22 Dov Posadas PA-C [address] [place] 194115 Assigned Surgical Provider 04/08/23 documented as of this encounter
--- OUTSIDE RECORDS SUMMARY | 2023-10-28 20:40 | XMS_ITS | Encounter Summary ---
Author Name Unknown Organization [place] Address [address] [place] [address] Care Team Providers Care County Records Management Officer Name Role Phone Brittanie Benitez MD Primary Ca re Provider Eulalio Newell MD Unavailable Amy Villalba Ra, APRN FRUIT PACKER FACE AND FILL Unavailable Priscilla Carbajal DO Unavailable [phone] Amy Villalba Ra, APRN FRUIT PACKER FACE AND FILL Primary Care Provid er Renetta Mckeon PA-C Unavailable Amy Villalba Ra, APRN FRUIT PACKER FACE AND FILL Unavailable Pura De La Garza APRN FRUIT PACKER FACE AND FILL Unavailable Gabe Moreira MD Unavailable Dov Posadas PA-C Unavailable [phone] Encounter Details Date Type Department Care Team (Late st Contact Info) Description 10/19/2021 MyC Medical Advice [address] [address] Priscilla Carbajal DO [address] [facility] [address] [place] [address] Social History Tobacco Use Types Packs/Day Years Used Date Smoking Tobacco: Some Days Cigarettes 0 0 Smokeless Tobacco: Never Comments:5 cigarettes a buffy h Alcohol Use Standard Drinks/Week Comments Yes 0 (1 standard drink = 0.6 oz pur e alcohol) once a year PHQ-2 Answer Date Recorded PHQ-2 Score 5 10/18/2021 Sex and Gender Information Value Date Recorded Sex Assigned at Not on file Gender Identity Female 05/31/2021 11:45 AM CDT Sexual Orientation Straight 05/31/2021 11 :45 AM CDT COVID-19 Exposure Response Date Recorded In the last month, have you been in contact with someone who was confirmed or suspected to have Coronavirus / COVID-19? No / Unsure 10/18/2021 1:14 PM MINE DEPUTY documented as of this encounter Miscellaneous Notes * Telephone Encounter - Maggy Hardy RN - 10/19/2021 2:30 PM CST Response to this result note: Hi, wet prep is normal. ??The WBCs in the wet prep can signify nothing or lead us down a path of cervicitis, which is usually characterized by a lot of discharge. ??I don't think you had a lot of discharge. But if the biopsy is negative, then we will Go down that pathway to find out what is causing your symptoms. ?? Dr. Priscilla Carbajal, DO ?? Obstetrics and Gynecology [facility] DEPUTY documented in this encounter Plan of Treatment Not on file documented as of this encounter Visit Diagnoses Not on filedocumented in this encounter Additional Health Concerns Assessment Noted Time PHQ-9 Depression Total Score: 14 022 10:10 AM MINE DEPUTY documented as of this encounter Care Teams County Records Management Officer Relationship Specialty Start Date End Date Brittanie Benitez MD [address] [place] [address] PCP - General Family Practice 01/26/15 01/12/22 Amy Villalba Ra, PRESS WORKER HELPER FRUIT PACKER FACE AND FILL [address] [address]ITA [address] PCP - General Family Practice 01/13/22 Eulalio Newell MD [id number] [place] [address] Assigned Surgical Provider 02/14/21 Amy Villalba Ra, APRN FRUIT PACKER FACE AND FILL [address] [place] [address] Assigned PCP 09/19/21 [place] [address] [facility] [place] [address] Assigned OBGYN Provider 10/24/21 Renetta Mckeon PA-C 5200 [place] [address] Physician Powerhouse Tender Dermatology 05/03/22 Amy Villalba Ra, APRN FRUIT PACKER FACE AND FILL [address] [place] [address] Referring Physician Family Practice 11/01/22 Pura De La Garza APRN FRUIT PACKER FACE AND FILL [address] [place] [address] 255655 Nurse Practitioner Dermatology 11/01/22 Gabe Moreira MD [address] [place] [address] 96 [place], [place] 959995 Assigned Neuroscience Provider 12/17/22 Dov Posadas PA-C [address] [address] Assigned Surgical Provider 04/08/23 documented as of this encounter
--- OUTSIDE RECORDS SUMMARY | 2023-10-28 20:40 | XMS_ITS | Encounter Summary ---
Author Name Unknown Organization [place] Address [address] [place] [address] Care Team Providers Care Gray Mixing Operator Name Role Phone Eulalio Newell MD Unavailable [phone] Amy Villalba Ra, APRN PAINTER HELPER SPRAY Unavailable [phone] Priscilla Carbajal DO Unavailable Amy Villalba Ra INTERIOR DESIGN PRINCIPAL PAINTER HELPER SPRAY Primary Care Provid er Renetta Mckeon PADagobertoC Unavailable Amy Villalba Ra, APRN PAINTER HELPER SPRAY Unavailable [phone] Pura De La Garza INTERIOR DESIGN PRINCIPAL PAINTER HELPER SPRAY Unavailable Gabe Moreira MD Unavailable Dov Posadas PA-C Unavailable [phone] Reason for Visit * Reason Comments Medication Refill Encounter Details Date Type Department Care Team (Late st Contact Info) Description 01/30/2022 Refill [facility] [address] [place] [phone] Brittanie Benitez MD 5 [place] [address] Medication Refill Social History Tobacco Use Types [...] have Coronavirus / COVID-19? No / Unsure 01/13/2022 11:10 AM CDT documented as of this encounter Miscellaneous Notes * Telephone Encounter - Neeta Aaron RN - 02/01/2022 9:49 AM CDT Routing refill request to provider for review/approval because: Labs out of range: TSH Date Value Ref Range Status 01/10/2022 6.89 (H) 0.40 - 4.00 mU/L Final 09/17/2018 0.44 0.40 - 4.00 mU/L Final Will send to PCP. KATTY Santacruz documented in this encounter Plan of Treatment Not on file documented as of this encounter Visit Diagnoses Diagnosis Acquired hypothyroidism Unspecified hypothyroidism documented in this encounter Additional Health Concerns Assessment Noted Time PHQ-9 Depression Total Score: 9 01/15/20 7:02 AM CDT documented as of this encounter Care Teams Gray Mixing Operator Relationship Specialty Start Date End Date Amy Villalba Ra, APRN PAINTER HELPER SPRAY [address] NAT[address] ZURITA [address] PCP - General Family Practice 01/13/22 Eulalio Newell MD [id number] [place] [place] [address] Assigned Surgical Provider 02/14/21 Amy Villalba Ra, APRN PAINTER HELPER SPRAY [address] [place] [address] Assigned PCP 09/19/21 [place] [address] [place] [address] Assigned OBGYN Provider 10/24/21 Renetta Mckeon PA-C 5200 [place], [place] 3012892 Physician Wage And Salary Administrator Dermatology 05/03/22 Amy Villalba Ra, APRN PAINTER HELPER SPRAY [address] [place] [address] Referring Physician Family Practice 11/01/22 Pura De La Garza APRN PAINTER HELPER SPRAY 500 [place], [place] [address] Nurse Practitioner Dermatology 11/01/22 Gabe Moreira MD 420 [facility] 96 [place], [place] [address] Assigned Neuroscience Provider 12/17/22 Dov Posadas PA-C [address] 964725 Assigned Surgical Provider 04/08/23 documented as of this encounter
--- OUTSIDE RECORDS SUMMARY | 2023-10-28 20:40 | XMS_ITS | Encounter Summary ---
Author Name Unknown Organization [facility] Address [address] [place] [address] Care Team Providers Care Newspaper Delivery Counselor Name Role Phone Brittanie Benitez MD Primary Ca re Provider Brittanie Benitez MD Unavailabl e Ary Parikh MD Unavailable [phone] Eulalio Newell MD Unavailable [phone] Myranda Negron HISTOLOGY SUPERVISOR ETHNOLOGY PROFESSOR Unavailable + Amy Villalba Ra HISTOLOGY SUPERVISOR ETHNOLOGY PROFESSOR Unavailable + [phone] Priscilla Carbajal DO Unavailable [phone] Amy Villalba Ra HISTOLOGY SUPERVISOR ETHNOLOGY PROFESSOR Primary Care Provid er Renetta Mckeon PA-C Unavailable [phone] Amy Villalba Ra HISTOLOGY SUPERVISOR ETHNOLOGY PROFESSOR Unavailable + [phone] Pura De La Garza HISTOLOGY SUPERVISOR ETHNOLOGY PROFESSOR Unavailable Gabe Moreira MD Unavailable [phone] Dov Posadas PA-C Unavailable [phone] Encounter Details Date Type Department Care Team (Late st Contact Info) Description 02/19/2020 [facility] [address] [phone] Brittanie Benitez MD [address] [place] [address] Social History Tobacco Use Types Packs/Day Years [...] encounter Miscellaneous Notes * Telephone Encounter - Janett Hutton RN - 02/19/2020 1:13 PM CDT Pt advised to do evisit for [place] antibody testing Janett Hutton RN, BSN documented in this encounter Plan [...] Score: 4 12/02/19 20 1:11 PM SUPERVISOR LATHING documented as of this encounter Care Teams Newspaper Delivery Counselor Relationship Specialty Start Date End Date Brittanie Benitez MD [address] [place] [address] PCP - General Family Practice 01/26/15 01/12/22 Amy Villlaba Ra, HISTOLOGY SUPERVISOR ETHNOLOGY PROFESSOR [address] [address] ZURITA [address] PCP - General Family Practice 01/13/22 Brittanie Benitez MD 2[address] [place] [address] Assigned PCP 07/20/17 06/05/21 Ary Parikh MD 420 [facility] 195 [place] [address] Assigned Surgical Provider 07/31/2002/13/21 Eulalio Newell MD [id number] [place] [address] Assigned Surgical Provider 02/14/21 Myranda Negron APRN ETHNOLOGY PROFESSOR [address] [place] [address] Assigned PCP 06/06/21 09/18/21 Amy Villalba Ra, APRN ETHNOLOGY PROFESSOR [address] [address] [facility] [place] [address] Assigned PCP 09/19/21 [place] [address] [place] [address] Assigned OBGYN Provider 10/24/21 Renetta Mckeon PA-C 5200 [place] [address] Physician News Operations Manager Dermatology 05/03/22 Amy Villalba Ra, HISTOLOGY SUPERVISOR ETHNOLOGY PROFESSOR [address] [place] [address] Referring Physician Family Practice 11/01/22 Pura De La Garza APRN ETHNOLOGY PROFESSOR [address] [place] [address] 384135 Nurse Practitioner Dermatology 11/01/22 Gabe Moreira MD [address] [place] [address] 96 [place], [place] 239055 Assigned Neuroscience Provider 12/17/22 Dov Posadas PA-C [address] 248165 Assigned Surgical Provider 04/08/23 documented as of this encounter
--- OUTSIDE RECORDS SUMMARY | 2023-10-28 20:40 | XMS_ITS | Encounter Summary ---
Author Name Unknown Organization [place] Address [address] [place] [address] Care Team Providers Care Washhouse Worker Name Role Phone Brittanie Benitez MD Primary Ca re Provider Brittanie Benitez MD Unavailabl e Brittanie Benitez MD Unavailabl e Ary Parikh MD Unavailable [phone] Eulalio Newell MD Unavailable [phone] Myranda Negron APRN DIRECTOR INSTRUMENTATION Unavailable + Amy Villalba Ra PATIENT SUPPORT ASSOCIATE DIRECTOR INSTRUMENTATION Unavailable + [phone] Priscilla Carbajal DO Unavailable [phone] Amy Villalba Ra PATIENT SUPPORT ASSOCIATE DIRECTOR INSTRUMENTATION Primary Care Provid er Renetta MckeonC Unavailable [phone] Amy Villalba Ra PATIENT SUPPORT ASSOCIATE DIRECTOR INSTRUMENTATION Unavailable + [phone] Pura De La Garza APRN DIRECTOR INSTRUMENTATION Unavailable Gabe Moreira MD Unavailable [phone] Dov PosadasC Unavailable [phone] Encounter Details Date Type Department Care Team (Late st Contact Info) Description 05/07/2018 MyC Medical Advice [address] [phone] Brittanie Benitez MD [address] [place] [address] Social History Tobacco Use Types Packs/Day Years Used Date Smoking Tobacco: Former Smokeless Tobacco: Never Comments:quit 2010 Alcohol Use Standard Drinks/Week Comments Yes 0 (1 standard drink = 0.6 oz pur e alcohol) once a year Sex and Gender Information Value Date Recorded [...] Assessment Noted Time PHQ-9 Depression Total Score: 5 02/11/20 18 7:31 AM CDT documented as of this encounter Care Teams Washhouse Worker Relationship Specialty Start Date End Date Brittanie Benitez MD [address] [place] [address] PCP - General Family Practice 01/26/15 01/12/22 Brittanie Benitez MD [address] [place] [address] PCP - Assigned PCP 07/20/17 12/11/18 Amy Villalba Ra, PATIENT SUPPORT ASSOCIATE DIRECTOR INSTRUMENTATION [address] [place] [address] PCP - General Family Practice 01/13/22 Brittanie Benitez MD 2155 [place] [address] Assigned PCP 07/20/17 06/05/21 Ary Parikh MD 420 [facility] 195 [place] [address] Assigned Surgical Provider 07/31/2002/13/21 Eulalio Newell MD [address] [address] Assigned Surgical Provider 02/14/21 Myranda Negron APRN DIRECTOR INSTRUMENTATION [address] [facility] [place] [place] [address] Assigned PCP 06/06/21 09/18/21 Amy Villalba Ra, APRN DIRECTOR INSTRUMENTATION [address] [facility] [facility] [place] [address] Assigned PCP 09/19/21 [place] [address] [place] [address] Assigned OBGYN Provider 10/24/21 Renetta Mckeon PA-C 5200 [place] [address] Physician Shaker Plate Operator Dermatology 05/03/22 Amy Villalba Ra, APRN DIRECTOR INSTRUMENTATION [address] [place] [address] Referring Physician Family Practice 11/01/22 Pura De La Garza APRN DIRECTOR INSTRUMENTATION [address] [place] [address] Nurse Practitioner Dermatology 11/01/22 Gabe Moreira MD [address] [place] [address] 96 [place] [address] Assigned Neuroscience Provider 12/17/22 Dov Posadas PA-C [address] [address] Assigned Surgical Provider 04/08/23 documented as of this encounter
--- OUTSIDE RECORDS SUMMARY | 2023-10-28 20:40 | XMS_ITS | Encounter Summary ---
Author Name Unknown Organization [place] Address [address] [place] [address] Care Team Providers Care Hog Raiser Name Role Phone Brittanie Benitez MD Primary Ca re Provider Brittanie Benitez MD Unavailabl e Ary Parikh MD Unavailable [phone] Eulalio Newell MD Unavailable [phone] Myranda Negron MASTER TAX ADVISOR WORKER'S COMPENSATION CLAIMS EXAMINER Unavailable + Amy Villalba Ra MASTER TAX ADVISOR WORKER'S COMPENSATION CLAIMS EXAMINER Unavailable + [phone] Priscilla Carbajal DO Unavailable [phone] Amy Villalba Ra MASTER TAX ADVISOR WORKER'S COMPENSATION CLAIMS EXAMINER Primary Care Provid er Renetta Mckeon PA-C Unavailable [phone] Amy Villalba Ra MASTER TAX ADVISOR WORKER'S COMPENSATION CLAIMS EXAMINER Unavailable + [phone] Pura De La Garza MASTER TAX ADVISOR WORKER'S COMPENSATION CLAIMS EXAMINER Unavailable Gabe Moreira MD Unavailable [phone] Dov Posadas PA-C Unavailable [phone] Reason for Visit * Reason Comments Medication Refill Encounter Details Date Type Department Care Team (Late st Contact Info) Description [facility] [address] [place] [address] Brittanie Benitez MD [address] [place] [address] Medication Refill Social History Tobacco Use Types [...] long-term current use of insulin (H)- Primary Major depressive disorder, recurrent episode, moderate (H) Major depressive disorder, recurrent episode, moderate Gastroesophageal reflux disease without esophagitis Esophageal reflux Acquired hypothyroidism Unspecified hypothyroidism Bariatric surgery status S/P bariatric surgery Bariatric surgery status documented in this encounter Additional Health Concerns Infection Onset Date Last Indicated Resolved Time Rule Out COVID-19 07/01/2021 07/01/2021 07/02/2021 12:24 AM CDT Rule Out COVID-19 07/04/2021 07/04/2021 07/05/2021 6:52 PM CDT Assessment Noted Time PHQ-9 Depression Total Score: 4 12/02/19 20 1:11 PM EDUCATIONAL RESOURCE CENTER TEACHER documented as of this encounter Care Teams Hog Raiser Relationship Specialty Start Date End Date Brittanei Benitez MD [address] [place] [address] PCP - General Family Practice 01/26/15 01/12/22 Amy Villalba Ra, MASTER TAX ADVISOR WORKER'S COMPENSATION CLAIMS EXAMINER [address] [place] [address] PCP - General Family Practice 01/13/22 Brittanie Benitez MD [address] [place], [place] [address] Assigned PCP 07/20/17 06/05/21 Ary Parikh MD 420 [facility] 195 [place], [place] 647695 Assigned Surgical Provider 07/31/2002/13/21 Eulalio Newell MD [address] [facility] [address] [address] Assigned Surgical Provider 02/14/21 Myranda Negron APRN WORKER'S COMPENSATION CLAIMS EXAMINER [address] [address] [facility] [address] Assigned PCP 06/06/21 09/18/21 Amy Villalba Ra, APRN WORKER'S COMPENSATION CLAIMS EXAMINER [address] [place] [address] Assigned PCP 09/19/21 [place] [address] [facility] [place] [address] Assigned OBGYN Provider 10/24/21 Renetta Mckeon PA-C 5200 [place] [address] Physician Blasting Gang Miner Dermatology 05/03/22 Amy Villalba Ra, APRN WORKER'S COMPENSATION CLAIMS EXAMINER [address] [address] [place] [address] Referring Physician Family Practice 11/01/22 Pura De La Garza APRN WORKER'S COMPENSATION CLAIMS EXAMINER [address] [place] [address] Nurse Practitioner Dermatology 11/01/22 Gabe Moreira MD [address] [place] [address] 96 [place], [place] 449585 Assigned Neuroscience Provider 12/17/22 Dov Posadas PA-C [address] [address] Assigned Surgical Provider 04/08/23 documented as of this encounter
--- OUTSIDE RECORDS SUMMARY | 2023-10-28 20:40 | XMS_ITS | Encounter Summary ---
Author Name Unknown Organization [place] Address [address] [place] [address] Care Team Providers Care Human Resources Operations Coordinator Name Role Phone Brittanie Benitez MD Primary Ca re Provider Brittanie Benitez MD Unavailabl e Ary Parikh MD Unavailable [phone] Eulalio Newell MD Unavailable [phone] Myranda Negron CASE WORKER ALLERGY AND IMMUNOLOGY SPECIALIST Unavailable + Amy Villalba Ra CASE WORKER ALLERGY AND IMMUNOLOGY SPECIALIST Unavailable + [phone] Priscilla Carbajal DO Unavailable [phone] Amy Villalba Ra CASE WORKER ALLERGY AND IMMUNOLOGY SPECIALIST Primary Care Provid er Renetta Mckeon PA-C Unavailable [phone] Amy Villalba Ra CASE WORKER ALLERGY AND IMMUNOLOGY SPECIALIST Unavailable + [phone] Pura De La Garza CASE WORKER ALLERGY AND IMMUNOLOGY SPECIALIST Unavailable Gabe Moreira MD Unavailable +[phone] Dov Posadas PA-C Unavailable [phone] Reason for Visit * Reason Comments Medication Refill Encounter Details Date Type Department Care Team (Late st Contact Info) Description [facility] [address] [place] [address] Brittanie Benitez MD [address] [place] [address] Medication Refill Social History Tobacco Use Types [...] Total Score: 4 12/02/19 20 1:11 PM BRICK AND BLOCKER AID LABOR documented as of this encounter Care Teams Human Resources Operations Coordinator Relationship Specialty Start Date End Date Brittanie Benitez MD [address] [address] PCP - General Family Practice 01/26/15 01/12/22 Amy Villalba Ra, CASE WORKER ALLERGY AND IMMUNOLOGY SPECIALIST [address] [place] [address] PCP - General Family Practice 01/13/22 Brittanie Benitez MD [address] [place] [address] Assigned PCP 07/20/17 06/05/21 Ary Parikh MD 420 [facility] 195 [place] [address] Assigned Surgical Provider 07/31/2002/13/21 Eulalio Newell MD [id number] [place] [address] Assigned Surgical Provider 02/14/21 Myranda Negron APRN ALLERGY AND IMMUNOLOGY SPECIALIST [address] [place] [address] Assigned PCP 06/06/21 09/18/21 Amy Villalba Ra, CASE WORKER ALLERGY AND IMMUNOLOGY SPECIALIST [address] [place] [address] Assigned PCP 09/19/21 [place] [address] [place] [address] Assigned OBGYN Provider 10/24/21 Renetta Mckeon PA-C [address] [place] [address] Physician Software Manager Dermatology 05/03/22 Amy Villalba Ra, CASE WORKER ALLERGY AND IMMUNOLOGY SPECIALIST [address] [place] [address] Referring Physician Family Practice 11/01/22 Pura De La Garza, CASE WORKER ALLERGY AND IMMUNOLOGY SPECIALIST [address] [place] [address] Nurse Practitioner Dermatology 11/01/22 Gabe Moreira MD 420 [facility] 96 [place], [place] [address] Assigned Neuroscience Provider 12/17/22 Dov Posadas PA-C [address] [place] [place] [address] Assigned Surgical Provider 04/08/23 documented as of this encounter
--- OUTSIDE RECORDS SUMMARY | 2023-10-28 20:40 | XMS_ITS | Encounter Summary ---
Author Name Unknown Organization [place] Address [address] [place] [address] Care Team Providers Care Leveling Machine Operator Name Role Phone Brittanie Benitez MD Primary Ca re Provider Brittanie Benitez MD Unavailabl e Ary Parikh MD Unavailable [phone] Eulalio Newell MD Unavailable [phone] Myranda Negron ASSEMBLER CORNCOB PIPES MATERIAL STRESS TESTER Unavailable + Amy Villalba Ra ASSEMBLER CORNCOB PIPES MATERIAL STRESS TESTER Unavailable + [phone] Priscilla Carbajal DO Unavailable [phone] Amy Villalba Ra ASSEMBLER CORNCOB PIPES MATERIAL STRESS TESTER Primary Care Provid er Renetta Mckeon PA-C Unavailable [phone] Amy Villalba Ra ASSEMBLER CORNCOB PIPES MATERIAL STRESS TESTER Unavailable + [phone] Pura De La Garza ASSEMBLER CORNCOB PIPES MATERIAL STRESS TESTER Unavailable Gabe Moreira MD Unavailable +[phone] Dov Poasdas PA-C Unavailable [phone] Reason for Visit * Reason Onset Date Comments Patient Request 07/07/2020 appointment Encounter Details Date Type Department Care Team (Late st Contact Info) Description 07/07/2020 Telephone [facility] [address] [place] [id number] Brittanie Benitez MD [address] [place] [address] Patient Request (appointment) Social History Tobacco Use Types Packs/Day Years [...] have Coronavirus / COVID-19? No / Unsure 06/19/2020 10:22 AM CDT documented as of this encounter Miscellaneous Notes * Telephone Encounter - Neeta Aaron RN - 07/07/2020 3:10 PM CDT Left message on answering machine for patient to call clinic triage. We don't have any appts with your PCP this week. Provider is out of clinic later in the week. Please let us know if you would like to get an appt with another provider. KATTY Santacruz * Telephone Encounter - Rosy Delgado - 07/07/2020 7:16 AM CDT Reason for Call: Other call back Detailed comments: pt states has excruciating leg pain since Monday ,would like to see provider said she is a regular and knows provider sets those appointments aside for her so she can be squeezed in. Phone Number Patient can be reached at: Home number on file [phone] (home) Best Time: prateek Can we leave a detailed message on this number? 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 documented as of this encounter Care Teams Leveling Machine Operator Relationship Specialty Start Date End Date Brittanie Benitez MD [address] [place] [address] PCP - General Family Practice 01/26/15 01/12/22 Amy Villalba Ra, ASSEMBLER CORNCOB PIPES MATERIAL STRESS TESTER [address] [place] [address] PCP - General Family Practice 01/13/22 Brittanie Benitez MD [address] [place] [address] Assigned PCP 07/20/17 06/05/21 Ary Parikh MD 420 [facility] 195 [place], [place] [address] Assigned Surgical Provider 07/31/2002/13/21 Eulalio Newell MD [id number] [place] [address] Assigned Surgical Provider 02/14/21 Myranda Negron APRN MATERIAL STRESS TESTER [address] [place] [address] Assigned PCP 06/06/21 09/18/21 Amy Villalba Ra, APRN MATERIAL STRESS TESTER [address] [place] [address] Assigned PCP 09/19/21 [place] [address] [facility] [place] [address] Assigned OBGYN Provider 10/24/21 Renetta Mckeon PA-C [address] [place] [address] Physician Recruitment Manager Dermatology 05/03/22 Amy Villalba Ra, ASSEMBLER CORNCOB PIPES MATERIAL STRESS TESTER [address] [place] [address] Referring Physician Family Practice 11/01/22 Pura De La Garza APRN MATERIAL STRESS TESTER [address] [place], [place] [address] Nurse Practitioner Dermatology 11/01/22 Gabe Moreira MD [address] [place] [address] [address] [place], [place] [address] Assigned Neuroscience Provider 12/17/22 Dov Posadas PA-C [address] [place] [address] Assigned Surgical Provider 04/08/23 documented as of this encounter
--- OUTSIDE RECORDS SUMMARY | 2023-10-28 20:40 | XMS_ITS | Encounter Summary ---
Author Name Unknown Organization [place] Address [address] [place] [address] Care Team Providers Care Sales Financial Analyst Name Role Phone Brittanie Benitez MD Primary Ca re Provider Eulalio Newell MD Unavailable [phone] Amy Villalba Ra, APRN SCRAP BALLER Unavailable Priscilla Carbajal DO Unavailable [phone] Amy Villalba Ra, APRN SCRAP BALLER Primary Care Provid er Renetta Mckeon PA-C Unavailable Amy Villalba Ra, APRN SCRAP BALLER Unavailable + [phone] Pura De La Garza APRN SCRAP BALLER Unavailable Gabe Moreira MD Unavailable [phone] Dov Posadas PA-C Unavailable [phone] Encounter Details Date Type Department Care Team (Late st Contact Info) Description 10/28/2021 My[facility] Medical Advice [facility] [address] [place] [address] Skye Saldana Social History Tobacco Use Types [...] have Coronavirus / COVID-19? No / Unsure 10/26/2021 9:25 AM TEST PREPARATION TUTOR documented as of this encounter Plan of Treatment Not on file documented as of this encounter Visit Diagnoses Not on filedocumented in this encounter Additional Health Concerns Assessment Noted Time PHQ-9 Depression Total Score: 14 022 10:10 AM TEST PREPARATION TUTOR documented as of this encounter Care Teams Sales Financial Analyst Relationship Specialty Start Date End Date Brittanie Benitez MD [address] [place] [address] PCP - General Family Practice 01/26/15 01/12/22 Amy Villalba Ra, APRN SCRAP BALLER [address] [place] [address] PCP - General Family Practice 01/13/22 Eulalio Newell MD [id number] [place] [address] Assigned Surgical Provider 02/14/21 Amy Villalba Ra, APRN SCRAP BALLER [address] [place] [address] Assigned PCP 09/19/21 [place] [address] [place] [address] Assigned OBGYN Provider 10/24/21 Renetta Mckeon PA-C [address] [place], [place] [address] Physician Battery Repairer Dermatology 05/03/22 Amy Villalba Ra, APRN SCRAP BALLER [address] [place], [place] [address] Referring Physician Family Practice 11/01/22 Pura De La Garza APRN SCRAP BALLER [address] [place] [address] Nurse Practitioner Dermatology 11/01/22 Gabe Moreira MD 420 [facility] 96 [place] [address] Assigned Neuroscience Provider 12/17/22 Dov Posadas PA-C [address] [place] [address] Assigned Surgical Provider 04/08/23 documented as of this encounter
--- OUTSIDE RECORDS SUMMARY | 2023-10-28 20:40 | XMS_ITS | Encounter Summary ---
Author Name Unknown Organization [place] Address [address] [place] [address] Care Team Providers Care Mergers And Acquisitions Associate Name Role Phone Brittanie Benitez MD Primary Ca re Provider Brittanie Benitez MD Unavailabl e Ary Parikh MD Unavailable [phone] Eulalio Newell MD Unavailable [phone] Myranda Negron HOME ADMINISTRATOR IMMIGRATION INSPECTOR Unavailable + Amy Villalba Ra HOME ADMINISTRATOR IMMIGRATION INSPECTOR Unavailable + [phone] Priscilla Carbajal DO Unavailable [phone] Amy Villalba Ra HOME ADMINISTRATOR IMMIGRATION INSPECTOR Primary Care Provid er Renetta Mckeon PA-C Unavailable [phone] Amy Villalba Ra HOME ADMINISTRATOR IMMIGRATION INSPECTOR Unavailable + [phone] Pura De La Garza HOME ADMINISTRATOR IMMIGRATION INSPECTOR Unavailable Gabe Moreira MD Unavailable [phone] Dov Posadas PA-C Unavailable [phone] Encounter Details Date Type Department Care Team (Late st Contact Info) Description 04/24/2019 [facility] [address] [address] Renetta Camargo CMA Social History Tobacco Use Types Packs/Day Years Used Date Smoking Tobacco: Former Smokeless Tobacco: Never Comments:quit 2010 Alcohol Use Standard Drinks/Week Comments Yes 0 (1 standard drink = 0.6 oz pur e alcohol) once a year PHQ-2 Answer Date Recorded PHQ-2 Score 0 10/17/2018 Sex and Gender Information Value Date Recorded [...] Noted Time PHQ-9 Depression Total Score: 13 019 9:55 AM CDT documented as of this encounter Care Teams Mergers And Acquisitions Associate Relationship Specialty Start Date End Date Brittanie Benitez MD [address] [address] PCP - General Family Practice 01/26/15 01/12/22 Amy Villalba Ra, HOME ADMINISTRATOR IMMIGRATION INSPECTOR [address] [place] [address] PCP - General Family Practice 01/13/22 Brittanie Benitez MD [address] [place] [address] Assigned PCP 07/20/17 06/05/21 Ary Parikh MD [address] [place] [address] Assigned Surgical Provider 07/31/2002/13/21 Eulalio Newell MD [address] [facility]440 [place] [address] Assigned Surgical Provider 02/14/21 Myranda Negron APRN IMMIGRATION INSPECTOR [address] [address] [facility] [place] [address] Assigned PCP 06/06/21 09/18/21 Amy Villalba Ra, APRN IMMIGRATION INSPECTOR [address] [address] [facility] [place] [address] Assigned PCP 09/19/21 [place] [address] [facility] [place] [address] Assigned OBGYN Provider 10/24/21 Renetta Mckeon PADagobertoC [address] [place] [address] Physician Extras Casting Director Dermatology 05/03/22 Amy Villalba Ra, APRN IMMIGRATION INSPECTOR [address] [address] [facility] [place] [address] Referring Physician Family Practice 11/01/22 Pura De La Garza APRN IMMIGRATION INSPECTOR [address] [place] [address] Nurse Practitioner Dermatology 11/01/22 Gabe Moreira MD [address] [place] [address] Assigned Neuroscience Provider 12/17/22 Dov Posadas PA-C [address] [place] [address] Assigned Surgical Provider 04/08/23 documented as of this encounter
--- OUTSIDE RECORDS SUMMARY | 2023-10-28 20:41 | XMS_ITS ---
Author Name Unknown Organization [place] Address [address] [place] [address] Care Team Providers Care Mattress And Boxsprings Supervisor Name Role Phone Amy Villalba Ra, APRN ASSESSMENT DIRECTOR Unavailable Amy Villalba Ra, APRN ASSESSMENT DIRECTOR Primary Care Provid er Renetta Mckeon PA-C Unavailable [phone] Amy Villalba Ra, APRN ASSESSMENT DIRECTOR Unavailable Pura De La Garza APRN ASSESSMENT DIRECTOR Unavailable Gabe Moreira MD Unavailable Dov PosadasC Unavailable [phone] Transitional Care Management Status:Disenrolled (Closed) Start date:11/26/2022 End date:11/28/2022 Continued Care and Services Coordination
--- OUTSIDE RECORDS SUMMARY | 2023-10-28 20:41 | XMS_ITS | Clinical Summary ---
Author Name Unknown Organization [facility] Address [place], [place] [address] Care Team Providers Care Pen Maker Name Role Phone Kennedi Guadalupe MD Unavailable + Clinic, [facility] Primary Care Provider Allergies Active Allergy Reactions Criticality Noted Date Comments Lisinopril Cough Medium 09/25/2008 Sulfa (Sulfonamide Antibiotics) Hives 03/09 Medications Medication Sig Dispensed Refills Start Date End Date Status cholecalciferol (VITAMIN D) 2,000 unit capsule Take 1 capsule by mouth once daily. 0 Active Cyanocobalamin (VITAMIN B-12) 2,[address] 1 tablet under the tongue. Every other day 30 tablet 0 12/22/2011 Active acetaminophen (TYLENOL) 325 mg tablet Take 1-2 tablets by mouth every 4 hours if needed for Other (Specify) (mild pain). Max acetaminophen dose: 4000mg in 24 hrs. 100 tablet 0 05/03/2012 Active buPROPion (WELLBUTRIN XL) 150 mg Extended-Release tablet Take 3 tablets a day (450mg total) daily 240 tablet 4 12/18/2012 Active ferrous sulfate 325 mg delayed release tablet Take 1 tablet by mouth once daily. 0 12/02/2013 Active levothyroxine (SYNTHROID) 200 mcg tablet Take one tablet by daily for a total of 225mcg daily. 93 tablet 3 02/26/2014 Active omeprazole (PRILOSEC) 20 mg Delayed-Release capsule TAKE 1 CAPSULE(20 MG) BY MOUTH DAILY 0 01/14/2021 Active metFORMIN (GLUCOPHAGE XR) 500 mg Extended-Release tablet TAKE 1 TABLET(500 MG) BY MOUTH DAILY WITH DINNER 0 12/03/2021 Active eszopiclone (LUNESTA) 3 mg tablet TAKE 1 TABLET BY MOUTH AT NIGHT NEEDED 0 12/03/2021 Active escitalopram oxalate (LEXAPRO) 10 mg tablet Take 10 mg by mouth. 0 12/03/2021 Ac tive ascorbic acid chewable (VITAMIN C) 500 mg tablet TAKE 1 TABLET BY MOUTH DAILY WITH IRON SUPPLEMENT 0 07/28/2020 Active estradioL (ESTRACE) 0.01% (0.1 mg/g) vaginal cream Insert 2 g into the vagina. 0 10/28/2021 Active multivitamins-iro n tablet Take 1 Tablet by mouth once daily. 0 07/30/2021 Active drospirenone-ethi nyl estradioL (CANDI) 3-0.02 mg tablet Take 1 Tablet by mouth once daily. 0 09/27/2022 Active cyclobenzaprine (FLEXERIL) 10 mg tabletIndications :Injury of back, initial encounter Take 1 Tablet (10 mg) by mouth 3 times daily if needed for Muscle Spasm. 15 Tablet 0 11/19/2022 Active Active Problems Problem Noted Date Diagnosed Date Delay hemorrhage 05/16/2012 Pilonidal cyst 05/16/2012 Vaginal delivery 05/01/2012 Obesity, morbid 04/30/2012 Overview: Body mass index is 54.78 kg/(m^^2) . Supervision of high-risk 02/08/2012 Overview: NEXT VISIT ALERTS: Induction scheduled for 04/30/12. Needs Vag exam on 04/26/12. Please call L&D to add cervical ripening if needed on Monday. Patient needs admission instructions. LAST GROWTH: 04/09/2012 36w1d PRIMARY DIAGNOSIS: Twin gestation with demise of baby B @ 7w3d. Type 2 Diabetes Obesity Hypothyroid PCOS REFERRING PHYSICIAN: Anayeli SPECIALISTS: Tomas Trinidad 09/22/11 First visit to and Diabetes Clinic. BEE RANCHER: CARE COORDINATION: CONSULTS: PROCEDURES: MEDS: Vitamin D plans: To discuss~ Was 21.9 on 10/20/11 Started Vit D supplement, 2,000 units daily, recheck 12/30/11 Result 28.1 On Medicare disability for PTSD, depression: switched to cymbalta Hypothyroidism: increased to 200 mcg daily Pertinent/Abnormal LABS: Baseline HELLP labs and P/C ratio done 11/21/11 per JS Ferritin level 7.9 on 12/30/11. Iron increased to 2X daily per EN. 03/12 Hgb 10.6 B12 results 1,011 on 12/30/11. Patient to follow up with Dr. Trinidad. Blood type: A negative Rhogam given 02/12 04/12 GBS positive NURSING: FOB: Marti Mckinnon Flu vaccine given 09/19/11 Non BMI 49.2 Optimal wt gain 15-20 GDM screening N/A-Type 2 Diabetic Not planning Tubal Ligation GENETICS: Date: declined for 1st OB on 10/31/11 Plan: No testing, level 2 ultrasound only MD PLAN OF CARE: (ONEYDA, 04/12/12) - Continue routine OB cares. - Per Dr. Trinidad diabetes moderate control, patient doesn't bring in log or meter, suspect she is eating more carbs than advised; her glucoses would smooth out better if she limited her carbs to 2-3 breakfast; 3-4 lunch/supper and had 1-2 choices for snacks. no adjustment in dosing. no scheduled return to clinic. plan for patient to update glucose reading via IBTgamest. -Recommend follow-up in next 24 hours to turn in 24 urine protein. Patient refused. Plan for UPC ratio and repeat HELLP labs today. Unable to obtain OB check appointment with MD for next Monday. Plan to continue twice weekly testing. On Monday, when patient is here for testing will have her turn in 24 urine protein and have repeat weight and blood pressure check. - Desires amniocentesis for FLM and induction if lungs mature. Plan to have patient meet with MD next to address delivery plan. - GBS culture collected Per previous plan Explained to patient in detail that recommendations for timing of delivery with reassuring testing and no other maternal medical indication with her h/o of type 2 diabetes, if adequate glycemic control would be between 39-40 weeks. Patient explained that Early delivery would be indicated for any non-reassuring or maternal indications. CHECKLIST FOR SCHEDULING PROCEDURES: Procedure: C/BIRTH PPTL ECV CERCLAGE INDUCTION__X____ D&C Unit: L&D DSC MAIN OR MD doing procedure: Darline Date & Time of procedure: 04/30/12 Date scheduled: 04/23/12 Scheduling MD: Darline On MPP ? Yes Gestational age on procedure date? 39w1d Amnio needed? No Amnio scheduled? N/A Does NICU need notification? No PPTL permit signed? N/A Not planning Patient notified of procedure date? Yes Needs written instructions. Anemia, iron deficiency 11/10/2011 Posttraumatic stress disorder 02/11/2010 Panic disorder without agoraphobia 02/11/2010 Major depressive disorder, r ecurrent episode, severe, without mention of psychotic behavior 02/11/2010 Unspecified essential hypertension 05/12/2008 DYSTHYMIC DISORDER, disabled 01/14/2008 DM w/o complication type II 09/17/2007 Overview: diagnosis 2007 GDM in 2005 Polycystic ovaries 07/31/2006 Unspecified hypothyroidism 03/27/2006 Resolved Problems Problem Noted Date Diagnosed Date Resolved Date AROM 05/01/2012 05/16/2012 GBS (group B Streptococcus c akash), +RV culture, currently 04/16/2012 05/16/2012 Hypothyroidism complicating 11/10/2011 05/16/2012 Pre-existing hypertension co mplicating in second trimester 11/10/2011 05/16/2012 Obesity in 11/10/2011 012 Headache in 11/10/20112011 Constipation 11/10/2011 04/12/2012 Acute sinusitis, unspecified 11/10/2011 11/21/2011 Twin with loss of one fetus at ~ 7 weeks gestation 10/31/2011 05/16/2012 Twin gestation, dichorionic diamniotic 09/20/2011 11/10/2011 Vitamin B12 deficiency 12/23/201004/12 Disturbance of skin sensation 02/19/2010 04/12/2012 Other vitamin B12 low 01/28/20102010 Yeast infection of the vagina 12/10/2009 11/10/2011 Left wrist fracture 12/10/2009 11/10/19 12 Supervision of normal first 03/27/2006 12/10/2009 Numbness of arm 04/12/2012 Overview: right Numbness of face 04/12/2012 Overview: right Vertigo, peripheral 04/12/20 12 Encounters Date Type Department Care Team Description 08/15/2023 Lab Requisition [facility] [phone] Kennedi Guadalupe MD from Last 3 Months Immunizations Name Administration Dates Next Due Influenza, IIV3 (Age >=3 years) 09/19/2011,08/15,08/14/2007,07/31/2006 Family History Medical History Relation Name Comments Heart Disease Maternal Grandfather Hyperlipidemia Maternal Grandfather Diabetes Maternal Grandmother Diabetes Mother Hypertension Mother Relation Name Status Comments Brother Alive Daughter 1 Alive x1 Daughter 2 Alive Father Alive Maternal Grandfather (Age 60 yrs ) heart problems Maternal Grandmother Alive Mother Alive Paternal Grandfather (Age 70 yrs ) heart attack Paternal Grandmother (Age 98 yrs ) old age Sister Alive Social History Tobacco Use Types Packs/Day Years Used Date Smoking Tobacco: Former Cigarettes 0.5 10.7 S tarted: 02/06/2013 Smokeless Tobacco: Never Comments:2-4 cigarettes per day Alcohol Use Standard Drinks/Week Comments Yes 0 (1 standard drink = 0.6 oz pur e alcohol) rare -- 3 drinks per year. Sex and Gender Information Value Date Recorded Sex Assigned at Not on file Gender Identity Not on file Sexual Orientation Not on file Obstetrics History Para Term AB IAB SAB Ectopic Multiple Livin g Live Births 2 2 2 0 0 0 0 0 0 2 2 Date Outcome GA Total Labor Labor/2nd/3rd Weight Sex Delivery Anes PTL Komal A1 A5 Name Cl in 06/24 Term 37w 0d 13h 00m/ 2.92 kg (6 lb 7 oz) F VAGINAL DAMIAN Natacha jose a Rivera s Comments:IOL after ami no, breathing problems and diabetes 05/01 Term 39w 2d 3.32 kg (7 lb 5 oz) F Vag Natacha ng 8 9 BG ELISEO (CALEB ) Delivery Location[facility] Comments:BLN:VIRGEN Aguero PEDS:[facility] Last Filed Vital Signs Vital Sign Reading Time Taken Comments Blood Pressure 149/87 11/19/2022 4:13 PM GRAIN FARMWORKER Pulse 56 11/19/2022 4:13 PM GRAIN FARMWORKER Temperature 36.9 ??C (98.5 ??F) 11/19/2022 4:08 PM CS T Respiratory Rate 17 11/19/2022 4:13 PM GRAIN FARMWORKER Oxygen Saturation 97% 11/19/2022 4:13 PM GRAIN FARMWORKER Inhaled Oxygen Concentration - - Weight 95.3 kg (210 lb) 11/19/2022 4:13 PM GRAIN FARMWORKER Height 170.2 cm (5' 7) 11/19/2022 4:13 PM GRAIN FARMWORKER Body Mass Index 32.89 11/19/2022 4:13 PM GRAIN FARMWORKER Plan of Treatment Health Maintenance Due Date Last Done Comments Tdap 1989 Tetanus booster 1998 Depression screening for age 12+ 07/26/2018 07/26/2017 BMI (ht and wt on same day) for age 18+ 12/17/2022 12/17/2021, 07/26/2017 COVID-19 vaccine series ( season) 2023 12/10/2021, 03/22/2021, 03/01/2021 Influenza for age 9-49 06/09/2023 1, 08/15/2008, 08/14/2007, Additional history exists Pap test for age 21-65 03/15/2026 3, 03/15/2023, 12/18/2012, Additional history exists Hepatitis C screening for age 18-79 Completed 12/10/2009, 10/23/2008, 08/14/2007, Additional history exists HIV for age 15-65 Completed 09/19/2011, , 10/23/2008, Additional history exists Pneumococcal series for age 6-64 Aged Out No longer eligible based on patient's age to complete this topic Procedures Procedure Name Priority Date/Time Associated Diagnosis Comments LAB TRACKING EVENT Routine 08/15/2023 1: 03 PM GRAIN FARMWORKER PATH TISSUE EXAM Routine 08/15/2023 1:03 PM GRAIN FARMWORKER from Last 3 Months Results * LAB TRACKING EVENT (08/15/2023 1:03 PM GRAIN FARMWORKER) Other (Other) Client Collect / Unknown 08/15/2023 1:03 PM GRAIN FARMWORKER 08/15/2023 9:03 PM GRAIN FARMWORKER Kennedi Guadalupe MD LAB [facility] [address] [place] [address], * PATH TISSUE EXAM (08/15/2023 1:03 PM GRAIN FARMWORKER) Case Report Pathology Report ?Case: [id number] ? Authorizing Provider: ??Kennedi Guadalupe ?Collected: ? 08/15/2023 1303 ? MD Michelle ? Ordering Location: ? [facility] ?Received: ?08/15/20238 ? Pathologist: ? Ld Medrano MD ? Specimen: ?Uterus, Cervix, Partial Vagina, Bilateral Fallopian Tubes, and Ovaries ? 08/18/2023 2:34 PM GRAIN FARMWORKER [facility] Final Diagnosis A) UTERUS WITH CERVIX AND BILATERAL FALLOPIAN TUBES AND OVARIES, TOTAL HYSTERECTOMY WITH BILATERAL SALPING-OOPHORECTO MY: 1. Cervix: ?? a. Endocervix and ectocervix ?? b. Papillary endocervicitis ?? c. Negative for glandular neoplasia and squamous intraepithelial lesion 2. Endometrium: ?? a. Inactive endometrium, predominantly basalis ?? b. Negative for hyperplasia and atypia 3. Myometrium: No significant histologic abnormality 4. Uterine serosa: Serosal adhesions 5. Fallopian tubes: ?? a. Paratubal adhesions ?? b. Negative for malignancy 6. Ovaries: ?? a. Para-ovarian adhesions ?? b. Follicle cysts ?? c. Negative for malignancy 7. Negative for malignancy 8. Uterine weight: 54 grams 08/18/2023 2:34 PM GRAIN FARMWORKER [facility] Clinical Information pelvic pain, menorrhagia, endometriosis 08/18/2023 2:34 PM GRAIN FARMWORKER [facility] Gross Description A) Received in formalin, labeled with the patient's name and uterus, bilateral fallopian tubes, bilateral ovaries, is a 54 gram(uterus and cervix weight only), 8 x 4.5 x 3 cm hysterectomy specimen. The 3.5 cm long, 3 cm diameter cervix has a 0.5 cm cervical os. The ectocervical mucosa is smooth with a distinct squamocolumnar junction. The endocervical canal is patent. The endometrium is red-jon smooth glistening and averages 0.2 cm thick. No endometrial lesions are identified. The myometrium is jon firm trabecular and measures 1.4 cm thick. The serosa is smooth. Two separate bilateral fimbriated fallopian tubes with attached ovaries are included in the container with no orientation. ??The fallopian tubes average 7 cm in length by 0.5 cm in diameter and the ovaries each measure 2.5 x 1.8 x 1.3 cm. ??The surfaces of the ovaries are jon and smooth with adhesions to the fallopian tubes. ??The fallopian tubes are sectioned revealing stellate lumina lined by jon unremarkable mucosa. ??The ovaries are sectioned revealing variegated jon cut surfaces. ??No adnexal lesions are appreciated Strainer Mill Operator sections are submitted: 1. Anterior cervix 2. Posterior cervix 3. Anterior endomyometrium 4. Posterior endomyometrium 5. ??First fallopian tube including entire fimbriated end 6. ??First ovary 7. ??Second fallopian tube including entire fimbriated end 8. ??Second ovary Time and date in formalin: 1325 on 08/15/2023 JPW 08/16/2023 08/18/2023 2:34 PM GRAIN FARMWORKER [facility] Microscopic Description The final diagnosis is based on microscopic examination of appropriate sections of all specimens. 08/18/2023 2:34 PM GRAIN FARMWORKER [facility] Additional Information Interpreted at [facility], Central Laboratory - [address] [place] [id number] 08/18/2023 2:34 PM GRAIN FARMWORKER [facility] Other (Uterus, Cervix, Partial Vagina, Bilateral Fallopian Tubes, and Ovaries) 08/15/2023 1:03 PM GRAIN FARMWORKER 08/15/2023 9:28 PM GRAIN FARMWORKER Kennedi Guadalupe MD PATHOLOGY/ CYTOLOGY Performing Organization Address City/State/[facility] Co de Phone Number [facility] [address] [place] [address], from Last 3 Months Advance Directives Latest Code Status on File Code Status Date Activated Date Inactivated Comments Full Code 04/30/2012 5:42 PM 05/01/2012 10:56 PM Code Status History Code Status Date Activated Date Inactivated Comments Full Code 04/30/2012 11:52 AM 04/30/2012 5:42 PM Full Code 04/30/2012 11:47 AM 04/30/2012 11:52 AM Full Code 04/21/2012 10:17 AM 04/22/2012 2:04 AM Full Code 03/22/2012 1:49 PM 03/22/2012 4:55 PM Care Teams Pen Maker Relationship Specialty Start Date End Date [facility], [facility] [address] [place] [address] PCP - General 11/19/22 Kennedi Guadalupe MD ELECTROENCEPHALOGRAPHIC TECHNICIAN Obstetrics and Gynecology 10/19/11
--- OUTSIDE RECORDS SUMMARY | 2023-10-28 20:41 | XMS_ITS | Encounter Summary ---
Author Name Unknown Organization [facility] Address [address] [place] [id number] Care Team Providers Care Ophthalmic Medical Assistant Name Role Phone Brittanie Benitez MD Primary Ca re Provider Brittanie Benitez MD Unavailabl e Brittanie Benitez MD Unavailabl e Ary Parikh MD Unavailable [phone] Eulalio Newell MD Unavailable [phone] Myranda Negron APRN SOLUTION DEVELOPER Unavailable + Amy Villalba Ra PRECISION MECHANICAL INSTRUMENT MAKER SOLUTION DEVELOPER Unavailable + [phone] Priscilla Carbajal DO Unavailable [phone] Amy Villalba Ra PRECISION MECHANICAL INSTRUMENT MAKER SOLUTION DEVELOPER Primary Care Provid er Renetta MckeonC Unavailable [phone] Amy Villalba Ra PRECISION MECHANICAL INSTRUMENT MAKER SOLUTION DEVELOPER Unavailable + [phone] Pura De La Garza APRN SOLUTION DEVELOPER Unavailable Gabe Moreira MD Unavailable [phone] Dov PosadasC Unavailable [phone] Encounter Details Date Type Department Care Team (Late st Contact Info) Description 12/06/2017 MyC Medical Advice [facility] [place] [address] [facility] [address] [place] [phone] Dov Posadas PA-C [address] [place] [address] Social History Tobacco Use Types Packs/Day Years Used Date Smoking Tobacco: Former Smokeless Tobacco: Never Alcohol Use Standard Drinks/Week Comments Not Asked 0 (1 standard drink = 0.6 oz pur e alcohol) Sex and Gender Information Value Date Recorded [...] Noted Time PHQ-9 Depression Total Score: 5 08/04/20 17 2:17 PM CDT documented as of this encounter Care Teams Ophthalmic Medical Assistant Relationship Specialty Start Date End Date Brittanie Benitez MD [address] [place] [address] PCP - General Family Practice 01/26/15 01/12/22 Brittanie Benitez MD [address] [place] [address] PCP - Assigned PCP 07/20/17 12/11/18 Amy Villalba Ra, PRECISION MECHANICAL INSTRUMENT MAKER SOLUTION DEVELOPER [address] [place] [address] PCP - General Family Practice 01/13/22 Brittanie Benitez MD [address] [place] [address] Assigned PCP 07/20/17 06/05/21 Ary Parikh MD [address] [facility] [address] [place] [address] Assigned Surgical Provider 07/31/2002/13/21 Eulalio Newell MD [address] [address] Assigned Surgical Provider 02/14/21 Myranda Negron APRN SOLUTION DEVELOPER [address] [place] [address] Assigned PCP 06/06/21 09/18/21 Amy Villalba Ra, APRN SOLUTION DEVELOPER [address] [address] [facility] [place] [address] Assigned PCP 09/19/21 [place] [address] [place] [address] Assigned OBGYN Provider 10/24/21 Renetta Mckeon PA-C [address] [place] [address] Physician Customer Success Advocate Dermatology 05/03/22 Amy Villalba Ra, APRN SOLUTION DEVELOPER [address] [place] [address] Referring Physician Family Practice 11/01/22 Pura De La Garza APRN SOLUTION DEVELOPER [address] [place] [address] Nurse Practitioner Dermatology 11/01/22 Gabe Moreira MD [address] [place] [address] [address] [place] [address] Assigned Neuroscience Provider 12/17/22 Dov Posadas PA-C [address] [place] [address] Assigned Surgical Provider 04/08/23 documented as of this encounter
[2023-10-28 20:49] LABS: Chloride* 103 mmol/L (96-114)
[2023-10-28 20:50] LABS: Potassium* 3.3 mmol/L (3.6-5.1); Sodium* 137 mmol/L (135-149)
[2023-10-28 20:52] LABS: Creatinine* 0.5 mg/dL (0.5-1.5); Est. Creatinine Clearance* 134.41; Estimated Glomerular Filt Rate 119 ml/min
[2023-10-28 20:53] LABS: Anion Gap 7 mEq/L (7-15); Blood Urea Nitrogen* 6 mg/dL (5-24); Calcium* 9.2 mg/dL (8.4-10.6); Carbon Dioxide* 27 mmol/L (20-32); Glucose* 91 mg/dL (60-115)
[2023-10-28 20:56] LABS: Basophils Percent Auto 0.1 % (0.0-3.0); Eosinophils Percent Auto 3.2 % (0.0-7.0); Hematocrit 38.2 % (33.0-51.0); Hemoglobin* 12.8 gm/dL (12.0-16.0); Immature Granulocytes Pct Auto 0.3 %; Lymphocytes Percent Auto 12.8 % (20-44); Mean Corpuscular HGB Conc 34 gm/dL (32-36); Mean Corpuscular Hemoglobin 30 pg (26-34); Mean Corpuscular Volume 88 fL (80-100); Monocytes Percent Auto 12.1 % (0.0-11.0); Neutrophils Percent Auto 71.5 % (42.0-72.0); Platelet Count* 602 K/uL (140-440); RDW Coefficient of Variation % 12.8 % (11.5-15.5); Red Blood Count 4.32 m/uL (4.00-5.20); White Blood Count* 15.18 K/uL (4.50-11.00)
[2023-10-28 21:02] LABS: Slide Review Reflex No
[2023-10-28] MEDS: HYDROmorphone 0.5 mg/0.5 ml inj IVP ×2 (21:10→23:21)
[2023-10-28] MEDS: 0.9 % SODIUM CHLORIDE 1000 ml 1,000 ML IV (22:19)
[2023-10-29] VITALS (31 sets, daily range): BP systolic 123–138; BP diastolic 62–86; PULSE 59–89; TEMP 37.3; O2SAT 90–99
[2023-10-29] MEDS: 0.9 % SODIUM CHLORIDE 1000 ml 1,000 ML IV (01:39)
[2023-10-29] MEDS: HYDROmorphone 0.5 mg/0.5 ml inj IVP ×2 (01:39→06:03)
[2023-10-29] MEDS: PIPERACILLIN/TAZOBACTAM 3.375 GM in 0.9 % SODIUM CHLORIDE Mini-bag 100 ML IVPB (01:51)
[2023-10-29] MEDS: OxyCODONE/APAP 5-325 TABLET 2 TAB PO (02:47)
[2023-10-29] MEDS: droperidoL 2.5 MG/ML inj 1.25 MG IV (06:03)
--- NOTE | 2023-10-29 06:33 | ED.NURSE ---
Patient has been accepted at [id number] Monteiro. Nurse to nurse report to be called at ~[phone]. RN to call [phone] to give nurse to nurse report. Patient transport set up for [phone].
[2023-10-29 06:55] LABS: Lactate* 0.7 mmol/L (0.5-1.9)
--- NOTE | 2023-10-29 08:28 | ED.NURSE ---
had called [facility] at 0850 to give report and spoke to monica. the nurse that was to take the report was busy with another pt and that nurse was to call back. the charge nurse Mack called here, was told that the pt is on her way and that her nurse may call at any time to get report. is on her way to [facility] via [facility].
--- NOTE | 2023-10-29 09:11 | ED.NURSE ---
report was called to paige the charge nurse.
== END 2023-10-29 08:30 | disposition other institution (70) ==
PROVIDERS: Family Medicine; Emergency Provider Emergency Medicine Emergency Medical Services; PCP Family Medicine
DX: R10.9 Unspecified abdominal pain (principal); Z98.84 Bariatric surgery status
CPT/HCPCS: 36415; 74177; 80048; 83605; 85025; 87040; 96374; 96375; 96376; 99284; 99285; A0425; A0428; A9270; J1170; J1790; J2543; J7030; Q9967

== ENCOUNTER 2023-11-27 15:42 | Outpatient (CLI) | payer MEDICARE, SELFPAY ==
--- OUTSIDE RECORDS SUMMARY | 2023-11-27 15:45 | XMS_ITS | Referral Summary ---
Author Name Unknown Organization [place] Address [facility] [place] [address] Care Team Providers Care Principal Scientist Name Role Phone Amy Villalba Ra, APRN BANQUET DIRECTOR Unavailable [phone] Amy Villalba Ra OPERATING SYSTEMS SPECIALIST BANQUET DIRECTOR Primary Care Provid er Renetta Mckeon PA-C Unavailable Amy Villalba Ra, APRN BANQUET DIRECTOR Unavailable [phone] Pura De La Garza OPERATING SYSTEMS SPECIALIST BANQUET DIRECTOR Unavailable Gabe Moreira MD Unavailable [phone] Dov Posadas PA-C Unavailable Encounters Date Type Department Care Team Description 11/16/2023 Medical Correspondence [facility] [address] [facility] [place] [address] Scan, Non-Provider 11/16/2023 MyC Medical Advice [facility] Surgery [facility] [address] [place] [address] Edie Esquivel, KATTY 11/15/2023 MyC Medical Advice [facility] [address] [place] [address] Edie Esquivel, KATTY 11/15/2023 Telephone [facility] [address] [place] [phone] Ming Ochoa MD blood in stool 11/14/2023 Telephone [facility] [address] [place] [phone] Ming Ochoa MD report new symptoms 11/13/2023 Travel 11/13/2023 9:30 AM CLOTH GRADER Office Visit [facility] [address] [place] [phone] Ming Ochoa MD Abdominal pain, unspecified abdominal location (Primary Dx) 11/10/2023 Travel 11/10/2023 10:09 AM CLOTH GRADER - 11/10/2023 11:59 PM CLOTH GRADER Hospital Encounter [facility] Imaging [address] [place] [phone] Inez Pretty MD Abdominal pain, unspecified abdominal location Discharge Disposition: Home or Self Care 11/09/2023 MyC Medical Advice [facility] [address] [place] [phone] Zaina Harris 10/29/2023 9:13 AM CLOTH GRADER - 11/01/2023 3:38 PM CLOTH GRADER Hospital Encounter [facility] General Surgery [address] [facility] [place] [phone] David Monteiro MD Weaver, Jessalyn A, MD Abdominal pain, unspecified abdominal location (Primary Dx); Internal hernia; Constipation, unspecified constipation type Discharge Disposition: Home or Self Care 09/11/2023 Refill [facility] [address] [place] [address] Amy Villalba Ra, OPERATING SYSTEMS SPECIALIST BANQUET DIRECTOR Medication Refill 09/02/2023 Refill [facility] [address] [place] [phone] Amy Villalba Ra, APRN CNP Medication Refill 09/01/2023 Refill [facility] [address] [place] [phone] Amy Villalba Ra, APRN CNP Medication Refill from Last 3 Months Allergies Active Allergy Reactions Criticality Noted Date Comments Lisinopril Cough Medium 09/25/2008 Sulfa Antibiotics Hives 03/24/2006 Medications Medication Sig Dispensed Refills Start Date End Date Status Multiple Vitamins/Iron TABSIndications:Ba riatric surgery status TAKE 1 TABLET BY MOUTH DAILY 90 tablet 3 1 Active Cholecalciferol (D3-1000) 25 MCG (1000 UT) CAPSIndications:S/ P bariatric surgery TAKE 2 CAPSULES BY MOUTH DAILY 180 capsule 3 1 Active omeprazole (PRILOSEC) [address] capsuleIndications :Bariatric surgery status,GERD without esophagitis Take 1 capsule (40 mg) by mouth daily 90 capsule 1 3 Active eszopiclone (LUNESTA) 3 MG tabletIndications: Insomnia, unspecified type TAKE 1 TABLET(3 MG) BY MOUTH AT BEDTIME 30 tablet 1 3 Active escitalopram (LEXAPRO) 20 MG tabletIndications: Major depressive disorder, recurrent episode, moderate (H),Anxiety TAKE 1 TABLET(20 MG) BY MOUTH DAILY 90 tablet 1 3 Active buPROPion (WELLBUTRIN XL) 150 MG 24 hr tabletIndications: Major depressive disorder, recurrent episode, moderate (H) TAKE 3 TABLETS(450 MG) BY MOUTH DAILY 270 tablet 1 3 Active Additional Information Patient taking differently: 300 mg Oral EVERY MORNING, Reported on 10/29/2023 metFORMIN (GLUCOPHAGE XR) 500 MG 24 hr tabletIndications: Type 2 diabetes mellitus without complication, without long-term current use of insulin (H) TAKE 1 TABLET(500 MG) BY MOUTH DAILY WITH DINNER 90 tablet 0 3 Active Additional Information Patient taking differently:500 mg OralEVERY MORNING, Reported on 10/29/2023 cyclobenzaprine (FLEXERIL) 10 MG tablet Take 10 mg by mouth nightly as needed for muscle spasms 0 Active levothyroxine (SYNTHROID/LEVOTHR OID) 112 MCG tablet Take 112 mcg by mouth daily 0 Active childrens multivitamin w/iron (FLINTSTONES COMPLETE) chewable tablet Take 1 chew tab by mouth at bedtime 0 Active albuterol (PROAIR HFA/PROVENTIL HFA/VENTOLIN HFA) 108 (90 Base) MCG/ACT inhaler Inhale 2 puffs into the lungs every 6 hours as needed for shortness of breath, wheezing or cough 0 Active estradiol (VIVELLE-DOT) 0.1 MG/24HR bi-weekly patch Place 1 patch onto the skin twice a week Alternating between 3 days and 4 days at a time 0 Active pregabalin (LYRICA) 50 MG capsule Take 50 mg by mouth 2 times daily 0 Active acetaminophen (TYLENOL) 500 MG tabletIndications: Internal hernia Take 2 tablets (1,000 mg) by mouth every 8 hours as needed for pain 0 4 Active senna-docusate (SENOKOT-S/PERICOL LAURI) 8.6-50 MG tabletIndications: Constipation, unspecified constipation type Take 1 tablet by mouth 2 times daily for 30 days 60 tablet 0 4 024 Active polyethylene glycol (MIRALAX) 17 GM/Dose powderIndications: Constipation, unspecified constipation type Take 17 g (1 Capful) by mouth daily 289 g 0 4 Active acetaminophen (TYLENOL) 500 MG tabletIndications: Internal hernia Take 1-2 tablets (500-1,000 mg) by mouth 3 times daily 100 tablet 1 3 024 Discontinued cyclobenzaprine (FLEXERIL) 5 MG tabletIndications: Acute radicular low back pain Take 1-2 tablets (5-10 mg) by mouth 3 times daily as needed for muscle spasms 60 tablet 0 3 024 Discontinued(Me d Rec(No AVS / No eCancel)) drospirenone-ethin yl estradiol (MAX) 3-0.03 MG tabletIndications: PCOS (polycystic ovarian syndrome) TAKE 1 TABLET BY MOUTH DAILY 84 tablet 1 3 024 Discontinued(Me d Rec(No AVS / No eCancel)) omeprazole (PRILOSEC) [address] capsuleIndications :Gastroesophageal reflux disease without esophagitis TAKE 1 CAPSULE(20 MG) BY MOUTH DAILY 90 capsule 1 3 024 Discontinued(Me d Rec(No AVS / No eCancel)) levothyroxine (SYNTHROID/LEVOTHR OID) 150 MCG tabletIndications: Acquired hypothyroidism TAKE 1 TABLET(150 MCG) BY MOUTH DAILY 90 tablet 1 3 024 Discontinued(Me d Rec(No AVS / No eCancel)) estradiol biweekly (VIVELLE-DOT) Patch in Place 0 024 Discontinued(Me d Rec(No AVS / No eCancel)) ondansetron (ZOFRAN ODT) 4 MG ODT tabIndications:Abd ominal pain, unspecified abdominal location Take 1 tablet (4 mg) by mouth every 8 hours as needed for nausea 15 tablet 0 4 024 oxyCODONE (ROXICODONE) 5 MG tabletIndications: Abdominal pain, unspecified abdominal location Take 1 tablet (5 mg) by mouth every 8 hours as needed for pain 12 tablet 0 4 024 amoxicillin-clavul anate (AUGMENTIN) 875-125 MG tabletIndications: Intra-Abdominal Infection Take 1 tablet by mouth every 12 hours for 4 days 8 tablet 0 4 024 Active Problems Problem Noted Date Diagnosed Date Intraabdominal mass 10/29/2023 Morbid obesity 09/06/2021 Abdominal pain 06/10/2020 Internal hernia 06/10/2020 Excess skin of abdomen 07/24/2019 Overview: Added automatically from request for surgery [id number] Class 1 obesity due to exces s [...] 0 Smokeless Tobacco: Never Tobacco Cessation:Counseling Given: Yes Comments:5 cigarettes a month Alcohol Use Standard [...] Sign Reading Time Taken Comments Blood Pressure 116/72 11/13/2023 9:27 AM CLOTH GRADER Pulse 85 11/13/2023 9:27 AM CLOTH GRADER Temperature 36.6 ??C (97.9 ??F) 11/01/2023 8:26 AM CS T Respiratory Rate 16 11/13/2023 9:27 AM CLOTH GRADER Oxygen Saturation 98% 11/13/2023 9:27 AM CLOTH GRADER Inhaled Oxygen Concentration - - Weight 82.1 kg (181 lb) 11/13/2023 9:27 AM CLOTH GRADER Height 167.6 cm (5' 6) 11/13/2023 9:27 AM CLOTH GRADER Body Mass Index 29.21 11/13/2023 9:27 AM CLOTH GRADER Plan of Treatment Not on file Procedures Procedure Name Priority Date/Time Associated Diagnosis Comments CT ABDOMEN PELVIS W CONTRAST Routine 11/10/2023 11:30 AM CLOTH GRADER Abdominal pain, unspecified abdominal location BASIC METABOLIC PANEL Routine 11/01/2023 6:32 AM CLOTH GRADER CBC WITH PLATELETS Routine 11/01/2023 6: 32 AM CLOTH GRADER CBC WITH PLATELETS Routine 10/31/2023 7: 03 AM CLOTH GRADER COMPREHENSIVE METABOLIC PANEL Routine 10/31/2023 7:03 AM CLOTH GRADER POTASSIUM Timed 10/30/2023 2:15 PM CLOTH GRADER CBC WITH PLATELETS Routine 10/30/2023 7: 10 AM CLOTH GRADER BASIC METABOLIC PANEL Routine 10/30/2023 7:10 AM CLOTH GRADER GLUCOSE BY METER Routine 10/29/2023 11:5 8 PM CLOTH GRADER GLUCOSE BY METER Routine 10/29/2023 12:0 0 PM CLOTH GRADER HEMOGLOBIN A1C Routine 10/29/2023 11:53 AM CLOTH GRADER PHOSPHORUS STAT 10/29/2023 11:53 AM CLOTH GRADER MAGNESIUM STAT 10/29/2023 11:53 AM CLOTH GRADER LACTIC ACID WHOLE BLOOD STAT 10/29/2023 11:53 AM CLOTH GRADER LIPASE STAT 10/29/2023 11:53 AM CLOTH GRADER COMPREHENSIVE METABOLIC PANEL STAT 10/29/2023 11:53 AM CLOTH GRADER CBC WITH PLATELETS STAT 10/29/2023 11 :53 AM CLOTH GRADER from Last 3 Months Results * CT Abdomen Pelvis w Contrast (11/10/2023 11:30 AM CLOTH GRADER) Anatomical Region Laterality Modality Abdomen/Pelvis, SUBRAD CT ROB DY, UMP CT ABDOMEN PELVIS, RAD CT Computed Tomography Impressions 11/10/2023 1:49 PM CLOTH GRADER IMPRESSION: 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 This may represent inflammatory tissue. Chronic leak possible. Other etiologies such as fibromatosis not excluded, although the abnormality has decreased in size when compared to 10/28/2023. SUKHWINDER MORALES MD Narrative 11/10/2023 1:[address] ABDOMEN PELVIS W CONTRAST 11/10/2023 11:30 AM CLINICAL HISTORY: Abdominal pain, unspecified abdominal location. TECHNIQUE: CT scan of the abdomen and pelvis was performed following injection of IV contrast. Multiplanar reformats were obtained. Dose reduction techniques were used. CONTRAST: 91 mL Isovue-370 COMPARISON: 08/04/2020, outside CT 10/28/2023 FINDINGS: LOWER CHEST: Normal. HEPATOBILIARY: Normal. PANCREAS: Normal. SPLEEN: Normal. ADRENAL GLANDS: Normal. KIDNEYS/BLADDER: Normal. BOWEL: There is irregular soft tissue in the small bowel mesentery adjacent to the jejunojejunostomy. On series 3 image 122 this soft tissue measures 6 x 2.5 cm. On the recent outside CT, there was a larger abnormality, measuring 7 x 4.5 cm when measured in a similar fashion. On the prior study the abnormality contained ill-defined fluid as well as soft tissue. This fluid has resolved. There is no bowel obstruction. No extraluminal gas. PELVIC ORGANS: Hysterectomy. ADDITIONAL FINDINGS: None. MUSCULOSKELETAL: Normal. Procedure Note Sukhwinder Morales MD - 11/10/2023 CT ABDOMEN PELVIS W CONTRAST 11/10/2023 11:30 AM CLINICAL HISTORY: Abdominal pain, unspecified abdominal location. TECHNIQUE: CT scan of the abdomen and pelvis was performed following injection of IV contrast. Multiplanar reformats were obtained. Dose reduction techniques were used. CONTRAST: 91 mL Isovue-370 COMPARISON: 08/04/2020, outside CT 10/28/2023 FINDINGS: LOWER CHEST: Normal. HEPATOBILIARY: Normal. PANCREAS: Normal. SPLEEN: Normal. ADRENAL GLANDS: Normal. KIDNEYS/BLADDER: Normal. BOWEL: There is irregular soft tissue in the small bowel mesentery adjacent to the jejunojejunostomy. On series 3 image 122 this soft tissue measures 6 x 2.5 cm. On the recent outside CT, there was a larger abnormality, measuring 7 x 4.5 cm when measured in a similar fashion. On the prior study the abnormality contained ill-defined fluid as well as soft tissue. This fluid has resolved. There is no bowel obstruction. No extraluminal gas. PELVIC ORGANS: Hysterectomy. ADDITIONAL FINDINGS: None. MUSCULOSKELETAL: Normal. IMPRESSION: 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 This may represent inflammatory tissue. Chronic leak possible. Other etiologies such as fibromatosis not excluded, although the abnormality has decreased in size when compared to 10/28/2023. SUKHWINDER MORALES MD Inez Pretty MD [facility] [place] ORDERABLES * (ABNORMAL) Basic metabolic panel (11/01/2023 6:32 AM CLOTH GRADER) Only the most recent of2 resultswithin the time period is included. Sodium 141 135 - 145 mmol/L 11/01/2023 7:31 AM [facility] Comment:Reference intervals for this test were updated on 07/04/2023 to more accurately reflect our healthy population. There may be differences in the flagging of prior results with similar values performed with this method. Interpretation of those prior results can be made in the context of the updated reference intervals. Potassium 5.1 3.4 - 5.3 mmol/L 11/01/2023 7:31 AM [facility] Comment:Specimen moderately hemolyzed. The reported potassium value *IS LIKELY TO BE FALSELY ELEVATED* and should be interpreted with caution for clinical decision making. Analysis of a non-hemolyzed specimen (i.e. re-draw) may result in a lower potassium value. Chloride 105 98 - 107 mmol/L 11/01/2023 7:31 AM [facility] Carbon Dioxide (CO2) 28 22 - 29 mmol/L 11/01/2023 7:31 AM [facility] Anion Gap 8 7 - 15 mmol/L 11/01/2023 7:31 AM [facility] Urea Nitrogen 3.7(L) 6.0 - 20.0 mg/dL 11/01/2023 7:31 AM [facility] Creatinine 0.49(L) 0.51 - 0.95 mg/dL 11/01/2023 7:31 AM [facility] GFR Estimate >90 >60 mL/min/1. 73m2 11/01/2023 7:31 AM [facility] Calcium 8.6 8.6 - 10.0 mg/dL 11/01/2023 7:31 AM [facility] Glucose 95 70 - 99 mg/dL 11/01/2023 7:31 AM [facility] Blood STRUCTURE OF RIGHT UPPER LIMB / Unknown Venipuncture / Unknown 11/01/2023 6:32 AM CLOTH GRADER 11/01/2023 6:48 AM [facility] Inez Pretty MD LAB - BLOOD ORDER KEVIN LABORATORY [facility] [address], [address] [place] [address], [facility] [phone] * (ABNORMAL) CBC with platelets (11/01/2023 6:32 AM [facility]) Only the most recent of4 resultswithin the time period is included. WBC Count 9.5 4.0 - 11.0 10e3/uL 11/01/2023 6:51 AM [facility] RBC Count 3.69(L) 3.80 - 5.20 10e6/uL 11/01/2023 6:51 AM [facility] Hemoglobin 10.7(L) 11.7 - 15.7 g/dL 11/01/2023 6:51 AM [facility] Hematocrit 32.4(L) 35.0 - 47.0 % 11/01/2023 6:51 AM [facility] MCV 88 78 - 100 fL 11/01/2023 6:51 AM [facility] MCH 29.0 26.5 - 33.0 pg 11/01/2023 6:51 AM [facility] MCHC 33.0 31.5 - 36.5 g/dL 11/01/2023 6:51 AM [facility] RDW 13.5 10.0 - 15.0 % 11/01/2023 6:51 AM [facility] Platelet Count 519(H) 150 - 450 10e3/uL 11/01/2023 6:51 AM [facility] Blood STRUCTURE OF RIGHT UPPER LIMB / Unknown Venipuncture / Unknown 11/01/2023 6:32 AM [facility] 11/01/2023 6:48 AM [facility] Inez Pretty MD LAB - BLOOD ORDER KEVIN LABORAT[facility] [address], [address] [place] [address], [facility] [phone] * (ABNORMAL) Comprehensive metabolic panel (10/31/2023 7:03 AM [facility]) Only the most recent of2 resultswithin the time period is included. [facility] Sodium 138 135 - 145 mmol/L 10/31/2023 7:54 AM [facility] Comment:Reference intervals for this test were updated on 07/04/2023 to more accurately reflect our healthy population. There may be differences in the flagging of prior results with similar values performed with this method. Interpretation of those prior results can be made in the context of the updated reference intervals. Potassium 4.2 3.4 - 5.3 mmol/L 10/31/2023 7:54 AM [facility] Carbon Dioxide (CO2) 30(H) 22 - 29 mmol/L 10/31/2023 7:54 AM [facility] Anion Gap 5(L) 7 - 15 mmol/L 10/31/2023 7:54 AM [facility] Urea Nitrogen 4.1(L) 6.0 - 20.0 mg/dL 10/31/2023 7:54 AM [facility] Creatinine 0.58 0.51 - 0.95 mg/dL 10/31/2023 7:54 AM [facility] GFR Estimate >90 >60 mL/min/1. 73m2 10/31/2023 7:54 AM [facility] Calcium 8.8 8.6 - 10.0 mg/dL 10/31/2023 7:54 AM [facility] Chloride 103 98 - 107 mmol/L 10/31/2023 7:54 AM [facility] Glucose 100(H) 70 - 99 mg/dL 10/31/2023 7:54 AM [facility] Alkaline Phosphatase 82 40 - 150 U/L 10/31/2023 7:54 AM [facility] Comment:Reference intervals for this test were updated on 08/22/2023 to more accurately reflect our healthy population. There may be differences in the flagging of prior results with similar values performed with this method. Interpretation of those prior results can be made in the context of the updated reference intervals. AST 16 0 - 45 U/L 10/31/2023 7:54 AM [facility] Comment:Reference intervals for this test were updated on 03/20/2023 to more accurately reflect our healthy population. There may be differences in the flagging of prior results with similar values performed with this method. Interpretation of those prior results can be made in the context of the updated reference intervals. ALT 10 0 - 50 U/L 10/31/2023 7:54 AM [facility] Comment:Reference intervals for this test were updated on 03/20/2023 to more accurately reflect our healthy population. There may be differences in the flagging of prior results with similar values performed with this method. Interpretation of those prior results can be made in the context of the updated reference intervals. Protein Total 6.2(L) 6.4 - 8.3 g/dL 10/31/2023 7:54 AM [facility] Albumin 2.7(L) 3.5 - 5.2 g/dL 10/31/2023 7:54 AM [facility] Bilirubin Total 0.2 <=1.2 mg/dL 10/31/2023 7:54 AM [facility] Blood STRUCTURE OF RIGHT UPPER LIMB / Unknown Venipuncture / Unknown 10/31/2023 7:03 AM CLOTH GRADER 10/31/2023 7:24 AM CLOTH GRADER Inez Pretty MD LAB - BLOOD ORDER [facility]IN [facility] [address], [address] [place] [address], [place] [phone] * Potassium (10/30/2023 2:15 PM CLOTH GRADER) Potassium 4.0 3.4 - 5.3 mmol/L 10/30/2023 2:43 PM CLOTH GRADER LABORATORY Blood STRUCTURE OF LEFT HAND / Unknown Venipuncture / Unknown 10/30/2023 2:15 PM CLOTH GRADER 10/30/2023 2:21 PM CLOTH GRADER Inez Pretty MD LAB - BLOOD ORDER KEVIN Performing Organization Address City/[facility]/ZIP Co de Phone Number LABORATORY [facility] [address], [address] [place] [address], [place] [phone] * Glucose by meter (10/29/2023 11:58 PM CLOTH GRADER) Only the most recent of2 resultswithin the time period is included. GLUCOSE BY METER POCT 83 70 - 99 mg/dL 10/30/2023 12:05 AM CLOTH GRADER LABORATORY POC Blood, Capillary BLOOD SPECIMEN / Unknown 10/29/2023 11:58 PM CLOTH GRADER 10/30/2023 12:05 AM CLOTH GRADER David Monteiro MD LAB - BEAKER POCT LABORATORY POC [facility] [address], [address] [place] [address], [place] [phone] * Phosphorus (10/29/2023 11:53 AM CLOTH GRADER) Phosphorus 3.4 2.5 - 4.5 mg/dL 10/29/2023 12:25 PM [facility]ER LABORATORY Blood STRUCTURE OF LEFT UPPER LIMB / Unknown Venipuncture / Unknown 10/29/2023 11:53 AM CLOTH GRADER 10/29/2023 11:59 AM CLOTH GRADER Leticia Sales MD LAB - BLOOD ORDERAB LES LABORATORY [facility] [address], [place] [address] [address], [facility] [phone] * Magnesium (10/29/2023 11:53 AM CLOTH GRADER) Magnesium 1.8 1.7 - 2.3 mg/dL 10/29/2023 12:25 PM CLOTH GRADER LABORATORY Blood STRUCTURE OF LEFT UPPER LIMB / Unknown Venipuncture / Unknown 10/29/2023 11:53 AM CLOTH GRADER 10/29/2023 11:59 AM CLOTH GRADER Leticia Sales MD LAB - BLOOD ORDERAB LES Performing Organization Address City/[facility]/ZIP Co de Phone Number LABORATORY [facility] [address], [address] [place] [address], [facility] [phone] * (ABNORMAL) Lipase (10/29/2023 11:53 AM CLOTH GRADER) Lipase 12(L) 13 - 60 U/L 10/29/2023 12:25 PM CLOTH GRADER LABORATORY Blood STRUCTURE OF LEFT UPPER LIMB / Unknown Venipuncture / Unknown 10/29/2023 11:53 AM CLOTH GRADER 10/29/2023 11:59 AM CLOTH GRADER Leticia Sales MD LAB - BLOOD ORDERAB LES LABORATORY [facility] [address], [address] [place] [address], [facility] [phone] * Lactic acid whole blood (10/29/2023 11:53 AM CLOTH GRADER) Lactic Acid 0.8 0.7 - 2.0 mmol/L 10/29/2023 12:01 PM CLOTH GRADER LABORATORY Blood STRUCTURE OF LEFT UPPER LIMB / Unknown Venipuncture / Unknown 10/29/2023 11:53 AM CLOTH GRADER 10/29/2023 12:00 PM CLOTH GRADER Leticia Sales MD LAB - BLOOD ORDERAB LES LABORATORY [facility] [address], [address] [place] [address], [facility] [phone] * Hemoglobin A1c (10/29/2023 11:53 AM CLOTH GRADER) Hemoglobin A1C 5.5 <5.7 % 10/29/2023 12:22 PM [facility] LABORATORY Comment: Normal <5.7% Prediabetes 5.7-6.4% ?? Diabetes 6.5% or higher Note: Adopted from ADA consensus guidelines. Blood STRUCTURE OF LEFT UPPER LIMB / Unknown Venipuncture / Unknown 10/29/2023 11:53 AM CLOTH GRADER 10/29/2023 11:59 AM CLOTH GRADER Leticia Sales MD LAB - BLOOD ORDERAB LES LABORATORY [facility] [address], [address] [place] [address], [facility] [phone] from Last 3 Months Advance Directives For more information, please contact: [phone] Latest Code Status on File Code Status Date Activated Date Inactivated Comments Full Code 10/29/2023 11:02 AM 11/01/2023 5:43 PM All basic and advanced life-sustaining interventions are performed as appropriate Question Answer Comments Code status determined by: Unable to discuss and no AD/POLST on file; continue PREVIOUSLY ORDERED code status Code Status History Code Status Date Activated Date Inactivated Comments Full Code 11/25/2022 1:48 AM 11/25/2022 3:20 PM All b asic and advanced life-sustaining interventions are performed as appropriate Question Answer Comments Code status determined by: Discussion with patient/ legal decision maker Full Code 06/11/2020 10:58 AM 07/20/2020 6:31 [...] until documents or legal decision maker available Care Teams Principal Scientist Relationship Specialty Start Date End Date Amy Villalab Ra, APRN BANQUET DIRECTOR [id number] [place] [address] PCP - General Family Practice 01/13/22 Amy Villalba Ra, APRN BANQUET DIRECTOR [id number] [address] [address] Assigned PCP 09/19/21 Renetta Mckeon PA-C [address] [place] [address] Physician Branch Rental Manager Dermatology 05/03/22 Amy Villalba Ra, APRN BANQUET DIRECTOR [address] [place] [address] Referring Physician Family Practice 11/01/22 Pura De La Garza APRN BANQUET DIRECTOR [address] [place] [address] [id number] Nurse Practitioner Dermatology 11/01/22 Gabe Moreira MD [address] [place] [address] [address] [place], [place] [id number] Assigned Neuroscience Provider 12/17/22 Dov Posadas PA-C [address] [place] [address] Assigned Surgical Provider 04/08/23
--- OUTSIDE RECORDS SUMMARY | 2023-11-27 15:45 | XMS_ITS | Clinical Summary ---
Author Name Unknown Organization [place] Address [address] [place] [id number] Care Team Providers Care Cessation Systems Outreach Specialist Name Role Phone Amy Villalba Ra, APRN ASPHALT SMOOTHER Unavailable Amy Villalba Ra FIBERGLASS TECHNICIAN ASPHALT SMOOTHER Primary Care Provid er Renetta Mckeon PA-C Unavailable [phone] Amy Villalba Ra, APRN ASPHALT SMOOTHER Unavailable Pura De La Garza APRN ASPHALT SMOOTHER Unavailable Gabe Moreira MD Unavailable [phone] Dov Posadas-C Unavailable [phone] Allergies Active Allergy Reactions Criticality Noted Date [...] Overview: Added automatically from request for surgery [id number] Class 1 obesity due to exces s [...] Department Care Team Description 11/16/2023 Medical Correspondence [facility] Info Mgmt [facility] [address] [place] [address] Scan, Non-Provider 11/16/2023 MyC Medical Advice [facility] Surgery [facility] [address] [place] [phone] Edie Esquivel, KATTY 11/15/2023 MyC Medical Advice [facility] Surgery [facility] [address] [place] [phone] Edie Esquivel, KATTY 11/15/[address] [facility] [address] [place] [phone] Ming Ochoa MD blood in stool 11/14/[address] [facility] [address] [place] [phone] Ming Ochoa MD report new symptoms 11/13/2023 9:30 AM INNOVATION ANALYST Office Visit [facility] [address] [place] [phone] Ming Ochoa MD Abdominal pain, unspecified abdominal location (Primary Dx) 11/13/2023 Travel 11/10/2023 10:09 AM INNOVATION ANALYST - 11/10/2023 11:59 PM INNOVATION ANALYST Hospital Encounter [facility] [address] [place] [phone] Inez Pretty MD Abdominal pain, unspecified abdominal location Discharge Disposition: Home or Self Care 11/10/2023 Travel 11/09/[address] [facility] [address] [place] [phone] Zaina Harris 10/29/2023 9:13 AM INNOVATION ANALYST - 11/01/2023 3:38 PM INNOVATION ANALYST Hospital Encounter [facility] Surgery [address] [facility] [place] [phone] SaadedeenDavid MD Weaver, Jessalyn A, MD Abdominal pain, unspecified abdominal location (Primary Dx); Internal hernia; Constipation, unspecified constipation type Discharge Disposition: Home or Self Care 09/11/2023 Refill [facility] [address] [place] [phone] Amy Villalba Ra, APRN ASPHALT SMOOTHER Medication Refill 09/02/2023 Refill M [facility] [address] [place] [phone] Amy Villalba Ra, APRN ASPHALT SMOOTHER Medication Refill 09/01/2023 Refill [facility] [address] [place] [address] Amy Villalba Ra, APRN ASPHALT SMOOTHER Medication Refill from Last 3 Months Immunizations [...] Comments Blood Pressure 116/72 11/13/2023 9:27 AM INNOVATION ANALYST Pulse 85 11/13/2023 9:27 AM INNOVATION ANALYST Temperature 36.6 ??C (97.9 ??F) 11/01/2023 8:26 AM CS T Respiratory Rate 16 11/13/2023 9:27 AM INNOVATION ANALYST Oxygen Saturation 98% 11/13/2023 9:27 AM INNOVATION ANALYST Inhaled Oxygen Concentration - - Weight 82.1 kg (181 lb) 11/13/2023 9:27 AM INNOVATION ANALYST Height 167.6 cm (5' 6) 11/13/2023 9:27 AM INNOVATION ANALYST Body Mass Index 29.21 11/13/2023 9:27 AM INNOVATION ANALYST Plan of Treatment Health Maintenance Due Date Last Done Comments CT COLONOGRAPHY 1978 FIT 1978 FLEX SIG 1978 HEPATITIS B IMMUNIZATION (1 of 3 - 3-dose series) 1978 sDNA (Cologuard) 1978 Pneumococcal Vaccine: Pediatrics (0 to 5 Years) and At-Risk Patients (6 to 64 Years) (1 of 2 - PCV) 1984 COLONOSCOPY 1988 COLORECTAL CANCER SCREENING 1988 DTAP/TDAP/TD IMMUNIZATION (1 - Tdap) 2003 MEDICARE ANNUAL WELLNESS VISIT 09/06/2022 09/06/2021, 05/09/2019 EYE EXAM 11/22/2022 11/22/2021, 01/07/2018 DIABETIC FOOT EXAM 01/13/2023 01/13/2022, 01/13/2022 COVID-19 Vaccine ( season) 2023 12/10/2021, 03/22/2021, 03/01/2021 INFLUENZA VACCINE (#1) 2023 9, 07/29/2019 (Declined), 07/29/2015, Additional history exists DEPRESSION 12 MO INDEX REPEAT PHQ-9 10/17/2023 05/11/2023, 12/15/2022, 12/15/2022, Additional history exists ANNUAL REVIEW OF HM ORDERS 11/01/2023 11/01/2022, PHQ-9 11/11/2023 05/11/2023, 03/0 06/2023, 12/15/2022, Additional history exists MICROALBUMIN 12/16/2023 12/15/2022, 09/0 05/2022, 09/06/2021, Additional history exists TSH W/FREE T4 REFLEX 12/16/2023 12/15/2022, 04/15/2022, 01/10/2022, Additional history exists A1C 04/28/2024 10/29/2023, 04/09, 12/15/2022, Additional history exists LIPID 05/05/2024 05/05/2023, 03/0 06/2023, 06/16/2022, Additional history exists MAMMO SCREENING 05/16/2024 05/16/2022, 10/09, 10/15/2021 BMP 11/01/2024 11/01/2023, 10/10, 10/30/2023, Additional history exists ADVANCE CARE PLANNING 09/06/2026 09/06/2021 HPV TEST 03/15/2028 03/15/2023, 06/0 04/2023, 05/09/2019, Additional history exists PAP 03/15/2028 03/15/2023, 06/0 04/2023, 05/09/2019, Additional history exists DEPRESSION ACTION [...] PELVIS W CONTRAST Routine 11/10/2023 11:30 AM INNOVATION ANALYST Abdominal pain, unspecified abdominal location BASIC METABOLIC PANEL Routine 11/01/2023 6:32 AM INNOVATION ANALYST CBC WITH PLATELETS Routine 11/01/2023 6: 32 AM INNOVATION ANALYST CBC WITH PLATELETS Routine 10/31/2023 7: 03 AM INNOVATION ANALYST COMPREHENSIVE METABOLIC PANEL Routine 10/31/2023 7:03 AM INNOVATION ANALYST POTASSIUM Timed 10/30/2023 2:15 PM INNOVATION ANALYST CBC WITH PLATELETS Routine 10/30/2023 7: 10 AM INNOVATION ANALYST BASIC METABOLIC PANEL Routine 10/30/2023 7:10 AM INNOVATION ANALYST GLUCOSE BY METER Routine 10/29/2023 11:5 8 PM INNOVATION ANALYST GLUCOSE BY METER Routine 10/29/2023 12:0 0 PM INNOVATION ANALYST HEMOGLOBIN A1C Routine 10/29/2023 11:53 AM INNOVATION ANALYST PHOSPHORUS STAT 10/29/2023 11:53 AM INNOVATION ANALYST MAGNESIUM STAT 10/29/2023 11:53 AM INNOVATION ANALYST LACTIC ACID WHOLE BLOOD STAT 10/29/2023 11:53 AM INNOVATION ANALYST LIPASE STAT 10/29/2023 11:53 AM INNOVATION ANALYST COMPREHENSIVE METABOLIC PANEL STAT 10/29/2023 11:53 AM INNOVATION ANALYST CBC WITH PLATELETS STAT 10/29/2023 11 :53 AM INNOVATION ANALYST from Last 3 Months Results * CT Abdomen Pelvis w Contrast (11/10/2023 11:30 AM INNOVATION ANALYST) Anatomical Region Laterality Modality Abdomen/Pelvis, SUBRAD CT ROB DY, UMP CT ABDOMEN PELVIS, RAD CT Computed Tomography Impressions 11/10/2023 1:49 PM INNOVATION ANALYST IMPRESSION: 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 This may represent inflammatory tissue. Chronic leak possible. Other etiologies such as fibromatosis not excluded, although the abnormality has decreased in size when compared to 10/28/2023. SUKHWINDER MORALES MD Narrative 11/10/2023 1:[address] ABDOMEN PELVIS W CONTRAST 11/10/2023 11:30 [...] 10/28/2023. SUKHWINDER MORALES MD Inez Pretty MD [facility] CT ORDERABLES * (ABNORMAL) Basic metabolic panel (11/01/2023 6:32 AM [facility]) Only the most recent of2 resultswithin the time period is included. [facility] Signature Sodium 141 135 - 145 mmol/L 11/01/2023 7:31 AM [facility] Comment:Reference intervals for this test were updated on 07/04/2023 to more accurately reflect our healthy population. There may be differences in the flagging of prior results with similar values performed with this method. Interpretation of those prior results can be made in the context of the updated reference intervals. Potassium 5.1 3.4 - 5.3 mmol/L 11/01/2023 7:31 AM [facility] Comment:Specimen moderately hemolyzed. The reported potassium value *IS LIKELY TO BE FALSELY ELEVATED* and should be interpreted with caution for clinical decision making. Analysis of a non-hemolyzed specimen (i.e. re-draw) may result in a lower potassium value. Chloride 105 98 - 107 mmol/L 11/01/2023 7:31 AM [facility] Carbon Dioxide (CO2) 28 22 - 29 mmol/L 11/01/2023 7:31 AM [facility] Anion Gap 8 7 - 15 mmol/L 11/01/2023 7:31 AM [facility] Urea Nitrogen 3.7(L) 6.0 - 20.0 mg/dL 11/01/2023 7:31 AM [facility] Creatinine 0.49(L) 0.51 - 0.95 mg/dL 11/01/2023 7:31 AM [facility] GFR Estimate >90 >60 mL/min/1. 73m2 11/01/2023 7:31 AM [facility] Calcium 8.6 8.6 - 10.0 mg/dL 11/01/2023 7:31 AM [facility] Glucose 95 70 - 99 mg/dL 11/01/2023 7:31 AM [facility] Blood STRUCTURE OF RIGHT UPPER LIMB / Unknown Venipuncture / Unknown 11/01/2023 6:32 AM INNOVATION ANALYST 11/01/2023 6:48 AM [facility] Inez Pretty MD LAB - BLOOD ORDER KEVIN LABORATORY [facility] [address] floor, [address] [place] [address], [facility] [phone] * (ABNORMAL) CBC with platelets (11/01/2023 6:32 AM [facility]) Only the most recent of4 resultswithin the time period is included. WBC Count 9.5 4.0 - 11.0 10e3/uL 11/01/2023 6:51 AM [facility] RBC Count 3.69(L) 3.80 - 5.20 10e6/uL 11/01/2023 6:51 AM [facility] Hemoglobin 10.7(L) 11.7 - 15.7 g/dL 11/01/2023 6:51 AM [facility] Hematocrit 32.4(L) 35.0 - 47.0 % 11/01/2023 6:51 AM [facility] MCV 88 78 - 100 fL 11/01/2023 6:51 AM [facility] MCH 29.0 26.5 - 33.0 pg 11/01/2023 6:51 AM [facility] MCHC 33.0 31.5 - 36.5 g/dL 11/01/2023 6:51 AM [facility] RDW 13.5 10.0 - 15.0 % 11/01/2023 6:51 AM [facility] Platelet Count 519(H) 150 - 450 10e3/uL 11/01/2023 6:51 AM [facility] Blood STRUCTURE OF RIGHT UPPER LIMB / Unknown Venipuncture / Unknown 11/01/2023 6:32 AM INNOVATION ANALYST 11/01/2023 6:48 AM [facility] Inez Pretty MD LAB - BLOOD ORDER KEVIN LABORATORY [facility] [address], [address] [place] [address], [facility] [phone] * (ABNORMAL) Comprehensive metabolic panel (10/31/2023 7:03 AM [facility]) Only the most recent of2 resultswithin the time period is included. [facility] Sodium 138 135 - 145 mmol/L 10/31/2023 7:54 AM [facility] Comment:Reference intervals for this test were updated on 07/04/2023 to more accurately reflect our healthy population. There may be differences in the flagging of prior results with similar values performed with this method. Interpretation of those prior results can be made in the context of the updated reference intervals. Potassium 4.2 3.4 - 5.3 mmol/L 10/31/2023 7:54 AM [facility] Carbon Dioxide (CO2) 30(H) 22 - 29 mmol/L 10/31/2023 7:54 AM [facility] Anion Gap 5(L) 7 - 15 mmol/L 10/31/2023 7:54 AM [facility] Urea Nitrogen 4.1(L) 6.0 - 20.0 mg/dL 10/31/2023 7:54 AM [facility] Creatinine 0.58 0.51 - 0.95 mg/dL 10/31/2023 7:54 AM [facility] GFR Estimate >90 >60 mL/min/1. 73m2 10/31/2023 7:54 AM [facility] Calcium 8.8 8.6 - 10.0 mg/dL 10/31/2023 7:54 AM [facility] Chloride 103 98 - 107 mmol/L 10/31/2023 7:54 AM [facility] Glucose 100(H) 70 - 99 mg/dL 10/31/2023 7:54 AM [facility] Alkaline Phosphatase 82 40 - 150 U/L 10/31/2023 7:54 AM [facility] Comment:Reference intervals for this test were updated on 08/22/2023 to more accurately reflect our healthy population. There may be differences in the flagging of prior results with similar values performed with this method. Interpretation of those prior results can be made in the context of the updated reference intervals. AST 16 0 - 45 U/L 10/31/2023 7:54 AM [facility] Comment:Reference intervals for this test were updated on 03/20/2023 to more accurately reflect our healthy population. There may be differences in the flagging of prior results with similar values performed with this method. Interpretation of those prior results can be made in the context of the updated reference intervals. ALT 10 0 - 50 U/L 10/31/2023 7:54 AM [facility] Comment:Reference intervals for this test were updated on 03/20/2023 to more accurately reflect our healthy population. There may be differences in the flagging of prior results with similar values performed with this method. Interpretation of those prior results can be made in the context of the updated reference intervals. Protein Total 6.2(L) 6.4 - 8.3 g/dL 10/31/2023 7:54 AM [facility] Albumin 2.7(L) 3.5 - 5.2 g/dL 10/31/2023 7:54 AM [facility] Bilirubin Total 0.2 <=1.2 mg/dL 10/31/2023 7:54 AM [facility] Blood STRUCTURE OF RIGHT UPPER LIMB / Unknown Venipuncture / Unknown 10/31/2023 7:03 AM INNOVATION ANALYST 10/31/2023 7:24 AM [facility] Inezwanda Pretty MD LAB - BLOOD ORDER [facility] [address], [address] [place] [address], [facility] [phone] * Potassium (10/30/2023 2:15 PM INNOVATION ANALYST) Potassium 4.0 3.4 - 5.3 mmol/L 10/30/2023 2:43 PM INNOVATION ANALYST LABORATORY Blood STRUCTURE OF LEFT HAND / Unknown Venipuncture / Unknown 10/30/2023 2:15 PM INNOVATION ANALYST 10/30/2023 2:21 PM INNOVATION ANALYST Inez Pretty MD LAB - BLOOD ORDER KEVIN Performing Organization Address City/[facility]/ZIP Co de Phone Number LABORATORY [facility] [address], [address] [place] [address], [facility] [phone] * Glucose by meter (10/29/2023 11:58 PM INNOVATION ANALYST) Only the most recent of2 resultswithin the time period is included. GLUCOSE BY METER POCT 83 70 - 99 mg/dL 10/30/2023 12:05 AM INNOVATION ANALYST LABORATORY POC Blood, Capillary BLOOD SPECIMEN / Unknown 10/29/2023 11:58 PM INNOVATION ANALYST 10/30/2023 12:05 AM INNOVATION ANALYST David Monteiro MD LAB - BEAKER POCT Performing Organization Address City/[facility] Co de Phone Number LABORATORY POC [facility] [address] floor, [address] [place] [address], [facility] [phone] * Phosphorus (10/29/2023 11:53 AM INNOVATION ANALYST) Phosphorus 3.4 2.5 - 4.5 mg/dL 10/29/2023 12:25 PM INNOVATION ANALYST LABORATORY Blood STRUCTURE OF LEFT UPPER LIMB / Unknown Venipuncture / Unknown 10/29/2023 11:53 AM INNOVATION ANALYST 10/29/2023 11:59 AM INNOVATION ANALYST Leticia Sales MD LAB - BLOOD ORDERAB LES LABORATORY [facility] [address], [address] [place] [address], [facility] [phone] * Magnesium (10/29/2023 11:53 AM INNOVATION ANALYST) Magnesium 1.8 1.7 - 2.3 mg/dL 10/29/2023 12:25 PM INNOVATION ANALYST LABORATORY Blood STRUCTURE OF LEFT UPPER LIMB / Unknown Venipuncture / Unknown 10/29/2023 11:53 AM INNOVATION ANALYST 10/29/2023 11:59 AM INNOVATION ANALYST Leticia Sales MD LAB - BLOOD ORDERAB LES LABORATORY [facility] [address], [address] [place] [address], [facility] [phone] * (ABNORMAL) Lipase (10/29/2023 11:53 AM INNOVATION ANALYST) Lipase 12(L) 13 - 60 U/L 10/29/2023 12:25 PM INNOVATION ANALYST LABORATORY Blood STRUCTURE OF LEFT UPPER LIMB / Unknown Venipuncture / Unknown 10/29/2023 11:53 AM INNOVATION ANALYST 10/29/2023 11:59 AM INNOVATION ANALYST Leticia Sales MD LAB - BLOOD ORDERAB LES LABORATORY [facility] [address], [address] [place] [address], [facility] [phone] * Lactic acid whole blood (10/29/2023 11:53 AM INNOVATION ANALYST) Lactic Acid 0.8 0.7 - 2.0 mmol/L 10/29/2023 12:01 PM INNOVATION ANALYST LABORATORY Blood STRUCTURE OF LEFT UPPER LIMB / Unknown Venipuncture / Unknown 10/29/2023 11:53 AM INNOVATION ANALYST 10/29/2023 12:00 PM INNOVATION ANALYST Leticia Sales MD LAB - BLOOD ORDERAB LES LABORATORY [facility] [address], [address] [place] [address], [facility] [phone] * Hemoglobin A1c (10/29/2023 11:53 AM INNOVATION ANALYST) Hemoglobin A1C 5.5 <5.7 % 10/29/2023 12:22 PM INNOVATION ANALYST LABORATORY Comment: Normal <5.7% Prediabetes 5.7-6.4% ?? Diabetes 6.5% or higher Note: Adopted from ADA consensus guidelines. Blood STRUCTURE OF LEFT UPPER LIMB / Unknown Venipuncture / Unknown 10/29/2023 11:53 AM INNOVATION ANALYST 10/29/2023 11:59 AM INNOVATION ANALYST Leticia Sales MD LAB - BLOOD ORDERAB LES LABORATORY [facility] [address] floor, [address] [place] [address], [facility] [phone] from Last 3 Months Advance Directives For more information, please contact: [phone] Latest Code Status on File Code Status [...] or legal decision maker available Care Teams Cessation Systems Outreach Specialist Relationship Specialty Start Date End Date Amy Villalba Ra, APRN ASPHALT SMOOTHER [address] [place] [id number] PCP - General Family Practice 01/13/22 Amy Villalba Ra, APRN ASPHALT SMOOTHER [address] [place] [id number] Assigned PCP 09/19/21 Renetta Mckeon PA-C [address] [place] [address] Physician Adapted Physical Education Specialist Dermatology 05/03/22 Amy Villalba Ra, APRN ASPHALT SMOOTHER [address] [place] [address] Referring Physician Family Practice 11/01/22 Pura De La Garza APRN ASPHALT SMOOTHER [address] [place] [address] Nurse Practitioner Dermatology 11/01/22 Gabe Moreira MD [address] [facility] [address] [place] [address] Assigned Neuroscience Provider 12/17/22 Dov Posadas PA-C [address] [place] [id number] Assigned Surgical Provider 04/08/23
--- OUTSIDE RECORDS SUMMARY | 2023-11-27 15:46 | XMS_ITS | Encounter Summary ---
Author Name Unknown Organization [place] Address [address] [place] [address]. [place] [address] Care Team Providers Care Php Architect Name Role Phone Amy Villalba Ra, APRN SECTION GANG WORKER Unavailable [phone] Amy Villalba Ra METAL FRAMER SECTION GANG WORKER Primary Care Provid er Renetta MckeonC Unavailable [phone] Amy Villalba Ra, APRN SECTION GANG WORKER Unavailable [phone] Pura De La Garza APRN SECTION GANG WORKER Unavailable Gabe Moreira MD Unavailable Dov Posadas PA-C Unavailable [phone] Reason for Visit * Reason Comments Medication Refill Encounter Details Date Type Department Care Team (Late st Contact Info) Description 09/11/2023 Refill [facility] [address] [place] [address] Amy Villalba Ra METAL FRAMER SECTION GANG WORKER [address] [place] [address] Medication Refill Social History Tobacco [...] AM CST Duplicate - prescription request refused. LIFE PROTECTOR documented in this encounter Plan of Treatment Not on file documented as of this encounter Visit Diagnoses Diagnosis Type 2 diabetes mellitus without complication, without long-term current use of insulin (H) documented in this encounter Additional Health Concerns Assessment Noted Time PHQ-9 Depression Total Score: 10 023 8:03 AM CDT documented as of this encounter Care Teams Php Architect Relationship Specialty Start Date End Date Amy Villalba Ra, APRN CNP [address] [place] [address] PCP - General Family Practice 01/13/22 Amy Villalba Ra, APRN CNP [address] [place] [address] Assigned PCP 09/19/21 Renetta Mckeon PA-C [address] [place] [address] Physician Plastics Factory Worker Dermatology 05/03/22 Amy Villalba Ra, APRN CNP [address] [place] [address] Referring Physician Family Practice 11/01/22 Pura De La Garza APRN SECTION GANG WORKER [address] [place] [address] Nurse Practitioner Dermatology 11/01/22 Gabe Moreira MD [address] [facility] [address] [place], [place] [address] Assigned Neuroscience Provider 12/17/22 Dov Posadas PA-C [address] [place] [address] Assigned Surgical Provider 04/08/23 documented as of this encounter
--- OUTSIDE RECORDS SUMMARY | 2023-11-27 15:46 | XMS_ITS | Encounter Summary ---
Author Name Unknown Organization [place] Address [address] [place] [address]. [place] [address] Care Team Providers Care Axle Polisher Name Role Phone Amy Villalba Ra, APRN SPEEDER HAND Unavailable [phone] Amy Villalba Ra CAMPER ASSEMBLER SPEEDER HAND Primary Care Provid er Renetta MckeonC Unavailable [phone] Amy Villalba Ra, APRN SPEEDER HAND Unavailable [phone] Pura De La Garza APRN SPEEDER HAND Unavailable Gabe Moreira MD Unavailable Dov Posadas PA-C Unavailable [phone] Reason for Visit * Reason Comments Medication Refill Encounter Details Date Type Department Care Team (Late st Contact Info) Description 09/02/2023 Refill [facility] [address] [place] [address] Amy Villalba Ra CAMPER ASSEMBLER SPEEDER HAND [address] [place] [address] Medication Refill Social History Tobacco [...] documented as of this encounter Care Teams Axle Polisher Relationship Specialty Start Date End Date Amy Villalba Ra, APRN SPEEDER HAND [address] [place] [address] PCP - General Family Practice 01/13/22 Amy Villalba Ra, APRN SPEEDER HAND [address] [place] [address] Assigned PCP 09/19/21 Renetta Mckeon PA-C [address] [place] [address] Physician Mortgage Lender Dermatology 05/03/22 Amy Villalba Ra, APRN SPEEDER HAND [address] [place] [address] Referring Physician Family Practice 11/01/22 Pura De La Garza APRN SPEEDER HAND [address] [place] [id number] Nurse Practitioner Dermatology 11/01/22 Gabe Moreira MD [address] [place] [id number] Assigned Neuroscience Provider 12/17/22 Dov Posadas PA-C [address] [place] [place] [address] Assigned Surgical Provider 04/08/23 documented as of this encounter
--- OUTSIDE RECORDS SUMMARY | 2023-11-27 15:46 | XMS_ITS | Encounter Summary ---
Author Name Unknown Organization [place] Address [address] [place] [address] Care Team Providers Care Lining Feller Blindstitch Name Role Phone Deejay Amy Conway APRN PARTITION NOTCHER Unavailable Amy Villalba Ra TURN SUPERVISOR PARTITION NOTCHER Primary Care Provid er Renetta Mckeon PA-C Unavailable [phone] Amy Villalba Ra, APRN PARTITION NOTCHER Unavailable Pura De La Garza APRN PARTITION NOTCHER Unavailable Gabe Moreira MD Unavailable Dov Posadas PA-C Unavailable Reason for Visit * Reason Onset Date Comments report new symptoms 11/14/2023 Encounter Details Date Type Department Care Team (Late st Contact Info) Description 11/14/2023 Telephone [facility] [place] [address] [place] [address] Ming Ochoa MD [address] [place] [address] report new symptoms Social History Tobacco Use Types Packs/Day Years [...] encounter Miscellaneous Notes * Telephone Encounter - Edie Esquivel RN - 11/14/2023 9:04 AM CST Patient had follow up with Dr. Ochoa yesterday for recent hospital stay (abdominal pain and inflammatory changes noted near her jejunojejunosotmy She reports that during her office visit yesterday, Dr. Ochoa asked her if she has had any blood in her stool, which she denied She reports that this morning, she had blood in her stool. She reports the stool was on the harder side. There was some blood marbled into the stool like it had been sitting up in the intestine, aswell as bright red blood around it. No residual blood when she wiped. She denies ever having any issue(s) with hemorrhoids Informed her that she should try to get her stools softened up. She should also continue to monitorand if blood in her stools persists, she should call back. I will route this to Dr. Ochoa so that he is aware. Will call patient back if he has any additional feedback/input She is in agreement with this plan. She will call PRN Edie Esquivel RN-BSN COVERER * Telephone Encounter - Ana Ambrosio - 11/14/2023 8:29 AM CST Patient saw LEL 11/13/23 for abdominal pain and he asked if there was any blood in her stool and there hadn't been until today she notes a firmer stool coated in dark and bright blood. Please call Message ok COVERER documented in this encounter Plan of Treatment Not on file documented as of this encounter Visit Diagnoses Not on filedocumented in this encounter Additional Health Concerns Assessment Noted Time PHQ-9 Depression Total Score: 10 05/11/ 023 8:03 AM CDT documented as of this encounter Care Teams Lining Feller Blindstitch Relationship Specialty Start Date End Date Amy Villalba Ra, APRN PARTITION NOTCHER [address] [place] [address] PCP - General Family Practice 01/13/22 Amy Villalba Ra, APRN PARTITION NOTCHER [address] [place] [address] Assigned PCP 09/19/21 Renetta Mckeon PA-C [address] [place] [address] Physician Upholstery Cutter Dermatology 05/03/22 Amy Villalba Ra, APRN PARTITION NOTCHER [address] [place] [address] Referring Physician Family Practice 11/01/22 Pura De La Garza APRN PARTITION NOTCHER [address] [place], [place] [address] Nurse Practitioner Dermatology 11/01/22 Gabe Moreira MD [address] [facility] 96 [place], [place] [address] Assigned Neuroscience Provider 12/17/22 Dov Posadas PA-C [address] [place] [address] Assigned Surgical Provider 04/08/23 documented as of this encounter
--- OUTSIDE RECORDS SUMMARY | 2023-11-27 15:46 | XMS_ITS | Encounter Summary ---
Author Name Unknown Organization [place] Address [address] [place] [address] Care Team Providers Care Bench Worker Binding Name Role Phone Amy Villalba Ra, APRN WINE STEWARD/STEWARDESS Unavailable + [phone] mAy Villalba Ra AUTOMOBILE BODY REPAIRER HELPER WINE STEWARD/STEWARDESS Primary Care Provid er Renetta Mckeon PA-C Unavailable Amy Villalba Ra, APRN WINE STEWARD/STEWARDESS Unavailable Pura De La Garza AUTOMOBILE BODY REPAIRER HELPER WINE STEWARD/STEWARDESS Unavailable Gabe Moreira MD Unavailable [phone] Dov Posadas PA-C Unavailable Encounter Details Date Type Department Care Team (Late st Contact Info) Description 11/16/2023 MyC Medical Advice [facility] [place] [address] [place] [address] Edie Esquivel, KATTY Social History Tobacco Use Types Packs/Day [...] documented as of this encounter Care Teams Bench Worker Binding Relationship Specialty Start Date End Date Amy Villalba Ra, APRN WINE STEWARD/STEWARDESS [address] [place] [address] PCP - General Family Practice 01/13/22 Amy Villalba Ra, APRN WINE STEWARD/STEWARDESS [address] [place] [address] Assigned PCP 09/19/21 Renetta Mckeon PA-C [address] [place] [address] Physician Broker Dermatology 05/03/22 Amy Villalba Ra, APRN WINE STEWARD/STEWARDESS [address] [place] [address] Referring Physician Family Practice 11/01/22 Pura De La Garza APRN WINE STEWARD/STEWARDESS [address] [place] [id number] Nurse Practitioner Dermatology 11/01/22 Gabe Moreira MD [address] [place] [address] 96 [place], [place] [address] Assigned Neuroscience Provider 12/17/22 Dov Posadas PA-C [address] [place] [address] Assigned Surgical Provider 04/08/23 documented as of this encounter
--- OUTSIDE RECORDS SUMMARY | 2023-11-27 15:46 | XMS_ITS | Encounter Summary ---
Author Name Unknown Organization [place] Address [address] [place] [address] Care Team Providers Care Tube Room Supervisor Name Role Phone Amy Villalba Ra, APRN PROFESSOR OF SPORT MANAGEMENT Unavailable [phone] Amy Villalba Ra HOTEL ADMINISTRATIVE ASSISTANT PROFESSOR OF SPORT MANAGEMENT Primary Care Provid er Renetta Mckeon PA-C Unavailable Amy Villalba Ra, APRN PROFESSOR OF SPORT MANAGEMENT Unavailable [phone] Pura De La Garza HOTEL ADMINISTRATIVE ASSISTANT PROFESSOR OF SPORT MANAGEMENT Unavailable Gabe Moreira MD Unavailable [phone] Dov Posadas PA-C Unavailable Reason for Referral * Diagnostic Imaging CT Scan (Routine) - Closed Specialty Diagnoses / Procedures Referred By Contac t Referred To Contact Radiology. Diagnoses Abdominal pain, unspecified abdominal location Procedures CT Abdomen Pelvis w Contrast Inez Pretty MD [address] [place] [address] Referral ID Status Reason Start Date Expiration Date Visits Re quested Visits Authorized [id number] Closed 11/01/2023 10/31/2024 1 1 BUYER Reason for Visit * Diagnostic Imaging CT Scan (Routine) - Closed Specialty Diagnoses / Procedures Referred By Controsalba t Referred To Contact Radiology. Diagnoses Abdominal pain, unspecified abdominal location Procedures CT Abdomen Pelvis w Contrast Inez Pretty MD [address] [place] [address] Referral ID Status Reason Start Date Expiration Date Visits Re quested Visits Authorized [id number] Closed 11/01/2023 10/31/2024 1 1 Encounter Details Date Type Department Care Team (Latest Contact Info) Description 11/10/2023 10:09 AM TIME BUYER - 11/10/2023 11:59 PM TIME BUYER Hospital Encounter [facility] [address] [place] [phone] Inez Pretty MD [address] [place] [address] Abdominal pain, unspecified abdominal location Discharge Disposition: Home or Self Care Social [...] AM CDT documented as of this encounter Medications at Time of Discharge Medication Sig Dispensed Refills Start Date End Date acetaminophen (TYLENOL) 500 MG tabletIndications:Int ernal hernia Take 2 tablets (1,000 mg) by mouth every 8 hours as needed for pain 0 11/01/2023 albuterol (PROAIR HFA/PROVENTIL HFA/VENTOLIN HFA) 108 (90 Base) MCG/ACT inhaler Inhale 2 puffs into the lungs every 6 hours as needed for shortness of breath, wheezing or cough 0 buPROPion (WELLBUTRIN XL) 150 MG 24 hr tabletIndications:[place] or depressive disorder, recurrent episode, moderate (H) TAKE 3 TABLETS(450 MG) BY MOUTH DAILY 270 tablet 1 09/04/2023 childrens multivitamin w/iron (FLINTSTONES COMPLETE) chewable tablet Take 1 chew tab by mouth at bedtime 0 Cholecalciferol (D3-1000) 25 MCG (1000 UT) CAPSIndications:S/P bariatric surgery TAKE 2 CAPSULES BY MOUTH DAILY 180 capsule 3 01/14/2021 cyclobenzaprine (FLEXERIL) 10 MG tablet Take 10 mg by mouth nightly as needed for muscle spasms 0 escitalopram (LEXAPRO) 20 MG tabletIndications:[place] or depressive disorder, recurrent episode, moderate (H),Anxiety TAKE 1 TABLET(20 MG) BY MOUTH DAILY 90 tablet 1 07/13/2023 estradiol (VIVELLE-DOT) 0.1 MG/24HR bi-weekly patch Place 1 patch onto the skin twice a week Alternating between 3 days and 4 days at a time 0 eszopiclone (LUNESTA) 3 MG tabletIndications:Ins omnia, unspecified type TAKE 1 TABLET(3 MG) BY MOUTH AT BEDTIME 30 tablet 1 05/09/2023 levothyroxine (SYNTHROID/LEVOTHROID ) 112 MCG tablet Take 112 mcg by mouth daily 0 metFORMIN (GLUCOPHAGE XR) 500 MG 24 hr tabletIndications:Typ e 2 diabetes mellitus without complication, without long-term current use of insulin (H) TAKE 1 TABLET(500 MG) BY MOUTH DAILY WITH DINNER 90 tablet 0 09/04/2023 Multiple Vitamins/Iron TABSIndications:Baria tric surgery status TAKE 1 TABLET BY MOUTH DAILY 90 tablet 3 01/14/2021 omeprazole (PRILOSEC) [address] capsuleIndications:Ba riatric surgery status,GERD without esophagitis Take 1 capsule (40 mg) by mouth daily 90 capsule 1 04/04/2023 polyethylene glycol (MIRALAX) 17 GM/Dose powderIndications:Con stipation, unspecified constipation type Take 17 g (1 Capful) by mouth daily 289 g 0 11/01/2023 pregabalin (LYRICA) 50 MG capsule Take 50 mg by mouth 2 times daily 0 senna-docusate (SENOKOT-S/PERICOLACE ) 8.6-50 MG tabletIndications:Con stipation, unspecified constipation type Take 1 tablet by mouth 2 times daily for 30 days 60 tablet 0 11/01/2023 12/01/2023 documented as of this encounter Plan of Treatment Not on file documented as of this encounter Procedures Procedure Name Priority Date/Time Associated Diagnosis Comments CT ABDOMEN PELVIS W CONTRAST Routine 11/10/2023 11:30 AM TIME BUYER Abdominal pain, unspecified abdominal location documented in this encounter Results * CT Abdomen Pelvis w Contrast (11/10/2023 11:30 AM TIME BUYER) Anatomical Region Laterality Modality Abdomen/Pelvis, SUBRAD CT ROB DY, UMP CT ABDOMEN PELVIS, RAD CT Computed Tomography Impressions 11/10/2023 1:49 PM TIME BUYER IMPRESSION: 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 This may represent inflammatory tissue. Chronic leak possible. Other etiologies such as fibromatosis not excluded, although the abnormality has decreased in size when compared to 10/28/2023. SUKHWINDER BROWN MD Narrative 11/10/2023 1:[address] ABDOMEN PELVIS W CONTRAST 11/10/2023 11:30 [...] FINDINGS: None. MUSCULOSKELETAL: Normal. Procedure Note Sukhwinder Brown MD - 11/10/2023 CT ABDOMEN PELVIS W [...] in size when compared to 10/28/2023. SUKHWINDER BROWN MD Inez Pretty MD [facility] [place] documented in this encounter Visit Diagnoses Diagnosis Abdominal pain, unspecified abdominal location documented in this encounter Administered Medications Inactive Administered Medications - up to 3 most recent administrations Medication Order MAR Action Action Date Dose Rate Site iopamidol (ISOVUE-370) solution 91 mL 91 mL, Intravenous, ONCE, On Mon11/10/23 at 1130, For 1 dose $Given 11/10/2023 11:16 AM TIME BUYER 91 mLs sodium chloride 0.9 % bag 500mL for CT scan flush use Intravenous, 66 mL, ONCE, On Mon11/10/23 at 1130, For 1 dose, This entry is for use by Radiology to intermittently used as a flush in patients receiving a CT scan. $Given 11/10/2023 11:16 AM TIME BUYER 66 mLs documented in this encounter Additional Health Concerns Assessment Noted Time PHQ-9 Depression Total Score: 10 023 8:03 AM CDT documented as of this encounter Care Teams Tube Room Supervisor Relationship Specialty Start Date End Date Amy Villalba Ra, APRN PROFESSOR OF SPORT MANAGEMENT [address] [place] [address] PCP - General Family Practice 01/13/22 Amy Villalba Ra, APRN PROFESSOR OF SPORT MANAGEMENT [address] [place] [address] Assigned PCP 09/19/21 Renetta Mckeon PA-C [address] [place] [address] Physician Marketing Production Specialist Dermatology 05/03/22 Amy Villalba Ra, APRN PROFESSOR OF SPORT MANAGEMENT [address] [place] [address] Referring Physician Family Practice 11/01/22 Pura De La Garza APRN PROFESSOR OF SPORT MANAGEMENT 500 [place], [place] [address] Nurse Practitioner Dermatology 11/01/22 Gabe Moreira MD 420 [facility] 96 [place], [place] [address] Assigned Neuroscience Provider 12/17/22 Dov Posadas PA-C [address] [address]24[address] Assigned Surgical Provider 04/08/23 documented as of this encounter
--- OUTSIDE RECORDS SUMMARY | 2023-11-27 15:46 | XMS_ITS | Encounter Summary ---
Author Name Unknown Organization [place] Address [address] [place] [address] Care Team Providers Care Regional Driver Name Role Phone Amy Villalba Ra, APRN TOLL COLLECTOR SUPERVISOR Unavailable Amy Villalba Ra MOTHER REPAIRER TOLL COLLECTOR SUPERVISOR Primary Care Provid er Renetta Mckeon PA-C Unavailable Amy Villalba Ra, APRN TOLL COLLECTOR SUPERVISOR Unavailable Pura De La Garza MOTHER REPAIRER TOLL COLLECTOR SUPERVISOR Unavailable Gabe Moreira MD Unavailable Dov Posadas PA-C Unavailable [phone] Reason for Referral * Diagnostic Imaging CT Scan (Routine) - Authorized Specialty Diagnoses / Procedures [facility] Referred To Contact Radiology. Diagnoses Abdominal pain, unspecified abdominal location Procedures CT Abdomen w Contrast Ming Ochoa MD [address] [facility] [address] [place] [address] Referral ID Status Reason Start Date Expiration Date V isits Requested Visits Authorized [id number] Authorized 11/13/2023 11/12/2024 1 1 PHERE COMMERCE DEVELOPER Reason for Visit * Reason Comments New Patient New abdominal pain Encounter Details Date Type Department Care Team ([facility] Contact Info) Description 11/13/2023 9:30 AM WEBSPHERE COMMERCE DEVELOPER Office Visit [facility] [place] [address] [place] [phone] Ming Ochoa MD [address] [place] [address] Abdominal pain, unspecified abdominal location (Primary Dx) Social History Tobacco Use Types [...] Comments Blood Pressure 116/72 11/13/2023 9:27 AM WEBSPHERE COMMERCE DEVELOPER Pulse 85 11/13/2023 9:27 AM WEBSPHERE COMMERCE DEVELOPER Temperature - - Respiratory Rate 16 11/13/2023 9:27 AM WEBSPHERE COMMERCE DEVELOPER Oxygen Saturation 98% 11/13/2023 9:27 AM WEBSPHERE COMMERCE DEVELOPER Inhaled Oxygen Concentration - - Weight 82.1 kg (181 lb) 11/13/2023 9:27 AM WEBSPHERE COMMERCE DEVELOPER Height 167.6 cm (5' 6) 11/13/2023 9:27 AM WEBSPHERE COMMERCE DEVELOPER Body Mass Index 29.21 11/13/2023 9:27 AM WEBSPHERE COMMERCE DEVELOPER documented in this encounter Progress Notes * Ming Ochoa MD - 11/13/2023 9:30 AM CST General surgery clinic note The pleasure to meet with Mrs. Almeida in follow-up after her recent hospital stay for abdominalpain and inflammatory changes noted near her jejunojejunostomy. On repeat CT scan of the abdomen that area of inflammation has greatly improved, it is smaller in size and there is not as much inflamma tion given surrounding it. He has stayed away from NSAIDs. She is tolerating her diet well. Her only complaint is that of lower abdominal/pelvic pain within an hour of having a bowel movement. This is a pain she developed after having her hysterectomy and is different than the pain she experienced when she presented with this inflammatory process in her small bowel. Given the improvement on imaging and her clinical picture being benign I discussed with her the rationale for following up in 2 to [address] scan of the abdomen, sooner if there is any problems She understands and agrees with this plan. Total encounter time 30 minutes, more than half spent in counseling, review of data, and coordination of care. PHERE COMMERCE DEVELOPER documented in this encounter Miscellaneous Notes * Addendum Note - Lucretia Jansen - 11/13/2023 9:30 AM CSTAddended by: LUCRETIA JANSEN on: 11/13/2023 10:10 AM Modules accepted: Orders PHERE COMMERCE DEVELOPER documented in this encounter Plan of Treatment Scheduled Orders Name Type Priority Associated Diagnoses Orde r Schedule CT Abdomen w Contrast Imaging Routine Abdominal pain, unspecified abdominal location Expected: 02/11/2024 (Approximate), Expires: 11/13/2024 documented as of this encounter Visit Diagnoses Diagnosis Abdominal pain, unspecified abdominal location- Primary documented in this encounter Additional Health Concerns Assessment Noted Time PHQ-9 Depression Total Score: 10 023 8:03 AM CDT documented as of this encounter Care Teams Regional Driver Relationship Specialty Start Date End Date Amy Villalba Ra, APRN CNP [address] [place] [address] PCP - General Family Practice 01/13/22 Amy Villalba Ra, APRN CNP [address] [place] [address] Assigned PCP 09/19/21 Renetta Mckeon PA-C [address] [place] [address] Physician Investor Relations Associate Dermatology 05/03/22 Amy Villalba Ra, APRN TOLL COLLECTOR SUPERVISOR [address] [place] [address] Referring Physician Family Practice 11/01/22 Pura De La Garza APRN TOLL COLLECTOR SUPERVISOR [address] [place] [id number] Nurse Practitioner Dermatology 11/01/22 Gabe Moreira MD [address] [place] [address] 96 [place], [place] [address] Assigned Neuroscience Provider 12/17/22 Dov Posadas PA-C [address] [place] [address] Assigned Surgical Provider 04/08/23 documented as of this encounter
--- OUTSIDE RECORDS SUMMARY | 2023-11-27 15:46 | XMS_ITS | Encounter Summary ---
Author Name Unknown Organization [place] Address [address] [place] [address] Care Team Providers Care Inspecting Engineer Name Role Phone Amy Villalba Ra, APRN MANAGER UNION Unavailable + [phone] Amy Villalba Ra MANAGER SHOP MANAGER UNION Primary Care Provid er Renetta Mckeon PA-C Unavailable [phone] Amy Villalba Ra, APRN MANAGER UNION Unavailable + [phone] Pura De La Garza APRN MANAGER UNION Unavailable Gabe Moreira MD Unavailable [phone] Dov PosadasC Unavailable [phone] Encounter Details Date Type Department Care Team (Latest Contact Info) Description 11/10/2023 Travel Social History Tobacco Use Types Packs/Day [...] documented as of this encounter Care Teams Inspecting Engineer Relationship Specialty Start Date End Date Amy Villalba Ra, APRN MANAGER UNION [address] [place] [address] PCP - General Family Practice 01/13/22 Amy Villalba Ra, APRN MANAGER UNION [address] [place] [address] Assigned PCP 09/19/21 Renetta Mckeon PA-C [address] [place] [address] Physician Sleeping Room Cleaner Dermatology 05/03/22 Amy Villalba Ra, APRN MANAGER UNION [address] [place] [address] Referring Physician Family Practice 11/01/22 Pura De La Garza APRN MANAGER UNION [address] [place] [address] [id number] Nurse Practitioner Dermatology 11/01/22 Gabe Moreira MD [address] [place] [address] [address] [place], [place] [address] Assigned Neuroscience Provider 12/17/22 Dov Posadas PA-C [address] [address] Assigned Surgical Provider 04/08/23 documented as of this encounter
--- OUTSIDE RECORDS SUMMARY | 2023-11-27 15:46 | XMS_ITS | Encounter Summary ---
Author Name Unknown Organization [place] Address [address] [place] [address] Care Team Providers Care Network Account Manager Name Role Phone Amy Villalba Ra, APRN CARGO AGENT Unavailable + [phone] Amy Villalba Ra ELECTROTYPE FINISHER CARGO AGENT Primary Care Provid er Renetta Mckeon PA-C Unavailable Amy Villalba Ra, APRN CARGO AGENT Unavailable Pura De La Garza ELECTROTYPE FINISHER CARGO AGENT Unavailable Gabe Moreira MD Unavailable Dov Posadas PA-C Unavailable Encounter Details Date Type Department Care Team (Late st Contact Info) Description 11/15/2023 MyC Medical Advice [facility] [place] [address] [place] [address] Edie Esquivel, KATTY Social History [...] documented as of this encounter Care Teams Network Account Manager Relationship Specialty Start Date End Date Amy Villalba Ra, APRN CARGO AGENT [address] [place] [address] PCP - General Family Practice 01/13/22 Amy Villalba Ra, APRN CARGO AGENT [address] [place] [address] Assigned PCP 09/19/21 Renetta Mckeon PA-C [address] [place] [address] Physician Produce Clerk Dermatology 05/03/22 Amy Villalba Ra, APRN CARGO AGENT [address] [place] [address] Referring Physician Family Practice 11/01/22 Pura De La Garza APRN CARGO AGENT [address] [place] [address] [id number] Nurse Practitioner Dermatology 11/01/22 Gabe Moreira MD [address] [place] [address] 96 [place], [place] 5058[address] Assigned Neuroscience Provider 12/17/22 Dov Posadas PA-C [address] [address] Assigned Surgical Provider 04/08/23 documented as of this encounter
--- OUTSIDE RECORDS SUMMARY | 2023-11-27 15:46 | XMS_ITS | Encounter Summary ---
Author Name Unknown Organization [place] Address [address] [place] [address] Care Team Providers Care Skate Boarder Name Role Phone Amy Villalba Ra, APRN CONSTRUCTION ASSISTANT Unavailable + [phone] Amy Villalba Ra BOILERMAKER HELPER CONSTRUCTION ASSISTANT Primary Care Provid er Renetta Mckeon PA-C Unavailable [phone] Amy Villalba Ra, APRN CONSTRUCTION ASSISTANT Unavailable Pura De La Garza APRN CONSTRUCTION ASSISTANT Unavailable Gabe Moreira MD Unavailable [phone] Dov Posadas PA-C Unavailable [phone] Encounter Details Date Type Department Care Team (Late st Contact Info) Description 11/09/2023 MyC Medical Advice [facility] [place] [address] [place] [address] Zaina Harris Social History Tobacco Use Types Packs/Day Years [...] documented as of this encounter Care Teams Skate Boarder Relationship Specialty Start Date End Date Amy Villalba Ra, APRN CONSTRUCTION ASSISTANT [address] [place] [address] PCP - General Family Practice 01/13/22 Amy Villalba Ra, APRN CONSTRUCTION ASSISTANT [address] [place] [address] Assigned PCP 09/19/21 Renetta Mckeon PA-C [address] [place] [address] Physician Sales Department Supervisor Dermatology 05/03/22 Amy Villalba Ra, APRN CONSTRUCTION ASSISTANT [address] [place] [address] Referring Physician Family Practice 11/01/22 Pura De La Garza APRN CONSTRUCTION ASSISTANT [address] [place] [address] [id number] Nurse Practitioner Dermatology 11/01/22 Gabe Moreira MD [address] [place] [address] 96 [place], [place] [address] Assigned Neuroscience Provider 12/17/22 Dov Posadas PA-C [address] [address] Assigned Surgical Provider 04/08/23 documented as of this encounter
--- OUTSIDE RECORDS SUMMARY | 2023-11-27 15:46 | XMS_ITS | Encounter Summary ---
Author Name Unknown Organization [facility] Address [address] [place] [address]. [place] [address] Care Team Providers Care Flakeboard Line Tender Name Role Phone Amy Villalba Ra, APRN NURSE AUDITOR Unavailable + [phone] Amy Villalba Ra BOTTLE FILLER NURSE AUDITOR Primary Care Provid er Renetta Mckeon PA-C Unavailable [phone] Amy Villalba Ra, APRN NURSE AUDITOR Unavailable + [phone] Pura De La Garza APRN NURSE AUDITOR Unavailable Gabe Moreira MD Unavailable Dov PosadasC Unavailable [phone] Encounter Details Date Type Department Care Team (Late st Contact Info) Description 11/16/2023 Medical Correspondence [facility] [address] [place] [id number] Scan, Non-Provider Social History Tobacco Use Types Packs/Day Years [...] documented as of this encounter Care Teams Flakeboard Line Tender Relationship Specialty Start Date End Date Amy Villalba Ra, APRN NURSE AUDITOR [address] [facility] [place] [id number] PCP - General Family Practice 01/13/22 Amy Villalba Ra, APRN NURSE AUDITOR [address] [place] [address] Assigned PCP 09/19/21 Renetta Mckeon PA-C [address] [place] [address] Physician Corporate Associate Attorney Dermatology 05/03/22 Amy Villalba Ra, APRN NURSE AUDITOR [address] [place] [id number] Referring Physician Family Practice 11/01/22 Pura De La Garza APRN NURSE AUDITOR [address] [place] [address] [phone] Nurse Practitioner Dermatology 11/01/22 Gabe Moreira MD [address] [place] [address] [address] [place], [place] [id number] Assigned Neuroscience Provider 12/17/22 Dov Posadas PA-C [address] [id number] Assigned Surgical Provider 04/08/23 documented as of this encounter
--- OUTSIDE RECORDS SUMMARY | 2023-11-27 15:46 | XMS_ITS | Encounter Summary ---
Author Name Unknown Organization [facility] Address [address] [place] [id number] Care Team Providers Care Community Outreach Manager Name Role Phone Amy Villalba Ra, APRN KOSHER DIETARY SERVICE SUPERVISOR Unavailable Amy Villalba Ra INTERIOR DESIGN PROFESSOR KOSHER DIETARY SERVICE SUPERVISOR Primary Care Provid er Renetta Mckeon PA-C Unavailable [phone] Amy Villalba Ra, APRN KOSHER DIETARY SERVICE SUPERVISOR Unavailable Pura De La Garza INTERIOR DESIGN PROFESSOR KOSHER DIETARY SERVICE SUPERVISOR Unavailable Gabe Moreira MD Unavailable [phone] Dov Posadas PA-C Unavailable [phone] Reason for Referral * Diagnostic Imaging CT Scan (Routine) - Closed Specialty Diagnoses / Procedures Referred By Gonzalez mckeon Referred To Contact Radiology. Diagnoses Abdominal pain, unspecified abdominal location Procedures CT Abdomen Pelvis w Contrast Inez Pretty MD [address] [place] [address] Referral ID Status Reason Start Date Expiration Date Visits Re quested Visits Authorized [id number] Closed 11/01/2023 10/31/2024 1 1 ODONTIC LABORATORY TECHNICIAN * Consultation (Priority: 1-2 Weeks) - Pending Review Specialty Diagnoses / Procedures Referred By Contac t Referred To Contact Surgery Diagnoses Abdominal pain, unspecified abdominal location Inez Pretty MD [address] [phone] Surgical Consult [address], [address] [place] [phone] Referral ID Status Reason Start Date Expiration Date V isits Requested Visits Authorized [id number] Pending Review 11/01/2023 10/31/2024 1 1 Scheduling Instructions Please schedule an appointment with Dr. Ochoa in 1 week. Question Answer Preferred Location: [facility] - [place] Scheduling Instructions: Please call to schedule your appointment Comments Please be aware that coverage of these services is subject to the terms and limitations of your health insurance plan. Call member services at your health plan with any benefit or coverage questions. Please call to schedule your appointment ODONTIC LABORATORY TECHNICIAN Reason for Visit * Auth/Cert (Routine) Specialty Diagnoses / Procedures Referred By Contac t Referred To Contact Med Surg Diagnoses Intraabdominal mass Multi-cystic mass Intraabdominal mass Gen Surg [address] [phone] Referral ID Status Reason Start Date Expiration Date Visits Re quested Visits Authorized [id number] 1 1 Encounter Details Date Type Department Care Team (Latest Contact Info) Description 10/29/2023 9:13 AM ORTHODONTIC LABORATORY TECHNICIAN - 11/01/2023 3:38 PM ORTHODONTIC LABORATORY TECHNICIAN Hospital Encounter [facility] General Surgery [address] [phone] David Monteiro MD [address] [address] Leticia Sales MD [address] [phone] Abdominal pain, unspecified abdominal location (Primary Dx); Internal hernia; Constipation, unspecified constipation type Discharge Disposition: Home or Self Care Social [...] Sign Reading Time Taken Comments Blood Pressure 113/77 11/01/2023 8:26 AM ORTHODONTIC LABORATORY TECHNICIAN Pulse 63 11/01/2023 8:26 AM ORTHODONTIC LABORATORY TECHNICIAN Temperature 36.6 ??C (97.9 ??F) 11/01/2023 8:26 AM CS T Respiratory Rate 16 11/01/2023 8:26 AM ORTHODONTIC LABORATORY TECHNICIAN Oxygen Saturation 97% 11/01/2023 8:26 AM ORTHODONTIC LABORATORY TECHNICIAN Inhaled Oxygen Concentration - - Weight 84.4 kg (186 lb) 10/29/2023 11:35 AM ORTHODONTIC LABORATORY TECHNICIAN Height 167.6 cm (5' 6) 10/29/2023 11:35 AM ORTHODONTIC LABORATORY TECHNICIAN Body Mass Index 30.02 10/29/2023 11:35 AM ORTHODONTIC LABORATORY TECHNICIAN documented in this encounter Discharge Summaries * Inez Pretty MD - 11/01/2023 12:53 PM CST Images from the original note were not included. [facility] Hospitalist Discharge Summary Admit Date: 10/29/2023 Discharge Date: 11/01/2023 Discharging Provider: Inez Pretty MD PRIMARY CARE PROVIDER: Amy Villalba Ra DISCHARGE DIAGNOSES: Intra-abdominal mass: likely small bowel mesentery inflammatory process near previous small bowel anastomosis from gastric bypass Hx of Jon -en- Y Gastric Bypass (2018), panniculectomy (2019) Leukocytosis: Resolved Thrombocytosis: Resolving Anemia Hypothyroidism Type II DM Anxiety/depression Endometriosis s/p total abdominal hysterectomy and bilateral oophorectomy (Aug 2023), c/b infected surgical wound BRIEF HISTORY OF PRESENT ILLNESS/ HOSPITAL COURSE: Marlene Almeida is a 42 year old female with past medical history significant for gastric bypass surgery with subsequent panniculectomy, type II diabetes, hypothyroidism, endometriosis s/p hysterectomy and bilateral oophorectomy admitted on 10/29/2023 with abdominal pain. Pt presented to [place] ED on 10/29/23 with a few weeks of progressively worsening abdominal pain. No fever, nausea, vomiting, diarrhea. Poor appetite. Vital signs were within normal limits. She had a leukocytosis to 15.1, and thrombocytosis with platelet count of 602. Hgb was within carlito limits at 12.8. potassium was also low at 3.3, but BMP was otherwise normal. CT scan was obtained and showed a large 5.7 x 4.5 x 5.2cm heterogeneous multiloculated cystic mass in the central lower abdominal mesentery adjacent to the jejunojejunal anastomosis. Differential includes phlegmonous collection secondary to anastomotic leak although malignancy, including lymphoma is not excluded. Upon arrival to [facility], General Surgery was consulted and patient was started on IV Zosyn, IVF and pain mgmt. General Surgery felt that the intra-abdominal mass was likely a small bowel mesentery inflammatory process near previous small bowel anastomosis from gastric bypass. She was transitioned to PO Augmentin along with advancing her diet on 10/31/23. Patient was able to tolerate a diet. She was continued PO Augmentin to completea week course per General Surgery. She will follow up with General Surgery in [address] scanat that time. Intra-abdominal mass: likely small bowel mesentery inflammatory process near previous small bowel anastomosis from gastric bypass Hx of Jon -en- Y Gastric Bypass (2018), panniculectomy (2019) - Continue Augmentin for a total of a week - General Surgery following, appreciate recs - Okay to discharge today - Continue Augmentin for 1 week - Follow up in [address] scan - Pain mgmt - Scheduled Tylenol - PRN PO Oxycodone - PRN IV Dilaudid Leukocytosis: Resolved Likely related to abdominal pathology Thrombocytosis: Resolving Likely related to abdominal pathology Anemia No clinical signs of bleeding, could be dilutional - Hgb: 11.6 > 11.7 > 9.7 > 10.7 - Continue to monitor Hypothyroidism - Continue home Levothyroxine Type II DM 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 Clinically Significant Risk Factors # Hypoalbuminemia: Lowest albumin = 2.7 g/dL at 10/31/2023 7:03 AM, will monitor as appropriate # Obesity: Estimated body mass index is 30.02 kg/m?? as calculated from the following: Height as of this encounter: 1.676 m (5' 6). Weight as of this encounter: 84.4 kg (186 lb)., PRESENT ON ADMISSION TOTAL DISCHARGE TIME: Inez Rice MD, personally saw the patient today and spent greater than 30 minutes discharging this patient. Inez Pretty MD [facility] Hospitalist Service Securely message with the [email or web address] (learn more here) Text page via [employer] Paging/Directory Significant Results and Procedures N/a Pending Results These results will be followed up by n/a Unresulted Labs Ordered in the Past 30 Days of this Admission No orders found from 09/29/2023 to 10/30/2023. Code Status Full Code Primary Care Physician Amy Villalba Physical Exam Temp: 97.9 ??F (36.6 ??C) Temp src: Oral BP: 113/77 Pulse: 63 Resp: 16 SpO2: 97 % O2 Device: None (Room air) Vitals: 10/29/23 1135 Weight: 84.4 kg (186 lb) Vital Signs with Ranges Temp: [97.8 ??F (36.6 ??C)-98 ??F (36.7 ??C)] 97.9 ??F (36.6 ??C) Pulse: [62-63] 63 Resp: [16-18] 16 BP: (113-124)/(75-79) 113/77 SpO2: [95 %-97 %] 97 % I/O last 3 completed shifts: In: 720 [P.O.:720] Out: 2150 [Urine:2150] Constitutional: Awake, alert, cooperative, in no acute distress HEENT: PERRL, Normocephalic, without obvious abnormality, atraumatic, oral pharynx with moist mucusmembranes Pulmonary: Clear breath sounds bilaterally Cardiovascular: Regular rate and rhythm, normal S1 and S2 GI: Normal bowel sounds, soft, non-distended, mild tenderness in the lower abdomen but improved since admission Skin/Integumen: well healing scars on her abdomen Neuro: moves all 4 extremities Psych: Alert and oriented x 3. Normal affect. Extremities: No lower extremity edema noted, and calves are non-TTP bilaterally. Discharge Disposition Discharged to home Condition at discharge: Stable Consultations This Hospital Stay SURGERY GENERAL IP CONSULT Discharge Orders CT Abdomen Pelvis w Contrast Adult General Surg Referral Reason for your hospital stay You were admitted to the hospital for abdominal pain thought to be due to inflammation. Follow-up and recommended labs and tests Follow up with primary care provider, Amy Villalba, within 7 -10 days for hospital follow- up. No follow up labs or test are needed. Activity Your activity upon discharge: activity as tolerated Diet Follow this diet upon discharge: Orders Placed This Encounter Snacks/Supplements Adult: Ensure Clear; Between Meals Advance Diet as Tolerated: Regular Diet Adult Discharge Medications Current Discharge Medication List START taking these medications Details amoxicillin-clavulanate (AUGMENTIN) 875-125 MG tablet Take 1 tablet by mouth every 12 hours for 4 days Qty: 8 tablet, Refills: 0 Associated Diagnoses: Abdominal pain, unspecified abdominal location ondansetron (ZOFRAN ODT) 4 MG ODT tab Take 1 tablet (4 mg) by mouth every 8 hours as needed for nausea Qty: 15 tablet, Refills: 0 Associated Diagnoses: Abdominal pain, unspecified abdominal location oxyCODONE (ROXICODONE) 5 MG tablet Take 1 tablet (5 mg) by mouth every 8 hours as needed for pain Qty: 12 tablet, Refills: 0 Associated Diagnoses: Abdominal pain, unspecified abdominal location polyethylene glycol (MIRALAX) 17 GM/Dose powder Take 17 g (1 Capful) by mouth daily Qty: 289 g, Refills: 0 Associated Diagnoses: Constipation, unspecified constipation type senna-docusate (SENOKOT-S/PERICOLACE) 8.6-50 MG tablet Take 1 tablet by mouth 2 times daily for 30 days Qty: 60 tablet, Refills: 0 Associated Diagnoses: Constipation, unspecified constipation type CONTINUE these medications which have CHANGED Details acetaminophen (TYLENOL) 500 MG tablet Take 2 tablets (1,000 mg) by mouth every 8 hours as needed for pain Associated Diagnoses: Internal hernia CONTINUE these medications which have NOT CHANGED Details albuterol (PROAIR HFA/PROVENTIL HFA/VENTOLIN HFA) 108 (90 Base) MCG/ACT inhaler Inhale 2 puffs intothe lungs every 6 hours as needed for shortness of breath, wheezing or cough buPROPion (WELLBUTRIN XL) 150 MG 24 hr tablet TAKE 3 TABLETS(450 MG) BY MOUTH DAILY Qty: 270 tablet, Refills: 1 Associated Diagnoses: Major depressive disorder, recurrent episode, moderate (H) childrens multivitamin w/iron (FLINTSTONES COMPLETE) chewable tablet Take 1 chew tab by mouth at bedtime Cholecalciferol (D3-1000) 25 MCG (1000 UT) CAPS TAKE 2 CAPSULES BY MOUTH DAILY Qty: 180 capsule, Refills: 3 Associated Diagnoses: S/P bariatric surgery cyclobenzaprine (FLEXERIL) 10 MG tablet Take 10 mg by mouth nightly as needed for muscle spasms escitalopram (LEXAPRO) 20 MG tablet TAKE 1 TABLET(20 MG) BY MOUTH DAILY Qty: 90 tablet, Refills: 1 Associated Diagnoses: Major depressive disorder, recurrent episode, moderate (H); Anxiety estradiol (VIVELLE-DOT) 0.1 MG/24HR bi-weekly patch Place 1 patch onto the skin twice a week Alternating between 3 days and 4 days at a time eszopiclone (LUNESTA) 3 MG tablet TAKE 1 TABLET(3 MG) BY MOUTH AT BEDTIME Qty: 30 tablet, Refills: 1 Associated Diagnoses: Insomnia, unspecified type levothyroxine (SYNTHROID/LEVOTHROID) 112 MCG tablet Take 112 mcg by mouth daily metFORMIN (GLUCOPHAGE XR) 500 MG 24 hr tablet TAKE 1 TABLET(500 MG) BY MOUTH DAILY WITH DINNER Qty: 90 tablet, Refills: 0 Associated Diagnoses: Type 2 diabetes mellitus without complication, without long-term current use of insulin (H) Multiple Vitamins/Iron TABS TAKE 1 TABLET BY MOUTH DAILY Qty: 90 tablet, Refills: 3 Associated Diagnoses: Bariatric surgery status omeprazole (PRILOSEC) [address] capsule Take 1 capsule (40 mg) by mouth daily Qty: 90 capsule, Refills: 1 Associated Diagnoses: Bariatric surgery status; GERD without esophagitis pregabalin (LYRICA) 50 MG capsule Take 50 mg by mouth 2 times daily Allergies Allergies Allergen Reactions Lisinopril Cough Sulfa Antibiotics Hives Data Most Recent 3 CBC's: Recent Labs Lab Test 11/01/23 0632 10/31/23 0703 10/30/23 0710 WBC 9.5 9.9 17.6* HGB 10.7* 9.7* 11.7 MCV 88 89 89 PLT 519* 479* 488* Most Recent 3 BMP's: Recent Labs Lab Test 11/01/23 0632 10/31/23 0703 10/30/23 1415 10/30/23 0710 NA 141 138 -- 141 POTASSIUM 5.1 4.2 4.0 3.4 CHLORIDE 105 103 -- 102 CO2 28 30* -- 27 BUN 3.7* 4.1* -- 5.6* CR 0.49* 0.58 -- 0.50* ANIONGAP 8 5* -- 12 HAO 8.6 8.8 -- 8.9 GLC 95 100* -- 92 Most Recent 2 LFT's: Recent Labs Lab Test 10/31/23 0703 10/29/23 1153 AST 16 14 ALT 10 10 ALKPHOS 82 98 BILITOTAL 0.2 0.3 Most Recent INR's and Anticoagulation Dosing History: Anticoagulation Dose History No data to display Most Recent 3 Troponin's: Recent Labs Lab Test 08/03/20 1721 TROPI <0.015 Most Recent Cholesterol Panel: Recent Labs Lab Test 05/05/23 0947 CHOL 222* LDL 140* HDL 56 TRIG 128 Most Recent 6 Bacteria Isolates From Any Culture (See EPIC Reports for Culture Details): Recent Labs Lab Test 08/03/20 1923 06/10/20 0257 06/10/20 0159 10/22/19 1043 CULT No growth No growth No growth 50,000 to 100,000 colonies/mL Escherichia coli * Most Recent TSH, T4 and A1c Labs: Recent Labs Lab Test 10/29/23 1153 05/05/23 0947 12/15/22 1053 04/15/22 1409 01/10/22 0931 TSH -- -- 0.71 < > 6.89* T4 -- -- -- -- 1.00 A1C 5.5 < > 5.7* < > 5.9* < > = values in this interval not displayed. Results for orders placed or performed during the hospital encounter of 12/22/22 XR Lumbar Sacral Transforaminal Inj Right Narrative Table formatting from the original result was not included. PHYSICAL MEDICINE & REHABILITATION / MEDICAL SPINE PROCEDURE DATE: Dec 22, 2022 PATIENT NAME: Marlene Almeida DATE OF : 1980 PRE-PROCEDURE DIAGNOSIS: 1. Lumbosacral radiculopathy POST-PROCEDURE DIAGNOSIS: 1. Lumbosacral radiculopathy PROCEDURE: Fluoroscopic-guided right L4-L5 transforaminal epidural steroid injection. (CPT code: 23184) PROCEDURE IN DETAIL: Prior to the procedure, [...] there were no apparent complications. The patient was escorted back to the postprocedure room. The patient was monitored for side effects. No reactions were noted. After appropriate observation, the patient was dismissed from the clinic in good condition. Preprocedure pain level: 5/10. Postprocedure pain level: 1/10. Alvaro Rivera MD ODONTIC LABORATORY TECHNICIAN documented in this encounter Medications at Time [...] 30 days 60 tablet 0 11/01/2023 12/01/2023 amoxicillin-clavulana te (AUGMENTIN) 875-125 MG tabletIndications:Int ra-Abdominal Infection Take 1 tablet by mouth every 12 hours for 4 days 8 tablet 0 11/01/2023 11/05/2023 ondansetron (ZOFRAN ODT) 4 MG ODT tabIndications:Abdomi nal pain, unspecified abdominal location Take 1 tablet (4 mg) by mouth every 8 hours as needed for nausea 15 tablet 0 11/01/2023 11/06/2023 oxyCODONE (ROXICODONE) 5 MG tabletIndications:Abd ominal pain, unspecified abdominal location Take 1 tablet (5 mg) by mouth every 8 hours as needed for pain 12 tablet 0 11/01/2023 11/06/2023 documented as of this encounter Progress Notes * Ming Ochoa MD - 11/01/2023 12:25 PM CST General surgery Today she feels better than yesterday. Has tolerated solid food and is passing flatus.. She has remained afebrile. Abdomen is soft and only discomfort is in the mid region. Unclear source to the inflammatory process near her jejunojejunostomy. Discussed with her the rationale for allowing this inflammatory process to further improve by continuing on antibiotics for about a week. Encouraged her to increase her protein intake in preparation for possible surgical procedure as her albumin is low. She will follow-up with us in clinic in about a week with a CT scan of the abdomen. She is pleased with this plan. Total encounter time 30 minutes, more than half spent in counseling, review of data, and coordination of care. ODONTIC LABORATORY TECHNICIAN * Ming Ochoa MD - 10/31/2023 8:28 AM CST General surgery She is feeling better, has been tolerating her liquids and passing flatus. Abdomen is soft she feels less tender and the discomfort is only now central. She does now recollect having taken some ibuprofen for several weeks back in January and February. Not sure if this could be related to that event. She is interested in advancing the diet, will do so. White blood cell count has normalized so we will transition to oral antibiotics. I have asked her to further reduce the opioid intake to get a sense of what the pain is like now without any narcotics. If she tolerates advancing the diet, oral antibiotics, and no need for narcotics then we could dismiss her on fiber follow-up in clinic with a CT scan of the abdomen in a week. If none of these improvements are seen then we may reimage her during this hospital stay. Total encounter time 25 minutes, more than half spent in counseling, review of data, and coordination of care. ODONTIC LABORATORY TECHNICIAN * Inez Pretty MD - 10/31/2023 7:13 AM CST [facility] Hospitalist Progress Note Assessment & Plan Marlene Almeida is a 42 year old female with past medical history significant for gastric bypass surgery with subsequent panniculectomy, type II diabetes, hypothyroidism, endometriosis s/p hysterectomy and bilateral oophorectomy admitted on 10/29/2023 with abdominal pain. Pt presented to [place] ED on 10/29/23 with a few weeks of progressively worsening abdominal pain. No fever, nausea, vomiting, diarrhea. Poor appetite. Vital signs were within normal limits. She had a leukocytosis to 15.1, and thrombocytosis with platelet count of 602. Hgb was within carlito limits at 12.8. potassium was also low at 3.3, but BMP was otherwise normal. CT scan was obtained and showed a large 5.7 x 4.5 x 5.2cm heterogeneous multiloculated cystic mass in the central lower abdominal mesentery adjacent to the jejunojejunal anastomosis. Differential includes phlegmonous collection secondary to anastomotic leak although malignancy, including lymphoma is not excluded. Upon arrival to [facility], General Surgery was consulted and patient was started on IV Zosyn, IVF and pain mgmt. General Surgery felt that the intra-abdominal mass was likely a small bowel mesentery inflammatory process near previous small bowel anastomosis from gastric bypass. She was transitioned to PO Augmentin along with advancing her diet on 10/31/23. Intra-abdominal mass: likely small bowel mesentery inflammatory process near previous small bowel anastomosis from gastric bypass Hx of Jon -en- Y Gastric Bypass (2018), panniculectomy (2019) - Discontinue IV Zosyn - Transition to PO Augmentin - Discontinue IVF - General Surgery following, appreciate recs - PO abx, Adv diet, limit pain meds - Only consider surgery if mgmt fails - Pain mgmt - Scheduled Tylenol - PRN PO Oxycodone - PRN IV Dilaudid Leukocytosis: Resolved Likely related to abdominal pathology Thrombocytosis: Resolving Likely related to abdominal pathology Anemia No clinical signs of bleeding, could be dilutional - Hgb: 11.6 > 11.7 > 9.7 - Continue to monitor Hypothyroidism - Continue home Levothyroxine Type II DM 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 Clinically Significant Risk Factors # Hypokalemia: Lowest K = 3.3 mmol/L in last 2 days, will replace as needed # Hypoalbuminemia: Lowest albumin = 2.7 g/dL at 10/31/2023 7:03 AM, will monitor as appropriate # Obesity: Estimated body mass index is 30.02 kg/m?? as calculated from the following: Height as of this encounter: 1.676 m (5' 6). Weight as of this encounter: 84.4 kg (186 lb)., PRESENT ON ADMISSION Diet: Snacks/Supplements Adult: Ensure Clear; Between Meals Advance Diet as Tolerated: Regular Diet Adult DVT Prophylaxis: Pneumatic Compression Devices Teran Catheter: Not present Lines: None Cardiac Monitoring: None Code Status: Full Code Disposition Plan Expected Discharge Date: 10/31/2023, 6:00 PM Discharge Comments: Limit narcotics, ADAT, may go home on PO abx Entered: Inez Pretty MD 10/31/2023, 11:48 AM Notes Reviewed: General Surgery Care Team Updated: Yes Disposition: Likely tomorrow pending tolerance of regular diet, pain control and final general surgery recommendations. If patient does not have improvement in her pain, general surgery may need to re-image her abdomen. Inez Pretty MD Hospitalist Service [facility] Securely message with the [employer] (learn more here) Text page via [employer] Paging/Directory Medical Decision Making 45 MINUTES SPENT BY ME on the date of service doing chart review, history, exam, documentation & further activities per the note. Interval History No acute overnight events. This morning the patient was laying in bed. She states that she is feeling much improved today. Pain is still present but much more tolerable. Is trying to limit pain meds. Able to tolerate PO intake. Denies headache, chest pain, SOB, nausea, vomiting. -Data reviewed today: I reviewed all new labs and imaging results over the last 24 hours. Physical Exam Temp: 97.9 ??F (36.6 ??C) Temp src: Oral BP: 103/69 Pulse: 59 Resp: 18 SpO2: 96 % O2 Device: None (Room air) Vitals: 10/29/23 1135 Weight: 84.4 kg (186 lb) Vital Signs with Ranges Temp: [97.3 ??F (36.3 ??C)-98.1 ??F (36.7 ??C)] 97.9 ??F (36.6 ??C) Pulse: [59-71] 59 Resp: [16-18] 18 BP: (102-117)/(64-80) 103/69 SpO2: [93 %-99 %] 96 % I/O last 3 completed shifts: In: 3772 [P.O.:640; I.V.:3132] Out: 1200 [Urine:1200] Constitutional: Awake, alert, cooperative, in no acute distress HEENT: PERRL, Normocephalic, without obvious abnormality, atraumatic, oral pharynx with moist mucusmembranes Pulmonary: Clear breath sounds bilaterally Cardiovascular: Regular rate and rhythm, normal S1 and S2 GI: Normal bowel sounds, soft, non-distended, tenderness and firmness noted in the lower abdomen (improved) Skin/Integumen: well healing scars on her abdomen Neuro: moves all 4 extremities Psych: Alert and oriented x 3. Normal affect. Extremities: No lower extremity edema noted, and calves are non-TTP bilaterally. Medications acetaminophen 975 mg Oral TID amoxicillin-clavulanate 1 tablet Oral Q12H [facility] (05/28) buPROPion 300 mg Oral QAM escitalopram 20 mg Oral Daily eszopiclone 3 mg Oral At Bedtime levothyroxine 112 mcg Oral Daily pantoprazole 40 mg Oral BID pregabalin 50 mg Oral BID senna-docusate 1 tablet Oral At Bedtime sodium chloride (PF) 3 mL Intracatheter Q8H Data Recent Labs Lab 10/31/23 0703 10/30/23 1415 10/30/23 0710 10/29/23 2358 10/29/23 1200 10/29/23 1153 WBC 9.9 -- 17.6* -- -- 18.7* HGB 9.7* -- 11.7 -- -- 11.6* MCV 89 -- 89 -- -- 89 PLT 479* -- 488* -- -- 531* NA 138 -- 141 -- -- 138 POTASSIUM 4.2 4.0 3.4 -- -- 3.3* CHLORIDE 103 -- 102 -- -- 101 CO2 30* -- 27 -- -- 30* BUN 4.1* -- 5.6* -- -- 4.6* CR 0.58 -- 0.50* -- -- 0.55 ANIONGAP 5* -- 12 -- -- 7 HAO 8.8 -- 8.9 -- -- 9.0 GLC 100* -- 92 83 < > 117* ALBUMIN 2.7* -- -- -- -- 3.1* PROTTOTAL 6.2* -- -- -- -- 6.9 BILITOTAL 0.2 -- -- -- -- 0.3 ALKPHOS 82 -- -- -- -- 98 ALT 10 -- -- -- -- 10 AST 16 -- -- -- -- 14 LIPASE -- -- -- -- -- 12* < > = values in this interval not displayed. No results found for this or any previous visit (from the past 24 hour(s)). ODONTIC LABORATORY TECHNICIAN * Carolina Beard RN - 10/30/2023 8:[address] Ochoa requested CT imaging from [facility]. account services associate call the ED in [place], and was transferred to radiology department. They will fax report, and push images thru PACs ODONTIC LABORATORY TECHNICIAN * Inez Pretty MD - 10/30/2023 7:10 AM CST [facility] Hospitalist Progress Note Assessment & Plan Marlene Almeida is a 42 year old female with past medical history significant for gastric bypass surgery with subsequent panniculectomy, type II diabetes, hypothyroidism, endometriosis s/p hysterectomy and bilateral oophorectomy admitted on 10/29/2023 with abdominal pain. She is found to have an intra- abdominal mass concerning for possible anastomotic leak vs malignancy. Intra-abdominal mass: likely small bowel mesentery inflammatory process near previous small bowel anastomosis from gastric bypass Hx of Jon -en- Y Gastric Bypass (2018), panniculectomy (2019) Pt presented to [place] ED on 10/29/23 with a few weeks of progressively worsening abdominal pain. No fever, nausea, vomiting, diarrhea. Poor appetite. Vital signs were within normal limits. She had a leukocytosis to 15.1, and thrombocytosis with platelet count of 602. Hgb was within carlito limitsat 12.8. potassium was also low at 3.3, but BMP was otherwise normal. CT scan was obtained and showed a large 5.7 x 4.5 x 5.2 cm heterogeneous multiloculated cystic mass in the central lower abdominal mesentery adjacent to the jejunojejunal anastomosis. Differential includes phlegmonous collection secondary to anastomotic leak although malignancy, including lymphoma is not excluded. - Continue IV Zosyn - Continue IVF - General Surgery following, appreciate recs - Continue current mgmt of IV hydration, IV abx and labs - Only consider surgery if mgmt fails - Start liquid diet today - Pain mgmt - Scheduled Tylenol - PRN PO Oxycodone - PRN IV Dilaudid Hypothyroidism - Restart home Levothyroxine Type II DM SERVICE TEAM LEADER on metformin alone - Hold Metformin - BID blood glucose checks Anxiety/depression - Restart SERVICE TEAM LEADER escitalopram, wellbutrin and lunesta Endometriosis s/p total abdominal hysterectomy and bilateral oophorectomy (Aug 2023), c/b infected surgical wound - Noted, wound appears to be healing. Clinically Significant Risk Factors # Hypokalemia: Lowest K = 3.3 mmol/L in last 2 days, will replace as needed # Hypoalbuminemia: Lowest albumin = 3.1 g/dL at 10/29/2023 11:53 AM, will monitor as appropriate # Obesity: Estimated body mass index is 30.02 kg/m?? as calculated from the following: Height as of this encounter: 1.676 m (5' 6). Weight as of this encounter: 84.4 kg (186 lb)., PRESENT ON ADMISSION Diet: Bariatric Diet Clear Liquids DVT Prophylaxis: Pneumatic Compression Devices Teran Catheter: Not present Lines: None Cardiac Monitoring: None Code Status: Full Code Disposition Plan Expected Discharge Date: 11/02/2023 Discharge Comments: pending w/u Gneral surgery to see Entered: Inez Pretty MD 10/30/2023, 11:23 AM Notes Reviewed: General Surgery Care Team Updated: Yes Disposition: Potentially 2-3 days pending medical improvement and final recommendations from general surgery Inez Pretty MD Hospitalist Service [facility] Securely message with the [employer] Web Console (learn more here) Text page via [employer] Paging/Directory Medical Decision Making 60 MINUTES SPENT BY ME on the date of service doing chart review, history, exam, documentation & further activities per the note. Interval History Assumed care this morning. This morning the patient was laying in bed. She states that she is okay but upset with some of the care she has gotten. Explained that General Surgery will be seeing her sometime this morning. She states that her pain has improved from stabbing to dull and achy. Hoping to eat some food today. Denies headache, chest pain, SOB, nausea, vomiting. -Data reviewed today: I reviewed all new labs and imaging results over the last 24 hours. Physical Exam Temp: 98.2 ??F (36.8 ??C) Temp src: Oral BP: 115/67 Pulse: 72 Resp: 18 SpO2: 92 % O2 Device: None (Room air) Vitals: 10/29/23 1135 Weight: 84.4 kg (186 lb) Vital Signs with Ranges Temp: [97.6 ??F (36.4 ??C)-98.5 ??F (36.9 ??C)] 98.2 ??F (36.8 ??C) Pulse: [72-89] 72 Resp: [16-18] 18 BP: (115-128)/(67-78) 115/67 Cuff Mean (mmHg): [93] 93 SpO2: [92 %-98 %] 92 % I/O last 3 completed shifts: In: 868.33 [I.V.:868.33] Out: - Constitutional: Awake, alert, cooperative, anxious, upset HEENT: PERRL, Normocephalic, without obvious abnormality, atraumatic, oral pharynx with moist mucusmembranes Pulmonary: Clear breath sounds bilaterally Cardiovascular: Regular rate and rhythm, normal S1 and S2 GI: Normal bowel sounds, soft, non-distended, tenderness and firmness noted in the lower abdomen Skin/Integumen: well healing scars on her abdomen Neuro: moves all 4 extremities Psych: Alert and oriented x 3. Normal affect. Extremities: No lower extremity edema noted, and calves are non-TTP bilaterally. Medications sodium chloride 100 mL/hr at 10/30/23 0552 acetaminophen 975 mg Oral TID buPROPion 300 mg Oral QAM escitalopram 20 mg Oral Daily eszopiclone 3 mg Oral At Bedtime [START ON 10/31/2023] levothyroxine 112 mcg Oral Daily omeprazole 40 mg Oral Daily piperacillin-tazobactam 3.375 g Intravenous Q6H pregabalin 50 mg Oral BID sodium chloride (PF) 3 mL Intracatheter Q8H Data Recent Labs Lab 10/30/23 0710 10/29/23 2358 10/29/23 1200 10/29/23 1153 WBC 17.6* -- -- 18.7* HGB 11.7 -- -- 11.6* MCV 89 -- -- 89 PLT 488* -- -- 531* NA 141 -- -- 138 POTASSIUM 3.4 -- -- 3.3* CHLORIDE 102 -- -- 101 CO2 27 -- -- 30* BUN 5.6* -- -- 4.6* CR 0.50* -- -- 0.55 ANIONGAP 12 -- -- 7 HAO 8.9 -- -- 9.0 GLC 92 83 103* 117* ALBUMIN -- -- -- 3.1* PROTTOTAL -- -- -- 6.9 BILITOTAL -- -- -- 0.3 ALKPHOS -- -- -- 98 ALT -- -- -- 10 AST -- -- -- 14 LIPASE -- -- -- 12* No results found for this or any previous visit (from the past 24 hour(s)). ODONTIC LABORATORY TECHNICIAN * Gabriella Ferreira RN - 10/29/2023 11:[address] Sales called regarding this patient and order received for dilaudid iv prn see emar and flow sheet given for lower mid abdominal pain ODONTIC LABORATORY TECHNICIAN * Gabriella Ferreira RN - 10/29/2023 9:00 AM CST Pt received from [place] via cart. Alert and orientated see vitals reports discomfort to abdomenlower middle old incision from hysterctomy she reports she had Nov . Denies nausea or emesis to present time. Pt also reports that this incision had and infection and she was put on an antibiotic for 10 days. She reports she had a gastric bypass back in 2018. Awaiting orders from hospitalist ODONTIC LABORATORY TECHNICIAN documented in this encounter H&P Notes * Leticia Sales MD - 10/29/2023 11:33 AM CST [facility] History and Physical - Hospitalist Service Date of Admission: 10/29/2023 Assessment & Plan Marlene Almeida is a 42 year old female with past medical history significant for gastric bypass surgery with subsequent panniculectomy, type II diabetes, hypothyroidism, endometriosis s/p hysterectomy and bilateral oophorectomy admitted on 10/29/2023 with abdominal pain. She is found to have an intra- abdominal mass concerning for possible anastomotic leak vs malignancy. Intra-abdominal mass, concern for anastomotic leak vs malignancy Hx of Jon -en- Y Gastric Bypass (2018), panniculectomy (2019) Pt presented to [place] ED today with a few weeks of progressively worsening abdominal pain. No fever, nausea, vomiting, diarrhea. Poor appetite. * Vital signs were within normal limits. * She had a leukocytosis to 15.1, and thrombocytosis with platelet count of 602. Hgb was within carlito limits at 12.8. potassium was also low at 3.3, but BMP was otherwise normal. * CT scan was obtained and showed a large 5.7 x 4.5 x 5.2 cm heterogeneous multiloculated cystic mass in the central lower abdominal mesentery adjacent to the jejunojejunal anastomosis. Differentialincludes phlegmonous collection secondary to anastomotic leak although malignancy, including lymphoma is not excluded - Admit to inpatient - Started on Zosyn, continue - Repeat labs - CBC, CMP, lipase, lactate - General Surgery consult - NPO - IV fluids - Pain control as needed Hypothyroidism -Hold SERVICE TEAM LEADER levothyroxine while NPO Type II DM SERVICE TEAM LEADER on metformin alone - Hold Metformin - BID blood glucose checks Anxiety/depression - Hold SERVICE TEAM LEADER escitalopram and wellbutrin for now Endometriosis s/p total abdominal hysterectomy and bilateral oophorectomy (Aug 2023), c/b infected surgical wound - Noted, wound appears to be healing. Diet: NPO for Medical/Clinical Reasons Except for: No Exceptions DVT Prophylaxis: Pneumatic Compression Devices Teran Catheter: Not present Lines: None Cardiac Monitoring: None Code Status: Full Code Clinically Significant Risk Factors Present on Admission Disposition Plan Expected Discharge Date: 10/31/2023 Leticia Sales MD Hospitalist Service [facility] Securely message with [employer] (more info) Text page via [facility] Paging/Directory Chief Complaint Abdominal pain History is obtained from the patient History of Present Illness Marlene Almeida is a 42 year old female who presented to an outside ED with several weeks of increasing central abdominal pain. She notes pain currently is at about a 9/10 in severity and located right over the umbilicus. She has generally been able to tolerate PO. No nausea, vomiting, diarrhea. No fevers or chills. No chest pain. She did recently undergo total abdominal hysterectomy and bilateral oophorectomy (Aug 2023), this was complicated buy infected surgical wound that is right over the area that she is having pain. The wound however appears to be healing well now. Past Medical History Past Medical History: Diagnosis Date Depressive disorder Diabetes (H) Hypertension Thyroid disease Past Surgical History Past Surgical History: Procedure Laterality Date ENT SURGERY tonsillectomy LAPAROSCOPIC BYPASS GASTRIC N/A 01/08/2018 Procedure: LAPAROSCOPIC BYPASS GASTRIC; LAPAROSCOPIC JON EN Y GASTRIC BYPASS; Surgeon: Eulalio Newell MD; Location: OR LAPAROSCOPY DIAGNOSTIC (GENERAL) N/A 06/10/2020 Procedure: LAPAROSCOPY, DIAGNOSTIC; REPAIR OF INTERNAL HERNIAS; Surgeon: Eulalio Newell MD; Location: OR PANNICULECTOMY N/A 08/02/2019 Procedure: Panniculectomy; Surgeon: Ary Parikh MD; Location: [facility] OR SOFT TISSUE SURGERY remove (R) thumb cyst; plate put in Prior to Admission Medications Prior to Admission Medications Prescriptions Last Dose Informant Patient Reported? Taking? Cholecalciferol (D3-1000) 25 MCG (1000 UT) CAPS No Yes Sig: TAKE 2 CAPSULES BY MOUTH DAILY Multiple Vitamins/Iron TABS No Yes Sig: TAKE 1 TABLET BY MOUTH DAILY acetaminophen (TYLENOL) 500 MG tablet at PRN No Yes Sig: Take 1-2 tablets (500-1,000 mg) by mouth 3 times daily Patient taking differently: Take 1,000 mg by mouth every 8 hours as needed albuterol (PROAIR HFA/PROVENTIL HFA/VENTOLIN HFA) 108 (90 Base) MCG/ACT inhaler at PRN Yes Yes Sig: Inhale 2 puffs into the lungs every 6 hours as needed for shortness of breath, wheezing or cough buPROPion (WELLBUTRIN XL) 150 MG 24 hr tablet 10/28/2023 at am No Yes Sig: TAKE 3 TABLETS(450 MG) BY MOUTH DAILY Patient taking differently: Take 300 mg by mouth every morning childrens multivitamin w/iron (FLINTSTONES COMPLETE) chewable tablet Yes Yes Sig: Take 1 chew tab by mouth at bedtime cyclobenzaprine (FLEXERIL) 10 MG tablet at PRN Yes Yes Sig: Take 10 mg by mouth nightly as needed for muscle spasms escitalopram (LEXAPRO) 20 MG tablet 10/28/2023 at am No Yes Sig: TAKE 1 TABLET(20 MG) BY MOUTH DAILY estradiol (VIVELLE-DOT) 0.1 MG/24HR bi-weekly patch 10/28/2023 at on 3 day duration Yes Yes Sig: Place 1 patch onto the skin twice a week Alternating between 3 days and 4 days at a time eszopiclone (LUNESTA) 3 MG tablet 10/27/2023 No Yes Sig: TAKE 1 TABLET(3 MG) BY MOUTH AT BEDTIME levothyroxine (SYNTHROID/LEVOTHROID) 112 MCG tablet 10/28/2023 at am Yes Yes Sig: Take 112 mcg by mouth daily metFORMIN (GLUCOPHAGE XR) 500 MG 24 hr tablet 10/28/2023 at am No Yes Sig: TAKE 1 TABLET(500 MG) BY MOUTH DAILY WITH DINNER Patient taking differently: Take 500 mg by mouth every morning omeprazole (PRILOSEC) [address] capsule 10/28/2023 at am No Yes Sig: Take 1 capsule (40 mg) by mouth daily pregabalin (LYRICA) 50 MG capsule 10/28/2023 at am Yes Yes Sig: Take 50 mg by mouth 2 times daily Facility-Administered Medications: None Review of Systems The 10 point Review of Systems is negative other than noted in the HPI or here. Physical Exam Vital Signs: Temp: 98.3 ??F (36.8 ??C) BP: 119/62 Pulse: 87 Resp: 16 O2 Device: None (Room air) Weight: 0 lbs 0 oz Constitutional: Awake, alert, cooperative, no apparent distress. Eyes: Conjunctiva and pupils examined and normal. HEENT: Moist mucous membranes, normal dentition. Respiratory: Clear to auscultation bilaterally, no crackles or wheezing. Cardiovascular: Regular rate and rhythm, normal S1 and S2, and no murmur noted. GI: Soft, non-distended, diffusely tender over the lower part of the abdomen, normal bowel sounds. Small scar from her recent laparoscopic hysterectomy - does not appear acutely infected Skin: No rashes, no cyanosis, no edema. Musculoskeletal: No joint swelling, erythema or tenderness. Neurologic: Cranial nerves 2-12 intact, normal strength and sensation. Psychiatric: Alert, oriented to person, place and time, no obvious anxiety or depression. Medical Decision Making 75 MINUTES SPENT BY ME on the date of service doing chart review, history, exam, documentation & further activities per the note. Data Imaging results reviewed over the past 24 hrs: No results found for this or any previous visit (from the past 24 hour(s)). ODONTIC LABORATORY TECHNICIAN documented in this encounter Consult Notes * Ming Ochoa MD - 10/30/2023 10:20 AM CSTAssociated Order(s): SURGERY GENERAL IP CONSULT General surgery note We have been asked to see Mrs. Almeida as she presented to an outside hospital with a history of2 weeks of abdominal pain that increased in severity. She was found to have on CT scan of the abdomen cystic/inflammatory mass near her jejunojejunostomy. She does not recollect any changes in diet or any illnesses around the time her symptoms began. Pernell recall having couple days of diarrhea that were out of the ordinary given her well manage diet. Her temperatures have been in the 99's while at home. She has continued to have normal oral intakeand bowel movements after the diarrhea resolved. In addition to the CT scan findings she is noted to have an elevated white blood cell count. In August 15, 2023 she underwent a laparoscopic assisted hysterectomy, it appears endometriosis was found. One of her incisions developed an infection which was treated with antibiotics. This resolved, and her skin healed. Currently her abdomen is soft, there are well-healed scars from her multiple operations. There is some fullness and tenderness in the central area of the abdomen just above the umbilicus. Past medical, surgical, family, and social history reviewed. Small bowel mesentery inflammatory process near previous small bowel anastomosis from gastric bypass. Discussed with her the options of observation with antibiotics and imaging follow-up versus surgical exploration. After going over the risk, benefits, hopeful outcomes, possible complications of each approach, shewould like to proceed with current management and only consider surgery should current treatment fails. Continue with IV hydration, IV antibiotics, follow-up laboratories, will start on liquid diet. Total encounter time 60 minutes, more than half spent in counseling, review of data, and coordination of care. ODONTIC LABORATORY TECHNICIAN documented in this encounter Miscellaneous Notes * Plan of Care - Lucretia Jaimes RN - 11/01/2023 6:23 AM CST Goal Outcome Evaluation: Plan of Care Reviewed With: patient Overall Patient Progress: improvingOverall Patient Progress: improving Summary: Here with an intraabdominal mass Behavior & Aggression: [place] Risk: No Orientation:A&Ox4 ABNL VS/O2: VSS on RA Pain Management: Scheduled Tylenol & PRN Oxycodone Bowel/Bladder: Adequate voiding. BS audible- passing gas/no stools. Drains: PIV SL. Diet: Regular- tolerating Activity Level: Independent Anticipated DC Date: Pending improvements. ODONTIC LABORATORY TECHNICIAN * Plan of Care - Darrell Currie RN - 10/31/2023 7:01 PM CST Date & Time: 10/31/23 0867-1708 Surgery/POD#: Intra-abdominal mass Behavior & Aggression: Green Fall Risk: Yes Orientation:A+Ox4 ABNL VS/O2:VSS ABNL Labs: CO2: 30, Anion gap 5, Albumin 2.7, Protien total 6.2, Hemoglobin 9.7, Hematocrit 30.1 Pain Management:Prn oxycodone Bowel/Bladder: Continent Drains: None Diet: Regular Activity Level: IND Tests/Procedures: None Anticipated DC Date: Tomorrow Significant Information: NA ODONTIC LABORATORY TECHNICIAN * Plan of Care - Lucretia Jaimes RN - 10/31/2023 6:08 AM CST Goal Outcome Evaluation: Plan of Care Reviewed With: patient Overall Patient Progress: improvingOverall Patient Progress: improving Summary: Here with an intraabdominal mass Behavior & Aggression: Green Fall Risk: no Orientation:A&Ox4 ABNL VS/O2: VSS on RA Pain Management: Scheduled Tylenol, PRN Oxycodone, & ice packs. Bowel/Bladder: Adequate voiding. BS audible- passing gas. Drains: PIV infusing NS at 100 mL/hr with int abx Diet: Clears- tolerating Activity Level: Independent Anticipated DC Date: Pending improvements. ODONTIC LABORATORY TECHNICIAN * Plan of Care - Jennifer Bean RN - 10/30/2023 6:38 PM CST Goal Outcome Evaluation: Patient A&OX4. VSS on RA. Audible BS intermittently. Passing flatus. Pain manage oxycodone, schedule tylenol, and prn dilaudid. Up walking independently. Tolerating clear liquid diet. No nausea. Continue to monitor. ODONTIC LABORATORY TECHNICIAN * Plan of Care - Marifer Bearden RN - 10/30/2023 7:03 AM CST October 30, 2023 Shift:MARNIE Almeida 42 year old Date of : 1980 Reason for admission:Intraabdominal mass [R19.00] Cognition/Mentation:A/Ox4 Neuros/CMS:intact VS:stable Cardiac:WDL GI:WDL :abd pain. Hysterectomy incision is healed. Pulmonary:intact Pain:has constant abd pain. Getting IV dilaudid Q2 Drains/Lines:L PIV NS @100ml/hr Skin:intact Activity:assist 1 Diet:NPO at midnight Discharge:pending medical clearance. Shift summary:is waiting for gen surg to round this AM for plan ODONTIC LABORATORY TECHNICIAN * Plan of Care - Jordan Nicole RN - 10/29/2023 8:08 PM CST Goal Outcome Evaluation: A&OX4, VSS on RA. C/o pain in the abd, IV dilaudid 1mg X2 very effective. Clear liquid diet. NPO at midnight. Gen surg consult still pending. K+ replacement in progress. IVF at 100mL/hr. Up ind. Continent. Continue to monitor. ODONTIC LABORATORY TECHNICIAN * Plan of Care - Gabriella Ferreira RN - 10/29/2023 2:49 PM CST Goal Outcome Evaluation: Pt alert and orientated x 4 reporting pain today to mid lower abdomen that radiates to right and left lower abdomen some relief with prn iv dilaudid . Pt denies nausea or emesis. Is NPO per order. Ivf patent and has voided once . ODONTIC LABORATORY TECHNICIAN * Pharmacy-Admission Medication History - Jasmin Younger - 10/29/2023 10:34 AM CST Account Services Coordinator Admission Medication History Admission medication history is complete. The information provided in this note is only as accurateas the sources available at the time of the update. Information Source(s): Patient and CareEverywhere/[employer] via in-person Pertinent Information: -- Pt transferred from [place], confirmed that she's currently on levothyroxine 112mcg and not 125mcg -- Estradiol patch is currently in place since yesterday, stays on for 3 days -- Completed 10d course of cephalexin 500mg TID from Aug Changes made to SERVICE TEAM LEADER medication list: Added: estradiol patch, pregabalin, albuterol inh Deleted: niharika, omeprazole 20mg, hasn't started/doesn't plan to start aripriazole and vilazodone Changed: wellbutrin XL 450mg to 300mg QAM, cyclobenzaprine 5mg to 10mg, levothyroxine 125mcg to 112mcg Allergies reviewed with patient and updates made in EHR: Reviewed by wooden box maker History Completed By: JASMIN YOUNGER 10/29/2023 10:34 AM SERVICE TEAM LEADER Med List Medication Sig Last Dose acetaminophen (TYLENOL) 500 MG tablet Take 1-2 tablets (500-1,000 mg) by mouth 3 times daily (Patient taking differently: Take 1,000 mg by mouth every 8 hours as needed) at PRN albuterol (PROAIR HFA/PROVENTIL HFA/VENTOLIN HFA) 108 (90 Base) MCG/ACT inhaler Inhale 2 puffs intothe lungs every 6 hours as needed for shortness of breath, wheezing or cough at PRN buPROPion (WELLBUTRIN XL) 150 MG 24 hr tablet TAKE 3 TABLETS(450 MG) BY MOUTH DAILY (Patient takingdifferently: Take 300 mg by mouth every morning) 10/28/2023 at am childrens multivitamin w/iron (FLINTSTONES COMPLETE) chewable tablet Take 1 chew tab by mouth at bedtime Cholecalciferol (D3-1000) 25 MCG (1000 UT) CAPS TAKE 2 CAPSULES BY MOUTH DAILY cyclobenzaprine (FLEXERIL) 10 MG tablet Take 10 mg by mouth nightly as needed for muscle spasms at PRN escitalopram (LEXAPRO) 20 MG tablet TAKE 1 TABLET(20 MG) BY MOUTH DAILY 10/28/2023 at am estradiol (VIVELLE-DOT) 0.1 MG/24HR bi-weekly patch Place 1 patch onto the skin twice a week Alternating between 3 days and 4 days at a time 10/28/2023 at on 3 day duration eszopiclone (LUNESTA) 3 MG tablet TAKE 1 TABLET(3 MG) BY MOUTH AT BEDTIME 10/27/2023 levothyroxine (SYNTHROID/LEVOTHROID) 112 MCG tablet Take 112 mcg by mouth daily 10/28/2023 at am metFORMIN (GLUCOPHAGE XR) 500 MG 24 hr tablet TAKE 1 TABLET(500 MG) BY MOUTH DAILY WITH DINNER (Patient taking differently: Take 500 mg by mouth every morning) 10/28/2023 at am Multiple Vitamins/Iron TABS TAKE 1 TABLET BY MOUTH DAILY omeprazole (PRILOSEC) [address] capsule Take 1 capsule (40 mg) by mouth daily 10/28/2023 at am pregabalin (LYRICA) 50 MG capsule Take 50 mg by mouth 2 times daily 10/28/2023 at am ODONTIC LABORATORY TECHNICIAN Associated attestation - Lizbeth Yin RPH - 10/29/2023 11:10 AM ORTHODONTIC LABORATORY TECHNICIAN . * Provider Notification - Gabriella Ferreira RN - 10/29/2023 10:17 [address]IC LABORATORY TECH[address]IC[address] Dr. Hesham Bain hospitalist captain paged regarding needing orders for this patient who came to us from [facility] at [address] Monteiro not responding to paging to present time. Charge nurse aware of above ODONTIC LABORATORY TECHNICIAN documented in this encounter Plan of Treatment Scheduled Referrals Name Type Priority Associated Diagnoses Orde r Schedule Adult General Surg Referral Referral Priority: 1-2 Weeks Abdominal pain, unspecified abdominal location Expected: 11/01/2023 (Approximate), Expires: 11/01/2024 documented as of this encounter Procedures Procedure Name Priority Date/Time Associated Diagnosis Comments BASIC METABOLIC PANEL Routine 11/01/2023 6:32 AM ORTHODONTIC LABORATORY TECHNICIAN CBC WITH PLATELETS Routine 11/01/2023 6: 32 AM ORTHODONTIC LABORATORY TECHNICIAN COMPREHENSIVE METABOLIC PANEL Routine 10/31/2023 7:03 AM ORTHODONTIC LABORATORY TECHNICIAN CBC WITH PLATELETS Routine 10/31/2023 7: 03 AM ORTHODONTIC LABORATORY TECHNICIAN POTASSIUM Timed 10/30/2023 2:15 PM ORTHODONTIC LABORATORY TECHNICIAN BASIC METABOLIC PANEL Routine 10/30/2023 7:10 AM ORTHODONTIC LABORATORY TECHNICIAN CBC WITH PLATELETS Routine 10/30/2023 7: 10 AM ORTHODONTIC LABORATORY TECHNICIAN GLUCOSE BY METER Routine 10/29/2023 11:5 8 PM ORTHODONTIC LABORATORY TECHNICIAN GLUCOSE BY METER Routine 10/29/2023 12:0 0 PM ORTHODONTIC LABORATORY TECHNICIAN PHOSPHORUS STAT 10/29/2023 11:53 AM ORTHODONTIC LABORATORY TECHNICIAN MAGNESIUM STAT 10/29/2023 11:53 AM ORTHODONTIC LABORATORY TECHNICIAN LIPASE STAT 10/29/2023 11:53 AM ORTHODONTIC LABORATORY TECHNICIAN LACTIC ACID WHOLE BLOOD STAT 10/29/2023 11:53 AM ORTHODONTIC LABORATORY TECHNICIAN HEMOGLOBIN A1C Routine 10/29/2023 11:53 AM ORTHODONTIC LABORATORY TECHNICIAN COMPREHENSIVE METABOLIC PANEL STAT 10/29/2023 11:53 AM ORTHODONTIC LABORATORY TECHNICIAN CBC WITH PLATELETS STAT 10/29/2023 11 :53 AM ORTHODONTIC LABORATORY TECHNICIAN documented in this encounter Results * CT Abdomen Pelvis w Contrast (11/10/2023 11:30 AM ORTHODONTIC LABORATORY TECHNICIAN) Anatomical Region Laterality Modality Abdomen/Pelvis, SUBRAD CT ROB DY, UMP CT ABDOMEN PELVIS, RAD CT Computed Tomography Impressions 11/10/2023 1:49 PM ORTHODONTIC LABORATORY TECHNICIAN IMPRESSION: 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 This may represent inflammatory tissue. Chronic leak possible. Other etiologies such as fibromatosis not excluded, although the abnormality has decreased in size when compared to 10/28/2023. SUKHWINDER MORALES MD Narrative 11/10/2023 1:49 PM ORTHODONTIC LABORATORY TECHNICIAN CT ABDOMEN PELVIS W CONTRAST 11/10/2023 11:30 [...] 10/28/2023. SUKHWINDER MORALES MD Inez Pretty MD IMG CT ORDERABLES * (ABNORMAL) Basic metabolic panel (11/01/2023 6:32 AM [facility]) Sodium 141 135 - 145 mmol/L 11/01/2023 7:[address] [facility] Comment:Reference intervals for this test were updated on 07/04/2023 to more accurately reflect our healthy population. There may be differences in the flagging of prior results with similar values performed with this method. Interpretation of those prior results can be made in the context of the updated reference intervals. Potassium 5.1 3.4 - 5.3 mmol/L 11/01/2023 7:[address] [facility] Comment:Specimen moderately hemolyzed. The reported potassium value *IS LIKELY TO BE FALSELY ELEVATED* and should be interpreted with caution for clinical decision making. Analysis of a non-hemolyzed specimen (i.e. re-draw) may result in a lower potassium value. Chloride 105 98 - 107 mmol/L 11/01/2023 7:[address] [facility] Carbon Dioxide (CO2) 28 22 - 29 mmol/L 11/01/2023 7:[address] [facility] Anion Gap 8 7 - 15 mmol/L 11/01/2023 7:[address] [facility] Urea Nitrogen 3.7(L) 6.0 - 20.0 mg/dL 11/01/2023 7:[address] [facility] Creatinine 0.49(L) 0.51 - 0.95 mg/dL 11/01/2023 7:[address] [facility] GFR Estimate >90 >60 mL/min/1. 73m2 11/01/2023 7:[address] [facility] Calcium 8.6 8.6 - 10.0 mg/dL 11/01/2023 7:[address] [facility] Glucose 95 70 - 99 mg/dL 11/01/2023 7:[address] [facility] Blood STRUCTURE OF RIGHT UPPER LIMB / Unknown Venipuncture / Unknown 11/01/2023 6:32 AM ORTHODONTIC LABORATORY TECHNICIAN 11/01/2023 6:48 AM ORTHODONTIC LABORATORY TECHNICIAN Inez Pretty MD LAB - BLOOD ORDER [facility] [address], [address] [place] [address], [facility] [phone] * (ABNORMAL) CBC with platelets (11/01/2023 6:32 AM ORTHODONTIC LABORATORY TECHNICIAN) [facility] WBC Count 9.5 4.0 - 11.0 10e3/uL 11/01/2023 6:[address] [facility] RBC Count 3.69(L) 3.80 - 5.20 10e6/uL 11/01/2023 6:[address] [facility] Hemoglobin 10.7(L) 11.7 - 15.7 g/dL 11/01/2023 6:[address] [facility] Hematocrit 32.4(L) 35.0 - 47.0 % 11/01/2023 6:[address] [facility] MCV 88 78 - 100 fL 11/01/2023 6:[address] [facility] MCH 29.0 26.5 - 33.0 pg 11/01/2023 6:[address] [facility] MCHC 33.0 31.5 - 36.5 g/dL 11/01/2023 6:[address] [facility] RDW 13.5 10.0 - 15.0 % 11/01/2023 6:[address] [facility] Platelet Count 519(H) 150 - 450 10e3/uL 11/01/2023 6:[address] [facility] Blood STRUCTURE OF RIGHT UPPER LIMB / Unknown Venipuncture / Unknown 11/01/2023 6:32 AM ORTHODONTIC LABORATORY TECHNICIAN 11/01/2023 6:48 AM ORTHODONTIC LABORATORY TECHNICIAN Inez Pretty MD LAB - BLOOD ORDER [facility] [address], [address] [place] [address], [facility] [phone] * (ABNORMAL) CBC with platelets (10/31/2023 7:03 AM [facility]) Pathologist [facility] WBC Count 9.9 4.0 - 11.0 10e3/uL 10/31/2023 7:[address] [facility] RBC Count 3.39(L) 3.80 - 5.20 10e6/uL 10/31/2023 7:[address] [facility] Hemoglobin 9.7(L) 11.7 - 15.7 g/dL 10/31/2023 7:[address] [facility] Hematocrit 30.1(L) 35.0 - 47.0 % 10/31/2023 7:[address] [facility] MCV 89 78 - 100 fL 10/31/2023 7:[address] [facility] MCH 28.6 26.5 - 33.0 pg 10/31/2023 7:[address] [facility] MCHC 32.2 31.5 - 36.5 g/dL 10/31/2023 7:[address] [facility] RDW 13.4 10.0 - 15.0 % 10/31/2023 7:[address] [facility] Platelet Count 479(H) 150 - 450 10e3/uL 10/31/2023 7:[address] [facility] Blood STRUCTURE OF RIGHT UPPER LIMB / Unknown Venipuncture / Unknown 10/31/2023 7:03 AM ORTHODONTIC LABORATORY TECHNICIAN 10/31/2023 7:24 AM [facility] Inezwanda Pretty MD LAB - BLOOD ORDER [facility] [address], [address] [place] [address], [place] [phone] * (ABNORMAL) Comprehensive metabolic panel (10/31/2023 7:03 AM [facility]) [facility] Sodium 138 135 - 145 mmol/L 10/31/2023 7:[address] [facility] Comment:Reference intervals for this test were updated on 07/04/2023 to more accurately reflect our healthy population. There may be differences in the flagging of prior results with similar values performed with this method. Interpretation of those prior results can be made in the context of the updated reference intervals. Potassium 4.2 3.4 - 5.3 mmol/L 10/31/2023 7:[address] [facility] Carbon Dioxide (CO2) 30(H) 22 - 29 mmol/L 10/31/2023 7:[address] [facility] Anion Gap 5(L) 7 - 15 mmol/L 10/31/2023 7:[address] [facility] Urea Nitrogen 4.1(L) 6.0 - 20.0 mg/dL 10/31/2023 7:[address] [facility] Creatinine 0.58 0.51 - 0.95 mg/dL 10/31/2023 7:[address] [facility] GFR Estimate >90 >60 mL/min/1. 73m2 10/31/2023 7:[address] [facility] Calcium 8.8 8.6 - 10.0 mg/dL 10/31/2023 7:[address] [facility] Chloride 103 98 - 107 mmol/L 10/31/2023 7:[address] [facility] Glucose 100(H) 70 - 99 mg/dL 10/31/2023 7:[address] [facility] Alkaline Phosphatase 82 40 - 150 U/L 10/31/2023 7:[address] [facility] Comment:Reference intervals for this test were updated on 08/22/2023 to more accurately reflect our healthy population. There may be differences in the flagging of prior results with similar values performed with this method. Interpretation of those prior results can be made in the context of the updated reference intervals. AST 16 0 - 45 U/L 10/31/2023 7:[address] [facility] Comment:Reference intervals for this test were updated on 03/20/2023 to more accurately reflect our healthy population. There may be differences in the flagging of prior results with similar values performed with this method. Interpretation of those prior results can be made in the context of the updated reference intervals. ALT 10 0 - 50 U/L 10/31/2023 7:[address] [facility] Comment:Reference intervals for this test were updated on 03/20/2023 to more accurately reflect our healthy population. There may be differences in the flagging of prior results with similar values performed with this method. Interpretation of those prior results can be made in the context of the updated reference intervals. Protein Total 6.2(L) 6.4 - 8.3 g/dL 10/31/2023 7:54 AM ORTHODONTIC LABORATORY TECHNICIAN LABORATORY Albumin 2.7(L) 3.5 - 5.2 g/dL 10/31/2023 7:54 AM ORTHODONTIC LABORATORY TECHNICIAN LABORATORY Bilirubin Total 0.2 <=1.2 mg/dL 10/31/2023 7:[address] [facility] Blood STRUCTURE OF RIGHT UPPER LIMB / Unknown Venipuncture / Unknown 10/31/2023 7:03 AM ORTHODONTIC LABORATORY TECHNICIAN 10/31/2023 7:24 AM ORTHODONTIC LABORATORY TECHNICIAN Inez Pretty MD LAB - BLOOD ORDER [facility] [address], [address] [place] [address], [facility] [phone] * Potassium (10/30/2023 2:15 PM ORTHODONTIC LABORATORY TECHNICIAN) Potassium 4.0 3.4 - 5.3 mmol/L 10/30/2023 2:43 PM ORTHODONTIC LABORATORY TECHNICIAN LABORATORY Blood STRUCTURE OF LEFT HAND / Unknown Venipuncture / Unknown 10/30/2023 2:15 PM ORTHODONTIC LABORATORY TECHNICIAN 10/30/2023 2:21 PM ORTHODONTIC LABORATORY TECHNICIAN Inez Pretty MD LAB - BLOOD ORDER [facility] [address], [address] [place] [address], [facility] [phone] * (ABNORMAL) CBC with platelets (10/30/2023 7:10 AM ORTHODONTIC LABORATORY TECHNICIAN) WBC Count 17.6(H) 4.0 - 11.0 10e3/uL 10/30/2023 7:43 AM ORTHODONTIC LABORATORY TECHNICIAN LABORATORY RBC Count 3.98 3.80 - 5.20 10e6/uL 10/30/2023 7:[address] [facility] Hemoglobin 11.7 11.7 - 15.7 g/dL 10/30/2023 7:[address] [facility] Hematocrit 35.5 35.0 - 47.0 % 10/30/2023 7:[address] [facility] MCV 89 78 - 100 fL 10/30/2023 7:[address] [facility] MCH 29.4 26.5 - 33.0 pg 10/30/2023 7:[address] [facility] MCHC 33.0 31.5 - 36.5 g/dL 10/30/2023 7:[address] [facility] RDW 13.2 10.0 - 15.0 % 10/30/2023 7:[address] [facility] Platelet Count 488(H) 150 - 450 10e3/uL 10/30/2023 7:[address] [facility] Blood STRUCTURE OF LEFT HAND / Unknown Venipuncture / Unknown 10/30/2023 7:10 AM [facility] 10/30/2023 7:34 AM [facility] Leticia Sales MD LAB - BLOOD ORDERAB LES LABORATORY [facility] [address], [address] [place] [address], [facility] [phone] * (ABNORMAL) Basic metabolic panel (10/30/2023 7:10 AM [facility]) Sodium 141 135 - 145 mmol/L 10/30/2023 7:[address] [facility] Comment:Reference intervals for this test were updated on 07/04/2023 to more accurately reflect our healthy population. There may be differences in the flagging of prior results with similar values performed with this method. Interpretation of those prior results can be made in the context of the updated reference intervals. Potassium 3.4 3.4 - 5.3 mmol/L 10/30/2023 7:[address] [facility] Chloride 102 98 - 107 mmol/L 10/30/2023 7:[address] [facility] Carbon Dioxide (CO2) 27 22 - 29 mmol/L 10/30/2023 7:[address] [facility] Anion Gap 12 7 - 15 mmol/L 10/30/2023 7:[address] [facility] Urea Nitrogen 5.6(L) 6.0 - 20.0 mg/dL 10/30/2023 7:[address] [facility] Creatinine 0.50(L) 0.51 - 0.95 mg/dL 10/30/2023 7:[address] [facility] GFR Estimate >90 >60 mL/min/1. 73m2 10/30/2023 7:[address] [facility] Calcium 8.9 8.6 - 10.0 mg/dL 10/30/2023 7:[address] [facility] Glucose 92 70 - 99 mg/dL 10/30/2023 7:[address] [facility] Blood STRUCTURE OF LEFT HAND / Unknown Venipuncture / Unknown 10/30/2023 7:10 AM ORTHODONTIC LABORATORY TECHNICIAN 10/30/2023 7:34 AM ORTHODONTIC LABORATORY TECHNICIAN Leticia Sales MD LAB - BLOOD ORDERAB LES [facility] [address], [address] [place] [address], [place] [phone] * Glucose by meter (10/29/2023 11:58 PM ORTHODONTIC LABORATORY TECHNICIAN) GLUCOSE BY METER POCT 83 70 - 99 mg/dL 10/30/2023 12:[address] [facility] POC Blood, Capillary BLOOD SPECIMEN / Unknown 10/29/2023 11:58 PM ORTHODONTIC LABORATORY TECHNICIAN 10/30/2023 12:05 AM ORTHODONTIC LABORATORY TECHNICIAN David Monteiro MD LAB - BEAKER POCT [facility] POC [facility] [address], [address] [place] [address], [place] [phone] * (ABNORMAL) Glucose by meter (10/29/2023 12:00 PM ORTHODONTIC LABORATORY TECHNICIAN) GLUCOSE BY METER POCT 103(H) 70 - 99 mg/dL 10/29/2023 12:08 PM ORTHODONTIC LABORATORY TECHNICIAN LABORATORY POC Blood, Capillary BLOOD SPECIMEN / Unknown 10/29/2023 12:00 PM ORTHODONTIC LABORATORY TECHNICIAN 10/29/2023 12:08 PM ORTHODONTIC LABORATORY TECHNICIAN David Monteiro MD LAB - BEAKER POCT LABORATORY POC [facility] [address], [address] [place] [address], [facility] [phone] * Hemoglobin A1c (10/29/2023 11:53 AM ORTHODONTIC LABORATORY TECHNICIAN) Hemoglobin A1C 5.5 <5.7 % 10/29/2023 12:22 PM ORTHODONTIC LABORATORY TECHNICIAN LABORATORY Comment: Normal <5.7% Prediabetes 5.7-6.4% ?? Diabetes 6.5% or higher Note: Adopted from ADA consensus guidelines. Blood STRUCTURE OF LEFT UPPER LIMB / Unknown Venipuncture / Unknown 10/29/2023 11:53 AM ORTHODONTIC LABORATORY TECHNICIAN 10/29/2023 11:59 AM ORTHODONTIC LABORATORY TECHNICIAN Leticia Sales MD LAB - BLOOD ORDERAB LES Performing Organization Address City/[facility] Co de Phone Number LABORATORY [facility] [address], [address] [place] [address], [facility] [phone] * Phosphorus (10/29/2023 11:53 AM ORTHODONTIC LABORATORY TECHNICIAN) Phosphorus 3.4 2.5 - 4.5 mg/dL 10/29/2023 12:25 PM ORTHODONTIC LABORATORY TECHNICIAN LABORATORY Blood STRUCTURE OF LEFT UPPER LIMB / Unknown Venipuncture / Unknown 10/29/2023 11:53 AM ORTHODONTIC LABORATORY TECHNICIAN 10/29/2023 11:59 AM ORTHODONTIC LABORATORY TECHNICIAN Leticia Sales MD LAB - BLOOD ORDERAB LES LABORATORY [facility] [address], [address] [place] [address], [facility] [phone] * Magnesium (10/29/2023 11:53 AM ORTHODONTIC LABORATORY TECHNICIAN) Magnesium 1.8 1.7 - 2.3 mg/dL 10/29/2023 12:25 PM ORTHODONTIC LABORATORY TECHNICIAN LABORATORY Blood STRUCTURE OF LEFT UPPER LIMB / Unknown Venipuncture / Unknown 10/29/2023 11:53 AM ORTHODONTIC LABORATORY TECHNICIAN 10/29/2023 11:59 AM ORTHODONTIC LABORATORY TECHNICIAN Leticia Sales MD LAB - BLOOD ORDERAB LES LABORATORY [facility] [address], [address] [place] [address], [facility] [phone] * Lactic acid whole blood (10/29/2023 11:53 AM ORTHODONTIC LABORATORY TECHNICIAN) Lactic Acid 0.8 0.7 - 2.0 mmol/L 10/29/2023 12:01 PM ORTHODONTIC LABORATORY TECHNICIAN LABORATORY Blood STRUCTURE OF LEFT UPPER LIMB / Unknown Venipuncture / Unknown 10/29/2023 11:53 AM ORTHODONTIC LABORATORY TECHNICIAN 10/29/2023 12:00 PM ORTHODONTIC LABORATORY TECHNICIAN Leticia Sales MD LAB - BLOOD ORDERAB LES LABORATORY [facility] [address], [address] [place] [address], [facility] [phone] * (ABNORMAL) Lipase (10/29/2023 11:53 AM ORTHODONTIC LABORATORY TECHNICIAN) Lipase 12(L) 13 - 60 U/L 10/29/2023 12:25 PM ORTHODONTIC LABORATORY TECHNICIAN LABORATORY Blood STRUCTURE OF LEFT UPPER LIMB / Unknown Venipuncture / Unknown 10/29/2023 11:53 AM ORTHODONTIC LABORATORY TECHNICIAN 10/29/2023 11:59 AM ORTHODONTIC LABORATORY TECHNICIAN Leticia Sales MD LAB - BLOOD ORDERAB LES LABORATORY [facility] [address], [address] [place] [address], [facility] [phone] * (ABNORMAL) Comprehensive metabolic panel (10/29/2023 11:53 AM ORTHODONTIC LABORATORY TECHNICIAN) [facility] Sodium 138 135 - 145 mmol/L 10/29/2023 12:[address] [facility] Comment:Reference intervals for this test were updated on 07/04/2023 to more accurately reflect our healthy population. There may be differences in the flagging of prior results with similar values performed with this method. Interpretation of those prior results can be made in the context of the updated reference intervals. Potassium 3.3(L) 3.4 - 5.3 mmol/L 10/29/2023 12:[address] [facility] Carbon Dioxide (CO2) 30(H) 22 - 29 mmol/L 10/29/2023 12:[address] [facility] Anion Gap 7 7 - 15 mmol/L 10/29/2023 12:[address] [facility] Urea Nitrogen 4.6(L) 6.0 - 20.0 mg/dL 10/29/2023 12:[address] [facility] Creatinine 0.55 0.51 - 0.95 mg/dL 10/29/2023 12:[address] [facility] GFR Estimate >90 >60 mL/min/1. 73m2 10/29/2023 12:[address] [facility] Calcium 9.0 8.6 - 10.0 mg/dL 10/29/2023 12:[address] [facility] Chloride 101 98 - 107 mmol/L 10/29/2023 12:[address] [facility] Glucose 117(H) 70 - 99 mg/dL 10/29/2023 12:[address] [facility] Alkaline Phosphatase 98 40 - 150 U/L 10/29/2023 12:[address] [facility] Comment:Reference intervals for this test were updated on 08/22/2023 to more accurately reflect our healthy population. There may be differences in the flagging of prior results with similar values performed with this method. Interpretation of those prior results can be made in the context of the updated reference intervals. AST 14 0 - 45 U/L 10/29/2023 12:[address] [facility] Comment:Reference intervals for this test were updated on 03/20/2023 to more accurately reflect our healthy population. There may be differences in the flagging of prior results with similar values performed with this method. Interpretation of those prior results can be made in the context of the updated reference intervals. ALT 10 0 - 50 U/L 10/29/2023 12:[address] [facility] Comment:Reference intervals for this test were updated on 03/20/2023 to more accurately reflect our healthy population. There may be differences in the flagging of prior results with similar values performed with this method. Interpretation of those prior results can be made in the context of the updated reference intervals. Protein Total 6.9 6.4 - 8.3 g/dL 10/29/2023 12:[address] [facility] Albumin 3.1(L) 3.5 - 5.2 g/dL 10/29/2023 12:[address] [facility] Bilirubin Total 0.3 <=1.2 mg/dL 10/29/2023 12:[address] [facility] Blood STRUCTURE OF LEFT UPPER LIMB / Unknown Venipuncture / Unknown 10/29/2023 11:53 AM ORTHODONTIC LABORATORY TECHNICIAN 10/29/2023 11:59 AM ORTHODONTIC LABORATORY TECHNICIAN Leticia Sales MD LAB - BLOOD ORDERAB LES LABORATORY [facility] [address], [address] [place] [address], [facility] [phone] * (ABNORMAL) CBC with platelets (10/29/2023 11:53 AM ORTHODONTIC LABORATORY TECHNICIAN) [facility] Signature WBC Count 18.7(H) 4.0 - 11.0 10e3/uL 10/29/2023 12:[address] [facility] RBC Count 3.98 3.80 - 5.20 10e6/uL 10/29/2023 12:[address] [facility] Hemoglobin 11.6(L) 11.7 - 15.7 g/dL 10/29/2023 12:[address] [facility] Hematocrit 35.3 35.0 - 47.0 % 10/29/2023 12:[address] [facility] MCV 89 78 - 100 fL 10/29/2023 12:[address] [facility] MCH 29.1 26.5 - 33.0 pg 10/29/2023 12:[address] [facility] MCHC 32.9 31.5 - 36.5 g/dL 10/29/2023 12:[address] [facility] RDW 13.0 10.0 - 15.0 % 10/29/2023 12:[address] [facility] Platelet Count 531(H) 150 - 450 10e3/uL 10/29/2023 12:[address] [facility] Blood STRUCTURE OF LEFT UPPER LIMB / Unknown Venipuncture / Unknown 10/29/2023 11:53 AM ORTHODONTIC LABORATORY TECHNICIAN 10/29/2023 11:59 AM ORTHODONTIC LABORATORY TECHNICIAN Leticia Sales MD LAB - BLOOD ORDERAB LES [facility] Organization Address City/State/ZIP Co de Phone Number LABORATORY [facility] [address], [address] [place] [address], [facility] [phone] documented in this encounter Visit Diagnoses Diagnosis Intraabdominal mass- Primary Abdominal or pelvic swelling, mass or lump, unspecified site Internal hernia Hernia of other specified sites of abdominal cavity without mention of obstruction or gangrene Abdominal pain, unspecified abdominal location Constipation, unspecified constipation type Abdominal pain, unspecified abdominal location documented in this encounter Admitting Diagnoses Diagnosis Intraabdominal mass Abdominal or pelvic swelling, mass or lump, unspecified site documented in this encounter Administered Medications Inactive Administered Medications - up to 3 most recent administrations Medication Order MAR Action Action Date Dose Rate Site acetaminophen (TYLENOL) tablet 975 mg 975 mg, Oral, 3 TIMES DAILY, First dose on Mon10/30/23 at 1600, Maximum acetaminophen dose from all sources = 75 mg/kg/day not to exceed 4 grams/day. $Given 11/01/2023 8:31 AM ORTHODONTIC LABORATORY TECHNICIAN 975 mg $Given 10/31/2023 10:12 PM ORTHODONTIC LABORATORY TECHNICIAN 975 mg $Given 10/31/2023 4:29 PM ORTHODONTIC LABORATORY TECHNICIAN 975 mg amoxicillin-clavulanate (AUGMENTIN) 875-125 MG per tablet 1 tablet Routine, 1 tablet, Oral, EVERY 12 HOURS SCHEDULED, First dose on Mon10/31/23 at 0900, Indications: Intra-Abdominal Infection $Given 11/01/2023 8:31 AM ORTHODONTIC LABORATORY TECHNICIAN 1 tablet $Given 10/31/2023 8:25 PM ORTHODONTIC LABORATORY TECHNICIAN 1 tablet $Given 10/31/2023 9:31 AM ORTHODONTIC LABORATORY TECHNICIAN 1 tablet buPROPion (WELLBUTRIN XL) 24 hr tablet 300 mg 300 mg, Oral, EVERY MORNING, First dose on Mon10/30/23 at 1200, DO NOT CRUSH. $Given 11/01/2023 9:50 AM ORTHODONTIC LABORATORY TECHNICIAN 300 mg $Given 10/31/2023 9:31 AM ORTHODONTIC LABORATORY TECHNICIAN 300 mg $Given 10/30/2023 1:26 PM ORTHODONTIC LABORATORY TECHNICIAN 300 mg escitalopram (LEXAPRO) tablet 20 mg 20 mg, Oral, DAILY, First dose on Mon10/30/23 at 1200 $Given 11/01/2023 8:44 AM ORTHODONTIC LABORATORY TECHNICIAN 20 mg $Given 10/31/2023 9:31 AM ORTHODONTIC LABORATORY TECHNICIAN 20 mg $Given 10/30/2023 1:26 PM ORTHODONTIC LABORATORY TECHNICIAN 20 mg eszopiclone (LUNESTA) tablet 3 mg 3 mg, Oral, AT BEDTIME, First dose on Mon10/30/23 at 2200 $Given 10/31/2023 10:12 PM ORTHODONTIC LABORATORY TECHNICIAN 3 mg $Given 10/30/2023 10:11 PM ORTHODONTIC LABORATORY TECHNICIAN 3 mg HYDROmorphone (DILAUDID) injection 0.2 mg 0.2 mg, Intravenous, EVERY 3 HOURS PRN, severe pain, Starting on Mon10/31/23 at 1513 HYDROmorphone (PF) (DILAUDID) injection 0.3 mg 0.3 mg, Intravenous, EVERY 2 HOURS PRN, moderate pain, Starting on Mon10/29/23 at 1104 $Given 10/29/2023 11:16 AM ORTHODONTIC LABORATORY TECHNICIAN 0.3 mg HYDROmorphone (PF) (DILAUDID) injection 0.5-1 mg 0.5-1 mg, Intravenous, EVERY 2 HOURS PRN, moderate pain, Starting on Mon10/29/23 at 1153 $Given 10/30/2023 9:08 AM ORTHODONTIC LABORATORY TECHNICIAN 1 mg $Given 10/30/2023 6:28 AM ORTHODONTIC LABORATORY TECHNICIAN 1 mg $Given 10/30/2023 2:48 AM ORTHODONTIC LABORATORY TECHNICIAN 1 mg HYDROmorphone (PF) (DILAUDID) injection 0.5-1 mg 0.5-1 mg, Intravenous, EVERY 3 HOURS PRN, severe pain, Starting on Mon10/30/23 at 1200 $Given 10/30/2023 1:25 PM ORTHODONTIC LABORATORY TECHNICIAN 1 mg hydrOXYzine HCl (ATARAX) tablet 25 mg 25 mg, Oral, EVERY 6 HOURS PRN, other, anxiety, adjuvant pain, Starting on Mon10/30/23 at 0913, Start with 25 mg for the initial dose. If the 25 mg dose is ineffective, increase to the 50 mg dose at the next administration time and maintain further doses at 50 mg. If the 50 mg dose is ineffective, contact the provider. hydrOXYzine HCl (ATARAX) tablet 50 mg 50 mg, Oral, EVERY 6 HOURS PRN, other, anxiety, adjuvant pain, Starting on Mon10/30/23 at 0913, Start with 25 mg for the initial dose. If the 25 mg dose is ineffective, increase to the 50 mg dose at the next administration time and maintain further doses at 50 mg. If the 50 mg dose is ineffective, contact the provider. levothyroxine (SYNTHROID/LEVOTHROID) tablet 112 mcg 112 mcg, Oral, DAILY, First dose on Mon10/31/23 at 0900, Separate oral administration of iron- or calcium-containing products and levothyroxine by at least 4 hours. $Given 11/01/2023 8:31 AM ORTHODONTIC LABORATORY TECHNICIAN 112 mcg $Given 10/31/2023 9:31 AM ORTHODONTIC LABORATORY TECHNICIAN 112 mcg naloxone (NARCAN) injection 0.2 mg 0.2 mg, Intravenous, EVERY 2 MIN PRN, opioid reversal, Starting on Mon10/29/23 at 1110, Administer intravenous route when available and notify provider when administered. For unintended sedation or respiratory depression if all of the below criteria are met: ~ respiratory rate LESS than or EQUAL to 8. ~SaO2 less than 92% and or/end-tidal CO2 is greater than 50. ~ the patient is receiving an opioid, has unintended sedations assessed as RASS (-3), and is currently not on mechanical ventilation. RASS scale moderate (-3) is movement or eye opening to voice but no eye contact. Patient Monitoring Once the patient has demonstrated a response to the naloxone, continue to monitor respiratory rate, depth, oxygen saturation and end-tidal CO2 (if available) every 15 minutes x 2, then every 30 minutes x 2, then every 1 hour x 1 after each naloxone dose. Consider transfer to ICU if patient respiratory parameters have not improved after 4 naloxone doses. naloxone (NARCAN) injection 0.2 mg 0.2 mg, Intramuscular, EVERY 2 MIN PRN, opioid reversal, Starting on 10/29/23 at 1110, Administer intramuscular if an intravenous route is not available and notify provider when administered. For unintended sedation or respiratory depression if all of the below criteria are met: ~ respiratory rate LESS than or EQUAL to 8. ~SaO2 less than 92% and or/end-tidal CO2 is greater than 50. ~ the patient is receiving an opioid, has unintended sedations assessed as RASS (-3), and is currently not on mechanical ventilation. RASS scale moderate (-3) is movement or eye opening to voice but no eye contact. Patient Monitoring Once the patient has demonstrated a response to the naloxone, continue to monitor respiratory rate, depth, oxygen saturation and end-tidal CO2 (if available) every 15 minutes x 2, then every 30 minutes x 2, then every 1 hour x 1 after each naloxone dose. Consider transfer to ICU if patient respiratory parameters have not improved after 4 naloxone doses. naloxone (NARCAN) injection 0.4 mg 0.4 mg, Intravenous, EVERY 2 MIN PRN, opioid reversal, Starting on 10/29/23 at 1110, Administer intravenous route when available and notify provider when administered. For unintended sedation or respiratory depression if all of the below criteria are met: ~ respiratory rate LESS than or EQUAL to 8. ~ SaO2 less than 92% and or/end-tidal CO2 is greater than 50. ~ the patient is receiving an opioid, has unintended sedation assessed as RASS (-4) or (-5) and patient is currently not on mechanical ventilation. RASS scale (-4) is deep sedation with no response to voice but movement or eye opening to physical stimulation. RASS scale (-5) is unarousable. Patient Monitoring Once the patient has demonstrated a response to the naloxone, continue to monitor respiratory rate, depth, oxygen saturation and end-tidal CO2 (if available) every 15 minutes x 2, then every 30 minutes x 2, then every 1 hour x 1 after each naloxone dose. Consider transfer to ICU if patient respiratory parameters have not improved after 4 naloxone doses. naloxone (NARCAN) injection 0.4 mg 0.4 mg, Intramuscular, EVERY 2 MIN PRN, opioid reversal, Starting on Mon10/29/23 at 1110, Administer intramuscular if an intravenous route is not available and notify provider when administered. For unintended sedation or respiratory depression if all of the below criteria are met: ~ respiratory rate LESS than or EQUAL to 8. ~ SaO2 less than 92% and or/end-tidal CO2 is greater than 50. ~ the patient is receiving an opioid, has unintended sedation assessed as RASS (-4) or (-5) and patient is currently not on mechanical ventilation. RASS scale (-4) is deep sedation with no response to voice but movement or eye opening to physical stimulation. RASS scale (-5) is unarousable. Patient Monitoring Once the patient has demonstrated a response to the naloxone, continue to monitor respiratory rate, depth, oxygen saturation and end-tidal CO2 (if available) every 15 minutes x 2, then every 30 minutes x 2, then every 1 hour x 1 after each naloxone dose. Consider transfer to ICU if patient respiratory parameters have not improved after 4 naloxone doses. ondansetron (ZOFRAN) tablet 4 mg 4 mg, Oral, EVERY 6 HOURS PRN, nausea, vomiting, Starting on Mon10/30/23 at 1144 oxyCODONE (ROXICODONE) tablet 5-10 mg 5-10 mg, Oral, EVERY 4 HOURS PRN, moderate pain, Starting on Mon10/30/23 at 0910 $Given 11/01/2023 2:54 PM ORTHODONTIC LABORATORY TECHNICIAN 10 mg $Given 11/01/2023 10:14 AM ORTHODONTIC LABORATORY TECHNICIAN 10 mg $Given 11/01/2023 3:13 AM ORTHODONTIC LABORATORY TECHNICIAN 10 mg pantoprazole (PROTONIX) EC tablet 40 mg 40 mg, Oral, 2 TIMES DAILY, First dose on Mon10/30/23 at 1200, Therapeutic interchange for omeprazole 40 mg po daily. $Given 11/01/2023 8:31 AM ORTHODONTIC LABORATORY TECHNICIAN 40 mg $Given 10/31/2023 8:25 PM ORTHODONTIC LABORATORY TECHNICIAN 40 mg $Given 10/31/2023 9:31 AM ORTHODONTIC LABORATORY TECHNICIAN 40 mg piperacillin-tazobactam (ZOSYN) 3.375 g vial to attach to NS 100 mL bag Routine, 3.375 g, Intravenous, EVERY 6 HOURS, First dose on Mon10/29/23 at 1200, Lactated Ringer's solution is not compatible with piperacillin-tazobactam for injection., Indications: Intra-Abdominal Infection $New Bag 10/31/2023 2:23 AM ORTHODONTIC LABORATORY TECHNICIAN 3.375 g $New Bag 10/30/2023 7:53 PM ORTHODONTIC LABORATORY TECHNICIAN 3.375 g $New Bag 10/30/2023 2:26 PM ORTHODONTIC LABORATORY TECHNICIAN 3.375 g potassium chloride 10 mEq in 100 mL sterile water infusion 10 mEq, Intravenous, Administer over 60 Minutes, at 100 mL/hr, EVERY HOUR, First dose on Mon10/29/23 at 1700, For 4 doses, Infuse via PERIPHERAL or CENTRAL LINE. Potassium level 3.1 - 3.4 mmol/L Administer 10 mEq potassium chloride IV x 4 doses and recheck potassium level 1-2 hours after last IV dose. Ordered from the Potassium replacement order set. $New Bag 10/30/2023 3:51 AM ORTHODONTIC LABORATORY TECHNICIAN 10 mEq 100 mL/hr $ Bag 10/30/2023 12:00 AM ORTHODONTIC LABORATORY TECHNICIAN 10 mEq 100 mL/hr $New Bag 10/29/2023 8:54 PM ORTHODONTIC LABORATORY TECHNICIAN 10 mEq 100 mL/hr potassium chloride ER (KLOR-CON M) CR tablet 40 mEq 40 mEq, Oral, ONCE, On Mon10/30/23 at 0930, For 1 dose, Potassium level 3.1 - 3.4 mmol/L Ordered from the Potassium replacement order set. DO NOT CRUSH, Potassium Replacement: Potassium level 3.1-3.4 mmol/L, Recheck: Potassium level 4 hours AFTER last oral dose $Given 10/30/2023 9:42 AM ORTHODONTIC LABORATORY TECHNICIAN 40 mEq pregabalin (LYRICA) capsule 50 mg 50 mg, Oral, 2 TIMES DAILY, First dose on Mon10/30/23 at 1200 $Given 11/01/2023 8:31 AM ORTHODONTIC LABORATORY TECHNICIAN 50 mg $Given 10/31/2023 8:25 PM ORTHODONTIC LABORATORY TECHNICIAN 50 mg $Given 10/31/2023 9:31 AM ORTHODONTIC LABORATORY TECHNICIAN 50 mg prochlorperazine (COMPAZINE) injection 5 mg 5 mg, Intravenous, EVERY 6 HOURS PRN, nausea, vomiting, Administer over 1-2 Minutes, Starting on Mon10/30/23 at 1144 prochlorperazine (COMPAZINE) suppository 25 mg 25 mg, Rectal, EVERY 12 HOURS PRN, nausea, vomiting, Starting on Mon10/30/23 at 1144 prochlorperazine (COMPAZINE) tablet 5 mg 5 mg, Oral, EVERY 6 HOURS PRN, nausea, vomiting, Starting on Mon10/30/23 at 1144 $Given 10/30/2023 11:51 AM ORTHODONTIC LABORATORY TECHNICIAN 5 mg senna-docusate (SENOKOT-S/PERICOLACE) 8.6-50 MG per tablet 1 tablet 1 tablet, Oral, 2 TIMES DAILY PRN, constipation, Starting on Mon10/29/23 at 1101, If no bowel movement in 24 hours, increase to 2 tablets by mouth. IF more than 1 constipation PRN medication is ordered, administer step-gusman as indicated, moving to the next step ONLY if prior step ineffective. Step 1: senna-docusate (SENOKOT-S; PERICOLACE) OR bisacodyl (DULCOLAX) EC tablet Step 2: polyethylene glycol (MIRALAX/GLYCOLAX) Step 3: bisacodyl (DULCOLAX) suppository Step 4: enema Hold for loose stools. senna-docusate (SENOKOT-S/PERICOLACE) 8.6-50 MG per tablet 1 tablet 1 tablet, Oral, AT BEDTIME, First dose on Mon10/31/23 at 2200, Hold for loose stools. $Given 10/31/2023 10:12 PM ORTHODONTIC LABORATORY TECHNICIAN 1 tablet senna-docusate (SENOKOT-S/PERICOLACE) 8.6-50 MG per tablet 2 tablet 2 tablet, Oral, 2 TIMES DAILY PRN, constipation, Starting on Mon10/29/23 at 1101, IF more than 1 constipation PRN medication is ordered, administer step-gusman as indicated, moving to the next step ONLY if prior step ineffective. Step 1: senna-docusate (SENOKOT-S; PERICOLACE) OR bisacodyl (DULCOLAX) EC tablet Step 2: polyethylene glycol (MIRALAX/GLYCOLAX) Step 3: bisacodyl (DULCOLAX) suppository Step 4: enema Hold for loose stools. $Given 11/01/2023 12:31 PM ORTHODONTIC LABORATORY TECHNICIAN 2 tabl ets sodium chloride (PF) 0.9% PF flush 3 mL 3 mL, Intracatheter, EVERY 8 HOURS, First dose on Mon10/29/23 at 1130, to lock peripheral IV dormant line $Given 11/01/2023 12:32 PM ORTHODONTIC LABORATORY TECHNICIAN 3 mLs $Given 10/31/2023 8:25 PM ORTHODONTIC LABORATORY TECHNICIAN 3 mLs $Given 10/31/2023 12:35 PM ORTHODONTIC LABORATORY TECHNICIAN 3 mLs sodium chloride (PF) 0.9% PF flush 3 mL 3 mL, Intracatheter, EVERY 1 MIN PRN, line flush, other, to ensure patency or to lock dormant line, Starting on Mon10/29/23 at 1101 $Given 10/29/2023 11:17 AM ORTHODONTIC LABORATORY TECHNICIAN 3 mLs sodium chloride 0.9 % infusion at 100 mL/hr, Intravenous, CONTINUOUS, Starting on Mon10/29/23 at 1200, Until Mon10/31/23 at 1104 $New Bag 10/31/2023 2:26 AM ORTHODONTIC LABORATORY TECHNICIAN 100 mL/hr $New Bag 10/30/2023 5:04 PM ORTHODONTIC LABORATORY TECHNICIAN 100 mL/hr $New Bag 10/30/2023 5:52 AM ORTHODONTIC LABORATORY TECHNICIAN 100 mL/hr documented in this encounter Active and Recently Administered Medications Times are shown in ORTHODONTIC LABORATORY TECHNICIAN. Scheduled Medication Order 10/30/2023 10/31/2023 11/01/2023 acetaminophen (TYLENOL) tablet 975 mg 975 mg, Oral, 3 TIMES DAILY, First dose on Mon10/30/23 at 1600, Maximum acetaminophen dose from all sources = 75 mg/kg/day not to exceed 4 grams/day. 1559 ($Given - Provider: Jennifer Bean RN)2211 ($Given - Provider: Lucretia Jaimes RN) 0931 ($Given - Provider: Darrell Currie RN)1629 ($Given - Provider: Darrell Currie RN)2212 ($Given - Provider: Lucretia Jaimes RN) 0831 ($Given - Provider: Darrell Currie, RN)1600 (Canceled Entry - Provider: Orders Generic Provider - Comment: Automatically canceled at discontinue of medication order) amoxicillin-clavulanate (AUGMENTIN) 875-125 MG per tablet 1 tablet Routine, 1 tablet, Oral, EVERY 12 HOURS SCHEDULED, First dose on Mon10/31/23 at 0900, Indications: Intra-Abdominal Infection 09 ($Given - Provider: Darrell Currie RN)2024 ($Given - Provider: Lucretia Jaimes RN) 0831 ($Given - Provider: Darrell Currie, RN) buPROPion (WELLBUTRIN XL) 24 hr tablet 300 mg 300 mg, Oral, EVERY MORNING, First dose on Mon10/30/23 at 1200, DO NOT CRUSH. 1326 ($Given - Provider: Jennifer Bean RN) 0931 ($Given - Provider: Darrell Currie RN) 0950 ($Given - Provider: Darrell Currie RN) escitalopram (LEXAPRO) tablet 20 mg 20 mg, Oral, DAILY, First dose on Mon10/30/23 at 1200 1326 ($Given - Provider: Jennifer Bean RN) 0931 ($Given - Provider: Darrell Currie RN) 0844 ($Given - Provider: Darrell Currie RN) eszopiclone (LUNESTA) tablet 3 mg 3 mg, Oral, AT BEDTIME, First dose on Mon10/30/23 at 2200 2211 ($Given - Provider: Lucretia Jaimes RN) 2212 ($Given - Provider: Lucretia Jaimes RN) levothyroxine (SYNTHROID/LEVOTHROID) tablet 112 mcg 112 mcg, Oral, DAILY, First dose on Mon10/31/23 at 0900, Separate oral administration of iron- or calcium-containing products and levothyroxine by at least 4 hours. 0931 ($Given - Provider: Darrell Currie RN) 0831 ($Given - Provider: Darrell Currie RN) pantoprazole (PROTONIX) EC tablet 40 mg 40 mg, Oral, 2 TIMES DAILY, First dose on Mon10/30/23 at 1200, Therapeutic interchange for omeprazole 40 mg po daily. 1326 ($Given - Provider: Jennifer Bean RN)2211 ($Given - Provider: Lucretia Jaimes RN) 0931 ($Given - Provider: Darrell Currie RN)2024 ($Given - Provider: Lucretia Jaimes RN) 0831 ($Given - Provider: Darrell Currie RN) piperacillin-tazobactam (ZOSYN) 3.375 g vial to attach to NS 100 mL bag (CANCELED) Routine, 3.375 g, Intravenous, EVERY 6 HOURS, First dose on Mon10/29/23 at 1200, Lactated Ringer's solution is not compatible with piperacillin-tazobactam for injection., Indications: Intra-Abdominal Infection 0203 ($New Bag - Provider: Marifer Bearden RN)0912 ($New Bag - Provider: Jennifer Bean RN)1426 ($New Bag - Provider: Jennifer Bean RN)1953 ($New Bag - Provider: Lucretia Jaimes, RN) 0223 ($New Bag - Provider: Lucretia Jaimes RN)0939 (Not Given - Provider: Darrell Currie RN - Reason: Med discontinued by Provider) potassium chloride 10 mEq in 100 mL sterile water infusion (COMPLETED) 10 mEq, Intravenous, Administer over 60 Minutes, at 100 mL/hr, EVERY HOUR, First dose on Mon10/29/23 at 1700, For 4 doses, Infuse via PERIPHERAL or CENTRAL LINE. Potassium level 3.1 - 3.4 mmol/L Administer 10 mEq potassium chloride IV x 4 doses and recheck potassium level 1-2 hours after last IV dose. Ordered from the Potassium replacement order set. 0000 ($New Bag - Provider: Marifer Bearden RN - Comment: pt requested for IV rate to be slower due to burning. Took longer to infuse.)0351 ($New Bag - Provider: Marifer Bearden RN - Comment: pt needed medication to be ran slower) potassium chloride ER (KLOR-CON M) CR tablet 40 mEq (COMPLETED) 40 mEq, Oral, ONCE, On Mon10/30/23 at 0930, For 1 dose, Potassium level 3.1 - 3.4 mmol/L Ordered from the Potassium replacement order set. DO NOT CRUSH, Potassium Replacement: Potassium level 3.1-3.4 mmol/L, Recheck: Potassium level 4 hours AFTER last oral dose 0942 ($Given - Provider: Jennifer Bean RN) pregabalin (LYRICA) capsule 50 mg 50 mg, Oral, 2 TIMES DAILY, First dose on Mon10/30/23 at 1200 1326 ($Given - Provider: Jennifer Bean RN)2211 ($Given - Provider: Lucretia Jaimes RN) 0931 ($Given - Provider: Darrell Currie RN)2025 ($Given - Provider: Lucretia Jaimes RN) 0831 ($Given - Provider: Darrell Currie RN) senna-docusate (SENOKOT-S/PERICOLACE) 8.6-50 MG per tablet 1 tablet 1 tablet, Oral, AT BEDTIME, First dose on Mon10/31/23 at 2200, Hold for loose stools. 2212 ($Given - Provider: Lucretia Jaimes RN) sodium chloride (PF) 0.9% PF flush 3 mL 3 mL, Intracatheter, EVERY 8 HOURS, First dose on Mon10/29/23 at 1130, to lock peripheral IV dormant line 0330 (Canceled Entry - Provider: Marifer Bearden RN - Comment: fluids running)1151 (Not Given - Provider: Jennifer Bean RN - Reason: IV Infusing)1844 (Not Given - Provider: Jennifer Bean RN - Reason: IV Infusing) 0242 (Not Given - Provider: Lucretia Jaimes RN - Reason: IV Infusing)1235 ($Given - Provider: Darrell Currie RN)2025 ($Given - Provider: Lucretia Jaimes RN) 0238 (Not Given - Provider: Lucretia Jaimes RN - Reason: Patient sleeping)1232 ($Given - Provider: Darrell Currie RN) Continuous Medication Order 10/30/2023 10/31/2023 11/01/2023 sodium chloride 0.9 % infusion (CANCELED) at 100 mL/hr, Intravenous, CONTINUOUS, Starting on Mon10/29/23 at 1200, Until Mon10/31/23 at 1104 0552 ($New Bag - Provider: Marifer Bearden RN)1704 ($New Bag - Provider: Jennifer Bean RN) 0226 ($New Bag - Provider: Lucretia Jaimes RN) PRN Medication Order 10/30/2023 10/31/2023 11/01/2023 calcium carbonate (TUMS) chewable tablet 1,000 mg 1,000 mg, Oral, 4 TIMES DAILY PRN, heartburn, Starting on Mon10/29/23 at 1101 HYDROmorphone (DILAUDID) injection 0.2 mg 0.2 mg, Intravenous, EVERY 3 HOURS PRN, severe pain, Starting on Mon10/31/23 at 1513 HYDROmorphone (PF) (DILAUDID) injection 0.5-1 mg (CANCELED) 0.5-1 mg, Intravenous, EVERY 2 HOURS PRN, moderate pain, Starting on 10/29/23 at 1153 0006 ($Given - Provider: Marifer Bearden RN)0248 ($Given - Provider: Marifer Bearden RN)0628 ($Given - Provider: Marifer Bearden RN)0908 ($Given - Provider: Jennifer Bean RN) HYDROmorphone (PF) (DILAUDID) injection 0.5-1 mg (CANCELED) 0.5-1 mg, Intravenous, EVERY 3 HOURS PRN, severe pain, Starting on Mon10/30/23 at 1200 1325 ($Given - Provider: Jennifer Bean RN) hydrOXYzine HCl (ATARAX) tablet 25 mg(Linked Group 1) 25 mg, Oral, EVERY 6 HOURS PRN, other, anxiety, adjuvant pain, Starting on Mon10/30/23 at 0913, Start with 25 mg for the initial dose. If the 25 mg dose is ineffective, increase to the 50 mg dose at the next administration time and maintain further doses at 50 mg. If the 50 mg dose is ineffective, contact the provider. hydrOXYzine HCl (ATARAX) tablet 50 mg(Linked Group 1) 50 mg, Oral, EVERY 6 HOURS PRN, other, anxiety, adjuvant pain, Starting on 10/30/23 at 0913, Start with 25 mg for the initial dose. If the 25 mg dose is ineffective, increase to the 50 mg dose at the next administration time and maintain further doses at 50 mg. If the 50 mg dose is ineffective, contact the provider. lidocaine (LMX4) cream Topical, EVERY 1 HOUR PRN, pain, with VAD insertion, Starting on 10/29/23 at 1101, Apply at least 30 minutes prior to VAD insertion in divided doses as needed for size of site for insertion. MAX Dose: 2.5 g (?? of 5 g tube) Do NOT give if patient has a history of allergy to any local anesthetic or any laura product. Do NOT use both lidocaine intradermal/subcutaneous injection and the lidocaine cream on the same site. lidocaine 1 % 0.1-1 mL 0.1-1 mL, Other, EVERY 1 HOUR PRN, mild pain with VAD insertion, Starting on 10/29/23 at 1101, MAX dose 1 mL subcutaneous OR intradermal along the side of the vein in divided doses as needed for VAD insertion. Do NOT give if patient has a history of allergy to any local anesthetic or any laura product. Do NOT use both lidocaine intradermal/subcutaneous injection and the lidocaine cream on the same site. naloxone (NARCAN) injection 0.2 mg(Linked Group 2) 0.2 mg, Intravenous, EVERY 2 MIN PRN, opioid reversal, Starting on 10/29/23 at 1110, Administer intravenous route when available and notify provider when administered. For unintended sedation or respiratory depression if all of the below criteria are met: ~ respiratory rate LESS than or EQUAL to 8. ~SaO2 less than 92% and or/end-tidal CO2 is greater than 50. ~ the patient is receiving an opioid, has unintended sedations assessed as RASS (-3), and is currently not on mechanical ventilation. RASS scale moderate (-3) is movement or eye opening to voice but no eye contact. Patient Monitoring Once the patient has demonstrated a response to the naloxone, continue to monitor respiratory rate, depth, oxygen saturation and end-tidal CO2 (if available) every 15 minutes x 2, then every 30 minutes x 2, then every 1 hour x 1 after each naloxone dose. Consider transfer to ICU if patient respiratory parameters have not improved after 4 naloxone doses. naloxone (NARCAN) injection 0.2 mg(Linked Group 2) 0.2 mg, Intramuscular, EVERY 2 MIN PRN, opioid reversal, Starting on Mon10/29/23 at 1110, Administer intramuscular if an intravenous route is not available and notify provider when administered. For unintended sedation or respiratory depression if all of the below criteria are met: ~ respiratory rate LESS than or EQUAL to 8. ~SaO2 less than 92% and or/end-tidal CO2 is greater than 50. ~ the patient is receiving an opioid, has unintended sedations assessed as RASS (-3), and is currently not on mechanical ventilation. RASS scale moderate (-3) is movement or eye opening to voice but no eye contact. Patient Monitoring Once the patient has demonstrated a response to the naloxone, continue to monitor respiratory rate, depth, oxygen saturation and end-tidal CO2 (if available) every 15 minutes x 2, then every 30 minutes x 2, then every 1 hour x 1 after each naloxone dose. Consider transfer to ICU if patient respiratory parameters have not improved after 4 naloxone doses. naloxone (NARCAN) injection 0.4 mg(Linked Group 2) 0.4 mg, Intravenous, EVERY 2 MIN PRN, opioid reversal, Starting on 10/29/23 at 1110, Administer intravenous route when available and notify provider when administered. For unintended sedation or respiratory depression if all of the below criteria are met: ~ respiratory rate LESS than or EQUAL to 8. ~ SaO2 less than 92% and or/end-tidal CO2 is greater than 50. ~ the patient is receiving an opioid, has unintended sedation assessed as RASS (-4) or (-5) and patient is currently not on mechanical ventilation. RASS scale (-4) is deep sedation with no response to voice but movement or eye opening to physical stimulation. RASS scale (-5) is unarousable. Patient Monitoring Once the patient has demonstrated a response to the naloxone, continue to monitor respiratory rate, depth, oxygen saturation and end-tidal CO2 (if available) every 15 minutes x 2, then every 30 minutes x 2, then every 1 hour x 1 after each naloxone dose. Consider transfer to ICU if patient respiratory parameters have not improved after 4 naloxone doses. naloxone (NARCAN) injection 0.4 mg(Linked Group 2) 0.4 mg, Intramuscular, EVERY 2 MIN PRN, opioid reversal, Starting on 10/29/23 at 1110, Administer intramuscular if an intravenous route is not available and notify provider when administered. For unintended sedation or respiratory depression if all of the below criteria are met: ~ respiratory rate LESS than or EQUAL to 8. ~ SaO2 less than 92% and or/end-tidal CO2 is greater than 50. ~ the patient is receiving an opioid, has unintended sedation assessed as RASS (-4) or (-5) and patient is currently not on mechanical ventilation. RASS scale (-4) is deep sedation with no response to voice but movement or eye opening to physical stimulation. RASS scale (-5) is unarousable. Patient Monitoring Once the patient has demonstrated a response to the naloxone, continue to monitor respiratory rate, depth, oxygen saturation and end-tidal CO2 (if available) every 15 minutes x 2, then every 30 minutes x 2, then every 1 hour x 1 after each naloxone dose. Consider transfer to ICU if patient respiratory parameters have not improved after 4 naloxone doses. ondansetron (ZOFRAN) tablet 4 mg 4 mg, Oral, EVERY 6 HOURS PRN, nausea, vomiting, Starting on Mon10/30/23 at 1144 oxyCODONE (ROXICODONE) tablet 5-10 mg 5-10 mg, Oral, EVERY 4 HOURS PRN, moderate pain, Starting on Mon10/30/23 at 0910 1102 ($Given - Provider: Jennifer Bean RN)1559 ($Given - Provider: Jennifer Bean RN)2004 ($Given - Provider: Lucretia Jaimes, KATTY) 0104 ($Given - Provider: Lucretia Jaimes, RN)0618 ($Given - Provider: Lucretia Jaimes, RN)1235 ($Given - Provider: Darrell Currie, KATTY)1826 ($Given - Provider: Kristina Murphy RN) 0313 ($Given - Provider: Hannah Prado RN)1014 ($Given - Provider: Darrell Currie, RN)1454 ($Given - Provider: Darrell Currie, KATTY) prochlorperazine (COMPAZINE) injection 5 mg(Linked Group 3) 5 mg, Intravenous, EVERY 6 HOURS PRN, nausea, vomiting, Administer over 1-2 Minutes, Starting on Mon10/30/23 at 1144 1151 (See Alternative - Provider: Jennifer Bean RN) prochlorperazine (COMPAZINE) suppository 25 mg(Linked Group 3) 25 mg, Rectal, EVERY 12 HOURS PRN, nausea, vomiting, Starting on Mon10/30/23 at 1144 1151 (See Alternative - Provider: Jennifer Bean RN) prochlorperazine (COMPAZINE) tablet 5 mg(Linked Group 3) 5 mg, Oral, EVERY 6 HOURS PRN, nausea, vomiting, Starting on Mon10/30/23 at 1144 1151 ($Given - Provider: Jennifer Bean RN) senna-docusate (SENOKOT-S/PERICOLACE) 8.6-50 MG per tablet 1 tablet(Linked Group 4) 1 tablet, Oral, 2 TIMES DAILY PRN, constipation, Starting on Mon10/29/23 at 1101, If no bowel movement in 24 hours, increase to 2 tablets by mouth. IF more than 1 constipation PRN medication is ordered, administer step-gusman as indicated, moving to the next step ONLY if prior step ineffective. Step 1: senna-docusate (SENOKOT-S; PERICOLACE) OR bisacodyl (DULCOLAX) EC tablet Step 2: polyethylene glycol (MIRALAX/GLYCOLAX) Step 3: bisacodyl (DULCOLAX) suppository Step 4: enema Hold for loose stools. 1231 (See Alternative - Provider: Darrell Currie RN)1232 (Canceled Entry - Provider: Darrell Currie RN - Comment: Gave 2 PRN as no BM after last dose of 1 tablet) senna-docusate (SENOKOT-S/PERICOLACE) 8.6-50 MG per tablet 2 tablet(Linked Group 4) 2 tablet, Oral, 2 TIMES DAILY PRN, constipation, Starting on 10/29/23 at 1101, IF more than 1 constipation PRN medication is ordered, administer step-gusman as indicated, moving to the next step ONLY if prior step ineffective. Step 1: senna-docusate (SENOKOT-S; PERICOLACE) OR bisacodyl (DULCOLAX) EC tablet Step 2: polyethylene glycol (MIRALAX/GLYCOLAX) Step 3: bisacodyl (DULCOLAX) suppository Step 4: enema Hold for loose stools. 1231 ($Given - Provider: Darrell Currie RN)1232 (See Alternative - Provider: Darrell Currie RN) sodium chloride (PF) 0.9% PF flush 3 mL 3 mL, Intracatheter, EVERY 1 MIN PRN, line flush, other, to ensure patency or to lock dormant line, Starting on 10/29/23 at 1101 Linked Groups Order Group 1: hydrOXYzine HCl (ATARAX) tablet 25 mgJump to med 25 mg, Oral, EVERY 6 HOURS PRN, other, anxiety, adjuvant pain, Starting on Mon10/30/23 at 0913, Start with 25 mg for the initial dose. If the 25 mg dose is ineffective, increase to the 50 mg dose at the next administration time and maintain further doses at 50 mg. If the 50 mg dose is ineffective, contact the provider. Or hydrOXYzine HCl (ATARAX) tablet 50 mgJump to med 50 mg, Oral, EVERY 6 HOURS PRN, other, anxiety, adjuvant pain, Starting on Mon10/30/23 at 0913, Start with 25 mg for the initial dose. If the 25 mg dose is ineffective, increase to the 50 mg dose at the next administration time and maintain further doses at 50 mg. If the 50 mg dose is ineffective, contact the provider. Group 2: naloxone (NARCAN) injection 0.2 mgJump to med 0.2 mg, Intravenous, EVERY 2 MIN PRN, opioid reversal, Starting on Mon10/29/23 at 1110, Administer intravenous route when available and notify provider when administered. For unintended sedation or respiratory depression if all of the below criteria are met: ~ respiratory rate LESS than or EQUAL to 8. ~SaO2 less than 92% and or/end-tidal CO2 is greater than 50. ~ the patient is receiving an opioid, has unintended sedations assessed as RASS (-3), and is currently not on mechanical ventilation. RASS scale moderate (-3) is movement or eye opening to voice but no eye contact. Patient Monitoring Once the patient has demonstrated a response to the naloxone, continue to monitor respiratory rate, depth, oxygen saturation and end-tidal CO2 (if available) every 15 minutes x 2, then every 30 minutes x 2, then every 1 hour x 1 after each naloxone dose. Consider transfer to ICU if patient respiratory parameters have not improved after 4 naloxone doses. Or naloxone (NARCAN) injection 0.4 mgJump to med 0.4 mg, Intravenous, EVERY 2 MIN PRN, opioid reversal, Starting on Mon10/29/23 at 1110, Administer intravenous route when available and notify provider when administered. For unintended sedation or respiratory depression if all of the below criteria are met: ~ respiratory rate LESS than or EQUAL to 8. ~ SaO2 less than 92% and or/end-tidal CO2 is greater than 50. ~ the patient is receiving an opioid, has unintended sedation assessed as RASS (-4) or (-5) and patient is currently not on mechanical ventilation. RASS scale (-4) is deep sedation with no response to voice but movement or eye opening to physical stimulation. RASS scale (-5) is unarousable. Patient Monitoring Once the patient has demonstrated a response to the naloxone, continue to monitor respiratory rate, depth, oxygen saturation and end-tidal CO2 (if available) every 15 minutes x 2, then every 30 minutes x 2, then every 1 hour x 1 after each naloxone dose. Consider transfer to ICU if patient respiratory parameters have not improved after 4 naloxone doses. Or naloxone (NARCAN) injection 0.2 mgJump to med 0.2 mg, Intramuscular, EVERY 2 MIN PRN, opioid reversal, Starting on 10/29/23 at 1110, Administer intramuscular if an intravenous route is not available and notify provider when administered. For unintended sedation or respiratory depression if all of the below criteria are met: ~ respiratory rate LESS than or EQUAL to 8. ~SaO2 less than 92% and or/end-tidal CO2 is greater than 50. ~ the patient is receiving an opioid, has unintended sedations assessed as RASS (-3), and is currently not on mechanical ventilation. RASS scale moderate (-3) is movement or eye opening to voice but no eye contact. Patient Monitoring Once the patient has demonstrated a response to the naloxone, continue to monitor respiratory rate, depth, oxygen saturation and end-tidal CO2 (if available) every 15 minutes x 2, then every 30 minutes x 2, then every 1 hour x 1 after each naloxone dose. Consider transfer to ICU if patient respiratory parameters have not improved after 4 naloxone doses. Or naloxone (NARCAN) injection 0.4 mgJump to med 0.4 mg, Intramuscular, EVERY 2 MIN PRN, opioid reversal, Starting on 10/29/23 at 1110, Administer intramuscular if an intravenous route is not available and notify provider when administered. For unintended sedation or respiratory depression if all of the below criteria are met: ~ respiratory rate LESS than or EQUAL to 8. ~ SaO2 less than 92% and or/end-tidal CO2 is greater than 50. ~ the patient is receiving an opioid, has unintended sedation assessed as RASS (-4) or (-5) and patient is currently not on mechanical ventilation. RASS scale (-4) is deep sedation with no response to voice but movement or eye opening to physical stimulation. RASS scale (-5) is unarousable. Patient Monitoring Once the patient has demonstrated a response to the naloxone, continue to monitor respiratory rate, depth, oxygen saturation and end-tidal CO2 (if available) every 15 minutes x 2, then every 30 minutes x 2, then every 1 hour x 1 after each naloxone dose. Consider transfer to ICU if patient respiratory parameters have not improved after 4 naloxone doses. Group 3: prochlorperazine (COMPAZINE) injection 5 mgJump to med 5 mg, Intravenous, EVERY 6 HOURS PRN, nausea, vomiting, Administer over 1-2 Minutes, Starting on 10/30/23 at 1144 Or prochlorperazine (COMPAZINE) tablet 5 mgJump to med 5 mg, Oral, EVERY 6 HOURS PRN, nausea, vomiting, Starting on Mon10/30/23 at 1144 Or prochlorperazine (COMPAZINE) suppository 25 mgJump to med 25 mg, Rectal, EVERY 12 HOURS PRN, nausea, vomiting, Starting on Mon10/30/23 at 1144 Group 4: senna-docusate (SENOKOT-S/PERICOLACE) 8.6-50 MG per tablet 1 tabletJump to med 1 tablet, Oral, 2 TIMES DAILY PRN, constipation, Starting on 10/29/23 at 1101, If no bowel movement in 24 hours, increase to 2 tablets by mouth. IF more than 1 constipation PRN medication is ordered, administer step-gusman as indicated, moving to the next step ONLY if prior step ineffective. Step 1: senna-docusate (SENOKOT-S; PERICOLACE) OR bisacodyl (DULCOLAX) EC tablet Step 2: polyethylene glycol (MIRALAX/GLYCOLAX) Step 3: bisacodyl (DULCOLAX) suppository Step 4: enema Hold for loose stools. Or senna-docusate (SENOKOT-S/PERICOLACE) 8.6-50 MG per tablet 2 tabletJump to med 2 tablet, Oral, 2 TIMES DAILY PRN, constipation, Starting on 10/29/23 at 1101, IF more than 1 constipation PRN medication is ordered, administer step-gusman as indicated, moving to the next step ONLY if prior step ineffective. Step 1: senna-docusate (SENOKOT-S; PERICOLACE) OR bisacodyl (DULCOLAX) EC tablet Step 2: polyethylene glycol (MIRALAX/GLYCOLAX) Step 3: bisacodyl (DULCOLAX) suppository Step 4: enema Hold for loose stools. documented in this encounter Additional Health Concerns Assessment Noted Time PHQ-9 Depression Total Score: 10 05/11/ 023 8:03 AM CDT documented as of this encounter Care Teams Community Outreach Manager Relationship Specialty Start Date End Date Amy Villalba Ra, APRN KOSHER DIETARY SERVICE SUPERVISOR [address] [place] [address] PCP - General Family Practice 01/13/22 Amy Villalba Ra, APRN KOSHER DIETARY SERVICE SUPERVISOR [address] [place] [address] Assigned PCP 09/19/21 Renetta Mckeon PA-C [address] [place] [address] Physician Railroad Car Loader Dermatology 05/03/22 Amy Villalba Ra, APRN KOSHER DIETARY SERVICE SUPERVISOR [address] [place] [address] Referring Physician Family Practice 11/01/22 Pura De La Garza APRN KOSHER DIETARY SERVICE SUPERVISOR [address] [place], [place] [address] Nurse Practitioner Dermatology 11/01/22 Gabe Moreira MD [address] [place] [address] [address] [place], [place] 0[address] Assigned Neuroscience Provider 12/17/22 Dov Posadas PA-C [address] [id number] Assigned Surgical Provider 04/08/23 documented as of this encounter
--- OUTSIDE RECORDS SUMMARY | 2023-11-27 15:46 | XMS_ITS | Encounter Summary ---
Author Name Unknown Organization [facility] Address [address] [place] [address] Care Team Providers Care A R Specialist Name Role Phone Deejay Amy Conway APRN VISUAL ASSOCIATE Unavailable Amy Villalba Ra DSP ENGINEER VISUAL ASSOCIATE Primary Care Provid er Renetta Mckeon PA-C Unavailable [phone] Amy Villalba Ra, APRN VISUAL ASSOCIATE Unavailable Pura De La Garza APRN VISUAL ASSOCIATE Unavailable Gabe Moreira MD Unavailable [phone] Dov Posadas PA-C Unavailable [phone] Reason for Visit * Reason Onset Date Comments blood in stool 11/15/2023 Encounter Details Date Type Department Care Team (Late st Contact Info) Description 11/15/2023 Telephone [facility] [place] [address] [place] [address] Ming Ochoa MD [address] [place] [address] blood in stool Social History Tobacco Use Types Packs/Day Years [...] Telephone Encounter - Edie Esquivel RN - 11/16/2023 8:49 AM CST Referral to [facility] placed. Message sent to patient with their scheduling number and advised to wait afew business days before calling to assure they received all the referral info GLORIA MyersN RGRADUATE INTERN * Telephone Encounter - Edie Esquivel RN - 11/15/2023 10:28 AM CST Called patient back with Dr. Ochoa's recommendations: - referral to GI for evaluation/colonoscopy for blood in stools (likely colon related) - continue to monitor symptoms. If patient develops bloating, nausea, diarrhea with presence of blood, increasing pain, dizziness, lightheadedness, ect, she should call back and will obtain CT scan sooner than the current recommendation of ~2 - 3 months. Patient reports ongoing pain under her rib cage. 5 -6 when not taking tylenol. Adamant about havingCT scan after two months, not three. Reports dizziness with position changes. But, does think this is blood pressure related Informed her that if ANY of her current symptoms persist or get worse she should call back and willobtain CT scan sooner than 2 -3 months All questions answered. She is in agreement with this plan. She knows to expect a call from GI She will call PRN LEEROY MyersBSN RGRADUATE INTERN * Telephone Encounter - Ana Ambrosio - 11/15/2023 9:36 AM CST Patient saw [facility] 11/13/23 for abdominal pain. Shecalled yesterday to report a new symptom of blood marbled in her stool and has not heard back as to next steps. She has had two more BM's with blood and is very anxious and afraid, wants advice as to what to do PAOLO Please call Message ok RGRADUATE INTERN documented in this encounter Plan of Treatment Not on file documented as of this encounter Visit Diagnoses Not on filedocumented in this encounter Additional Health Concerns Assessment Noted Time PHQ-9 Depression Total Score: 10 023 8:03 AM CDT documented as of this encounter Care Teams A R Specialist Relationship Specialty Start Date End Date Amy Villalba Ra, APRN CNP [address] [place] [address] PCP - General Family Practice 01/13/22 Amy Villalba Ra, APRN VISUAL ASSOCIATE [address] [place] [address] Assigned PCP 09/19/21 Renetta Mckeon PA-C [address] [place] [address] Physician Bag Shaker Dermatology 05/03/22 Amy Villalba Ra, APRN VISUAL ASSOCIATE [address] [place] [address] Referring Physician Family Practice 11/01/22 Pura De La Garza APRN VISUAL ASSOCIATE [address] [place] [address] [id number] Nurse Practitioner Dermatology 11/01/22 Gabe Moreira MD [address] [place] [address] Assigned Neuroscience Provider 12/17/22 Dov Posadas PA-C [address] [place] [address] Assigned Surgical Provider 04/08/23 documented as of this encounter
--- OUTSIDE RECORDS SUMMARY | 2023-11-27 15:46 | XMS_ITS | Encounter Summary ---
Author Name Unknown Organization [facility] Address [address] [place] [address] Care Team Providers Care Zoning Technician Name Role Phone Amy Villalba Ra, APRN MEDICAL REVIEW SPECIALIST Unavailable + [phone] Amy Vlilalba Ra BOXING AND PRESSING SUPERVISOR MEDICAL REVIEW SPECIALIST Primary Care Provid er Renetta Mckeon PA-C Unavailable [phone] Amy Villalba Ra, APRN MEDICAL REVIEW SPECIALIST Unavailable [phone] Pura De La Garza APRN MEDICAL REVIEW SPECIALIST Unavailable [phone] Gabe Moreira MD Unavailable [phone] Dov PosadasC Unavailable [phone] Encounter Details Date Type Department Care Team (Latest Contact Info) Description 11/13/2023 Travel Social History Tobacco Use Types Packs/Day [...] documented as of this encounter Care Teams Zoning Technician Relationship Specialty Start Date End Date Amy Villalba Ra, APRN MEDICAL REVIEW SPECIALIST [address] [place] [address] PCP - General Family Practice 01/13/22 Amy Villalba Ra, APRN MEDICAL REVIEW SPECIALIST [address] [place] [address] Assigned PCP 09/19/21 Renetta Mckeon PA-C [address] [place] [address] Physician Junior Software Developer Dermatology 05/03/22 Amy Villalba Ra, APRN MEDICAL REVIEW SPECIALIST [address] [place] [address] Referring Physician Family Practice 11/01/22 Pura De La Garza APRN MEDICAL REVIEW SPECIALIST [address] [place] [address] [id number] Nurse Practitioner Dermatology 11/01/22 Gabe Moreira MD [address] [place] [address] 96 [place], [place] 60[address] Assigned Neuroscience Provider 12/17/22 Dov Posadas PA-C [address] [place] [address] Assigned Surgical Provider 04/08/23 documented as of this encounter
--- OUTSIDE RECORDS SUMMARY | 2023-11-27 15:47 | XMS_ITS | Encounter Summary ---
Author Name Unknown Organization [facility] Address [address] [place] [address] Care Team Providers Care Consumer Lending Manager Name Role Phone Amy Villalba Ra, APRN CONDENSER CLEANER Unavailable [phone] Amy Villalba Ra BUSINESS DEVELOPMENT DIRECTOR CONDENSER CLEANER Primary Care Provid er Renetta Mckeon PA-C Unavailable [phone] Amy Villalba Ra, APRN CONDENSER CLEANER Unavailable [phone] Pura De La Garza APRN CONDENSER CLEANER Unavailable [phone] Gabe Moreira MD Unavailable Dov Posadas PA-C Unavailable [phone] Reason for Visit * Reason Comments Medication Refill Encounter Details Date Type Department Care Team (Late st Contact Info) Description 07/11/2023 Refill [facility] [address] [place] [address] Renetta Ronquillo PA-C [address] [place] [address] Medication Refill Social History Tobacco [...] documented as of this encounter Care Teams Consumer Lending Manager Relationship Specialty Start Date End Date Amy Villalba Ra, APRN CNP [address] [place] [address] PCP - General Family Practice 01/13/22 Amy Villalba Ra, APRN CONDENSER CLEANER [address] [place] [address] Assigned PCP 09/19/21 Renetta Mckeon PA-C [address] [place] [address] Physician Clinical Statistics Manager Dermatology 05/03/22 Amy Villalba Ra, APRN CNP [address] [place] [address] Referring Physician Family Practice 11/01/22 Pura De La Garza APRN CONDENSER CLEANER [address] [place] [address]3515 Nurse Practitioner Dermatology 11/01/22 Gabe Moreira MD [address] [place] [address] 96 [place], [place] [id number] Assigned Neuroscience Provider 12/17/22 Dov Posadas PA-C [address] [place] 242215 Assigned Surgical Provider 04/08/23 documented as of this encounter
--- OUTSIDE RECORDS SUMMARY | 2023-11-27 15:47 | XMS_ITS | Encounter Summary ---
Author Name Unknown Organization [place] Address [address] [place] [address]. [place] [address] Care Team Providers Care Forward Air Controller/Air Officer Name Role Phone Amy Villalba Ra, APRN TYPE CASTER Unavailable [phone] Priscilla Carbajal DO Unavailable Amy Villalba Ra, APRN TYPE CASTER Primary Care Provid er Renetta Mckeon PA-C Unavailable Amy Villalba Ra, APRN TYPE CASTER Unavailable [phone] Pura De La Garza APRN TYPE CASTER Unavailable Gabe Moreira MD Unavailable Dov Posadas PA-C Unavailable Reason for Visit * Reason Onset Date Comments Referral 04/24/2023 Encounter Details Date Type Department Care Team (Late st Contact Info) Description 04/24/2023 Telephone [facility] [address] [place] [address] Amy Villalba Ra, APRN CNP [address] [place] [address] Referral Social History Tobacco Use [...] will discuss at upcoming appt. Michaelle Alberto Professor Of Music * Telephone Encounter - Isabel Jo RN - 05/03/2023 12:13 PM CDT Pt would need some kind of visit - could try submitting an e-visit or go back to the specialist whooriginally ordered the PT referral. Will forward to the station. * Telephone Encounter - Jaclyn Vines - 05/03/2023 11:31 AM CDT Routing to Triage. Jaclyn Chang Professor Of Music * Telephone Encounter - Jaclyn Vines - 04/24/2023 2:58 PM CDT Pt called requesting a referral be placed for PT pelvis as she has been referred previously by a specialist but at that time she wasn't able to schedule and that was 1.5 years ago. Pt will pickling tank operator referral once ordered from the FD as she goes somewhere already for a different type of PT. Pt call back: [phone] Detailed VM OK Jaclyn Cristinaunt Professor Of Music documented in this encounter Plan of Treatment Not on file documented as of this encounter Visit Diagnoses Not on filedocumented in this encounter Additional Health Concerns Assessment Noted Time PHQ-9 Depression Total Score: 20 12/15/ 023 10:54 AM MOTO MIX OPERATOR documented as of this encounter Care Teams Forward Air Controller/Air Officer Relationship Specialty Start Date End Date Amy Villalba Ra, APRN TYPE CASTER [address] [place] [address] PCP - General Family Practice 01/13/22 Amy Villalba Ra, APRN TYPE CASTER [address] [place] [address] Assigned PCP 09/19/21 [place] [address] [place] [address] Assigned OBGYN Provider 10/24/21 Renetta Mckeon, PADagobertoC [address] [place] [address] Physician Flavor Room Worker Dermatology 05/03/22 Amy Villalba Ra, APRN TYPE CASTER [address] [facility] [place] [address] Referring Physician Family Practice 11/01/22 Pura De La Garza APRN TYPE CASTER [address] [place] [address] [id number] Nurse Practitioner Dermatology 11/01/22 Gabe Moreira MD [address] [place] [address] Assigned Neuroscience Provider 12/17/22 Dov Posadas PA-C [address] [place] [address] Assigned Surgical Provider 04/08/23 documented as of this encounter
--- OUTSIDE RECORDS SUMMARY | 2023-11-27 15:47 | XMS_ITS | Encounter Summary ---
Author Name Unknown Organization [facility] Address [address] [place] [address] Care Team Providers Care Cosmetics Counter Manager Name Role Phone Amy Villalba Ra, APRN CANDY CATCHER Unavailable [phone] Amy Villalba Ra LEATHER PATCHER CANDY CATCHER Primary Care Provid er Renetta Mckeon PA-C Unavailable [phone] Amy Villalba Ra, APRN CANDY CATCHER Unavailable + [phone] Pura De La Garza APRN CANDY CATCHER Unavailable Gabe Moreira MD Unavailable [phone] Dov PosadasC Unavailable [phone] Encounter Details Date Type Department Care Team [...] Depression Total Score: 20 023 10:54 AM ADMINISTRATIVE ASSISTANT COORDINATOR documented as of this encounter Care Teams Cosmetics Counter Manager Relationship Specialty Start Date End Date Amy Villalba Ra, APRN CANDY CATCHER [address] [place] [address] PCP - General Family Practice 01/13/22 Amy Villalba Ra, APRN CANDY CATCHER [address] [address] Assigned PCP 09/19/21 Renetta Mckeon PA-C [address] [place] [address] Physician Landscape Crew Leader Dermatology 05/03/22 Amy Villalba Ra, APRN CANDY CATCHER [address] [place] [address] Referring Physician Family Practice 11/01/22 Pura De La Garza APRN CANDY CATCHER [address] [place] [address] [id number] Nurse Practitioner Dermatology 11/01/22 Gabe Moreira MD [address] [facility] [address] [place], [place] 5[address] Assigned Neuroscience Provider 12/17/22 Dov Posadas PA-C [address] [place] [address] Assigned Surgical Provider 04/08/23 documented as of this encounter
--- OUTSIDE RECORDS SUMMARY | 2023-11-27 15:47 | XMS_ITS | Encounter Summary ---
Author Name Unknown Organization [facility] Address [address] [place] [address]. [place] [address] Care Team Providers Care Electric Bath Attendant Name Role Phone Amy Villalba Ra, APRN BUILDING CONSTRUCTION TEACHER Unavailable [phone] Amy Villalba Ra LIDAR TECHNICIAN BUILDING CONSTRUCTION TEACHER Primary Care Provid er Renetta MckeonC Unavailable [phone] Amy Villalba Ra, APRN BUILDING CONSTRUCTION TEACHER Unavailable [phone] Pura De La Garza APRN BUILDING CONSTRUCTION TEACHER Unavailable Gabe Moreira MD Unavailable Dvo Posadas PA-C Unavailable Reason for Visit * Reason Comments Medication Refill Encounter Details Date Type Department Care Team (Late st Contact Info) Description 05/03/2023 Refill [facility] [address] [place] [address] Amy Villalba Ra LIDAR TECHNICIAN BUILDING CONSTRUCTION TEACHER [address] [place] [address] Medication Refill Social History Tobacco [...] Depression Total Score: 20 023 10:54 AM COMMERCIAL AIRPLANE PILOT documented as of this encounter Care Teams Electric Bath Attendant Relationship Specialty Start Date End Date Amy Villalba Ra, APRN BUILDING CONSTRUCTION TEACHER [address] [place] [address] PCP - General Family Practice 01/13/22 Amy Villalba Ra, APRN BUILDING CONSTRUCTION TEACHER [address] [place] [address] Assigned PCP 09/19/21 Renetta Mckeon PA-C [address] [place] [address] Physician Soft Metals Hand Engraver Dermatology 05/03/22 Amy Villalba Ra, APRN BUILDING CONSTRUCTION TEACHER [address] [place] [address] Referring Physician Family Practice 11/01/22 Pura De La Garza APRN BUILDING CONSTRUCTION TEACHER [address] [place] [address] Nurse Practitioner Dermatology 11/01/22 Gabe Moreira MD [address] [place] [address] 96 [place] [address] Assigned Neuroscience Provider 12/17/22 Dov Posadas PA-C [address] [address] Assigned Surgical Provider 04/08/23 documented as of this encounter
--- OUTSIDE RECORDS SUMMARY | 2023-11-27 15:47 | XMS_ITS | Encounter Summary ---
Author Name Unknown Organization [place] Address [address] [place] [address]. [place] [address] Care Team Providers Care Earthmoving Plant Operator Name Role Phone Amy Villalba Ra, APRN CONSULAR OFFICER Unavailable [phone] Amy Villalba Ra SOW FARM MANAGER CONSULAR OFFICER Primary Care Provid er Renetta MckeonC Unavailable [phone] Amy Villalba Ra, APRN CONSULAR OFFICER Unavailable [phone] Pura De La Garza APRN CONSULAR OFFICER Unavailable Gabe Moreira MD Unavailable Dov Posadas PA-C Unavailable Reason for Visit * Reason Comments Medication Refill Encounter Details Date Type Department Care Team (Late st Contact Info) Description 09/01/2023 Refill [facility] [address] [place] [address] Amy Villalba Ra SOW FARM MANAGER CONSULAR OFFICER [address] [place] [address] Medication Refill Social History Tobacco [...] documented as of this encounter Care Teams Earthmoving Plant Operator Relationship Specialty Start Date End Date Amy Villalba Ra, APRN CONSULAR OFFICER [address] [place] [address] PCP - General Family Practice 01/13/22 Amy Villalba Ra, APRN CONSULAR OFFICER [address] [address] [place] [address] Assigned PCP 09/19/21 Renetta Mckeon, PADagobertoC [address] [place] [address] Physician Cook Helper Pastry Dermatology 05/03/22 Amy Villalba Ra, APRN CONSULAR OFFICER [address] [place] [address] Referring Physician Family Practice 11/01/22 Pura De La Garza APRN CONSULAR OFFICER [address] [place] [address] Nurse Practitioner Dermatology 11/01/22 Gabe Moreira MD [address] [place] [address] Assigned Neuroscience Provider 12/17/22 Dov Posadas PA-C [address] [place] [address] Assigned Surgical Provider 04/08/23 documented as of this encounter
--- OUTSIDE RECORDS SUMMARY | 2023-11-27 15:47 | XMS_ITS | Encounter Summary ---
Author Name Unknown Organization [facility] Address [address] [place] [address]. [place] [address] Care Team Providers Care Embossing Tool Setter Name Role Phone Amy Villalba Ra, APRN OVERHEAD DOOR TECHNICIAN Unavailable [phone] Amy Villalba Ra RELATIONS MGR OVERHEAD DOOR TECHNICIAN Primary Care Provid er Renetta MckeonC Unavailable Amy Villalba Ra, APRN OVERHEAD DOOR TECHNICIAN Unavailable [phone] Pura De La Garza APRN OVERHEAD DOOR TECHNICIAN Unavailable Gabe Moreira MD Unavailable Dov Posadas PA-C Unavailable Reason for Visit * Reason Comments Medication Refill Encounter Details Date Type Department Care Team (Late st Contact Info) Description 06/01/[address] [facility] [address] [place] [address] Amy Villalba Ra RELATIONS MGR OVERHEAD DOOR TECHNICIAN [address] [place] [address] Medication Refill Social History Tobacco [...] 06/01/2023 3:18 PM CDT Prescription approved per [facility] Refill Protocol. Gayatri Payton RN [facility] documented in this encounter Plan of Treatment Not on file documented as of this encounter Visit Diagnoses Diagnosis PCOS (polycystic ovarian syndrome) Polycystic ovaries documented in this encounter Additional Health Concerns Assessment Noted Time PHQ-9 Depression Total Score: 10 023 8:03 AM CDT documented as of this encounter Care Teams Embossing Tool Setter Relationship Specialty Start Date End Date Amy Villalba Ra, APRN CNP [address] [place] [address] PCP - General Family Practice 01/13/22 Amy Villalba Ra, APRN OVERHEAD DOOR TECHNICIAN [address] [place] [address] Assigned PCP 09/19/21 Renetta Mckeon PA-C [address] [place] [address] Physician Preforms Laminator Dermatology 05/03/22 Amy Villalba Ra, APRN CNP [address] [address] Referring Physician Family Practice 11/01/22 Pura De La Garza APRN OVERHEAD DOOR TECHNICIAN [address] [place] [address] Nurse Practitioner Dermatology 11/01/22 Gabe Moreira MD 420 [facility] 96 [place] [address] Assigned Neuroscience Provider 12/17/22 Dov Posadas PA-C [address] [place] [address] Assigned Surgical Provider 04/08/23 documented as of this encounter
--- OUTSIDE RECORDS SUMMARY | 2023-11-27 15:47 | XMS_ITS | Encounter Summary ---
Author Name Unknown Organization [facility] Address [address] [place] [address] Care Team Providers Care Seismograph Operator Helper Name Role Phone Amy Villalba Ra, APRN SHELF FILLER Unavailable Priscilla Carbajal DO Unavailable [phone] Amy Villalba Ra, APRN SHELF FILLER Primary Care Provid er Renetta MckeonC Unavailable [phone] Amy Villalba Ra, APRN SHELF FILLER Unavailable Pura De La Garza APRN SHELF FILLER Unavailable [phone] Gabe Moreira MD Unavailable Dov Posadas PA-C Unavailable [phone] Encounter Details Date Type Department Care Team (Late st Contact Info) Description 04/03/2023 [facility] Medical Advice [facility] [place] [address] [place] [address] Arthur Galindo MA Social History [...] Depression Total Score: 20 023 10:54 AM ACCOUNT DEVELOPER documented as of this encounter Care Teams Seismograph Operator Helper Relationship Specialty Start Date End Date Amy Villalba Ra, APRN SHELF FILLER [address] [place] [address] PCP - General Family Practice 01/13/22 Amy Villalba Ra, APRN SHELF FILLER [address] [place] [address] Assigned PCP 09/19/21 [place] [address] [place] [address] Assigned OBGYN Provider 10/24/21 Renetta Mckeon PA-C [address] [place] [address] Physician Professor Sculpture Dermatology 05/03/22 Amy Villalba Ra, APRN SHELF FILLER [address] [place] [address] Referring Physician Family Practice 11/01/22 Pura De La Garza APRN SHELF FILLER 500 [place] [address] Nurse Practitioner Dermatology 11/01/22 Gabe Moreira MD [address] [place] [address] 96 [place] [address] Assigned Neuroscience Provider 12/17/22 Dov Posadas PA-C [address] [address] Assigned Surgical Provider 04/08/23 documented as of this encounter
--- OUTSIDE RECORDS SUMMARY | 2023-11-27 15:47 | XMS_ITS | Encounter Summary ---
Author Name Unknown Organization [place] Address [address] [place] [address]. [place] [address] Care Team Providers Care Motorcoach Driver Name Role Phone Amy Villalba Ra, APRN TRAVEL NURSE Unavailable [phone] Amy Villalba Ra LEGAL OFFICER TRAVEL NURSE Primary Care Provid er Renetta MckeonC Unavailable Amy Villalba Ra, APRN TRAVEL NURSE Unavailable Pura De La Garza APRN TRAVEL NURSE Unavailable Gabe Moreira MD Unavailable [phone] Dov Posadas PA-C Unavailable [phone] Reason for Visit * Reason Onset Date Comments Orders 05/15/2023 Physical Therapy referral Encounter Details Date Type Department Care Team (Late st Contact Info) Description 05/15/2023 Telephone [facility] [address] [place] [address] Amy Villalba Ra, APRN TRAVEL NURSE [address] [place] [address] Orders (Physical Therapy referral ) [...] in on [facility] fax machine. Michaelle Alberto Operating Room Technician * Telephone Encounter - Amy Villalba Ra, APRN CNP - 05/18/2023 8:25 AM CDT They were going to fax order for me to sign. I have not received yet. RADHA * Telephone Encounter - Maria Luz Allan - 05/16/2023 10:38 AM CDT No physical therapy order in chart? Did PCP want to order physical therapy. Carlie Chang Operating Room Technician * Telephone Encounter - Lillie Maldonado - [...] documented as of this encounter Care Teams Motorcoach Driver Relationship Specialty Start Date End Date Amy Villalba Ra, APRN TRAVEL NURSE [address] [place] [address] PCP - General Family Practice 01/13/22 Amy Villalba Ra, APRN TRAVEL NURSE [address] [place] [address] Assigned PCP 09/19/21 Renetta Mckeon PA-C [facility] [place] [address] Physician Animal Trapper Dermatology 05/03/22 Amy Villalba Ra, APRN TRAVEL NURSE [address] [place] [address] Referring Physician Family Practice 11/01/22 Pura De La Garza APRN TRAVEL NURSE [address] [place] [id number] Nurse Practitioner Dermatology 11/01/22 Gabe Moreira MD [address] [place] [address] 96 [place], [place] [address] Assigned Neuroscience Provider 12/17/22 Dov Posadas PA-C [address] [address] Assigned Surgical Provider 04/08/23 documented as of this encounter
--- OUTSIDE RECORDS SUMMARY | 2023-11-27 15:47 | XMS_ITS | Encounter Summary ---
Author Name Unknown Organization [facility] Address [address] [place] [address] Care Team Providers Care Mechanical Supervisor Name Role Phone Amy Villalba Ra, APRN PLATE SLITTER AND INSPECTOR Unavailable Priscilla Carbajal DO Unavailable [phone] Amy Villalba Ra, APRN PLATE SLITTER AND INSPECTOR Primary Care Provid er Renetta Mckeon PA-C Unavailable Amy Villalba Ra, APRN PLATE SLITTER AND INSPECTOR Unavailable Pura De La Garza APRN PLATE SLITTER AND INSPECTOR Unavailable Gabe Moreira MD Unavailable Dov Posadas PA-C Unavailable [phone] Encounter Details Date Type Department Care Team (Late st Contact Info) Description 04/03/2023 MyC Medical Advice [facility] [place] [address] [facility] [address] [place] [address] Angy Gregory, BASE CLOTH INSPECTOR Social History Tobacco Use Types Packs/Day Years [...] Depression Total Score: 20 023 10:54 AM INFO ANALYST documented as of this encounter Care Teams Mechanical Supervisor Relationship Specialty Start Date End Date Amy Villalba Ra, APRN PLATE SLITTER AND INSPECTOR [address] [place] [address] PCP - General Family Practice 01/13/22 Amy Villalba Ra, APRN PLATE SLITTER AND INSPECTOR [address] [place] [address] Assigned PCP 09/19/21 [place] [address] [place] [address] Assigned OBGYN Provider 10/24/21 Renetta Mckeon PA-C [address] [place] [address] Physician Physiological Chemist Dermatology 05/03/22 Amy Villalba Ra, APRN PLATE SLITTER AND INSPECTOR [address] [place] [address] Referring Physician Family Practice 11/01/22 Pura De La Garza APRN PLATE SLITTER AND INSPECTOR [address] [place] [address] Nurse Practitioner Dermatology 11/01/22 Gabe Moreira MD 420 [facility] 96 [place], [place] [address] Assigned Neuroscience Provider 12/17/22 Dov Posadas PA-C [address] [place] [address] Assigned Surgical Provider 04/08/23 documented as of this encounter
--- OUTSIDE RECORDS SUMMARY | 2023-11-27 15:47 | XMS_ITS | Encounter Summary ---
Author Name Unknown Organization [place] Address [address] [place] [address]. [place] [address] Care Team Providers Care Head Of Sales Promotion Name Role Phone Amy Villalba Ra, APRN EMT DISPATCHER Unavailable [phone] Amy Villalba Ra, APRN EMT DISPATCHER Primary Care Provid er Renetta Mckeon PA-C Unavailable [phone] Amy Villalba Ra, APRN EMT DISPATCHER Unavailable [phone] Pura De La Garza APRN EMT DISPATCHER Unavailable Gabe Moreira MD Unavailable [phone] Dov Posadas PA-C Unavailable [phone] Reason for Visit * Reason Onset Date Comments Panel Management 06/06/2023 Encounter Details Date Type Department Care Team (Late st Contact Info) Description 06/06/2023 Telephone [facility] [address] [place] [address] Amy Villalba Ra, APRN EMT DISPATCHER [address] [place] [address] Panel Management Social History Tobacco [...] documented as of this encounter Care Teams Head Of Sales Promotion Relationship Specialty Start Date End Date Amy Villalba Ra, APRN EMT DISPATCHER [address] [place] [address] PCP - General Family Practice 01/13/22 Amy Villalba Ra, APRN EMT DISPATCHER [address] [address] [address] Assigned PCP 09/19/21 Renetta Mckeon PA-C [address] [place] [address] Physician Information Systems Operator Dermatology 05/03/22 Amy Villalba Ra, APRN EMT DISPATCHER [address] [address] [place] [address] Referring Physician Family Practice 11/01/22 Pura De La Garza APRN EMT DISPATCHER 500 [place] [address] Nurse Practitioner Dermatology 11/01/22 Gabe Moreira MD [address] [place] [address] 96 [place] [address] Assigned Neuroscience Provider 12/17/22 Dov Posadas PA-C [address] [place] [address] Assigned Surgical Provider 04/08/23 documented as of this encounter
--- OUTSIDE RECORDS SUMMARY | 2023-11-27 15:47 | XMS_ITS | Encounter Summary ---
Author Name Unknown Organization [facility] Address [address] [place] [address] Care Team Providers Care Salt Washer Harvesting Station Name Role Phone Amy Villalba Ra, APRN BOTTOM PRESSER Unavailable [phone] Amy Villalba Ra PROPERTY LOSS INSURANCE CLAIM ADJUSTER BOTTOM PRESSER Primary Care Provid er Renetta Mckeon-C Unavailable [phone] Amy Villalba Ra, APRN BOTTOM PRESSER Unavailable Pura De La Garza APRN BOTTOM PRESSER Unavailable [phone] Gabe Moreira MD Unavailable [phone] Dov Posadas PA-C Unavailable [phone] Encounter Details Date Type Department Care Team (Late st Contact Info) Description 06/06/2023 MyC Medical Advice [facility] [address] [place] [address] Guanaco Saunders, JERICHO Social History Tobacco [...] documented as of this encounter Care Teams Salt Washer Harvesting Station Relationship Specialty Start Date End Date Amy Villalba Ra, APRN BOTTOM PRESSER [address] [place] [address] PCP - General Family Practice 01/13/22 Amy Villalba Ra, APRN BOTTOM PRESSER [address] [place] [address] Assigned PCP 09/19/21 Renetta Mckeon PA-C [address] [place], [place] [address] Physician Casino Controller Dermatology 05/03/22 Amy Villalba Ra, APRN BOTTOM PRESSER [address] [place] [address] Referring Physician Family Practice 11/01/22 Pura De La Garza APRN BOTTOM PRESSER [address] [place], [place] [address] Nurse Practitioner Dermatology 11/01/22 Gabe Moreira MD [address] [place] [address] 96 [place], [place] [address] Assigned Neuroscience Provider 12/17/22 Dov Posadas PA-C [address] [address] Assigned Surgical Provider 04/08/23 documented as of this encounter
--- OUTSIDE RECORDS SUMMARY | 2023-11-27 15:47 | XMS_ITS | Encounter Summary ---
Author Name Unknown Organization [facility] Address [address] [place] [address] Care Team Providers Care Maori Liaison Adviser Name Role Phone Amy Urias Ra, APRN GUARDIAN AD LITEM Unavailable [phone] Amy Urias Ra, APRN GUARDIAN AD LITEM Primary Care Provid er Renetta Mckeon PA-C Unavailable [phone] Amy Urias Ra, APRN GUARDIAN AD LITEM Unavailable [phone] Pura De La Garza APRN GUARDIAN AD LITEM Unavailable Gabe Moreira MD Unavailable Dov Posadas PA-C Unavailable Reason for Referral * Diagnostic Imaging Ultrasound (Routine) - Pending Review Specialty Diagnoses / Procedures [facility] To Contact Rad[facility]. Diagnoses Abnormal mammogram Procedures US Breast Right Complete 4 Quadrants Amy Urias Ra, APRN CNP [address] [place] [address] Referral ID Status Reason Start Date Expiration Date V isits Requested Visits Authorized [id number] Pending Review 05/11/2023 05/10/2024 1 1 * Diagnostic Imaging Mammo (Routine) - Pending Review Specialty Diagnoses / Procedures Referred By [facility] t Referred To Contact Radiology. Diagnoses Abnormal mammogram Procedures MA Diagnostic Digital Bilateral Amy Urias Ra, APRN GUARDIAN AD LITEM [address] [place] [address] Referral ID Status Reason Start Date Expiration Date V isits Requested Visits Authorized [id number] Pending Review 05/11/2023 05/10/2024 1 1 Reason for Visit * Reason Comments Pre-Op Exam Encounter Details Date Type Department Care Team (Late st Contact Info) Description 05/11/2023 8:30 AM CDT [facility] [address] [place] [address] Amy Urias Ra, APRN GUARDIAN AD LITEM [address] [place], [place] [id number] Type 2 diabetes mellitus without complication, without [...] Instructions * Patient Instructions* Amy Urias Ra, KITCHEN WORKER GUARDIAN AD LITEM - 05/11/2023 8:30 AM CDT For informational purposes only. Not to replace the advice of your health care provider. Copyright ?? 2002, 2018 [facility]. All rights reserved. Clinically reviewed by Meli Dominguez MD. [employer] [id number] - REV 09/29. Preparing for Your Surgery [...] list of medicines, including herbal treatments and ajyq-dkx-[id number] drugs Whether the patient has a legal [...] surgery. (If you don't have insurance, call [phone].) Call your clinic if there's any change [...] APRN CNP - 05/11/2023 8:30 AM CDT [facility] [address] [facility] [address] Primary Provider: Amy Urias Ra Pre-op Performing Provider: AMY URIAS RA PREOPERATIVE EVALUATION: Today's date: 05/11/2023 Marlene Almeida is a 42 year old female who presents for a preoperative evaluation. 05/11/2023 8:05 AM Additional Questions Roomed by satya quigley cma Accompanied by self 05/11/2023 8:05 AM Patient Reported Additional Medications Patient reports taking the following new medications na Surgical Information: Surgery/Procedure: Hysterectomy Surgery Location: [facility] Surgeon: Dr Hua Klein Surgery Date: 06/06 Time of Surgery: TBD Where patient plans to recover: At home with family Fax number for surgical facility: Assessment & Plan The proposed surgical procedure is considered INTERMEDIATE risk. Type 2 diabetes mellitus without complication, without long-term current use of insulin (H) Well controlled. Monitor. Recent eye exam at [facility]. - Hemoglobin A1c; Future Preop general physical exam Proceed as planned. Abnormal mammogram Due for repeat mammogram and US. Ordered. - MA Diagnostic Digital Bilateral; Future - US Breast Right Complete 4 Quadrants; Future Pelvic pain in female OBGYN through [facility]. Procedure planned. Will likely see plastics through [facility] after hysterectomy to further address pain. Also [...] Hysterectomy planned. She will do this through [facility]. 05/11/2023 8:05 AM Preop Questions 1. [...] Directive or Living Will: Preoperative Review of SUPERVISOR PRECISION OPTICAL ELEMENTS: SUPERVISOR PRECISION OPTICAL ELEMENTS reviewed - controlled substances reflected in medication [...] Medium Added automatically from request for surgery [id number] Class 1 obesity due to excess calories [...] rate) Signed Electronically by: Amy Urias APRN GUARDIAN AD LITEM Copy of this evaluation report is provided [...] AM CDT 05/05/2023 9:47 AM CDT Amy Urias APRN, CNP LAB - BLOOD ORDERABLES LABORATORY [facility] [address] [facility] (no room number, 1st floor of clinic) [place] [address], [facility] [phone] documented in this encounter Visit Diagnoses Diagnosis [...] documented as of this encounter Care Teams Maori Liaison Adviser Relationship Specialty Start Date End Date Amy Urias Ra, APRN CNP [address] [facility] [place] [address] PCP - General Family Practice 01/13/22 Amy Urias Ra, APRN GUARDIAN AD LITEM [address] [place] [address] Assigned PCP 09/19/21 Renetta Mckeon PA-C [address] [place] [address] Physician Senior Qa Tester Dermatology 05/03/22 Amy Urias Ra, APRN GUARDIAN AD LITEM [address] [place] [address] Referring Physician Family Practice 11/01/22 Pura De La Garza APRN GUARDIAN AD LITEM 500 [place], [place] [address] Nurse Practitioner Dermatology 11/01/22 Gabe Moreira MD [address] [facility] 96 [place], [place] [address] Assigned Neuroscience Provider 12/17/22 Dov Posadas PA-C [address] [address] Assigned Surgical Provider 04/08/23 documented as of this encounter
--- OUTSIDE RECORDS SUMMARY | 2023-11-27 15:47 | XMS_ITS | Encounter Summary ---
Author Name Unknown Organization [place] Address [address] [place] [address]. [place] [address] Care Team Providers Care Remote Sensing Analyst Name Role Phone Amy Villalba Ra, APRN SENIOR MEDIA BUYER Unavailable Priscilla Carbajal Mary DO Unavailable [phone] Amy Villalba Ra, APRN SENIOR MEDIA BUYER Primary Care Provid er Renetta Mckeon PA-C Unavailable Amy Villalba Ra, APRN SENIOR MEDIA BUYER Unavailable + [phone] Pura De La Garza APRN SENIOR MEDIA BUYER Unavailable Gabe Moreira MD Unavailable [phone] Reason for Visit * Reason Comments RECHECK Return BariRF Encounter Details Date Type Department Care Team (Late st Contact Info) Description 04/04/2023 3:30 PM CDT Office Visit [facility] [place] [address] [facility] [address] [place] [phone] Dov Posadas PA-C [address] [facility] NATALIE HOLT [address] Class 1 obesity due to excess calories [...] Dov Posadas PA-C Plan: Labs ordered. Call [phone] to schedule. Continue your bariatric vitamins GI complaints - recommended see GI but patient would like to see a [place] provider to get more advise. GERD without esophagitis - RX for omeprazole 40 mg once daily Return to clinic in 1 year for annual FOLLOW-UP: Call [phone] to schedule next visit. Bariatric Post Op [...] Bariatric Surgery Note RE: Marlene Almeida MR#: [id number] : 1980 VISIT DATE: Apr 04, 2023 [...] Stress urinary incontinence Yes LABS/IMAGING/MEDICAL RECORDS REVIEW: [facility] PHYSICAL EXAMINATION: BP 139/89 (BP Location: Right [...] but patient would like to see a [place] provider to get more advise. 5. GERD [...] - 0.10 mg/L 05/07/2023 10:34 PM CDT [facility] Vitamin A Interp Normal 05/07/20 23 10:34 PM CDT [facility] Comment: This test was developed and its performance characteristics determined by [facility]. It has not been cleared or approved by the US Food and Drug Administration. This test was performed in a CLIA certified laboratory and is intended for clinical purposes. Performed By: [facility] [address] [place] [address] Retail Inventory Control Clerk: Leon Patrick MD, PhD Blood BLOOD SPECIMEN / Unknown Venipuncture / Unknown 05/05/2023 9:47 AM CDT 05/05/2023 9:47 AM CDT Dov Posadas PA-C LAB - BLOOD ORD ERABLES [facility] [address] [place] [address], [facility] [phone] * Ferritin (05/05/2023 9:47 AM CDT) Ferritin 47 6 - 175 ng/mL 05/05/2023 9:10 PM CDT [facility] Blood BLOOD SPECIMEN / Unknown Venipuncture / Unknown 05/05/2023 9:47 AM CDT 05/05/2023 9:47 AM CDT Dov Posadas PA-C LAB - BLOOD ORD ERABLES [facility] [address] [facility], [address] [address], [facility] [phone] * Iron and Iron Binding Capacity (05/05/2023 [...] LAB - BLOOD ORD ERABLES [facility] [address] [facility], [address] [address], [facility] [phone] * Parathyroid Hormone Intact (05/05/2023 9:47 AM [...] differs from PTH assays used in other [facility] laboratories. Dov Posadas PA-C LAB - BLOOD ORD ERABLES LABORATORY [facility] [address] [facility], [address] [address], [facility] [phone] * Vitamin D Screen (05/05/2023 9:47 AM CDT) Pathologist [facility] Vitamin D, Total (25-Hydroxy) 42 20 - 75 ug/L 05/06/2023 3:55 PM CDT SPECIALTY CORE/PROT/ENDO Blood BLOOD SPECIMEN / Unknown Venipuncture / Unknown 05/05/2023 9:47 AM CDT 05/05/2023 9:47 AM CDT Narrative SPECIALTY CORE/PROT/ENDO - 05/06/2023 3:55 PM CDT Season, race, dietary intake, and treatment affect the concentration of 25-nfjmeey-Vkxnqss D. Values may decrease during winter months [...] SPECIALTY CORE/PROT/ENDO Specialty Core/Prot/Endo 500 [facility], Room [address] [address], [facility] [phone] * Vitamin B12 (05/05/2023 9:47 AM CDT) Pathologist [facility] Vitamin B12 518 232 - 1,245 pg/mL 05/05/2023 8:38 PM CDT [facility] Blood BLOOD SPECIMEN / Unknown Venipuncture / Unknown 05/05/2023 9:47 AM CDT 05/05/2023 9:47 AM CDT Dov Posadas PA-C LAB - BLOOD ORD ERABLES [facility] [address] [facility], [address] [place] [address], [facility] [phone] * CBC with platelets (05/05/2023 9:47 AM CDT) [facility] WBC Count 7.5 4.0 - 11.0 10e3/uL [...] PA-C LAB - BLOOD ORD ERABLES LABORATORY [facility] [address] [address] [facility] (no room number, 1st floor of clinic) [place] [address], [facility] [phone] documented in this encounter Visit Diagnoses Diagnosis Class 1 obesity due to excess calories with serious comorbidity and body mass index (BMI) of 31.0 to 31.9 in adult- Primary 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 Bariatric surgery status GERD without esophagitis Esophageal reflux documented in this encounter Additional Health Concerns Assessment Noted Time PHQ-9 Depression Total Score: 20 023 10:54 AM DIRECTOR LEARNING SERVICES documented as of this encounter Care Teams Remote Sensing Analyst Relationship Specialty Start Date End Date Amy Villalba Ra, APRN SENIOR MEDIA BUYER [address] [address] PCP - General Family Practice 01/13/22 Amy Villalba Ra, APRN SENIOR MEDIA BUYER [address] [place] [address] Assigned PCP 09/19/21 [place] [address] [place] [address] Assigned OBGYN Provider 10/24/21 Renetta Mckeon, PADagobertoC [address] [place] [address] Physician County Superintendent Of Schools Dermatology 05/03/22 Amy Villalba Ra, APRN SENIOR MEDIA BUYER [address] [place] [address] Referring Physician Family Practice 11/01/22 Pura De La Garza APRN SENIOR MEDIA BUYER [address] [place] [address] Nurse Practitioner Dermatology 11/01/22 Gabe Moreira MD [address] [place] [address] Assigned Neuroscience Provider 12/17/22 documented as of this encounter
--- OUTSIDE RECORDS SUMMARY | 2023-11-27 15:47 | XMS_ITS | Encounter Summary ---
Author Name Unknown Organization [place] Address [address] [place] [address] Care Team Providers Care Combination Window Installer Name Role Phone Amy Villalba Ra, APRN DELIVERY PROFESSIONAL Unavailable + [phone] Amy Villalba Ra DIKE SUPERVISOR DELIVERY PROFESSIONAL Primary Care Provid er Renetta Mckeon PA-C Unavailable [phone] Amy Villalba Ra, APRN DELIVERY PROFESSIONAL Unavailable + [phone] Pura De La Garza APRN DELIVERY PROFESSIONAL Unavailable [phone] Gabe Moreira MD Unavailable Dov PosadasC Unavailable [phone] Encounter Details Date Type Department Care Team [...] documented as of this encounter Care Teams Combination Window Installer Relationship Specialty Start Date End Date Amy Villalba Ra, APRN DELIVERY PROFESSIONAL [address] [place] [address] PCP - General Family Practice 01/13/22 Amy Villalba Ra, APRN DELIVERY PROFESSIONAL [address] [place] [address] Assigned PCP 09/19/21 Renetta Mckeon PA-C [address] [place] [address] Physician Design Manager Dermatology 05/03/22 Amy Villalba Ra, APRN DELIVERY PROFESSIONAL [address] [place] [address] Referring Physician Family Practice 11/01/22 Pura De La Garza APRN DELIVERY PROFESSIONAL [address] [place] [address] [id number] Nurse Practitioner Dermatology 11/01/22 Gabe Moreira MD [address] [facility] 96 [place], [place] 457[address] Assigned Neuroscience Provider 12/17/22 Dov Posadas PA-C [address] [place] [address] Assigned Surgical Provider 04/08/23 documented as of this encounter
--- OUTSIDE RECORDS SUMMARY | 2023-11-27 15:47 | XMS_ITS | Encounter Summary ---
Author Name Unknown Organization [place] Address [address] [place] [address] Care Team Providers Care Sewer Pipe Sorter Name Role Phone Amy Villalba Ra, APRN ADULT HIGH SCHOOL INSTRUCTOR Unavailable + [phone] Priscilla Carbajal DO Unavailable [phone] Amy Villalba Ra, APRN ADULT HIGH SCHOOL INSTRUCTOR Primary Care Provid er Renetta Mckeon PA-C Unavailable [phone] Amy Villalba Ra, APRN ADULT HIGH SCHOOL INSTRUCTOR Unavailable + [phone] Pura De La Garza APRN ADULT HIGH SCHOOL INSTRUCTOR Unavailable Gabe Moreira MD Unavailable [phone] Encounter Details Date Type Department Care [...] Total Score: 20 12/15/ 023 10:54 AM DATA INTEGRITY CONSULTANT documented as of this encounter Care Teams Sewer Pipe Sorter Relationship Specialty Start Date End Date Amy Villalba Ra, APRN ADULT HIGH SCHOOL INSTRUCTOR [address] [place] [address] PCP - General Family Practice 01/13/22 Amy Villalba Ra, APRN CNP [address] [place] [address] Assigned PCP 09/19/21 [place] [address] [place], [place] [id number] Assigned OBGYN Provider 10/24/21 Renetta Mckeon, PADagobertoC [address] [place] [address] Physician Cylinder Machine Operator Pulp Drier Dermatology 05/03/22 mAy Villalba Ra, APRN ADULT HIGH SCHOOL INSTRUCTOR [address] [address] [place] [address] Referring Physician Family Practice 11/01/22 Pura De La Garza APRN ADULT HIGH SCHOOL INSTRUCTOR [address] [place], [place] [id number] Nurse Practitioner Dermatology 11/01/22 Gabe Moreira MD [address] [place] [id number] Assigned Neuroscience Provider 12/17/22 documented as of this encounter
--- OUTSIDE RECORDS SUMMARY | 2023-11-27 15:47 | XMS_ITS | Encounter Summary ---
Author Name Unknown Organization [facility] [place] Address [address] [place] [address] Care Team Providers Care Percolator Operator Name Role Phone Amy Villalba Ra, APRN THERAPEUTIC DIETITIAN Unavailable + [phone] Amy Villalba Ra TALENT SOURCER THERAPEUTIC DIETITIAN Primary Care Provid er Renetta Mckeon-C Unavailable [phone] Amy Villalba Ra, APRN THERAPEUTIC DIETITIAN Unavailable Pura De La Garza APRN THERAPEUTIC DIETITIAN Unavailable Gabe Moreira MD Unavailable [phone] Dov Posadas PA-C Unavailable [phone] Encounter Details Date Type Department Care Team (Late st Contact Info) Description 05/05/2023 9:45 AM CDT Lab [facility] [address] [place] [address] Type 2 diabetes mellitus without [...] 05/05/2023 9:47 AM CDT Amy Villalba APRN THERAPEUTIC DIETITIAN LAB - BLOOD ORDERABLES LABORATORY [facility] [address] [facility] (no room number, 1st floor of clinic) [place] [address], [facility] [phone] * Vitamin A (05/05/2023 9:47 AM CDT) Vitamin A 0.94 0.30 - 1.20 mg/L 05/07/2023 10:34 PM CDT [facility] Retinol Palmitate 0.03 0.00 - 0.10 mg/L 05/07/2023 10:34 PM CDT [facility] Vitamin A Interp Normal 05/07/20 23 10:34 PM CDT [facility] Comment: This test was developed and its performance characteristics determined by [facility]. It has not been cleared or approved by the US Food and Drug Administration. This test was performed in a CLIA certified laboratory and is intended for clinical purposes. Performed By: [facility] [address] [place] [address] Room Service Food Server: Leon Patrick MD, PhD Blood BLOOD SPECIMEN / Unknown Venipuncture / Unknown 05/05/2023 9:47 AM CDT 05/05/2023 9:47 AM CDT Dov Posadas PA-C LAB - BLOOD ORD ERABLES [facility] [address] [place] [address], [facility] [phone] * Ferritin (05/05/2023 9:47 AM CDT) Ferritin 47 6 - 175 ng/mL 05/05/2023 9:10 PM CDT [facility] Blood BLOOD SPECIMEN / Unknown Venipuncture / Unknown 05/05/2023 9:47 AM CDT 05/05/2023 9:47 AM CDT Dov Posadas PA-C LAB - BLOOD ORD ERABLES [facility] LABORATORY [facility] [address] [facility], Room [address] [place] [address], [facility] [phone] * Iron and Iron Binding Capacity (05/05/2023 9:47 AM CDT) Pathologist [facility] Iron 72 37 - 145 ug/dL 05/05/2023 [...] LAB - BLOOD ORD ERABLES [facility] LABORATORY [facility] 500 [facility], Room [address] [place] [address], [facility] [phone] * Parathyroid Hormone Intact (05/05/2023 9:47 AM [...] differs from PTH assays used in other [facility] laboratories. Dov Posadas PA-C LAB - BLOOD ORD ERABLES LABORATORY [facility] [address] [facility], [address] [address], [facility] [phone] * Vitamin D Screen (05/05/2023 9:47 AM CDT) Vitamin D, Total (25-Hydroxy) 42 20 - 75 ug/L 05/06/2023 3:55 PM CDT SPECIALTY CORE/PROT/ENDO Blood BLOOD SPECIMEN / Unknown Venipuncture / Unknown 05/05/2023 9:47 AM CDT 05/05/2023 9:47 AM CDT Narrative SPECIALTY CORE/PROT/ENDO - 05/06/2023 3:55 PM CDT Season, race, dietary intake, and treatment affect the concentration of 73-wobnumu-Qegnurr D. Values may decrease during winter months [...] ORD ERABLES SPECIALTY CORE/PROT/ENDO Specialty Core/Prot/Endo [address] [facility], [address] [address] [phone] * Vitamin B12 (05/05/2023 9:47 AM CDT) Vitamin B12 518 232 - 1,245 pg/mL 05/05/2023 8:38 PM CDT [facility] Blood BLOOD SPECIMEN / Unknown Venipuncture / Unknown 05/05/2023 9:47 AM CDT 05/05/2023 9:47 AM CDT Dov Posadas PA-C LAB - BLOOD ORD ERABLES U LABORATORY [facility] [address] [facility], Room [address] [place] [address], [facility] [phone] * CBC with platelets (05/05/2023 9:47 AM CDT) [facility] WBC Count 7.5 4.0 - 11.0 10e3/uL [...] PA-C LAB - BLOOD ORD ERABLES LABORATORY [facility] [address] [facility] (no room number, 1st floor of clinic) [place] [address], [facility] [phone] * (ABNORMAL) Comprehensive metabolic panel (BMP + [...] CDT 05/05/2023 9:47 AM CDT Amy Villalba TALENT SOURCER THERAPEUTIC DIETITIAN LAB - BLOOD ORDERABLES [facility] [address] [facility], [address] [address], [facility] [phone] * (ABNORMAL) Lipid panel reflex to direct [...] CNP LAB - BLOOD ORDERABLES U LABORATORY [facility] [address] [facility], Room [address] [place] [address], [facility] [phone] documented in this encounter Visit Diagnoses Diagnosis Type 2 diabetes mellitus without complication, without long-term current use of insulin (H) 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 documented in this encounter Additional Health Concerns Assessment Noted Time PHQ-9 Depression Total Score: 20 023 10:54 AM INFORMATION STRATEGIST documented as of this encounter Care Teams Percolator Operator Relationship Specialty Start Date End Date Amy Villalba Ra, APRN CNP [address] [address] [address] PCP - General Family Practice 01/13/22 Amy Villalba Ra, APRN CNP [address] [address] [address] Assigned PCP 09/19/21 Renetta Mckeon PA-C [address] [place] [address] Physician Top Collar Baster Dermatology 05/03/22 Amy Villalba Ra, APRN THERAPEUTIC DIETITIAN [address] [place] [address] Referring Physician Family Practice 11/01/22 Pura De La Garza APRN THERAPEUTIC DIETITIAN [address] [place] [address]225 Nurse Practitioner Dermatology 11/01/22 Gabe Moreira MD [address] [place] [address] 96 [place], [place] 00[address] Assigned Neuroscience Provider 12/17/22 Dov Posadas PA-C [address] [place] [address] Assigned Surgical Provider 04/08/23 documented as of this encounter
--- OUTSIDE RECORDS SUMMARY | 2023-11-27 15:48 | XMS_ITS | Encounter Summary ---
Author Name Unknown Organization [place] Address [address] [place] [address] Care Team Providers Care Patient Relations Director Name Role Phone Amy Villalba Ra, APRN MANAGER CIVIL Unavailable + [phone] Priscilla Carbajal DO Unavailable [phone] Amy Villalba Ra, APRN MANAGER CIVIL Primary Care Provid er Renetta Mckeon PA-C Unavailable [phone] Amy Villalba Ra, APRN MANAGER CIVIL Unavailable + [phone] Pura De La Garza APRN MANAGER CIVIL Unavailable Gabe Moreira MD Unavailable [phone] Encounter Details Date Type Department Care [...] Total Score: 20 12/15/ 023 10:54 AM PLANT CHANGER documented as of this encounter Care Teams Patient Relations Director Relationship Specialty Start Date End Date Amy Villalba Ra, APRN MANAGER CIVIL [address] [place] [address] PCP - General Family Practice 01/13/22 Amy Villalba Ra, APRN CNP [address] [place] [address] Assigned PCP 09/19/21 [place] [address] [place], [place] [address] Assigned OBGYN Provider 10/24/21 Reentta Mckeon, PADagobertoC [address] [place] [address] Physician Capital Project Engineer Dermatology 05/03/22 Amy Villalba Ra, APRN MANAGER CIVIL [address] [address] [facility] [address] Referring Physician Family Practice 11/01/22 Pura De La Garza APRN MANAGER CIVIL 500 [place], [place] [phone] Nurse Practitioner Dermatology 11/01/22 Gabe Moreira MD [address] [place] [id number] Assigned Neuroscience Provider 12/17/22 documented as of this encounter
--- OUTSIDE RECORDS SUMMARY | 2023-11-27 15:48 | XMS_ITS | Encounter Summary ---
Author Name Unknown Organization [place] Address [address] [place] [address]. [place] [address] Care Team Providers Care Diagnostic Radiologic Technologist Name Role Phone Amy Villalba Ra, APRN INTERN Unavailable Solomon Priscilla Hernandez Unavailable [phone] Amy Villalba Ra, APRN INTERN Primary Care Provid er Renetta Mckeon PA-C Unavailable Amy Villalba Ra, APRN INTERN Unavailable Pura De La Garza APRN INTERN Unavailable Gabe Moreira MD Unavailable [phone] Reason for Visit * Reason Onset Date Comments Pre-Op Exam 01/06/2023 Encounter Details Date Type Department Care Team (Late st Contact Info) Description 01/06/2023 Telephone [facility] [address] [place] [address] [place] [address] [place] [address] Pre-Op Exam Social History Tobacco [...] Completed. Routed to fax. Raj Lockwood MD [facility] 01/06/2023 * Telephone Encounter - Landy Ross RN - 01/06/2023 11:45 AM CDT Rosita jey from [facility] [phone]. Surgery is Monday at 5 am. Trying to have anesthesia review so need signed by 1 pm at the latest. Landy Ross RN documented in this encounter Plan of Treatment Not on file documented as of this encounter Visit Diagnoses Not on filedocumented in this encounter Additional Health Concerns Assessment Noted Time PHQ-9 Depression Total Score: 20 023 10:54 AM FOREST FIRE PREVENTION SPECIALIST documented as of this encounter Care Teams Diagnostic Radiologic Technologist Relationship Specialty Start Date End Date Amy Villalba Ra, APRN INTERN [address] [address] [address] PCP - General Family Practice 01/13/22 Amy Villalba Ra, APRN INTERN [address] [address] [address] Assigned PCP 09/19/21 [place] [address] [address] [place], [place] [address] Assigned OBGYN Provider 10/24/21 Renetta Mckeon PA-C [address] [place], [place] 9358[address] Physician Caddie Dermatology 05/03/22 Amy Villalba Ra, APRN INTERN [address] [place], [place] 8[address] Referring Physician Family Practice 11/01/22 Pura De La Garza APRN INTERN [address] [place] [address] Nurse Practitioner Dermatology 11/01/22 Gabe Moreira MD [address] [place] [address] 96 [place] [address] Assigned Neuroscience Provider 12/17/22 documented as of this encounter
--- OUTSIDE RECORDS SUMMARY | 2023-11-27 15:48 | XMS_ITS | Encounter Summary ---
Author Name Unknown Organization [place] Address [address] [place] [address] Care Team Providers Care Regional Telecommunications Specialist Name Role Phone Amy Villalba Ra, APRN COMBINATION OPERATOR Unavailable + [phone] Priscilla Carbajal DO Unavailable [phone] mAy Villalba Ra, APRN COMBINATION OPERATOR Primary Care Provid er Renetta Mckeon PA-C Unavailable [phone] Amy Villalba Ra, APRN COMBINATION OPERATOR Unavailable + [phone] Pura De La Garza APRN COMBINATION OPERATOR Unavailable Gabe Moreira MD Unavailable [phone] Encounter Details Date Type Department Care [...] Total Score: 20 12/15/ 023 10:54 AM STUDIO CONTROL OPERATOR documented as of this encounter Care Teams Regional Telecommunications Specialist Relationship Specialty Start Date End Date Amy Villalba Ra, APRN COMBINATION OPERATOR [address] [place] [address] PCP - General Family Practice 01/13/22 Amy Villalba Ra, APRN CNP [address] [place] [address] Assigned PCP 09/19/21 [place] [address] [place], [place] [address] Assigned OBGYN Provider 10/24/21 Renetta Mckeon, PADagobertoC [address] [place] [address] Physician Flasher Adjuster Dermatology 05/03/22 Amy Villalba Ra, APRN COMBINATION OPERATOR [address] [facility] [address] Referring Physician Family Practice 11/01/22 Pura De La Garza APRN COMBINATION OPERATOR [address] [place], [place] [address] Nurse Practitioner Dermatology 11/01/22 Gabe Moreira MD [address] [place] [address] Assigned Neuroscience Provider 12/17/22 documented as of this encounter
--- OUTSIDE RECORDS SUMMARY | 2023-11-27 15:48 | XMS_ITS | Encounter Summary ---
Author Name Unknown Organization [place] Address [address] [place] [address] Care Team Providers Care Extrusion Supervisor Name Role Phone Amy Villalba Ra, APRN CLAIMS ADMINISTRATOR Unavailable + [phone] Priscilla Carbajal DO Unavailable [phone] Amy Villalba Ra, APRN CLAIMS ADMINISTRATOR Primary Care Provid er Renetta Mckeon PA-C Unavailable [phone] Amy Villalba Ra, APRN CLAIMS ADMINISTRATOR Unavailable + [phone] Pura De La Garza APRN CLAIMS ADMINISTRATOR Unavailable Gabe Moreira MD Unavailable [phone] Encounter Details Date Type Department Care Team (Late st Contact Info) Description 12/19/2022 Telephone [facility] [address] [facility] [address] [place] [address] Javid Solis, KATTY Social History [...] Coronavirus/COVID-19? No / Unsure 12/15/2022 10:53 AM CORE DRILLER HELPER documented as of this encounter Miscellaneous Notes [...] two weeks. Patient knows to have a tow driver and arrive 15 minutes before injection start time. documented in this encounter Plan of Treatment Not on file documented as of this encounter Visit Diagnoses Not on filedocumented in this encounter Additional Health Concerns Assessment Noted Time PHQ-9 Depression Total Score: 20 023 10:54 AM CORE DRILLER HELPER documented as of this encounter Care Teams Extrusion Supervisor Relationship Specialty Start Date End Date Amy Villalba Ra, APRN CNP [address] [place] [address] PCP - General Family Practice 01/13/22 Amy Villalba Ra, APRN CLAIMS ADMINISTRATOR [address] [place] [address] Assigned PCP 09/19/21 [place] [address] [place] [address] Assigned OBGYN Provider 10/24/21 Renetta Mckeon PA-C 5[address] [place] [address] Physician Aquatics Lifeguard Dermatology 05/03/22 Amy Villalba Ra, APRN CLAIMS ADMINISTRATOR [address] [facility] [address] Referring Physician Family Practice 11/01/22 Pura De La Garza APRN CLAIMS ADMINISTRATOR [address] [place] [address] Nurse Practitioner Dermatology 11/01/22 Gabe Moreira MD [address] [place] [address] 96 [place] [address] Assigned Neuroscience Provider 12/17/22 documented as of this encounter
--- OUTSIDE RECORDS SUMMARY | 2023-11-27 15:48 | XMS_ITS | Encounter Summary ---
Author Name Unknown Organization [place] Address [address] [place] [address]. [place] [address] Care Team Providers Care Chief Science Officer Name Role Phone Amy Villalba Ra, APRN FUR MIXER Unavailable [phone] Priscilla Carbajal DO Unavailable Amy Villalba Ra, APRN FUR MIXER Primary Care Provid er Renetta Mckeon PA-C Unavailable Amy Villalba Ra, APRN FUR MIXER Unavailable [phone] Pura De La Garza APRN FUR MIXER Unavailable Gabe Moreira MD Unavailable Dov Posadas PA-C Unavailable [phone] Reason for Visit * Reason Onset Date Comments Refill Request 12/17/2022 Encounter Details Date Type Department Care Team (Late st Contact Info) Description 12/17/2022 MyC Refill [facility] [address] [place] [address] Amy Villalba Ra, APRN CNP [address] [place] [address] Refill Request Social History Tobacco [...] Coronavirus/COVID-19? No / Unsure 12/15/2022 10:53 AM OVEN DRIER TENDER documented as of this encounter Miscellaneous Notes [...] Depression Total Score: 20 023 10:54 AM OVEN DRIER TENDER documented as of this encounter Care Teams Chief Science Officer Relationship Specialty Start Date End Date Amy Villalba Ra, APRN FUR MIXER [address] [address] [place] [address] PCP - General Family Practice 01/13/22 Amy Villalba Ra, APRN FUR MIXER [address] [place] [place] [address] Assigned PCP 09/19/21 [place] [address] [place] [address] Assigned OBGYN Provider 10/24/21 Renetta Mckeon PA-C [address] [place] [address] Physician Application Penetration Tester Dermatology 05/03/22 Amy Villalba Ra, APRN FUR MIXER [address] [place] [address] Referring Physician Family Practice 11/01/22 Pura De La Garza APRN FUR MIXER 500 [place], [place] [address] Nurse Practitioner Dermatology 11/01/22 Gabe Moreira MD [address] [facility] 96 [place], [place] [address] Assigned Neuroscience Provider 12/17/22 Dov Posadas PA-C [address] [place] [address] Assigned Surgical Provider 04/08/23 documented as of this encounter
--- OUTSIDE RECORDS SUMMARY | 2023-11-27 15:48 | XMS_ITS | Encounter Summary ---
Author Name Unknown Organization [facility] [address] Address [address] [place] [address]. [place] [address] Care Team Providers Care Roofing Tile Sorter Name Role Phone Amy Villalba Ra, APRN UNIT EDUCATOR Unavailable [phone] Priscilla Carbajal Mary Unavailable [phone] Amy Villalba Ra, APRN UNIT EDUCATOR Primary Care Provid er Renetta Mckeon PA-C Unavailable Amy Villalba Ra, APRN UNIT EDUCATOR Unavailable [phone] Pura De La Garza APRN UNIT EDUCATOR Unavailable Gabe Moreira MD Unavailable [phone] Reason for Visit * Reason Comments Pre-Op Exam Encounter Details Date Type Department Care Team (Late st Contact Info) Description 01/06/2023 9:30 AM CDT Office Visit [facility] [address] [place] [address] [place] [address] [place] [address] Preop general physical exam (Primary [...] health care provider. Copyright ?? 2002, 2018 [facility]. All rights reserved. Clinically reviewed by Meli Dominguez MD. YesGraph [id number] - REV 09/29. Preparing for Your Surgery [...] list of medicines, including herbal treatments and epli-jha-dcwxdqz drugs ??? Whether the patient has a [...] surgery. (If you don't have insurance, call [phone].) ??? Call your clinic if there's any [...] Clayton MD - 01/06/2023 9:30 AM CDT [address] [address] Primary Provider: Amy Villalba Ra Pre-op Performing Provider: LEOBARDO CLAYTON PREOPERATIVE EVALUATION: Today's date: 01/06/2023 Marlene Almeida is a 42 year old female who presents for a preoperative evaluation. Additional Questions 01/06/2023 Roomed by Jannet Mccann CMA Accompanied by MAYELIN Patient Reported Additional Medications 01/06/2023 Patient reports taking the following new medications None Surgical Information: Surgery/Procedure: Back Surgery Surgery Location: [facility] Surgeon: Dr. Castro Surgery Date: 01/09/2023 Time of Surgery: 5:30AM Where patient plans to recover: At home with family Fax number for surgical facility: [phone] Assessment & Plan The proposed surgical procedure [...] without further diagnostic evaluation. Leobardo Clayton MD [facility] 01/06/2023 Subjective HPI related to upcoming procedure: [...] Directive or Living Will Preoperative Review of MOBILE HOME MECHANIC: MOBILE HOME MECHANIC reviewed - controlled substances reflected in medication [...] Medium Added automatically from request for surgery [id number] ??? Class 1 obesity due to excess [...] Depression Total Score: 20 023 10:54 AM BRAND ATTENDANT documented as of this encounter Care Teams Roofing Tile Sorter Relationship Specialty Start Date End Date Amy Villalba Ra, APRN CNP [address] [place] [address] PCP - General Family Practice 01/13/22 Amy Villalba Ra, APRN UNIT EDUCATOR [address] [address] [facility] [place] [address] Assigned PCP 09/19/21 [place] [address] [place] [address] Assigned OBGYN Provider 10/24/21 Renetta Mckeon, PADagobertoC [address] [place] [address] Physician Nitrogen Operator Dermatology 05/03/22 Amy Villalba Ra, APRN CNP [address] [place] [address] Referring Physician Family Practice 11/01/22 Pura De La Garza APRN UNIT EDUCATOR [address] [place] [address] 008165 Nurse Practitioner Dermatology 11/01/22 Gabe Moreira MD [address] [place] [address] 96 [place], [place] [address] Assigned Neuroscience Provider 12/17/22 documented as of this encounter
--- OUTSIDE RECORDS SUMMARY | 2023-11-27 15:48 | XMS_ITS | Encounter Summary ---
Author Name Unknown Organization [place] Address [address] [place] [address]. [place] [address] Care Team Providers Care Fish Receiver Name Role Phone Amy Villalba Ra, APRN PRODUCTION HONING MACHINE OPERATOR Unavailable [phone] Priscilla Carbajal DO Unavailable Amy Villalba Ra, APRN PRODUCTION HONING MACHINE OPERATOR Primary Care Provid er Renetta Mckeon PA-C Unavailable Amy Villalba Ra, APRN PRODUCTION HONING MACHINE OPERATOR Unavailable [phone] Pura De La Garza APRN PRODUCTION HONING MACHINE OPERATOR Unavailable Gabe Moreira MD Unavailable [phone] Reason for Visit * Reason Onset Date Comments Refill Request 02/14/2023 omeprazole (PRIL OSEC) [address] capsule Encounter Details Date Type Department Care Team (Late st Contact Info) Description 02/14/2023 Refill [facility] [address] [place] [address] Amy Villalba Ra, APRN PRODUCTION HONING MACHINE OPERATOR [address] [place] [address] Refill Request (omeprazole (PRILOSEC) 20 [...] 02/15/2023 2:40 PM CDT Prescription approved per [facility] Refill Protocol. Omeprazole Pura Ramirez RN documented in this encounter Plan of Treatment Not on file documented as of this encounter Visit Diagnoses Diagnosis Gastroesophageal reflux disease without esophagitis Esophageal reflux documented in this encounter Additional Health Concerns Assessment Noted Time PHQ-9 Depression Total Score: 20 023 10:54 AM LEATHER CRAFTER documented as of this encounter Care Teams Fish Receiver Relationship Specialty Start Date End Date Amy Villalba Ra, APRN PRODUCTION HONING MACHINE OPERATOR [address] [place] [address] PCP - General Family Practice 01/13/22 Amy Villalba Ra, APRN PRODUCTION HONING MACHINE OPERATOR [address] [place] [address] Assigned PCP 09/19/21 [place] [address] [place] [address] Assigned OBGYN Provider 10/24/21 Renetta Mckeon PA-C [address] [place] [address] Physician University Professor Dermatology 05/03/22 Amy Villalba Ra, APRN PRODUCTION HONING MACHINE OPERATOR [address] [facility] [place] [address] Referring Physician Family Practice 11/01/22 Pura De La Garza APRN PRODUCTION HONING MACHINE OPERATOR [address] [place] [address] Nurse Practitioner Dermatology 11/01/22 Gabe Moreira MD [address] [place] [address] 96 [place] [address] Assigned Neuroscience Provider 12/17/22 documented as of this encounter
--- OUTSIDE RECORDS SUMMARY | 2023-11-27 15:48 | XMS_ITS | Encounter Summary ---
Author Name Unknown Organization [place] Address [facility] [place] [address] Care Team Providers Care Software Quality Specialist Name Role Phone Amy Villalba Ra, APRN SENIOR ACCOUNTANT CPA Unavailable [phone] Priscilla Carbajal DO Unavailable Amy Villalba Ra NURSE LDR SENIOR ACCOUNTANT CPA Primary Care Provid er Renetta Mckeon PA-C Unavailable Amy Villalba Ra, APRN SENIOR ACCOUNTANT CPA Unavailable Pura De La Garza NURSE LDR SENIOR ACCOUNTANT CPA Unavailable Reason for Referral * Consultation (Routine: Next available opening) - Referral NOT Required Specialty Diagnoses / Procedures Referred By Gonzalez mckeon Referred To Contact Diagnoses Acute radicular low back pain Amy Villalba Ra NURSE LDR SENIOR ACCOUNTANT CPA [address] [place] [address] [facility] [address] [place] [address] Referral ID Status Reason Start Date Expiration Date V isits Requested Visits Authorized [id number] Referral NOT Required 12/15/2022 12/15/2023 1 1 Question Answer Referral Type: Per Protocol Scheduling Instructions: [facility] will call you to coordinate your care as prescribed by your provider. If you don't hear from a sales representative printing paper within 2 business days, please call . Comments Please be aware that coverage of these services is subject to the terms and limitations of your health insurance plan. Call member services at your health plan with any benefit or coverage questions. [facility] will call you to coordinate your care as prescribed by your provider. If you don't hear from a sales representative printing paper within 2 business days, please call . F SECURITY OFFICER Reason for Visit * Reason Comments Diabetes Anxiety Depression Back Pain Encounter Details Date Type Department Care Team (Late st Contact Info) Description 12/15/2022 11:00 AM CHIEF SECURITY OFFICER Office Visit [facility] [address] [place] [address] Amy Villalba Ra, JULIA SENIOR ACCOUNTANT CPA [address] [place] [address] Type 2 diabetes mellitus without [...] Coronavirus/COVID-19? No / Unsure 12/15/2022 10:53 AM CHIEF SECURITY OFFICER documented as of this encounter Last Filed Vital Signs Vital Sign Reading Time Taken Comments Blood Pressure 112/71 12/15/2022 10:57 AM CHIEF SECURITY OFFICER Pulse 64 12/15/2022 10:57 AM CHIEF SECURITY OFFICER Temperature 37.1 ??C (98.8 ??F) 12/15/2022 10:[address] Respiratory Rate 12 12/15/2022 10:57 AM CHIEF SECURITY OFFICER Oxygen Saturation 98% 12/15/2022 10:57 AM CHIEF SECURITY OFFICER Inhaled Oxygen Concentration - - Weight 98 kg (216 lb 1.6 oz) 12/15/2022 10:57 AM CHIEF SECURITY OFFICER Height 168.9 cm (5' 6.5) 12/15/2022 10:57 AM CS T Body Mass Index 34.36 12/15/2022 10:57 AM CHIEF SECURITY OFFICER documented in this encounter Progress Notes * Amy Villalba Ra, NURSE LDR SENIOR ACCOUNTANT CPA - 12/15/2022 11:00 AM CST Assessment & [...] second opinion. Keep me updated. - Spine Healthcare Economics Consultant Referral; Future - cyclobenzaprine (FLEXERIL) 5 MG [...] No follow-ups on file. Amy Villalba, JULIA SENIOR ACCOUNTANT CPA [facility] [place] Rosario is a 42 year [...] strong PSYCH: mentation appears normal and tearful F SECURITY OFFICER documented in this encounter Plan of Treatment Scheduled Referrals Name Type Priority Associated Diagnoses Orde r Schedule Spine Healthcare Economics Consultant Referral Referral Routine: Next available opening Acute radicular low back pain Expected: 12/15/2022 (Approximate), Expires: 12/16/2023 documented as of this encounter Procedures Procedure Name Priority Date/Time Associated Diagnosis Comments ALBUMIN RANDOM URINE QUANTITATIVE Routine 12/15/2022 10:55 AM CHIEF SECURITY OFFICER Type 2 diabetes mellitus without complication, without long-term current use of insulin (H) EXTRA GREEN TOP TUBE (LAB USE ONLY) Routine 12/15/2022 10:53 AM CHIEF SECURITY OFFICER Type 2 diabetes mellitus without complication, without long-term current use of insulin (H) TSH WITH FREE T4 REFLEX Add-On 12/15/2022 10:53 AM CHIEF SECURITY OFFICER Acquired hypothyroidism LIPID REFLEX TO DIRECT LDL PANEL Add-On 12/15/2022 10:53 AM CHIEF SECURITY OFFICER Type 2 diabetes mellitus without complication, without long-term current use of insulin (H) HEMOGLOBIN A1C Routine 12/15/2022 10:53 AM CHIEF SECURITY OFFICER Type 2 diabetes mellitus without complication, without [...] 05/05/2023 9:47 AM CDT Amy Villalba APRN SENIOR ACCOUNTANT CPA LAB - BLOOD ORDERABLES [facility] [place] [facility] [address] [facility], [address] [place] [address], [facility] [phone] * (ABNORMAL) Lipid panel reflex to direct [...] equal to 220 mg/dL Amy Villalba APRN SENIOR ACCOUNTANT CPA LAB - BLOOD ORDERABLES [facility] [address] [facility], [address] [address], [facility] [phone] * Albumin Random Urine Quantitative with Creat Ratio (12/15/2022 10:55 AM CHIEF SECURITY OFFICER) Creatinine Urine mg/dL 164.0 mg/dL 12/15/2022 3:26 PM CHIEF SECURITY OFFICER [facility] Comment:The reference ranges have not been established in urine creatinine. The results should be integrated into the clinical context for interpretation. Albumin Urine mg/L <12.0 mg/L 03/09/ 2023 3:26 PM CHIEF SECURITY OFFICER [facility] Comment:The reference ranges have not been established in urine albumin. The results should be integrated into the clinical context for interpretation. Albumin Urine mg/g Cr 12/15/2022 3:26 PM CHIEF SECURITY OFFICER [facility] Comment: Unable to calculate, urine [...] control, and institution of therapy with an nrinldckzwn-vpexprmbaq-bmdlek (LAURI) inhibitor (if the patient can tolerate it). ?? Urine URINE SPECIMEN / Unknown Non-blood Collection / Unknown 12/15/2022 10:55 AM CHIEF SECURITY OFFICER 12/15/2022 10:56 AM CHIEF SECURITY OFFICER Amy Villalba APRN SENIOR ACCOUNTANT CPA LAB - URINE ORDERABLES [facility] [address] [facility], [address] [id number] [phone] * (ABNORMAL) Lipid panel reflex to direct LDL Non-fasting (12/15/2022 10:53 AM CHIEF SECURITY OFFICER) Cholesterol 193 <200 mg/dL 12/15/2022 7:52 PM CHIEF SECURITY OFFICER [facility] Triglycerides 364(H) <150 mg/dL 12/15/2022 7:52 PM CHIEF SECURITY OFFICER [facility] Direct Measure HDL 44(L) >=50 mg/dL 12/15/2022 7:52 PM CHIEF SECURITY OFFICER [facility] LDL Cholesterol Calculated 76 <=100 mg/dL 12/15/2022 7:52 PM CHIEF SECURITY OFFICER [facility] Non HDL Cholesterol 149(H) <130 mg/dL 12/15/2022 7:52 PM CHIEF SECURITY OFFICER [facility] Blood BLOOD SPECIMEN / Unknown Venipuncture / Unknown 12/15/2022 10:53 AM CHIEF SECURITY OFFICER 12/15/2022 10:53 AM CHIEF SECURITY OFFICER Narrative [facility] - 12/15/2022 7:52 PM CHIEF SECURITY OFFICER Cholesterol Desirable: ??<200 mg/dL Triglycerides Normal: ??Less [...] equal to 220 mg/dL Amy Villalba APRN SENIOR ACCOUNTANT CPA LAB - BLOOD ORDERABLES [facility] [place] [facility] [address] [facility], [address] [address], [facility] [phone] * TSH with free T4 reflex (12/15/2022 10:53 AM CHIEF SECURITY OFFICER) TSH 0.71 0.30 - 4.20 uIU/mL 12/15/2022 7:52 PM CHIEF SECURITY OFFICER [facility] Blood BLOOD SPECIMEN / Unknown Venipuncture / Unknown 12/15/2022 10:53 AM CHIEF SECURITY OFFICER 12/15/2022 10:53 AM CHIEF SECURITY OFFICER Amy Villalba NURSE LDR SENIOR ACCOUNTANT CPA LAB - BLOOD ORDERABLES [facility] [place] [facility] [address] [facility], [address] [place] [id number] [phone] * Extra Green Top Tube (LAB USE ONLY) (12/15/2022 10:53 AM CHIEF SECURITY OFFICER) Hold Specimen JIC 12/15/2022 12:05 PM CHIEF SECURITY OFFICER LABORATORY Blood BLOOD SPECIMEN / Unknown Venipuncture / Unknown 12/15/2022 10:53 AM CHIEF SECURITY OFFICER 12/15/2022 10:53 AM CHIEF SECURITY OFFICER Amy Villalba APRN [facility] LAB - BLOOD ORDERABLES LABORATORY [facility] [address] [facility] (no room number, 1st floor of clinic) [place] [address], [facility] [phone] * (ABNORMAL) Hemoglobin A1c (12/15/2022 10:53 AM CHIEF SECURITY OFFICER) Hemoglobin A1C 5.7(H) 0.0 - 5.6 % 12/15/2022 10:57 AM CHIEF SECURITY OFFICER LABORATORY Comment: Normal <5.7% Prediabetes 5.7-6.4% ?? Diabetes 6.5% or higher Note: Adopted from ADA consensus guidelines. Blood BLOOD SPECIMEN / Unknown Venipuncture / Unknown 12/15/2022 10:53 AM CHIEF SECURITY OFFICER 12/15/2022 10:53 AM CHIEF SECURITY OFFICER Amy Villalba APRN, CNP LAB - BLOOD ORDERABLES LABORATORY [facility] [address] [facility] Lab (no room number, 1st floor of clinic) [place] [address], [place] [phone] documented in this encounter Visit Diagnoses Diagnosis [...] Depression Total Score: 20 023 10:54 AM CHIEF SECURITY OFFICER documented as of this encounter Care Teams Software Quality Specialist Relationship Specialty Start Date End Date Amy Villalba Ra, APRN CNP [address] [place] [address] PCP - General Family Practice 01/13/22 Amy Villalba Ra, APRN SENIOR ACCOUNTANT CPA [address] [place] [address] Assigned PCP 09/19/21 [place] [address] [place] [address] Assigned OBGYN Provider 10/24/21 Renetta Mckeon PA-C [address] [place] [address] Physician Director Of Aviation Dermatology 05/03/22 Amy Villalba Ra, APRN CNP [address] [place] [address] Referring Physician Family Practice 11/01/22 Pura De La Garza APRN SENIOR ACCOUNTANT CPA [address] [place] [address] Nurse Practitioner Dermatology 11/01/22 documented as of this encounter
--- OUTSIDE RECORDS SUMMARY | 2023-11-27 15:48 | XMS_ITS | Encounter Summary ---
Author Name Unknown Organization [place] Address [address] [place] [address] Care Team Providers Care Branch Or Department Chief Librarian Name Role Phone Amy Villalba Ra, APRN OIL WELL SERVICES FIELD SUPERVISOR Unavailable + [phone] Priscilla Carbajal DO Unavailable [phone] Amy Villalba Ra, APRN OIL WELL SERVICES FIELD SUPERVISOR Primary Care Provid er Renetta Mckeon PA-C Unavailable [phone] Amy Villalba Ra, APRN OIL WELL SERVICES FIELD SUPERVISOR Unavailable + [phone] Pura De La Garza APRN OIL WELL SERVICES FIELD SUPERVISOR Unavailable Encounter Details Date Type Department Care [...] Coronavirus/COVID-19? No / Unsure 12/15/2022 10:53 AM DENTAL LABORATORY WORKER documented as of this encounter Plan of Treatment Not on file documented as of this encounter Visit Diagnoses Not on filedocumented in this encounter Additional Health Concerns Assessment Noted Time PHQ-9 Depression Total Score: 20 023 10:54 AM DENTAL LABORATORY WORKER documented as of this encounter Care Teams Branch Or Department Chief Librarian Relationship Specialty Start Date End Date Amy Villalba Ra, APRN CNP [address] [place] [address] PCP - General Family Practice 01/13/22 Amy Villalba Ra, APRN CNP [address] [place] [address] Assigned PCP 09/19/21 [place] [address] [place] [address] Assigned OBGYN Provider 10/24/21 Renetta Mckeon PA-C [address] [place] [address] Physician Chief Port Director Dermatology 05/03/22 Amy Villalba Ra, APRN OIL WELL SERVICES FIELD SUPERVISOR [address] [place] [address] Referring Physician Family Practice 11/01/22 Pura De La Garza APRN OIL WELL SERVICES FIELD SUPERVISOR [address] [place] [address] Nurse Practitioner Dermatology 11/01/22 documented as of this encounter
--- OUTSIDE RECORDS SUMMARY | 2023-11-27 15:48 | XMS_ITS | Encounter Summary ---
Author Name Unknown Organization [place] Address [address] [place] [address]. [place] [address] Care Team Providers Care Runner On Name Role Phone Amy Villalba Ra, APRN OPERATIONS SYSTEMS SPECIALIST Unavailable [phone] Priscilla Carbajal DO Unavailable Amy Villalba Ra, APRN OPERATIONS SYSTEMS SPECIALIST Primary Care Provid er Renetta Mckeon PA-C Unavailable Amy Villalba Ra, APRN OPERATIONS SYSTEMS SPECIALIST Unavailable [phone] Pura De La Garza APRN OPERATIONS SYSTEMS SPECIALIST Unavailable Gabe Moreira MD Unavailable Reason for Visit * Reason Onset Date Comments Refill Request 02/20/2023 levothyroxine (S YNTHROID/LEVOTHROID) 150 MCG tablet Encounter Details Date Type Department Care Team (Late st Contact Info) Description 02/20/2023 Refill [facility] [address] [place] [address] Amy Villalba Ra, APRN OPERATIONS SYSTEMS SPECIALIST [address] [place] [address] Refill Request (levothyroxine (SYNTHROID/LEVOTHROID) 150 [...] Depression Total Score: 20 023 10:54 AM INDUSTRIAL RELATIONS COMMISSIONER documented as of this encounter Care Teams Runner On Relationship Specialty Start Date End Date Amy Villalba Ra, APRN OPERATIONS SYSTEMS SPECIALIST [address] [place] [address] PCP - General Family Practice 01/13/22 Amy Villalba Ra, APRN OPERATIONS SYSTEMS SPECIALIST [address] [place] [address] Assigned PCP 09/19/21 [place] [address] [place] [address] Assigned OBGYN Provider 10/24/21 Renetta Mckeon PA-C [address] [place] [address] Physician Long Lines Operator Dermatology 05/03/22 Amy Villalba Ra, APRN OPERATIONS SYSTEMS SPECIALIST [address] [facility] [place] [address] Referring Physician Family Practice 11/01/22 Pura De La Garza APRN OPERATIONS SYSTEMS SPECIALIST 500 [place] [address] Nurse Practitioner Dermatology 11/01/22 Gabe Moreira MD 420 [facility] 96 [place] [address] Assigned Neuroscience Provider 12/17/22 documented as of this encounter
--- OUTSIDE RECORDS SUMMARY | 2023-11-27 15:48 | XMS_ITS | Encounter Summary ---
Author Name Unknown Organization [place] Address [address] [place] [address]. [place] [address] Care Team Providers Care Mercantile Agent Name Role Phone Amy Villalba Ra, APRN GENERAL INTERNAL MEDICINE DOCTOR Unavailable [phone] Priscilla Carbajal DO Unavailable Amy Villalba Ra, APRN GENERAL INTERNAL MEDICINE DOCTOR Primary Care Provid er Renetta Mckeon PA-C Unavailable Amy Villalba Ra, APRN GENERAL INTERNAL MEDICINE DOCTOR Unavailable [phone] Pura De La Garza APRN GENERAL INTERNAL MEDICINE DOCTOR Unavailable Gabe Moreira MD Unavailable Reason for Visit * Reason Onset Date Comments Refill Request 03/16/2023 metFORMIN (GLUCOPHAGE XR) 500 MG 24 hr tablet Encounter Details Date Type Department Care Team (Late st Contact Info) Description 03/16/2023 Refill [facility] [address] [place] [address] Amy Villalba Ra, APRN GENERAL INTERNAL MEDICINE DOCTOR [address] [place] [address] Refill Request; metFORMIN (GLUCOPHAGE XR) [...] 03/16/2023 10:24 AM CDT Prescription approved per [facility] Refill Protocol. Simin Limon RN, BSN documented in this encounter Plan of Treatment Not on file documented as of this encounter Visit Diagnoses Diagnosis Type 2 diabetes mellitus without complication, without long-term current use of insulin (H) documented in this encounter Additional Health Concerns Assessment Noted Time PHQ-9 Depression Total Score: 20 023 10:54 AM LIQUEFACTION PLANT OPERATOR documented as of this encounter Care Teams Mercantile Agent Relationship Specialty Start Date End Date Amy Villalba Ra, APRN GENERAL INTERNAL MEDICINE DOCTOR [address] [place] [address] PCP - General Family Practice 01/13/22 Amy Villalba Ra, APRN GENERAL INTERNAL MEDICINE DOCTOR [address] [address] [place] [address] Assigned PCP 09/19/21 [place] [address] [facility] [place] [address] Assigned OBGYN Provider 10/24/21 Renetta Mckeon PA-C [address] [place] [address] Physician Notching Machine Operator Dermatology 05/03/22 Amy Villalba Ra, APRN GENERAL INTERNAL MEDICINE DOCTOR [address] [place] [address] Referring Physician Family Practice 11/01/22 Pura De La Garza APRN GENERAL INTERNAL MEDICINE DOCTOR [address] [place] [address] Nurse Practitioner Dermatology 11/01/22 Gbae Moreira MD [address] [place] [address] 96 [place] [address] Assigned Neuroscience Provider 12/17/22 documented as of this encounter
--- OUTSIDE RECORDS SUMMARY | 2023-11-27 15:48 | XMS_ITS | Encounter Summary ---
Author Name Unknown Organization [place] Address [address] [place] [address] Care Team Providers Care Furnace Room Supervisor Name Role Phone Amy Villalba Ra, APRN SLITTING MACHINE FEEDER Unavailable Priscilla Carbajal DO Unavailable [phone] Amy Villalba Ra, APRN SLITTING MACHINE FEEDER Primary Care Provid er Renetta MckeonC Unavailable Amy Villalba Ra, APRN SLITTING MACHINE FEEDER Unavailable Pura De La Garza APRN SLITTING MACHINE FEEDER Unavailable Gabe Moreira MD Unavailable Dov Posadas PA-C Unavailable [phone] Encounter Details Date Type Department Care Team (Late st Contact Info) Description 03/28/2023 [facility] [place] [address] [place] [address] Arthur Galindo MA Social History [...] Depression Total Score: 20 023 10:54 AM L TACKER documented as of this encounter Care Teams Furnace Room Supervisor Relationship Specialty Start Date End Date Amy Villalba Ra, APRN CNP [address] [place] [address] PCP - General Family Practice 01/13/22 Amy Villalba Ra, APRN SLITTING MACHINE FEEDER [address] [place] [address] Assigned PCP 09/19/21 [place] [address] [place] [address] Assigned OBGYN Provider 10/24/21 Renetta Mckeon PA-C [facility] [place] [place] [address] Physician Spoke Maker Dermatology 05/03/22 Amy Villalba Ra, APRN SLITTING MACHINE FEEDER [address] [place] [address] Referring Physician Family Practice 11/01/22 Pura De La Garza APRN SLITTING MACHINE FEEDER [address] [place] [address] Nurse Practitioner Dermatology 11/01/22 Gabe Moreira MD [address] [place] [address] 96 [place] [address] Assigned Neuroscience Provider 12/17/22 Dov Posadas PA-C [address] [place] [address] Assigned Surgical Provider 04/08/23 documented as of this encounter
--- OUTSIDE RECORDS SUMMARY | 2023-11-27 15:48 | XMS_ITS | Encounter Summary ---
Author Name Unknown Organization [place] Address [address] [place] [address]. [place] [address] Care Team Providers Care Transplant Case Manager Name Role Phone Amy Villalba Ra, APRN GROUP UNDERWRITER Unavailable + [phone] Priscilla Carbajal DO Unavailable [phone] Amy Villalba Ra, APRN GROUP UNDERWRITER Primary Care Provid er Renetta Mckeon PA-C Unavailable [phone] Amy Villalba Ra, APRN GROUP UNDERWRITER Unavailable + [phone] Pura De La Garza APRN GROUP UNDERWRITER Unavailable Gabe Moreira MD Unavailable [phone] Reason for Visit * Reason Onset Date Comments Abdominal Pain 03/16/2023 Encounter Details Date Type Department Care Team (Late st Contact Info) Description 03/16/2023 Telephone [facility] [place] [address] [place] [id number] Karina Rosen, KATTY [facility] [address] [place] [id number] Abdominal Pain Social History Tobacco Use Types [...] told that is not causing her problem. Accessibility Lift Technician is rec complete hyst Has been recommeded to go to [facility]. Wanted to be seen in clinic for [...] Depression Total Score: 20 023 10:54 AM IT PROJECT LEAD documented as of this encounter Care Teams Transplant Case Manager Relationship Specialty Start Date End Date Amy Villalba Ra, APRN GROUP UNDERWRITER [address] [place] [address] PCP - General Family Practice 01/13/22 Amy Villalba Ra, APRN GROUP UNDERWRITER [address] [place] [address] Assigned PCP 09/19/21 [place] [address] [place] [address] Assigned OBGYN Provider 10/24/21 Renetta Mckeon PA-C [address] [place] [address] Physician Provider Network Manager Dermatology 05/03/22 Amy Villalba Ra, APRN GROUP UNDERWRITER [address] [place] [address] Referring Physician Family Practice 11/01/22 Pura De La Garza APRN GROUP UNDERWRITER 500 [place] [address] Nurse Practitioner Dermatology 11/01/22 Gabe Moreira MD [address] [place] [address] Assigned Neuroscience Provider 12/17/22 documented as of this encounter
--- OUTSIDE RECORDS SUMMARY | 2023-11-27 15:48 | XMS_ITS | Encounter Summary ---
Author Name Unknown Organization [place] Address [address] [place] [address]. [place] [address] Care Team Providers Care Travel Journalist Name Role Phone Amy Villalba Ra, APRN BACK LINE COOK Unavailable [phone] Priscilla Carbajal DO Unavailable Amy Villalba Ra, APRN BACK LINE COOK Primary Care Provid er Renetta Mckeon PA-C Unavailable [phone] Amy Villalba Ra, APRN BACK LINE COOK Unavailable [phone] Pura De La Garza APRN BACK LINE COOK Unavailable [phone] Gabe Moreira MD Unavailable Reason for Visit * Reason Onset Date Comments Refill Request 02/16/2023 levothyroxine (SYNTHROID/LEVOTHROID) 150 MCG tab let 02/16/2023 Encounter Details Date Type Department Care Team (Late st Contact Info) Description 02/16/2023 Refill [facility] [address] [place] [address] Amy Villalba Ra, APRN BACK LINE COOK [address] [place] [address] Refill Request; levothyroxine (SYNTHROID/LEVOTHROID) 150 [...] sent on 12/15/22. Magdalena Leal RN, BSN [facility] documented in this encounter Plan of Treatment Not on file documented as of this encounter Visit Diagnoses Diagnosis Acquired hypothyroidism Unspecified hypothyroidism documented in this encounter Additional Health Concerns Assessment Noted Time PHQ-9 Depression Total Score: 20 023 10:54 AM CIGAR HEAD PIERCER documented as of this encounter Care Teams Travel Journalist Relationship Specialty Start Date End Date Amy Villalba Ra, APRN BACK LINE COOK [address] [facility] [place] [address] PCP - General Family Practice 01/13/22 Amy Villalba Ra, APRN BACK LINE COOK [address] [place] [address] Assigned PCP 09/19/21 [place] [address] [place] [address] Assigned OBGYN Provider 10/24/21 Renetta Mckeon PA-C 5[address] [place] [address] Physician Manager Pet Dermatology 05/03/22 Amy Villalba Ra, APRN BACK LINE COOK [address] [place] [address] Referring Physician Family Practice 11/01/22 Pura De La Garza APRN BACK LINE COOK [address] [place] [address]2025 Nurse Practitioner Dermatology 11/01/22 Gabe Moreira MD [address] [place] [address] 96 [place], [place] [address] Assigned Neuroscience Provider 12/17/22 documented as of this encounter
--- OUTSIDE RECORDS SUMMARY | 2023-11-27 15:48 | XMS_ITS | Encounter Summary ---
Author Name Unknown Organization [place] Address [address] [place] [address] Care Team Providers Care Sprinkler Inspector Name Role Phone Amy Villalba Ra, APRN CALCULATOR OPERATOR Unavailable + [phone] Priscilla Carbajal DO Unavailable [phone] Amy Villalba Ra, APRN CALCULATOR OPERATOR Primary Care Provid er Renetta Mckeon PA-C Unavailable [phone] Amy Villalba Ra, APRN CALCULATOR OPERATOR Unavailable + [phone] Pura De La Garza APRN CALCULATOR OPERATOR Unavailable [phone] Gabe Moreira MD Unavailable [phone] Reason for Referral * Diagnostic Imaging XR (Routine) - Closed Specialty Diagnoses / Procedures Referred By Contac t Referred To Contact Radiology. Diagnoses Lumbosacral radiculopathy Procedures XR Lumbar Sacral [place] [address] [place] [address] Referral ID Status Reason Start Date Expiration Date Visits Re quested Visits Authorized [id number] Closed 12/07/2022 12/07/2023 1 1 Reason for Visit * Diagnostic Imaging XR (Routine) - Closed Specialty Diagnoses / Procedures Referred By Contac t Referred To Contact Radiology. Diagnoses Lumbosacral radiculopathy Procedures XR Lumbar Sacral [place] [address] [place] [address] Referral ID Status Reason Start Date Expiration Date Visits Re quested Visits Authorized [id number] Closed 12/07/2022 12/07/2023 1 1 Encounter Details Date Type Department Care Team (Latest Contact Info) Description 12/22/2022 10:25 AM CDT - 12/22/2022 11:59 PM CDT Hospital Encounter [facility] [address] [place] [id number] [place] [address] [place] [address] Lumbosacral radiculopathy Discharge Disposition: Home or Self [...] Sig Dispensed Refills Start Date End Date Cholecalciferol (D3-1000) 25 MCG (1000 UT) CAPSIndications:S/P bariatric surgery TAKE 2 CAPSULES BY MOUTH DAILY 180 capsule 3 01/14/2021 Multiple Vitamins/Iron TABSIndications:Bariatri c surgery status TAKE 1 TABLET BY MOUTH DAILY 90 tablet 3 01/14/2021 oxyCODONE (ROXICODONE) 5 MG tabletIndications:Lumbar disc herniation with radiculopathy Take 0.5-1 tablets (2.5-5 mg) by mouth every 4 hours as needed for moderate to severe pain 20 tablet 0 11/25/2022 01/06/2023 acetaminophen (TYLENOL) 500 MG tabletIndications: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 Administrator al hernia Take 1-2 tablets (500-1,000 mg) by mouth 3 times daily 100 tablet 1 11/25/2022 11/01/2023 buPROPion (WELLBUTRIN XL) 150 MG 24 hr tabletIndications:Major depressive disorder, recurrent episode, moderate (H) Take 3 tablets (450 mg) by mouth daily 270 tablet 1 12/15/2022 09/04/2023 cyclobenzaprine (FLEXERIL) 5 MG tabletIndications:Acute radicular low back pain Take 1-2 tablets (5-10 mg) by mouth 3 times daily as needed for muscle spasms 60 tablet 0 12/15/2022 10/29/2023 drospirenone-ethinyl estradiol (MAX) 3-0.03 MG tabletIndications:PCOS (polycystic [...] mouth daily 90 capsule 3 01/13/2022 02/15/2023 documented as of this encounter Progress Notes [...] Rivera MD - 12/22/2022 10:40 AM CDTProcedure(s): CO INJ TRANSFORAMIN EPIDURAL, LUMB/SACR SINGLE Pre-Procedure Diagnose(s): Lumbosacral radiculopathy Post-Procedure Diagnose(s): Lumbosacral radiculopathy PHYSICAL MEDICINE & REHABILITATION / MEDICAL SPINE PROCEDURE DATE: Dec 22, 2022 PATIENT NAME: Marlene Almeida DATE OF : 1980 PRE-PROCEDURE DIAGNOSIS: 1. Lumbosacral radiculopathy POST-PROCEDURE DIAGNOSIS: 1. Lumbosacral radiculopathy PROCEDURE: Fluoroscopic-guided right L4-L5 transforaminal epidural steroid injection. (CPT code: 52015) PROCEDURE IN DETAIL: Prior to the procedure, [...] L4-L5 transforaminal epidural steroid injection. (CPT code: ??71393) PROCEDURE IN DETAIL: Prior to the procedure, [...] in good condition. Preprocedure pain level: ?? 10. Postprocedure pain level: 10/18. Alvaro Rivera MD [...] Depression Total Score: 20 023 10:54 AM CUSTOMER SALES SPECIALIST documented as of this encounter Care Teams Sprinkler Inspector Relationship Specialty Start Date End Date Amy Villalba Ra, ASSISTANT PROFESSOR OF ARCHAEOLOGY CALCULATOR OPERATOR [address] [place] [address] PCP - General Family Practice 01/13/22 Amy Villalba Ra, APRN CALCULATOR OPERATOR [address] [place] [address] Assigned PCP 09/19/21 [place] [address] [place] [address] Assigned OBGYN Provider 10/24/21 Renetta Mckeon PA-C [address] [place] [address] Physician Stakeholder Manager Dermatology 05/03/22 Amy Villalba Ra, APRN CALCULATOR OPERATOR [address] [place] [address] Referring Physician Family Practice 11/01/22 Pura De La Garza APRN CALCULATOR OPERATOR [address] [place] [address] Nurse Practitioner Dermatology 11/01/22 Gabe Moreira MD [address] [place] [address] 96 [place], [place] 37[address] Assigned Neuroscience Provider 12/17/22 documented as of this encounter
--- OUTSIDE RECORDS SUMMARY | 2023-11-27 15:48 | XMS_ITS | Encounter Summary ---
Author Name Unknown Organization [place] Address [address] [place] [address] Care Team Providers Care Agent Telegrapher Name Role Phone Amy Villalba Ra, APRN GLASSWARE DEFECT REPAIRER Unavailable + [phone] Priscilla Carbajal DO Unavailable [phone] Amy Villalba Ra, APRN GLASSWARE DEFECT REPAIRER Primary Care Provid er Renetta Mckeon PA-C Unavailable [phone] Amy Villalba Ra, APRN GLASSWARE DEFECT REPAIRER Unavailable + [phone] Pura De La Garza APRN GLASSWARE DEFECT REPAIRER Unavailable Gabe Moreira MD Unavailable [phone] Encounter Details Date Type Department Care [...] Total Score: 20 12/15/ 023 10:54 AM COMMAND POST SUPERINTENDENT documented as of this encounter Care Teams Agent Telegrapher Relationship Specialty Start Date End Date Amy Villalba Ra, APRN GLASSWARE DEFECT REPAIRER [address] [place] [address] PCP - General Family Practice 01/13/22 Amy Villalba Ra, APRN CNP [address] [place] [address] Assigned PCP 09/19/21 [place] [address] [place], [place] [address] Assigned OBGYN Provider 10/24/21 Renetta Mckeon, PADagobertoC 5[address] [place] [address] Physician Yacht Master Dermatology 05/03/22 Amy Villalba Ra, APRN GLASSWARE DEFECT REPAIRER [address] [address] [place] [address] Referring Physician Family Practice 11/01/22 Pura De La Garza APRN GLASSWARE DEFECT REPAIRER [address] [place], [place] [address] Nurse Practitioner Dermatology 11/01/22 Gabe Moreira MD [address] [place] [address] 537945 Assigned Neuroscience Provider 12/17/22 documented as of this encounter
--- OUTSIDE RECORDS SUMMARY | 2023-11-27 15:49 | XMS_ITS | Encounter Summary ---
Author Name Unknown Organization [place] Address [address] [place] [address] Care Team Providers Care Director Investment Banking Name Role Phone Brittanie Benitez MD Primary Ca re Provider Brittanie Benitez MD Unavailabl e Ary Parikh MD Unavailable [phone] Eulalio Newell MD Unavailable [phone] Myranda Negron STEAMER GUM CANDY CHIEF LIBRARIAN BRANCH OR DEPARTMENT Unavailable + Amy Villalba Ra STEAMER GUM CANDY CHIEF LIBRARIAN BRANCH OR DEPARTMENT Unavailable + [phone] Priscilla Carbajal DO Unavailable [phone] mAy Villalba Ra STEAMER GUM CANDY CHIEF LIBRARIAN BRANCH OR DEPARTMENT Primary Care Provid er Renetta Mckeon PA-C Unavailable [phone] Amy Villalba Ra STEAMER GUM CANDY CHIEF LIBRARIAN BRANCH OR DEPARTMENT Unavailable + [phone] Pura De La Garza STEAMER GUM CANDY CHIEF LIBRARIAN BRANCH OR DEPARTMENT Unavailable [phone] Gabe Moreira MD Unavailable [phone] Dov Posadas PA-C Unavailable [phone] Reason for Visit * Reason Comments Medication Refill Encounter Details Date Type Department Care Team (Late st Contact Info) Description [facility] [address] [place] [address] Brittanie Benitez MD [address] [place] [address] Medication Refill Social History Tobacco Use Types [...] Total Score: 4 12/02/19 20 1:11 PM TISSUE INSERTER documented as of this encounter Care Teams Director Investment Banking Relationship Specialty Start Date End Date Brittanie Benitez MD [address] [address] PCP - General Family Practice 01/26/15 01/12/22 Amy Villalba Ra, STEAMER GUM CANDY CHIEF LIBRARIAN BRANCH OR DEPARTMENT [address] [place] [address] PCP - General Family Practice 01/13/22 Brittanie Benitez MD [address] [place] [address] Assigned PCP 07/20/17 06/05/21 Ary Parikh MD 420 [facility] [address] [place] [address] Assigned Surgical Provider 07/31/2002/13/21 Eulalio Newell MD [id number] [place] [address] Assigned Surgical Provider 02/14/21 Myranda Negron APRN CHIEF LIBRARIAN BRANCH OR DEPARTMENT [address] [place] [address] Assigned PCP 06/06/21 09/18/21 Amy Villalba Ra, STEAMER GUM CANDY CHIEF LIBRARIAN BRANCH OR DEPARTMENT [address] [place] [address] Assigned PCP 09/19/21 [place] [address] [place] [address] Assigned OBGYN Provider 10/24/21 Renetta Mckeon PA-C [address] [place] [address] Physician Medical Practitioners Dermatology 05/03/22 Amy Villalba Ra, STEAMER GUM CANDY CHIEF LIBRARIAN BRANCH OR DEPARTMENT [address] [place] [address] Referring Physician Family Practice 11/01/22 Pura De La Garza, STEAMER GUM CANDY CHIEF LIBRARIAN BRANCH OR DEPARTMENT [address] [place] [address] Nurse Practitioner Dermatology 11/01/22 Gabe Moreira MD 420 [facility] 96 [place], [place] 2197[address] Assigned Neuroscience Provider 12/17/22 Dov Posadas PA-C [address] [place] 153375 Assigned Surgical Provider 04/08/23 documented as of this encounter
--- OUTSIDE RECORDS SUMMARY | 2023-11-27 15:49 | XMS_ITS | Encounter Summary ---
Author Name Unknown Organization [place] Address [address] [place] [address] Care Team Providers Care Supervisor Shuttle Fitting Name Role Phone Brittanie Benitez MD Primary Ca re Provider Eulalio Newell MD Unavailable [phone] Amy Villalba Ra, APRN BARREL BURNER Unavailable Priscilla Carbajal DO Unavailable [phone] Amy Villalba Ra, APRN BARREL BURNER Primary Care Provid er Renetta Mckeon PA-C Unavailable Amy Villalba Ra, APRN BARREL BURNER Unavailable + [phone] Pura De La Garza APRN BARREL BURNER Unavailable Gabe Moreira MD Unavailable [phone] Dov Posadas PA-C Unavailable [phone] Encounter Details Date Type Department Care Team (Late st Contact Info) Description 10/28/2021 MyC Medical Advice [facility] [address] [place] [address] Skye Saldana Social History Tobacco [...] COVID-19? No / Unsure 10/26/2021 9:25 AM TOBACCO DRYING MACHINE OPERATOR documented as of this encounter Plan of Treatment Not on file documented as of this encounter Visit Diagnoses Not on filedocumented in this encounter Additional Health Concerns Assessment Noted Time PHQ-9 Depression Total Score: 14 022 10:10 AM TOBACCO DRYING MACHINE OPERATOR documented as of this encounter Care Teams Supervisor Shuttle Fitting Relationship Specialty Start Date End Date Brittanie Benitez MD [address] [place] [address] PCP - General Family Practice 01/26/15 01/12/22 Amy Villalba Ra, APRN BARREL BURNER [address] [place] [address] PCP - General Family Practice 01/13/22 Eulalio Newell MD [id number] [place] [address] Assigned Surgical Provider 02/14/21 Amy Villalba Ra, APRN BARREL BURNER [address] [place] [address] Assigned PCP 09/19/21 [place] [address] [place] [address] Assigned OBGYN Provider 10/24/21 Renetta Mckeon PA-C [address] [place], [place] 6788[address] Physician Crematory Operator Dermatology 05/03/22 Amy Villalba Ra, APRN BARREL BURNER [address] [address] [place], [place] [address] Referring Physician Family Practice 11/01/22 Pura De La Garza APRN BARREL BURNER 500 [place] [address] Nurse Practitioner Dermatology 11/01/22 Gabe Moreira MD 420 [facility] 96 [place] [address] Assigned Neuroscience Provider 12/17/22 Dov Posadas PA-C [address] [place] [address] Assigned Surgical Provider 04/08/23 documented as of this encounter
--- OUTSIDE RECORDS SUMMARY | 2023-11-27 15:49 | XMS_ITS | Encounter Summary ---
Author Name Unknown Organization [facility] Address [address] [place] [address] Care Team Providers Care Embedded Software Architect Name Role Phone Amy Villalba Ra, APRN AMPOULE EXAMINER Unavailable + [phone] Priscilla Carbajal DO Unavailable [phone] Amy Villalba Ra, APRN AMPOULE EXAMINER Primary Care Provid er Renetta Mckeon PA-C Unavailable [phone] Amy Villalba Ra, APRN AMPOULE EXAMINER Unavailable + [phone] Pura De La Garza APRN AMPOULE EXAMINER Unavailable Encounter Details Date Type Department Care [...] Coronavirus/COVID-19? No / Unsure 12/07/2022 9:58 AM SUPERVISOR GROVE documented as of this encounter Plan of Treatment Not on file documented as of this encounter Visit Diagnoses Not on filedocumented in this encounter Additional Health Concerns Assessment Noted Time PHQ-9 Depression Total Score: 9 11/01/19 23 1:24 PM SUPERVISOR GROVE documented as of this encounter Care Teams Embedded Software Architect Relationship Specialty Start Date End Date Amy Villalba Ra, APRN CNP [address] [place] [address] PCP - General Family Practice 01/13/22 Amy Villalba Ra, APRN CNP [address] [place] [address] Assigned PCP 09/19/21 [place] [address] [place] [address] Assigned OBGYN Provider 10/24/21 Renetta Mckeon PA-C [address] [place] [address] Physician El Teacher Dermatology 05/03/22 Amy Villalba Ra, APRN AMPOULE EXAMINER [address] [place] [address] Referring Physician Family Practice 11/01/22 Pura De La Garza APRN AMPOULE EXAMINER 500 [place] [address] Nurse Practitioner Dermatology 11/01/22 documented as of this encounter
--- OUTSIDE RECORDS SUMMARY | 2023-11-27 15:49 | XMS_ITS | Encounter Summary ---
Author Name Unknown Organization [facility] Address [address] [place] [address] Care Team Providers Care Make Up Man Name Role Phone Brittanie Benitez MD Primary Ca re Provider Brittanie Benitez MD Unavailabl e Ary Parikh MD Unavailable [phone] Eulalio Newell MD Unavailable [phone] Myranda Negron RESIDENCE MANAGER ASSISTANT MANAGER QUALITY MANAGEMENT Unavailable + Amy Villalba Ra RESIDENCE MANAGER ASSISTANT MANAGER QUALITY MANAGEMENT Unavailable + [phone] Priscilla Carbajal DO Unavailable [phone] Amy Villalba Ra RESIDENCE MANAGER ASSISTANT MANAGER QUALITY MANAGEMENT Primary Care Provid er Renetta Mckeon PA-C Unavailable [phone] Amy Villalba Ra RESIDENCE MANAGER ASSISTANT MANAGER QUALITY MANAGEMENT Unavailable + [phone] Pura De La Garza RESIDENCE MANAGER ASSISTANT MANAGER QUALITY MANAGEMENT Unavailable Gabe Moreira MD Unavailable +[phone] Dov Posadas PA-C Unavailable [phone] Reason for Visit * Reason Comments Medication Refill Encounter Details Date Type Department Care Team (Late st Contact Info) Description [facility] [address] [place] [address] Brittanie Benitez MD [address] [place] [address] Medication Refill Social History Tobacco Use Types [...] Total Score: 4 12/02/19 20 1:11 PM HYDRAULIC MECHANIC documented as of this encounter Care Teams Make Up Man Relationship Specialty Start Date End Date Brittanie Benitez MD [address] [place] [address] PCP - General Family Practice 01/26/15 01/12/22 Amy Villalba Ra, RESIDENCE MANAGER ASSISTANT MANAGER QUALITY MANAGEMENT [address] [place] [address] PCP - General Family Practice 01/13/22 Brittanie Benitez MD [address] [place], [place] [address] Assigned PCP 07/20/17 06/05/21 Ary Parikh MD 420 [facility] 195 [place], [place] [address] Assigned Surgical Provider 07/31/2002/13/21 Eulalio Newell MD [address] [facility] [address] [address] Assigned Surgical Provider 02/14/21 Myranda Negron APRN ASSISTANT MANAGER QUALITY MANAGEMENT [address] [facility] [facility] [address] Assigned PCP 06/06/21 09/18/21 Amy Villalba Ra, APRN ASSISTANT MANAGER QUALITY MANAGEMENT [address] [place] [address] Assigned PCP 09/19/21 [place] [address] [facility] [place] [address] Assigned OBGYN Provider 10/24/21 Renetta Mckeon PA-C 5[address] [place] [address] Physician Curtain Hemmer Automatic Dermatology 05/03/22 Amy Villalba Ra, APRN ASSISTANT MANAGER QUALITY MANAGEMENT [address] [address] [place] [address] Referring Physician Family Practice 11/01/22 Pura De La Garza APRN ASSISTANT MANAGER QUALITY MANAGEMENT [address] [place] [address] Nurse Practitioner Dermatology 11/01/22 Gabe Moreira MD [address] [place] [address] 96 [place], [place] [address] Assigned Neuroscience Provider 12/17/22 Dov Posadas PA-C [address] [place] [address] Assigned Surgical Provider 04/08/23 documented as of this encounter
--- OUTSIDE RECORDS SUMMARY | 2023-11-27 15:49 | XMS_ITS | Encounter Summary ---
Author Name Unknown Organization [facility] Address [address] [place] [address] Care Team Providers Care Residential Appraiser Name Role Phone Brittanie Benitez MD Primary Ca re Provider Brittanie Benitez MD Unavailabl e Eulalio Newell MD Unavailable [phone] Myranda Negron BOOT TRIMMER SHIPPING AND RECEIVING CLERK Unavailable + Amy Villalba Ra BOOT TRIMMER SHIPPING AND RECEIVING CLERK Unavailable + [phone] Priscilla Carbajal DO Unavailable [phone] Amy Villalba Ra BOOT TRIMMER SHIPPING AND RECEIVING CLERK Primary Care Provid er Renetta Mckeon PA-C Unavailable [phone] Amy Villalba Ra BOOT TRIMMER SHIPPING AND RECEIVING CLERK Unavailable + [phone] Pura De La Garza BOOT TRIMMER SHIPPING AND RECEIVING CLERK Unavailable Gabe Moreira MD Unavailable [phone] Dov PosadasC Unavailable [phone] Encounter Details Date Type Department Care Team [...] documented as of this encounter Care Teams Residential Appraiser Relationship Specialty Start Date End Date Brittanie Benitez MD [address] [place] [address] PCP - General Family Practice 01/26/15 01/12/22 Amy Villalba Ra BOOT TRIMMER SHIPPING AND RECEIVING CLERK [address] [place] [address] PCP - General Family Practice 01/13/22 Brittanie Benitez MD 2155 [place] [address] Assigned PCP 07/20/17 06/05/21 Eulalio Newell MD [address] [address] Assigned Surgical Provider 02/14/21 Myranda Negron APRN SHIPPING AND RECEIVING CLERK [address] [place] [address] Assigned PCP 06/06/21 09/18/21 Amy Villalba Ra, APRN SHIPPING AND RECEIVING CLERK [address] [place] [address] Assigned PCP 09/19/21 [place] [address] [facility] [place] [address] Assigned OBGYN Provider 10/24/21 Renetta Mckeon PA-C 5200 [place] [address] Physician Open Shank Coverer Dermatology 05/03/22 Amy Villalba Ra, APRN SHIPPING AND RECEIVING CLERK [address] [place] [address] Referring Physician Family Practice 11/01/22 Pura De La Garza APRN SHIPPING AND RECEIVING CLERK 500 [place], [place] 2[address] Nurse Practitioner Dermatology 11/01/22 Gabe Moreira MD [address] [place] [address] 96 [place], [place] 37[address] Assigned Neuroscience Provider 12/17/22 Dov Posadas PA-C [address] [place] [address] Assigned Surgical Provider 04/08/23 documented as of this encounter
--- OUTSIDE RECORDS SUMMARY | 2023-11-27 15:49 | XMS_ITS | Encounter Summary ---
Author Name Unknown Organization [facility] Address [address] [place] [address] Care Team Providers Care Collections Officer Name Role Phone Amy Villalba Ra, APRN BILLING SUPERVISOR Unavailable + [phone] Priscilla Carbajal DO Unavailable [phone] Amy Villalba Ra, APRN BILLING SUPERVISOR Primary Care Provid er Renetta Mckeon PA-C Unavailable [phone] Amy Villalba Ra, APRN BILLING SUPERVISOR Unavailable + [phone] Pura De La Garza APRN BILLING SUPERVISOR Unavailable Gabe Moreira MD Unavailable +[phone] Dov Posadas PA-C Unavailable +[phone] Encounter Details Date Type Department Care Team (Late st Contact Info) Description 04/13/2022 MyC Medical Advice [address] [place] [address] Skye Saldana Social History Tobacco [...] documented as of this encounter Care Teams Collections Officer Relationship Specialty Start Date End Date Amy Villalba Ra, APRN CNP [address] [facility] [address] PCP - General Family Practice 01/13/22 Amy Villalba Ra, APRN BILLING SUPERVISOR [address] [place] [address] Assigned PCP 09/19/21 [place] [address] [place] [address] Assigned OBGYN Provider 10/24/21 Renetta Mckeon PA-C 5200 [place] [address] Physician Technology Analyst Dermatology 05/03/22 Amy Villalba Ra, APRN BILLING SUPERVISOR [address] [place] [address] Referring Physician Family Practice 11/01/22 Pura De La Garza APRN BILLING SUPERVISOR 500 [place] [address] Nurse Practitioner Dermatology 11/01/22 Gabe Moreira MD [address] [place] [address] 96 [place], [place] 6[address] Assigned Neuroscience Provider 12/17/22 Dov Posadas PA-C [address] [place] [address] Assigned Surgical Provider 04/08/23 documented as of this encounter
--- OUTSIDE RECORDS SUMMARY | 2023-11-27 15:49 | XMS_ITS | Encounter Summary ---
Author Name Unknown Organization [facility] Address [address] [place] [address] Care Team Providers Care Bus Starter Name Role Phone Amy Villalba Ra, APRN ASSEMBLER CRIMPER Unavailable + [phone] Priscilla Carbajal DO Unavailable [phone] Amy Villalba Ra, APRN ASSEMBLER CRIMPER Primary Care Provid er Renetta Mckeon PA-C Unavailable [phone] Amy Villalba Ra, APRN ASSEMBLER CRIMPER Unavailable + [phone] Pura De La Garza SALVAGE LABORER ASSEMBLER CRIMPER Unavailable Reason for Visit * Reason Comments Consult Encounter Details Date Type Department Care Team (Late st Contact Info) Description 12/07/2022 10:00 AM SEAFOOD FARMER Office Visit [facility] [address] [place] [address] Gabe Moreira MD 420 [facility] 96 [place], [place] [address] Lumbar radiculopathy (Primary Dx) Social History Tobacco [...] Coronavirus/COVID-19? No / Unsure 12/07/2022 9:58 AM SEAFOOD FARMER documented as of this encounter Last Filed Vital Signs Vital Sign Reading Time Taken Comments Blood Pressure 126/84 12/07/2022 10:06 AM SEAFOOD FARMER Pulse 60 12/07/2022 10:06 AM SEAFOOD FARMER Temperature - - Respiratory Rate - - Oxygen Saturation 98% 12/07/2022 10:06 AM SEAFOOD FARMER Inhaled Oxygen Concentration - - Weight - - Height - - Body Mass Index - - documented in this encounter Patient Instructions * Patient Instructions* August Luu RN - 12/07/2022 10:00 AM SEAFOOD FARMER Patient Next Steps: A referral has been placed for you to see Dr. Rivera with PM&R for a L4-5 JASPAL for L4 radiculopathy. Patient Instructions Surgery scheduled at [facility] for L4-[address] Moreira Pre-Operative [...] chronic pain medication (oxycodone, Percocet, hydrocodone, Vicodin, Jackson, Dilaudid, morphine, MS Contin, naltrexone, Suboxone, etc) [...] of 101 degrees or higher Notify clinic [phone]. Activity Restrictions For the first 6-8 weeks, [...] post op follow up visit with Physician Business Change Manager or Nurse Practitioner [address] op [address] Dr. Moreira Please call to schedule follow up appointment at [phone] Resources If you are currently employed, you will need to be off work for 2-4 weeks for post op recovery and healing. Please fax any FMLA/short term disability paperwork to [phone] You may call our clinic when you'd like to return to work and we can provide a work letter To allow staff adequate time to complete paperwork, please send as soon as possible [facility] OOD FARMER documented in this encounter Progress Notes * Christos Wilkinson MD - 12/07/2022 10:00 AM CST Neurosurgery clinic note Date of visit 12/07/22 HPI: Marlene Almeida is a pleasant 42 year old female who presented to clinic after vising the [facility] Emergency Department due to back and [...] and discussed with Dr. Harish Wilkinson Neurosurgery OOD FARMER Associated attestation - Gabe Moreira MD - 12/07/2022 3:37 PM SEAFOOD FARMER Physician Attestation I saw and evaluated Marlene [...] Pain Score: Severe Pain (6) Nishi Swenson OOD FARMER * August Luu RN - 12/07/2022 10:00 [...] Hospital Admission printout.. Order Placed. Scheduling Number: [id number] NDI/AIRAM: Confirmation of completion within last 6 months Pain Clinic: N/A Patient had the opportunity for questions to be answered. Advised Patient to call clinic with any questions/concerns. Gave patient antibacterial soap for pre-surgery skin preparation. OOD FARMER documented in this encounter Plan of Treatment Not on file documented as of this encounter Visit Diagnoses Diagnosis Lumbar radiculopathy- Primary Thoracic or lumbosacral neuritis or radiculitis, unspecified documented in this encounter Additional Health Concerns Assessment Noted Time PHQ-9 Depression Total Score: 9 11/01/19 23 1:24 PM SEAFOOD FARMER documented as of this encounter Care Teams Bus Starter Relationship Specialty Start Date End Date Amy Villalba Ra, APRN CNP [address] [place] [address] PCP - General Family Practice 01/13/22 Amy Villalba Ra, APRN ASSEMBLER CRIMPER [address] [place] [address] Assigned PCP 09/19/21 [place] [address] [place] [address] Assigned OBGYN Provider 10/24/21 Renetta Mckeon, JOSELIN 5200 [place] [address] Physician Business Change Manager Dermatology 05/03/22 Amy Villalba Ra, APRN CNP [address] [place] [address] Referring Physician Family Practice 11/01/22 Pura De La Garza APRN ASSEMBLER CRIMPER 500 [place] [address] Nurse Practitioner Dermatology 11/01/22 documented as of this encounter
--- OUTSIDE RECORDS SUMMARY | 2023-11-27 15:49 | XMS_ITS | Encounter Summary ---
Author Name Unknown Organization [facility] Address [address] [place] [address]. [place] [address] Care Team Providers Care Deep Sea Diver Name Role Phone Amy Villalba Ra, APRN WOOD HEEL FITTER MACHINE Unavailable [phone] Priscilla Carbajal DO Unavailable [phone] Amy Villalba Ra, APRN WOOD HEEL FITTER MACHINE Primary Care Provid er Renetta Mckeon PA-C Unavailable Amy Villalba Ra, APRN WOOD HEEL FITTER MACHINE Unavailable Pura De La Garza APRN WOOD HEEL FITTER MACHINE Unavailable [phone] Reason for Visit * Reason Onset Date Comments Medication Request 12/01/2022 Encounter Details Date Type Department Care Team (Late st Contact Info) Description 12/01/2022 Telephone [facility] [address] [place] [address] Amy Villalba Ra, APRN WOOD HEEL FITTER MACHINE [address] [place] [address] Medication Request Social History Tobacco [...] Coronavirus/COVID-19? No / Unsure 11/24/2022 8:30 PM SHALE MINER BLASTING documented as of this encounter Miscellaneous Notes [...] Pharm: attached in EPIC Pt Call back: [phone] Detailed VM OK Jaclyn Chang Skin Piler E MINER BLASTING documented in this encounter Plan of Treatment Not on file documented as of this encounter Visit Diagnoses Diagnosis Acute radicular low back pain- Primary Thoracic or lumbosacral neuritis or radiculitis, unspecified documented in this encounter Additional Health Concerns Assessment Noted Time PHQ-9 Depression Total Score: 9 11/01/19 23 1:24 PM SHALE MINER BLASTING documented as of this encounter Care Teams Deep Sea Diver Relationship Specialty Start Date End Date Amy Villalba Ra, APRN WOOD HEEL FITTER MACHINE [address] [address] [address] PCP - General Family Practice 01/13/22 Amy Villalba Ra, APRN WOOD HEEL FITTER MACHINE [address] [address] [place] [address] Assigned PCP 09/19/21 [place] [address] [place] [address] Assigned OBGYN Provider 10/24/21 Renetta Mckeon PA-C 5200 [place] [address] Physician Curriculum And Instruction Specialist Dermatology 05/03/22 Amy Villalba Ra, APRN WOOD HEEL FITTER MACHINE [address] [place] [address] Referring Physician Family Practice 11/01/22 Pura De La Garza APRN WOOD HEEL FITTER MACHINE 500 [place] [address] Nurse Practitioner Dermatology 11/01/22 documented as of this encounter
--- OUTSIDE RECORDS SUMMARY | 2023-11-27 15:49 | XMS_ITS | Encounter Summary ---
Author Name Unknown Organization [facility] Address [address] [place] [address] Care Team Providers Care Director Of Accreditation Name Role Phone Amy Villalba Ra, APRN FLATWORK PRESSER Unavailable + [phone] Priscilla Carbajal DO Unavailable [phone] Amy Villalba Ra, APRN FLATWORK PRESSER Primary Care Provid er Renetta Mckeon PA-C Unavailable [phone] Amy Villalba Ra, APRN FLATWORK PRESSER Unavailable + [phone] Pura De La Garza LEVERS LACE MACHINE OPERATOR FLATWORK PRESSER Unavailable Reason for Referral * Diagnostic Imaging XR (Routine) - Closed Specialty Diagnoses / Procedures Referred By Gonzalez mckeon Referred To Contact Radiology. Diagnoses Lumbosacral radiculopathy Procedures XR Lumbar Sacral [place] [address] [place] [address] Referral ID Status Reason Start Date Expiration Date Visits Re quested Visits Authorized [id number] Closed 12/07/2022 12/07/2023 1 1 MANAGEMENT ADVISOR Encounter Details Date Type Department Care Team (Late st Contact Info) Description 12/07/2022 Orders Only [facility] [address], [address] [place] [id number] [place] [address] [place] [address] Lumbosacral radiculopathy (Primary Dx) Social History Tobacco [...] Coronavirus/COVID-19? No / Unsure 12/07/2022 9:58 AM FEED MANAGEMENT ADVISOR documented as of this encounter Progress Notes * Alvaro Rivera MD - 12/07/2022 12:10 PM CST Per Gabe Moreira MD (neurosurgery), ordered a right L4-L5 transforaminal epidural corticosteroid injection for Ms. Marlene Almeida for right lumbosacral radiculopathy. Alvaro Rivera MD MANAGEMENT ADVISOR documented in this encounter Plan of Treatment [...] L4-L5 transforaminal epidural steroid injection. (CPT code: ??64607) PROCEDURE IN DETAIL: Prior to the procedure, [...] Total Score: 9 11/01/19 23 1:24 PM FEED MANAGEMENT ADVISOR documented as of this encounter Care Teams Director Of Accreditation Relationship Specialty Start Date End Date Amy Villalba Ra, APRN FLATWORK PRESSER [address] [address] [facility] [address] PCP - General Family Practice 01/13/22 Amy Villalba Ra, APRN FLATWORK PRESSER [address] [address] [facility] [place] [address] Assigned PCP 09/19/21 [place] [address] [place] [address] Assigned OBGYN Provider 10/24/21 Renetta Mckeon PA-C [address] [place] [address] Physician Survey Crew Chief Dermatology 05/03/22 Amy Villalba Ra, APRN FLATWORK PRESSER [address] [address] [facility] [place] [address] Referring Physician Family Practice 11/01/22 Pura De La Garza APRN FLATWORK PRESSER 500 [place] [address] Nurse Practitioner Dermatology 11/01/22 documented as of this encounter
--- OUTSIDE RECORDS SUMMARY | 2023-11-27 15:49 | XMS_ITS | Encounter Summary ---
Author Name Unknown Organization [facility] Address [address] [place] [address] Care Team Providers Care Inspector Salvage Name Role Phone Brittanie Benitez MD Primary Ca re Provider Brittanie Benitez MD Unavailabl e Ary Parikh MD Unavailable [phone] Eulalio Newell MD Unavailable [phone] Myranda Negron BOBBIN LOOSE END FINDER ADVENTURE GUIDE Unavailable + Amy Villalba Ra BOBBIN LOOSE END FINDER ADVENTURE GUIDE Unavailable + [phone] Priscilla Carbajal DO Unavailable [phone] Amy Villalba Ra BOBBIN LOOSE END FINDER ADVENTURE GUIDE Primary Care Provid er Renetta Mckeon PA-C Unavailable [phone] Amy Villalba Ra BOBBIN LOOSE END FINDER ADVENTURE GUIDE Unavailable + [phone] Pura De La Garza BOBBIN LOOSE END FINDER ADVENTURE GUIDE Unavailable Gabe Moreira MD Unavailable +[phone] Dov Poasdas PA-C Unavailable [phone] Reason for Visit * Reason Onset Date Comments Patient Request 07/07/2020 appointment Encounter Details Date Type Department Care Team (Late st Contact Info) Description 07/07/2020 Telephone [facility] [address] [place] [phone] Brittanie Benitez MD [address] [place] [address] Patient Request (appointment) Social History Tobacco Use [...] be reached at: Home number on file [phone] (home) Best Time: prateek Can we leave [...] Total Score: 4 12/02/19 20 1:11 PM AUTOMOTIVE BRAKE SPECIALIST documented as of this encounter Care Teams Inspector Salvage Relationship Specialty Start Date End Date Brittanie Benitez MD [address] [place] [address] PCP - General Family Practice 01/26/15 01/12/22 Amy Villalba Ra, BOBBIN LOOSE END FINDER ADVENTURE GUIDE [address] [place] [address] PCP - General Family Practice 01/13/22 Brittanie Benitez MD 2155 [place] [address] Assigned PCP 07/20/17 06/05/21 Ary Parikh MD 420 [facility] 195 [place], [place] [address] Assigned Surgical Provider 07/31/2002/13/21 Eulalio Newell MD [id number] [place] [address] Assigned Surgical Provider 02/14/21 Myranda Negron APRN ADVENTURE GUIDE [address] [place] [address] Assigned PCP 06/06/21 09/18/21 Amy Villalba Ra, APRN ADVENTURE GUIDE [address] [place] [address] Assigned PCP 09/19/21 [place] [address] [facility] [address] Assigned OBGYN Provider 10/24/21 Renetta Mckeon PA-C 5200 [place] [address] Physician Communications Instructor Dermatology 05/03/22 Amy Villalba Ra, BOBBIN LOOSE END FINDER ADVENTURE GUIDE [address] [place] [address] Referring Physician Family Practice 11/01/22 Pura De La Garza APRN ADVENTURE GUIDE 500 [place], [place] [address] Nurse Practitioner Dermatology 11/01/22 Gabe Moreira MD [address] [place] [address] 96 [place], [place] [address] Assigned Neuroscience Provider 12/17/22 Dov Posadas PA-C [address] [place] [address] Assigned Surgical Provider 04/08/23 documented as of this encounter
--- OUTSIDE RECORDS SUMMARY | 2023-11-27 15:49 | XMS_ITS | Encounter Summary ---
Author Name Unknown Organization [facility] Address [address] [place] [address] Care Team Providers Care Machining Manager Name Role Phone Amy Villalba Ra, APRN OIL FIELD ROUSTABOUT Unavailable + [phone] Priscilla Carbajal DO Unavailable [phone] Amy Villalba Ra, APRN OIL FIELD ROUSTABOUT Primary Care Provid er Renetta Mckeon PA-C Unavailable [phone] Amy Vilallba Ra, APRN OIL FIELD ROUSTABOUT Unavailable + [phone] Pura De La Garza APRN OIL FIELD ROUSTABOUT Unavailable Gabe Moreira MD Unavailable [phone] Dov Posadas PA-C Unavailable [phone] Encounter Details Date Type Department Care Team (Late st Contact Info) Description 05/05/2022 MyC Medical Advice [facility] [address] [place] [address] Guanaco Saunders MA Social History [...] documented as of this encounter Care Teams Machining Manager Relationship Specialty Start Date End Date Amy Villalba Ra, APRN OIL FIELD ROUSTABOUT [address] [address] [facility] [facility] [place] [address] PCP - General Family Practice 01/13/22 Amy Villalba Ra, APRN OIL FIELD ROUSTABOUT [address] [address] [address] Assigned PCP 09/19/21 [place] [address] [place] [address] Assigned OBGYN Provider 10/24/21 Renetta Mckeon PA-C [address] [place] [address] Physician Cotton Dispatcher Dermatology 05/03/22 Amy Villalba Ra, APRN OIL FIELD ROUSTABOUT [address] [address] [facility] [place] [address] Referring Physician Family Practice 11/01/22 Pura De La Garza APRN OIL FIELD ROUSTABOUT 500 [place] [address] Nurse Practitioner Dermatology 11/01/22 Gabe Moreira MD 420 [facility] 96 [place], [place] [address] Assigned Neuroscience Provider 12/17/22 Dov Posadas PA-C [address] [place] [address] Assigned Surgical Provider 04/08/23 documented as of this encounter
--- OUTSIDE RECORDS SUMMARY | 2023-11-27 15:49 | XMS_ITS | Encounter Summary ---
Author Name Unknown Organization [place] Address [address] [place] [address] Care Team Providers Care Recreation Teacher Name Role Phone Brittanie Benitez MD Primary Ca re Provider Brittanie Benitez MD Unavailabl e Ary Parikh MD Unavailable [phone] Eulalio Newell MD Unavailable [phone] Myranda Negron SWISS TYPE SCREW MACHINE OPERATOR FILM SOUND COORDINATOR Unavailable + Amy Villalba Ra SWISS TYPE SCREW MACHINE OPERATOR FILM SOUND COORDINATOR Unavailable + [phone] Priscilla Carbajal DO Unavailable [phone] Amy Villalba Ra SWISS TYPE SCREW MACHINE OPERATOR FILM SOUND COORDINATOR Primary Care Provid er Renetta Mckeon PA-C Unavailable [phone] Amy Villalba Ra SWISS TYPE SCREW MACHINE OPERATOR FILM SOUND COORDINATOR Unavailable + [phone] Pura De La Garza SWISS TYPE SCREW MACHINE OPERATOR FILM SOUND COORDINATOR Unavailable Gabe Moreira MD Unavailable [phone] Dov Posadas PA-C Unavailable +[phone] Encounter Details Date Type Department Care Team (Late st Contact Info) Description 11/26/2020 [facility] [address] [place] [address] Renetta Camargo CMA Social History Tobacco Use [...] COVID-19? No / Unsure 11/04/2020 10:28 AM POTATO PICKER documented as of this encounter Plan of [...] Total Score: 4 12/02/19 20 1:11 PM POTATO PICKER documented as of this encounter Care Teams Recreation Teacher Relationship Specialty Start Date End Date Brittanie Benitez MD [address] [place] [address] PCP - General Family Practice 01/26/15 01/12/22 Amy Villalba Ra, SWISS TYPE SCREW MACHINE OPERATOR FILM SOUND COORDINATOR [address] [address] [place]ITA [address] PCP - General Family Practice 01/13/22 Brittanie Benitez MD 2154 [place] [address] Assigned PCP 07/20/17 06/05/21 Ary Parikh MD [address] [place] [address] 676635 Assigned Surgical Provider 07/31/2002/13/21 Eulalio Newell MD [address] [address] Assigned Surgical Provider 02/14/21 Myranda Negron APRN FILM SOUND COORDINATOR [address] [address] [facility] [address] Assigned PCP 06/06/21 09/18/21 Amy Villalba Ra, APRN FILM SOUND COORDINATOR [address] [address] [place] [address] Assigned PCP 09/19/21 [place] [address] [facility] [place] [address] Assigned OBGYN Provider 10/24/21 Renetta Mckeon PA-C 5200 [place] [address] Physician Pen Ruler Operator Dermatology 05/03/22 Amy Villalba Ra, APRN FILM SOUND COORDINATOR [address] [place] [address] Referring Physician Family Practice 11/01/22 Pura De La Garza APRN FILM SOUND COORDINATOR [address] [place] [address] Nurse Practitioner Dermatology 11/01/22 Gabe Moreira MD 420 [facility] 96 [place] [address] Assigned Neuroscience Provider 12/17/22 Dov Posadas PA-C [address] [place] [address] Assigned Surgical Provider 04/08/23 documented as of this encounter
--- OUTSIDE RECORDS SUMMARY | 2023-11-27 15:49 | XMS_ITS | Encounter Summary ---
Author Name Unknown Organization [place] Address [address] [place] [address] Care Team Providers Care Clothes Wringer Name Role Phone Amy Villalba Ra, APRN STATE AUDITOR Unavailable + [phone] Priscilla Carbajal DO Unavailable [phone] Amy Villalba Ra, APRN STATE AUDITOR Primary Care Provid er Renetta Mckeon PA-C Unavailable [phone] Amy Villalba Ra, APRN STATE AUDITOR Unavailable + [phone] Pura De La Garza BOLT SAWYER STATE AUDITOR Unavailable Reason for Visit * Reason Onset Date Comments Schedule Surgery 12/12/2022 Encounter Details Date Type Department Care Team (Late st Contact Info) Description 12/12/2022 Telephone [facility] [address] [address] Gabe Moreira MD [address] [address] Schedule Surgery Social History [...] Coronavirus/COVID-19? No / Unsure 12/07/2022 9:58 AM METAL DRILLING MACHINE OPERATOR documented as of this encounter Miscellaneous Notes * Telephone Encounter - Dustin Streeter - 12/12/2022 9:34 AM CST Spoke to the patient, and offered to schedule surgery, the patient declined, and will call in the future if she wishes to schedule. L DRILLING MACHINE OPERATOR documented in this encounter Plan of Treatment Not on file documented as of this encounter Visit Diagnoses Not on filedocumented in this encounter Additional Health Concerns Assessment Noted Time PHQ-9 Depression Total Score: 9 11/01/19 23 1:24 PM METAL DRILLING MACHINE OPERATOR documented as of this encounter Care Teams Clothes Wringer Relationship Specialty Start Date End Date Amy Villalba Ra, APRN STATE AUDITOR [address] [place] [address] PCP - General Family Practice 01/13/22 Amy Villalba Ra, APRN STATE AUDITOR [address] [place] [address] Assigned PCP 09/19/21 [place] [address] [place] [address] Assigned OBGYN Provider 10/24/21 Renetta Mckeon PA-C 5200 [place] [address] Physician Etcher Photoengraving Dermatology 05/03/22 Amy Villalba Ra, APRN STATE AUDITOR [address] [place] [address] Referring Physician Family Practice 11/01/22 Pura De La Garza APRN STATE AUDITOR 500 [place] [address] Nurse Practitioner Dermatology 11/01/22 documented as of this encounter
--- OUTSIDE RECORDS SUMMARY | 2023-11-27 15:49 | XMS_ITS | Encounter Summary ---
Author Name Unknown Organization [place] Address [address] [place] [address] Care Team Providers Care Alteration Tailor Name Role Phone Brittanie Benitez MD Primary Ca re Provider Brittanie Benitez MD Unavailabl e Ary Parikh MD Unavailable [phone] Eulalio Newell MD Unavailable [phone] Myranda Negron ELECTRIC POWERLINE EXAMINER SUPERVISOR PURIFICATION Unavailable + Amy Villalba Ra ELECTRIC POWERLINE EXAMINER SUPERVISOR PURIFICATION Unavailable + [phone] Priscilla Carbajal DO Unavailable [phone] Amy Villalba Ra ELECTRIC POWERLINE EXAMINER SUPERVISOR PURIFICATION Primary Care Provid er Renetta Mckeon PA-C Unavailable [phone] Amy Villalba Ra ELECTRIC POWERLINE EXAMINER SUPERVISOR PURIFICATION Unavailable + [phone] Pura De La Garza ELECTRIC POWERLINE EXAMINER SUPERVISOR PURIFICATION Unavailable [phone] Gabe Moreira MD Unavailable +[phone] Dov Posadas PA-C Unavailable +[phone] Reason for Visit * Reason Comments Medication Refill Encounter Details Date Type Department Care Team (Late st Contact Info) Description 04/21/2020 Refill [facility] [address] [place] [address] Brittanie Benitez MD 5 [place] [address] Medication Refill Social History Tobacco Use Types [...] Total Score: 4 12/02/19 20 1:11 PM PRIMARY TEACHING ASSISTANT documented as of this encounter Care Teams Alteration Tailor Relationship Specialty Start Date End Date Brittanie Benitez MD [address] [place] [address] PCP - General Family Practice 01/26/15 01/12/22 Amy Villalba Ra, APRN SUPERVISOR PURIFICATION [address] [place] [address] PCP - General Family Practice 01/13/22 Brittanie Benitez MD 2155 [place] [address] Assigned PCP 07/20/17 06/05/21 Ary Parikh MD 420 [facility] 195 [place], [place] [address]15 Assigned Surgical Provider 07/31/2002/13/21 Eulalio Newell MD [address] 824575 Assigned Surgical Provider 02/14/21 Myranda Negron APRN SUPERVISOR PURIFICATION [address] [place] [address] Assigned PCP 06/06/21 09/18/21 Amy Villalba Ra, APRN SUPERVISOR PURIFICATION [address] [place] [address] Assigned PCP 09/19/21 [place] [address] [place], [place] [address] Assigned OBGYN Provider 10/24/21 Renetta Mckeon PA-C 5200 [place], [place] 2367092 Physician Release Engineer Dermatology 05/03/22 Amy Villalba Ra, APRN SUPERVISOR PURIFICATION [address] NATALIE ZURITA [address] Referring Physician Family Practice 11/01/22 Pura De La Garza APRN SUPERVISOR PURIFICATION 500 [place] [address] Nurse Practitioner Dermatology 11/01/22 Gabe Moreira MD 420 [facility] 96 [place] [address] Assigned Neuroscience Provider 12/17/22 Dov Posadas PA-C [address] [place] 16[address]85 Assigned Surgical Provider 04/08/23 documented as of this encounter
--- OUTSIDE RECORDS SUMMARY | 2023-11-27 15:49 | XMS_ITS | Encounter Summary ---
Author Name Unknown Organization [place] Address [address] [place] [address] Care Team Providers Care Insulation Foreman Name Role Phone Brittanie Benitez MD Primary Ca re Provider Brittanie Benitez MD Unavailabl e Ary Parikh MD Unavailable [phone] Eulalio Newell MD Unavailable [phone] Myranda Negron SPORTS PSYCHOLOGIST SKATE MAKER Unavailable + Amy Villalba Ra SPORTS PSYCHOLOGIST SKATE MAKER Unavailable + [phone] Priscilla Carbajal DO Unavailable [phone] Amy Villalba Ra SPORTS PSYCHOLOGIST SKATE MAKER Primary Care Provid er Renetta Mckeon PA-C Unavailable [phone] Amy Villalba Ra SPORTS PSYCHOLOGIST SKATE MAKER Unavailable + [phone] Pura De La Garza SPORTS PSYCHOLOGIST SKATE MAKER Unavailable Gabe Moreira MD Unavailable [phone] Dov Posadas PA-C Unavailable [phone] Encounter Details Date Type Department Care Team (Late st Contact Info) Description 02/19/2020 [facility] [address] [id number] Brittanie Benitez MD 2154 [place] [address] Social History Tobacco Use Types Packs/Day Years [...] Total Score: 4 12/02/19 20 1:11 PM FILLER PICKER documented as of this encounter Care Teams Insulation Foreman Relationship Specialty Start Date End Date Brittanie Benitez MD [address] [place] [address] PCP - General Family Practice 01/26/15 01/12/22 Amy Villalba Ra, SPORTS PSYCHOLOGIST SKATE MAKER [address] [address] [place]URITA [address] PCP - General Family Practice 01/13/22 Brittanie Benitez MD 2155 [place] [address] Assigned PCP 07/20/17 06/05/21 Ary Parikh MD 420 [facility] 195 [place] [address] Assigned Surgical Provider 07/31/2002/13/21 Eulalio Newell MD [id number] [place] [address] Assigned Surgical Provider 02/14/21 Myranda Negron APRN SKATE MAKER [address] [place] [address] Assigned PCP 06/06/21 09/18/21 Amy Villalba Ra, APRN SKATE MAKER [address] [facility] [address] Assigned PCP 09/19/21 [place] [address] [place] [address] Assigned OBGYN Provider 10/24/21 Renetta Mckeon PA-C 5200 [place] [address] Physician Systems Lead Dermatology 05/03/22 Amy Villalba Ra, SPORTS PSYCHOLOGIST SKATE MAKER [address] [place] [address] Referring Physician Family Practice 11/01/22 Pura De La Garza APRN SKATE MAKER [address] [place] [address] 600635 Nurse Practitioner Dermatology 11/01/22 Gabe Moreira MD [address] [place] [address] 96 [place], [place] 479435 Assigned Neuroscience Provider 12/17/22 Dov Posadas PA-C [address] 707395 Assigned Surgical Provider 04/08/23 documented as of this encounter
--- OUTSIDE RECORDS SUMMARY | 2023-11-27 15:49 | XMS_ITS | Encounter Summary ---
Author Name Unknown Organization [place] Address [address] [place] [address] Care Team Providers Care Production Estimator Name Role Phone Eulalio Newell MD Unavailable Amy Villalba Ra, APRN FLIGHT TEACHER Unavailable [phone] Priscilla Carbajal DO Unavailable Amy Villalba Ra FUND MANAGER FLIGHT TEACHER Primary Care Provid er Renetta Mckeon PADagobertoC Unavailable Amy Villalba Ra, APRN FLIGHT TEACHER Unavailable [phone] Pura De La Garza FUND MANAGER FLIGHT TEACHER Unavailable Gabe Moreira MD Unavailable [phone] Dov Posadas PA-C Unavailable [phone] Reason for Visit * Reason Comments Medication Refill Encounter Details Date Type Department Care Team (Late st Contact Info) Description 01/30/2022 Refill [facility] [address] [place] [phone] Brittanie Benitez MD 5 [place] [address] Medication Refill Social History Tobacco Use Types [...] documented as of this encounter Care Teams Production Estimator Relationship Specialty Start Date End Date Amy Villalba Ra, APRN FLIGHT TEACHER [address] [address] ZUR[place] [address] PCP - General Family Practice 01/13/22 Eulalio Newell MD [id number] [place] [address] Assigned Surgical Provider 02/14/21 Amy Villalba Ra, APRN FLIGHT TEACHER [address] [place] [address] Assigned PCP 09/19/21 [place] [address] [place] [address] Assigned OBGYN Provider 10/24/21 Renetta Mckeon PA-C 5200 [place], [place] 4829192 Physician Design Inserter Dermatology 05/03/22 Amy Villalba Ra, APRN FLIGHT TEACHER [address] [place] [address] Referring Physician Family Practice 11/01/22 Pura De La Garza APRN FLIGHT TEACHER 500 [place], [place] [address] Nurse Practitioner Dermatology 11/01/22 Gabe Moreira MD 420 [facility] 96 [place], [place] [address]175 Assigned Neuroscience Provider 12/17/22 Dov Posadas PA-C [address] 475625 Assigned Surgical Provider 04/08/23 documented as of this encounter
--- OUTSIDE RECORDS SUMMARY | 2023-11-27 15:49 | XMS_ITS | Encounter Summary ---
Author Name Unknown Organization [place] Address [address] [place] [address] Care Team Providers Care Air Purifier Servicer Name Role Phone Brittanie Benitez MD Primary Ca re Provider Brittanie Benitez MD Unavailabl e Ary Parikh MD Unavailable [phone] Eulalio Newell MD Unavailable [phone] Myranda Negron THEATRE INSTRUCTOR ACTUARIAL INTERN Unavailable + Amy Villalba Ra THEATRE INSTRUCTOR ACTUARIAL INTERN Unavailable + [phone] Priscilla Carbajal DO Unavailable [phone] Amy Villalba Ra THEATRE INSTRUCTOR ACTUARIAL INTERN Primary Care Provid er Renetta Mckeon PA-C Unavailable [phone] Amy Villalba Ra THEATRE INSTRUCTOR ACTUARIAL INTERN Unavailable + [phone] Pura De La Garza THEATRE INSTRUCTOR ACTUARIAL INTERN Unavailable Gabe Moreira MD Unavailable [phone] Dov Posadas PA-C Unavailable +[phone] Encounter Details Date Type Department Care Team (Late st Contact Info) Description 09/12/2019 [facility] [address] [address] Renetta Camargo CMA Social History Tobacco Use [...] as of this encounter Care Teams Air Purifier Servicer Relationship Specialty Start Date End Date Brittanie Benitez MD [address] [address] PCP - General Family Practice 01/26/15 01/12/22 Amy Villalba Ra, THEATRE INSTRUCTOR ACTUARIAL INTERN [address] [place] [address] PCP - General Family Practice 01/13/22 Brittanie Benitez MD 2155 [place] [address] Assigned PCP 07/20/17 06/05/21 Ary Parikh MD [address] [place] [address] Assigned Surgical Provider 07/31/2002/13/21 Eulalio Newell MD [address] [facility] [address] [id number] [place] [address] Assigned Surgical Provider 02/14/21 Myranda Negron APRN ACTUARIAL INTERN [address] [facility] [address] Assigned PCP 06/06/21 09/18/21 Amy Villalba Ra, APRN ACTUARIAL INTERN [address] [facility] [address] Assigned PCP 09/19/21 [place] [address] [facility] [place] [address] Assigned OBGYN Provider 10/24/21 Renetta Mckeon PA-C 5200 [place] [address] Physician Leak Detection Engineer Dermatology 05/03/22 Amy Villalba Ra, APRN ACTUARIAL INTERN [address] [place] [address] Referring Physician Family Practice 11/01/22 Pura De La Garza APRN ACTUARIAL INTERN [address] [place] [address] Nurse Practitioner Dermatology 11/01/22 Gabe Moreira MD [address] [place] [address] 96 [place], [place] [address]645 Assigned Neuroscience Provider 12/17/22 Dov Posadas PA-C [address] [place] [address] Assigned Surgical Provider 04/08/23 documented as of this encounter
--- OUTSIDE RECORDS SUMMARY | 2023-11-27 15:49 | XMS_ITS | Encounter Summary ---
Author Name Unknown Organization [place] Address [address] [place] [address] Care Team Providers Care Ophthalmic Medical Technician Name Role Phone Brittanie Benitez MD Primary Ca re Provider Eulalio Newell MD Unavailable Amy Villalba Ra, APRN TUNGSTEN TENDER Unavailable Priscilla Carbajal DO Unavailable Amy Villalba Ra, APRN TUNGSTEN TENDER Primary Care Provid er Renetta Mckeon PA-C Unavailable Amy Villalba Ra, APRN TUNGSTEN TENDER Unavailable Pura De La Garza APRN TUNGSTEN TENDER Unavailable Gabe Moreira MD Unavailable [phone] Dov Posadas PA-C Unavailable [phone] Encounter Details Date Type Department Care Team (Late st Contact Info) Description 10/19/2021 [facility] Medical Advice [address] [address] Priscilla Carbajal DO [address] [facility] [address] [address] [place] [address] Social History Tobacco Use Types [...] COVID-19? No / Unsure 10/18/2021 1:14 PM ARCHITECTURAL WOOD MODEL MAKER documented as of this encounter Miscellaneous Notes [...] Priscilla Carbajal, DO ?? Obstetrics and Gynecology [facility] ITECTURAL WOOD MODEL MAKER documented in this encounter Plan of Treatment Not on file documented as of this encounter Visit Diagnoses Not on filedocumented in this encounter Additional Health Concerns Assessment Noted Time PHQ-9 Depression Total Score: 14 022 10:10 AM ARCHITECTURAL WOOD MODEL MAKER documented as of this encounter Care Teams Ophthalmic Medical Technician Relationship Specialty Start Date End Date Brittanie Benitez MD [address] [place] [address] PCP - General Family Practice 01/26/15 01/12/22 Amy Villalba Ra, TEST BORING CREW CHIEF TUNGSTEN TENDER [address] [place]UR[place] [address] PCP - General Family Practice 01/13/22 Eulalio Newell MD [address] [id number] [place] [address] Assigned Surgical Provider 02/14/21 Amy Villalba Ra, APRN TUNGSTEN TENDER [address] [place] [address] Assigned PCP 09/19/21 [place] [address] [facility] [place] [address] Assigned OBGYN Provider 10/24/21 Renetta Mckeon PA-C 5200 [place] [address] Physician Correctional Supervisor Lieutenant Dermatology 05/03/22 Amy Villalba Ra, APRN TUNGSTEN TENDER [address] [place] [address] Referring Physician Family Practice 11/01/22 Pura De La Garza APRN TUNGSTEN TENDER [address] [place] [address] 085265 Nurse Practitioner Dermatology 11/01/22 Gabe Moreira MD [address] [place] [address] 96 [place], [place] 585825 Assigned Neuroscience Provider 12/17/22 Dov Posadas PA-C [address] [address] Assigned Surgical Provider 04/08/23 documented as of this encounter
--- OUTSIDE RECORDS SUMMARY | 2023-11-27 15:50 | XMS_ITS | Clinical Summary ---
Author Name Unknown Organization [employer] [facility] Address [place], [place] [address] Care Team Providers Care Application Integrator Name Role Phone Kennedi Guadalupe MD Unavailable + Clinic, [facility] Primary Care Provider Allergies Active Allergy [...] 09/22/11 First visit to and Diabetes Clinic. GAME BIRD FARMER: CARE COORDINATION: CONSULTS: PROCEDURES: MEDS: Vitamin D [...] for patient to update glucose reading via PopUpsterst. -Recommend follow-up in next 24 hours to [...] 04/12/2012 Overview: right Vertigo, peripheral 04/12/20 12 Immunizations Name Administration Dates Next Due Influenza, [...] Used Date Smoking Tobacco: Former Cigarettes 0.5 10.8 S tarted: 02/06/2013 Smokeless Tobacco: Never Comments:2-4 [...] lb 7 oz) F VAGINAL DAMIAN Natacha ng Gale Rivera s Comments:IOL after ami no, breathing problems and diabetes 05/01 Term 39w 2d 3.32 kg (7 lb 5 oz) F Vag Natacha ng 8 9 SCHOE NBORN ,BG (MARLENE ) Delivery Location:[facility] Comments:BLN:VIRGEN Aguero PEDS:[facility] Last Filed Vital Signs Vital Sign Reading Time Taken Comments Blood Pressure 149/87 11/19/2022 4:13 PM MARKETING STRATEGY ANALYST Pulse 56 11/19/2022 4:13 PM MARKETING STRATEGY ANALYST Temperature 36.9 ??C (98.5 ??F) 11/19/2022 4:08 PM CS T Respiratory Rate 17 11/19/2022 4:13 PM MARKETING STRATEGY ANALYST Oxygen Saturation 97% 11/19/2022 4:13 PM MARKETING STRATEGY ANALYST Inhaled Oxygen Concentration - - Weight 95.3 kg (210 lb) 11/19/2022 4:13 PM MARKETING STRATEGY ANALYST Height 170.2 cm (5' 7) 11/19/2022 4:13 PM MARKETING STRATEGY ANALYST Body Mass Index 32.89 11/19/2022 4:13 PM MARKETING STRATEGY ANALYST Plan of Treatment Health Maintenance Due [...] age to complete this topic Advance Directives Latest Code Status on File [...] 1:49 PM 03/22/2012 4:55 PM Care Teams Application Integrator Relationship Specialty Start Date End Date [facility] [address] [place] [address] PCP - General 11/19/22 Kennedi Guadalupe MD GOLF COURSE ARCHITECT Obstetrics and Gynecology 10/19/11
--- OUTSIDE RECORDS SUMMARY | 2023-11-27 15:50 | XMS_ITS | Encounter Summary ---
Author Name Unknown Organization [place] Address [address] [place] [address] Care Team Providers Care Director Visual Name Role Phone Brittanie Benitez MD Primary Ca re Provider Brittanie Benitez MD Unavailabl e Ary Parikh MD Unavailable [phone] Eulalio Newell MD Unavailable [phone] ENGINEER FREIGHT IMMIGRATION INVESTIGATOR Unavailable + Amy Villalba Ra ROAD ENGINEER FREIGHT IMMIGRATION INVESTIGATOR Unavailable + [phone] Priscilla Carbajal DO Unavailable [phone] ENGINEER FREIGHT IMMIGRATION INVESTIGATOR Primary Care Provid er Renetta Mckeon PA-C Unavailable [phone] ENGINEER FREIGHT IMMIGRATION INVESTIGATOR Unavailable + [phone] ENGINEER FREIGHT IMMIGRATION INVESTIGATOR Unavailable [phone] Gabe Moreira MD Unavailable [phone] Dov Posadas PA-C Unavailable [phone] Encounter Details Date Type Department Care Team (Late st Contact Info) Description 07/22/2019 [facility] [address] [phone] Brittanie Benitez MD 2154 [place] [address] Bariatric surgery status (Primary Dx); Insomnia, unspecified [...] as of this encounter Care Teams Director Visual Relationship Specialty Start Date End Date Brittanie Benitez MD [address] [place] [address] PCP - General Family Practice 01/26/15 01/12/22 Amy Villalba Ra, ROAD ENGINEER FREIGHT IMMIGRATION INVESTIGATOR [address] [place] [address] PCP - General Family Practice 01/13/22 Brittanie Benitez MD 2155 [place] [address] Assigned PCP 07/20/17 06/05/21 Ary Parikh MD [address] [place] [address] 195 [place] [address] Assigned Surgical Provider 07/31/2002/13/21 Eulalio Newell MD [id number] [place] [address] Assigned Surgical Provider 02/14/21 Myranda Negron APRN IMMIGRATION INVESTIGATOR [address] [place] [address] Assigned PCP 06/06/21 09/18/21 Amy Villalba Ra, ROAD ENGINEER FREIGHT IMMIGRATION INVESTIGATOR [address] [place] [address] Assigned PCP 09/19/21 [place] [address] [place] [address] Assigned OBGYN Provider 10/24/21 Renetta Mckeon PADagobertoC 5200 [facility] [place] [address] Physician Moshgiach Dermatology 05/03/[address] Villalba Ra, ROAD ENGINEER FREIGHT IMMIGRATION INVESTIGATOR [address] [place] [address] Referring Physician Family Practice 11/01/22 Pura De La Garza APRN IMMIGRATION INVESTIGATOR 500 [place], [place] 6760[address] Nurse Practitioner Dermatology 11/01/22 Gabe Moreira MD [address] [place] [address] 96 [place], [place] 514305 Assigned Neuroscience Provider 12/17/22 Dov Posadas PA-C [address] [place] 946015 Assigned Surgical Provider 04/08/23 documented as of this encounter
--- OUTSIDE RECORDS SUMMARY | 2023-11-27 15:50 | XMS_ITS ---
Author Name Unknown Organization [place] Address [address] [place] [address] Care Team Providers Care Senior Net Developer Name Role Phone Amy Villalba Ra, APRN ROLLER LEVELER Unavailable Amy Villalba Ra, APRN ROLLER LEVELER Primary Care Provid er Renetta Mckeon PA-C Unavailable [phone] Amy Villalba Ra, APRN ROLLER LEVELER Unavailable Pura De La Garza APRN ROLLER LEVELER Unavailable Gabe Moreira MD Unavailable [phone] Dov PosadasC Unavailable Transitional Care Management Status:Disenrolled (Closed) Start date:11/26/2022 End date:11/28/2022 Continued Care and Services Coordination
--- OUTSIDE RECORDS SUMMARY | 2023-11-27 15:50 | XMS_ITS | Encounter Summary ---
Author Name Unknown Organization [place] Address [address] [place] [address] Care Team Providers Care Battalion Chief Name Role Phone Brittanie Benitez MD Primary Ca re Provider Brittanie Benitez MD Unavailabl e Brittanie Benitez MD Unavailabl e Ary Parikh MD Unavailable [phone] Eulalio Newell MD Unavailable [phone] Myranda Negron APRN K[place] HAND Unavailable + Amy Villalba Ra BONE DRIER [place]EL HAND Unavailable + [phone] Priscilla Carbajal DO Unavailable [phone] Amy Villalba Ra BONE DRIER [place] HAND Primary Care Provid er Renteta MckeonC Unavailable [phone] Amy Villalba Ra BONE DRIER [place] HAND Unavailable + [phone] Pura De La Garza APRN K[place]EL HAND Unavailable Gabe Moreira MD Unavailable +[phone] Dov PosadasC Unavailable [phone] Encounter Details Date Type Department Care Team (Late st Contact Info) Description 05/07/2018 [facility] Medical Advice [address] [phone] Brittanie Benitez MD [address] [place] [address] Social History Tobacco Use Types Packs/Day Years [...] documented as of this encounter Care Teams Battalion Chief Relationship Specialty Start Date End Date Brittanie Benitez MD [address] [place] [address] PCP - General Family Practice 01/26/15 01/12/22 Brittanie Benitez MD [address] [place] [address] PCP - Assigned PCP 07/20/17 12/11/18 Amy Villalba Ra, BONE DRIER [place] HAND [address] [place] [address] PCP - General Family Practice 01/13/22 Brittanie Benitez MD [address] [place] [address] Assigned PCP 07/20/17 06/05/21 Ary Parikh MD 420 [facility] [address] [place] [address] Assigned Surgical Provider 07/31/2002/13/21 Eulalio Newell MD [address] [address] Assigned Surgical Provider 02/14/21 Myranda Negron APRN [place] HAND [address] [facility] [place] [address] Assigned PCP 06/06/21 09/18/21 Amy Villalba Ra, APRN [place] HAND [address] [address] [facility] [address] Assigned PCP 09/19/21 [place] [address] [place] [address] Assigned OBGYN Provider 10/24/21 Renetta Mckeon PA-C [address] [place] [address] Physician Economics Department Chair Dermatology 05/03/22 Amy Villalba Ra, APRN [place] HAND [address] [place] [address] Referring Physician Family Practice 11/01/22 Pura De La Garza APRN K[place]EL HAND [address] [place] [address] Nurse Practitioner Dermatology 11/01/22 Gabe Moreira MD [address] [place] [address] 96 [place] [address] Assigned Neuroscience Provider 12/17/22 Dov Posadas PA-C [address] [place] [address] Assigned Surgical Provider 04/08/23 documented as of this encounter
--- OUTSIDE RECORDS SUMMARY | 2023-11-27 15:50 | XMS_ITS | Encounter Summary ---
Author Name Unknown Organization [place] Address [address] [place] [address] Care Team Providers Care Supervisor Furnace Room Name Role Phone Brittanie Benitez MD Primary Ca re Provider Brittanie Benitez MD Unavailabl e Ary Parikh MD Unavailable [phone] Eulalio Newell MD Unavailable [phone] Myranda Negron INFRASTRUCTURE DESIGN ENGINEER GOVERNMENT DOCUMENTS LIBRARIAN Unavailable + Amy Villalba Ra INFRASTRUCTURE DESIGN ENGINEER GOVERNMENT DOCUMENTS LIBRARIAN Unavailable + [phone] Priscilla Carbajal DO Unavailable [phone] Amy Villalba Ra INFRASTRUCTURE DESIGN ENGINEER GOVERNMENT DOCUMENTS LIBRARIAN Primary Care Provid er Renetta Mckeon PA-C Unavailable [phone] Amy Villalba Ra INFRASTRUCTURE DESIGN ENGINEER GOVERNMENT DOCUMENTS LIBRARIAN Unavailable + [phone] Pura De La Garza INFRASTRUCTURE DESIGN ENGINEER GOVERNMENT DOCUMENTS LIBRARIAN Unavailable [phone] Gabe Moreira MD Unavailable [phone] Dov Posadas PA-C Unavailable [phone] Encounter Details Date Type Department Care Team (Late st Contact Info) Description 04/24/2019 [facility] [address] [phone] Renetta Camargo CMA Social History Tobacco Use [...] as of this encounter Care Teams Supervisor Furnace Room Relationship Specialty Start Date End Date Brittanie Benitez MD [address] [address] PCP - General Family Practice 01/26/15 01/12/22 Amy Villalba Ra, INFRASTRUCTURE DESIGN ENGINEER GOVERNMENT DOCUMENTS LIBRARIAN [address] [place] [address] PCP - General Family Practice 01/13/22 Brittanie Benitez MD [address] [place] [address] Assigned PCP 07/20/17 06/05/21 Ary Parikh MD [address] [place] [address] Assigned Surgical Provider 07/31/2002/13/21 Eulalio Newell MD [address] [facility] [place] [address] Assigned Surgical Provider 02/14/21 Myranda Negron APRN GOVERNMENT DOCUMENTS LIBRARIAN [address] [facility] [facility] [place] [id number] Assigned PCP 06/06/21 09/18/21 Amy Villalba Ra, APRN GOVERNMENT DOCUMENTS LIBRARIAN [address] [facility] [place] [address] Assigned PCP 09/19/21 [place] [address] [facility] [place] [address] Assigned OBGYN Provider 10/24/21 Renetta Mckeon PADagobertoC [address] [place] [address] Physician Surfacer Operator Dermatology 05/03/22 Amy Villalba Ra, APRN GOVERNMENT DOCUMENTS LIBRARIAN [address] [facility] [place] [address] Referring Physician Family Practice 11/01/22 Pura De La Garza APRN GOVERNMENT DOCUMENTS LIBRARIAN [address] [place] [address] Nurse Practitioner Dermatology 11/01/22 Gabe Moreira MD [address] [place] [address] Assigned Neuroscience Provider 12/17/22 Dov Posadas PA-C [address] [place] [id number] Assigned Surgical Provider 04/08/23 documented as of this encounter
--- OUTSIDE RECORDS SUMMARY | 2023-11-27 15:50 | XMS_ITS | Encounter Summary ---
Author Name Unknown Organization [place] Address [address] [place] [address] Care Team Providers Care Fountain Worker Name Role Phone Brittanie Benitez MD Primary Ca re Provider Brittanie Benitez MD Unavailabl e Brittanie Benitez MD Unavailabl e Ary Parikh MD Unavailable [phone] Eulalio Newell MD Unavailable [phone] Myranda Negron APRN BUSINESS APPLICATIONS MANAGER Unavailable + Amy Villalba Ra DIRECTOR OF EPIDEMIOLOGY BUSINESS APPLICATIONS MANAGER Unavailable + [phone] Priscilla Carbajal DO Unavailable [phone] Amy Villalba Ra DIRECTOR OF EPIDEMIOLOGY BUSINESS APPLICATIONS MANAGER Primary Care Provid er Renetta MckeonC Unavailable [phone] Amy Villalba Ra DIRECTOR OF EPIDEMIOLOGY BUSINESS APPLICATIONS MANAGER Unavailable + [phone] Pura De La Garza APRN BUSINESS APPLICATIONS MANAGER Unavailable Gabe Moreira MD Unavailable [phone] Dov PosadasC Unavailable [phone] Encounter Details Date Type Department Care Team (Late st Contact Info) Description 12/06/2017 MyC Medical Advice [facility] [place] [facility] [address] [facility] [address] [place] [phone] Dov Posadas PA-C [address] [place] [address] Social History Tobacco Use Types Packs/Day Years [...] documented as of this encounter Care Teams Fountain Worker Relationship Specialty Start Date End Date Brittanie Benitez MD [address] [place] [address] PCP - General Family Practice 01/26/15 01/12/22 Brittanie Benitez MD [address] [place] [address] PCP - Assigned PCP 07/20/17 12/11/18 Amy Villalba Ra, DIRECTOR OF EPIDEMIOLOGY BUSINESS APPLICATIONS MANAGER [address] [place] [address] PCP - General Family Practice 01/13/22 Brittanie Benitez MD [address] [place] [address] Assigned PCP 07/20/17 06/05/21 Ary Parikh MD 420 [facility] [address] [place] [address] Assigned Surgical Provider 07/31/2002/13/21 Eulalio Newell MD [address] [address] Assigned Surgical Provider 02/14/21 Myranda Negron APRN BUSINESS APPLICATIONS MANAGER [address] [address] [facility] [place] [address] Assigned PCP 06/06/21 09/18/21 Amy Villalba Ra, APRN BUSINESS APPLICATIONS MANAGER [address] [facility] [facility] [place] [address] Assigned PCP 09/19/21 [place] [address] [place] [address] Assigned OBGYN Provider 10/24/21 Renetta Mckeon PA-C [address] [place] [address] Physician Transmission Operator Dermatology 05/03/22 Amy Villalba Ra, APRN BUSINESS APPLICATIONS MANAGER [address] [place] [address] Referring Physician Family Practice 11/01/22 Pura De La Garza APRN BUSINESS APPLICATIONS MANAGER [address] [place] [address] Nurse Practitioner Dermatology 11/01/22 Gabe Moreira MD [address] [place] [address] [place] [address] Assigned Neuroscience Provider 12/17/22 Dov Posadas PA-C [address] [address] Assigned Surgical Provider 04/08/23 documented as of this encounter
== END 2023-11-27 15:43 | disposition home or self-care (01) ==
PROVIDERS: PCP Family Medicine; Visit Provider Family Medicine
DX: E03.9 Hypothyroidism, unspecified (principal)
CPT/HCPCS: 84439; 84443; 84480

== ENCOUNTER 2024-10-21 14:42 | Outpatient (CLI) | payer OTHER, SELFPAY | END 2024-10-21 14:43 | disposition home or self-care (01) | PROVIDERS: PCP Family Medicine; Visit Provider Family Medicine | DX: D51.0 Vitamin B12 deficiency anemia due to intrinsic factor deficiency (principal); E03.9 Hypothyroidism, unspecified; E11.9 Type 2 diabetes mellitus without complications; Z13.21 Encounter for screening for nutritional disorder; Z13.220 Encounter for screening for lipoid disorders; Z11.59 Encounter for screening for other viral diseases | CPT/HCPCS: 80053; 80061; 82043; 82306; 82570; 82607; 84439; 84443; 86803 ==

== ENCOUNTER 2025-01-09 12:50 | Outpatient (CLI) | payer OTHER, SELFPAY ==
--- NOTE | 2025-01-09 13:00 | CRLHL7_ITS ---
For Patients: As a result of the Century Cures Act, medical imaging exams and procedure reports are released immediately into your electronic medical record. You may view this report before your referring provider. If you have questions, please contact your health care provider. BILATERAL SCREENING MAMMOGRAM WITH COMPUTER-AIDED DETECTION AND TOMOSYNTHESIS TECHNIQUE: CC and MLO views were obtained. These mammographic images have been obtained using full-field digital technique. These mammographic images were interpreted with the benefit of computer-aided detection. Breast Tomosynthesis was used in this interpretation. COMPARISON FILM: 10/15/21, 10/26/21(RT), 05/16/22(RT). FINDINGS: There are scattered areas of fibroglandular density. IMPRESSION: There is no radiographic evidence for malignancy. ASSESSMENT: BI-RADS Category 2: Benign RECOMMENDATION: Routine screening mammogram in 1 year. A lay language report of this examination will be provided to the patient. Johann Da Silva M.D. Diagnostic Radiologist [email or web address] SP/Dictated by: Johann Da Silva MD @ 01/10/2025 12:53:00 PM (Electronically Signed)
== END 2025-01-09 12:51 | disposition home or self-care (01) ==
LOC: MAMMO 12:52
PROVIDERS: PCP Family Medicine; Visit Provider Family Medicine
DX: Z12.31 Encounter for screening mammogram for malignant neoplasm of breast (principal)
CPT/HCPCS: 77063; 77067

== ENCOUNTER 2025-03-05 07:36 | Outpatient (CLI) | payer OTHER, SELFPAY | END 2025-03-05 07:37 | disposition home or self-care (01) | LOC: NFLDREF 03-11 07:35 | PROVIDERS: PCP Family Medicine; Referring Provider Family Medicine; Visit Provider Family Medicine | DX: E03.9 Hypothyroidism, unspecified (principal) | CPT/HCPCS: 84443 ==